=== PATIENT | male | born 1975 | race American Indian/Alaskan Native ===

== ENCOUNTER 2016-08-29 12:17 | Inpatient (IN) | payer OTHER ==
[2016-08-29 15:34] LABS: Bilirubin,Urine NEG (Negative); Blood,Urine NEG (Negative); Ketones,Urine 80 mg/dL (Negative); Leukocyte Esterase,Urine NEG (Negative); Mucus,Urine FEW /HPF; Nitrite,Urine NEG (Negative); Urobilinogen,Urine < 2.0 mg/dL (<2.0); WBC,Urine < 1.0 /HPF (0.0-6.0)
[2016-08-29] MEDS ORDERED: NACL 0.9% 1000 ML 2,000 ML ONE (15:38)
[2016-08-29 15:40] LABS: Mean Corpuscular HGB Conc 29 % (32-34); Mean Corpuscular Hemoglobin 29 pg (28-32); Mean Corpuscular Volume 101 fl (84-94); Platelet Count 282 K/mm3 (140-440); Red Blood Count 4.72 M/mm3 (3.65-5.03); Red Cell Distribution Width 19.8 % (13.2-15.2); White Blood Count 10.4 K/mm3 (4.5-11.0)
[2016-08-29 15:41] LABS: BUN/Creatinine Ratio 12.77; Calcium 9.4 mg/dL (8.4-10.2); Potassium 5.3 mmol/L (3.6-5.0)
[2016-08-29 15:41] LABS: Hematocrit 47.5 % (35.5-45.6); Hemoglobin 13.7 gm/dl (11.8-15.2)
[2016-08-29] MEDS ORDERED: D50W (25GM) IV PRN (15:50)
--- NOTE | 2016-08-29 15:52 | Emergency Department Report ---
ED General Adult HPI - General Chief complaint: Hyperglycemia Stated complaint: HYPERGLYCEMIA Time Seen by Provider: 08/29/16 15:37 Source: patient, EMS, RN notes reviewed Mode of arrival: Stretcher Limitations: Altered Mental Status, Physical Limitation - History of Present Illness Initial comments: This is a 41-year-old male. He is previously unknown to me. He is brought to the hospital by EMS. As per EMS documentation, patient was at an outpatient gymnasium, found conscious, but minimally responsive. EMS reports the patient is alert and oriented 4 on the scene. Patient informed EMS that he had a history of diabetes. Patient was found to be hypoglycemic in the field. Patient informed EMS that he did not take his insulin prior to having them called. Patient advised EMS that he vomited once prior to arrival. On my evaluation, the patient is somewhat delirious. He is alert to name, follows commands, but is not as oriented. Apparently, as per verbal report from the nurse, patient was found on the floor by EMS. Uncertain how long symptoms have been going on for. Patient cannot describe exacerbating or relieving factors. -: unknown Severity scale (0 -10): 0 Quality: constant Consistency: other (per hpi) Improves with: other (per hpi) Worsens with: other (per hpi) Associated Symptoms: confusion - Related Data Home Medications Medication Instructions Recorded Confirmed Last Taken No Known Home Medications [No 08/29/16 08/29/16 Unknown Reported Home Medications] Allergies Allergy/AdvReac Type Severity Reaction Status Date / Time aspirin Allergy Unknown Verified 05/29/16 22:00 ED Review of Systems ROS: Stated complaint: HYPERGLYCEMIA Other details as noted in HPI Comment: Unobtainable due to pts medical conditions Constitutional: see HPI Eyes: as per HPI Respiratory: see HPI Cardiovascular: as per HPI Endocrine: see HPI Gastrointestinal: as per HPI Genitourinary: as per HPI Musculoskeletal: as per HPI Skin: as per HPI Neurological: as per HPI Psychiatric: as per HPI Hematological/Lymphatic: as per HPI ED Past Medical Hx - Past Medical History Hx Diabetes: Yes Additional medical history: OBESITY - Surgical History Past Surgical History?: No - Social History Smoking Status: Never Smoker Substance Use Type: None - Medications Home Medications: Home Medications Medication Instructions Recorded Confirmed Last Taken Type No Known Home Medications [No 08/29/16 08/29/16 Unknown History Reported Home Medications] ED Physical Exam - General Limitations: Altered Mental Status General appearance: in no apparent distress, lethargic - Head Head exam: Present: atraumatic, normocephalic - Eye Eye exam: Present: normal appearance, PERRL, EOMI. Absent: nystagmus - ENT ENT exam: Present: normal exam, normal orophraynx, mucous membranes moist, normal external ear exam - Neck Neck exam: Present: normal inspection, full ROM. Absent: tenderness, meningismus - Respiratory Respiratory exam: Present: normal lung sounds bilaterally. Absent: respiratory distress, wheezes, rales, rhonchi, stridor, chest wall tenderness - Cardiovascular Cardiovascular Exam: Present: normal rhythm, tachycardia, normal heart sounds. Absent: systolic murmur, diastolic murmur, rubs, gallop - GI/Abdominal GI/Abdominal exam: Present: soft, normal bowel sounds. Absent: distended, tenderness, guarding, rebound, rigid, pulsatile mass - Rectal Rectal exam: Present: deferred - Extremities Exam Extremities exam: Present: normal inspection, full ROM, normal capillary refill. Absent: tenderness, pedal edema, joint swelling, calf tenderness - Back Exam Back exam: Present: normal inspection, full ROM. Absent: tenderness, CVA tenderness (R), CVA tenderness (L), muscle spasm, paraspinal tenderness, vertebral tenderness - Neurological Exam Neurological exam: Present: altered (patient sleepy but arousable. Somewhat delirious.), other (ears no facial droop. Extraocular movements are intact. Patient moves 4 extremities spontaneously and to command.) - Psychiatric Psychiatric exam: Present: flat affect - Skin Skin exam: Present: warm, dry, intact, normal color. Absent: rash ED Course Vital Signs 08/29/16 08/29/16 08/29/16 13:23 14:46 14:50 Temperature 98.2 F Pulse Rate 112 H 109 H 110 H Respiratory 14 9 L 12 Rate Blood Pressure 140/75 Blood Pressure [Left] O2 Sat by Pulse 98 98 99 Oximetry 08/29/16 08/29/16 08/29/16 15:00 15:10 15:19 Temperature 98.1 F Pulse Rate 121 H 118 H 113 H Respiratory 11 L 12 20 Rate Blood Pressure Blood Pressure 136/59 [Left] O2 Sat by Pulse 76 L 100 Oximetry 02/23/17 02/23/17 02/23/17 15:20 15:30 15:40 Temperature Pulse Rate 104 H 113 H 110 H Respiratory 16 17 11 L Rate Blood Pressure 131/87 Blood Pressure [Left] O2 Sat by Pulse 100 99 98 Oximetry 08/29/16 08/29/16 08/29/16 15:50 16:00 16:10 Temperature Pulse Rate 106 H 104 H 110 H Respiratory 17 11 L 12 Rate Blood Pressure 124/94 124/94 124/94 Blood Pressure [Left] O2 Sat by Pulse 99 98 99 Oximetry 08/29/16 08/29/16 08/29/16 16:20 16:30 16:40 Temperature Pulse Rate 108 H 103 H 113 H Respiratory 10 L 15 12 Rate Blood Pressure 129/87 123/87 123/87 Blood Pressure [Left] O2 Sat by Pulse 100 99 100 Oximetry 08/29/16 08/29/16 08/29/16 16:50 17:00 18:00 Temperature 98.2 F 98.5 F Pulse Rate 106 H 101 H 105 H Respiratory 11 L 13 14 Rate Blood Pressure 130/92 131/87 Blood Pressure 134/59 127/80 [Left] O2 Sat by Pulse 100 100 100 Oximetry 08/29/16 08/29/16 08/29/16 18:36 18:40 18:50 Temperature Pulse Rate 101 H 103 H 118 H Respiratory 13 13 Rate Blood Pressure 131/87 127/80 115/82 Blood Pressure [Left] O2 Sat by Pulse 100 100 Oximetry 08/29/16 08/29/16 08/29/16 19:00 19:10 19:20 Temperature Pulse Rate 101 H 100 H 100 H Respiratory 32 H 14 12 Rate Blood Pressure 96/56 96/56 98/60 Blood Pressure [Left] O2 Sat by Pulse 100 100 100 Oximetry 08/29/16 08/29/16 08/29/16 19:30 20:18 20:20 Temperature Pulse Rate 117 H 118 H Respiratory 16 Rate Blood Pressure 99/56 131/96 Blood Pressure [Left] O2 Sat by Pulse 99 99 Oximetry 08/29/16 20:25 Temperature 98.3 F Pulse Rate 98 H Respiratory 18 Rate Blood Pressure 99/56 Blood Pressure [Left] O2 Sat by Pulse 97 Oximetry - Reevaluation(s) Reevaluation #1: 08/29/16 16:38 Differential diagnosis: Intracranial injury, cervical spine injury, pneumonia, urinary tract infection, toxic encephalopathy, metabolic encephalopathy, diabetic ketoacidosis Assessment and plan: 41-year-old male with laboratory studies, delirium, presentation that suggest diabetic ketoacidosis. Awake, protecting airway, does not require intubation. There is a history of questionable trauma. CT scan of the head and cervical spine are ordered. X-ray of the chest is negative. Urinalysis is pending. IV fluids ordered. Insulin drip ordered. Insulin bolus ordered. Case is discussed with the credit collections specialist physician, Dr. Denis, who will see the patient in consultation for diabetic ketoacidosis. Plan to admit once CAT scan of the head and cervical spine have been returned. Serum toxicology studies ordered. Reevaluation #2: 08/29/16 17:20 Dr Bang accepts patient to his service Reevaluation #3: 08/29/16 19:20 CT scan of the brain negative for acute injury. CT scan of the cervical spine negative for fracture/dislocation. Patient is moving 4 extremities spontaneously. no indication of neck pain. Incidental findings are suggested on CT scan of the cervical spine. Clinically don't think the patient has cord compression at this time. Case is discussed with the hospital physician, Dr. bang, who accepts the patient to his service. ED Medical Decision Making - Lab Data Result diagrams: 08/29/16 15:01 08/30/16 12:44 Vital Signs 08/29/16 08/29/16 13:23 15:19 Temperature 98.2 F 98.1 F Pulse Rate 112 H 113 H Respiratory 14 20 Rate Blood Pressure 140/75 Blood Pressure 136/59 [Left] O2 Sat by Pulse 98 100 Oximetry Labs 08/29/16 08/29/16 08/29/16 13:18 13:26 15:01 WBC 10.4 RBC 4.72 Hgb 13.7 Hct 47.5 H MCV 101 H MCH 29 MCHC 29 L RDW 19.8 H Plt Count 282 Lymph % (Auto) Field Application Engineer [place] % (Auto) Field Application Engineer Eos % (Auto) Field Application Engineer Baso % (Auto) Field Application Engineer Lymph # Field Application Engineer [place] # Field Application Engineer Eos # Field Application Engineer Baso # Field Application Engineer Seg Neutrophils % Field Application Engineer Seg Neutrophils # Field Application Engineer Sodium Potassium Chloride Carbon Dioxide Anion Gap BUN Creatinine Estimated GFR BUN/Creatinine Ratio Glucose POC Glucose > 500 H Calcium Urine Color Straw Urine Turbidity Clear Urine pH 5.0 Ur Specific [place] 1.023 Urine Protein 30 mg/dl Urine Glucose (UA) >=500 Urine Ketones 80 Urine Blood Neg Urine Nitrite Neg Urine Bilirubin Neg Urine Urobilinogen < 2.0 Ur Leukocyte Esterase Neg Urine WBC (Auto) < 1.0 Urine RBC (Auto) 3.0 U Epithel Cells (Auto) < 1.0 Urine Mucus Few Ketones 08/29/16 15:10 WBC RBC Hgb Hct MCV MCH MCHC RDW Plt Count Lymph % (Auto) [place] % (Auto) Eos % (Auto) Baso % (Auto) Lymph # [place] # Eos # Baso # Seg Neutrophils % Seg Neutrophils # Sodium 136 L Potassium 5.3 H Chloride 90.0 L Carbon Dioxide 8 L* Anion Gap 44 BUN 23 H Creatinine 1.8 H Estimated GFR 51 BUN/Creatinine Ratio 12.77 Glucose 655 H* POC Glucose Calcium 9.4 Urine Color Urine Turbidity Urine pH Ur Specific [place] Urine Protein Urine Glucose (UA) Urine Ketones Urine Blood Urine Nitrite Urine Bilirubin Urine Urobilinogen Ur Leukocyte Esterase Urine WBC (Auto) Urine RBC (Auto) U Epithel Cells (Auto) Urine Mucus Ketones 125.0 H - EKG Data -: EKG Interpreted by Me EKG shows normal: axis, intervals, QRS complexes Rate: tachycardia - EKG Data When compared to previous EKG there are: previous EKG unavailable 08/29/16 19:22 sinus tachycardia, 104 bpm, motion artifact, not morphologically consistent with STEMI. - Radiology Data Radiology results: report reviewed, image reviewed interpreted by me: X-ray of the chest is negative for acute disease. CT scan of the brain and cervical spine negative for fracture/dislocation Critical Care Time: Yes Critical care time in (mins) excluding proc time.: 45 Critical care attestation.: If time is entered above; I have spent that time in minutes in the direct care of this critically ill patient, excluding procedure time. Critical Care Time: Critical care time includes multiple bedside evaluations, interpretation of laboratory studies, radiology studies, time spent managing critically ill patient with diabetic ketoacidosis, requiring insulin drip, insulin push, fluids, consultation with hospital medicine, critical care medicine. this excludes procedure time. ED Disposition Clinical Impression: DKA (diabetic ketoacidoses), Encephalopathy Disposition: OP ADMITTED IP TO THIS HOSP Is pt being admited?: Yes Does the pt Need Aspirin: No Condition: Critical
[2016-08-29] MEDS ORDERED: NACL 0.9% 500 ML IV SCH (16:00)
--- NOTE | 2016-08-29 16:02 | Admit Criteria Form ---
Admission Criteria Documentation: DIABETES Clinical Indications for Admission to Inpatient Care (Place 'X' for any and all applicable criteria): Admission is indicated by presence of ALL (if I & II) or ANY ONE (if III or IV) of the following (1)(2)(3)(4): [X]I. Diabetes is uncontrolled as indicated by ANY ONE of the following: [X]a) Diabetic ketoacidosis as indicated by ALL of the following (8): [X]i) Hyperglycemia (eg, plasma glucose greater than 200 mg/ dL (11.1 mmol/L)) [X]ii) Acidosis (eg, arterial pH less than 7.30, serum bicarbonate level less than 15 mEq/L (mmol/L)) [X]iii) Moderate ketonuria or ketonemia [ ]b) Hyperglycemic hyperosmolar state as indicated by ALL of the following(9)(10): [ ]i) Neurologic dysfunction (eg, stupor, coma, hemiparesis , seizure)(13) [ ]ii) Plasma glucose greater than 600 mg/dL (33.3 mmol/L) [ ]iii) Serum osmolality greater than 320 mOsm/kg (mmol/kg) [X]c) Severe signs or symptoms secondary to hyperglycemia indicated by ANY ONE of the following: [X]i) Altered mental status(10) [X]ii) Significant hypovolemia or dehydration [ ]iii) Intractable nausea or vomiting [ ]iv) Unexplained fever or severe infection [ ]v) Severe electrolyte abnormality (eg, hypokalemia, hyperkalemia, hypernatremia) [ ]II. Management at other levels of care (Also use Diabetes: Observation Care as appropriate) is not feasible because of ANY ONE of the following: [ ]a) Condition was not adequately corrected with treatment at other levels of care. [ ]b) Treatment at other levels of care is not appropriate because of condition severity (eg, hyperosmolar coma). [ ]III. Contraindications and/or Inappropriate clinical situations for Observational Care in patients with Diabetes, when ANY ONE of the following is required: [ ]a) Patient require specific diagnostic workup or therapeutic intervention 22 [ ]b) Patient with abnormal vital signs or altered mental status 23 [X]IV. General contraindications and/or Inappropriate clinical situations for Observational Care in patients with Diabetes, when ANY ONE of the following is required: [ ]a) Prediction of prolongation of LOS based on ANY ONE of the following may be considered as a contraindication for observational care 2, 3, 4, 5, 6, 7, 8, 9, 10, 11 [ ]i) Age > 65 yrs. [ ]ii) Patient arriving by ambulance [ ]iii) Patient with high acuity [ ]iv) Patient requiring vital sign monitoring [ ]v) Patient on IV medication [ ]b) Systolic blood pressures 180mmHg 3,12 [X]c) Patient with altered mental status including delirium and other alteration of consciousness, (3) [ ]d) Patient whose discharge disposition will be to a [facility] home or rehabilitation home should not be managed in Emergency Department Observation Unit. CMS rule requires 3 days hospital stay before such placement.3,13 [ ]e) Patient with failure to thrive due to broad array of etiologies 3,16,17 [ ]f) Inability to ambulate 3,14 Extended stay beyond goal length of stay may be needed for(3)(20): [ ]a) Treatment of precipitating causes [ ]b) Development of hypoglycemia [ ]c) Complications of treatment [ ]d) Complications of decompensated diabetes (eg, acute gastric dilatation, persistent metabolic or neurologic derangement) [ ]e) Active Comorbidities [ ]f) Older patients( 65 years or older) The original [email or web address] content created by [employer] has been revised. The portions of the content which have been revised are identified through the use of italic text or in bold,and [facility] has neither reviewed nor approved the modified material. All other unmodified content is copyright [facility]. Please see references footnoted in the original [email or web address] edition 2016 Admission Criteria Met: Yes
[2016-08-29 16:54] LABS: BUN/Creatinine Ratio 13.52; Calcium 9.4 mg/dL (8.4-10.2); Magnesium 2.2 mg/dL (1.7-2.3); Phosphorous 3.9 mg/dL (2.5-4.5)
--- NOTE | 2016-08-29 17:58 | Cat Scan Report ---
FINAL REPORT PROCEDURE: CT HEAD/BRAIN WO CON TECHNIQUE: Computerized tomography of the head was performed without contrast material. HISTORY: Altered mental status COMPARISON: No prior studies are available for comparison. FINDINGS: Brain: Brain density appears normal. No evidence of intracranial hemorrhage. No parenchymal hemorrhage, mass lesions or mass effect are seen. No abnormal extraxial fluid collects or masses are seen. Ventricles: Ventricles are normal size and are midline. Bone Windows: No evidence of skull fracture. Paranasal sinuses: Visualized portions of the paranasal sinuses appear clear. Mastoid air cells: Clear IMPRESSION: Negative exam.
--- NOTE | 2016-08-29 18:08 | Cat Scan Report ---
FINAL REPORT PROCEDURE: CT CERVICAL SPINE WO CON TECHNIQUE: Computerized tomography of the cervical spine was performed from the skull base to T1 without contrast material. HISTORY: ams COMPARISON: No prior studies are available for comparison. FINDINGS: No fracture or subluxation is seen. The prevertebral soft tissues appear normal. Posterior elements are intact. Mild facet arthritis is visualized C1-2: No significant abnormality. C2-3: No significant abnormality.. There is ossification of the posterior longitudinal ligament at the C3 level which obscures the anterior epidural space and may be mildly impressing the anterior surface of the cord. C3-4: Ossification of the posterior longitudinal ligament is present. This obscures the anterior epidural space and may be mildly compressing the anterior surface of the cord centrally and to the right of midline.. C4-5: Anterior osteophytic spurs are present. No evidence of focal disc herniation or spinal stenosis.. C5-6: Posterior osteophytic spurs are present overlying a mild disc bulge without focal disc herniation or spinal stenosis. Ossification of the posterior longitudinal ligament is also present.. This is larger to the right than the left. Neural foramina on the right is mildly narrowed although appears adequate. C6-7: No significant abnormality. C7-T1: No significant abnormality. Other: No additional findings. IMPRESSION: Calcifications of the posterior longitudinal ligament and posterior osteophytic spurring is present as described. At the C2-C3 level ossification of the posterior longitudinal ligament obscures the anterior epidural space and may be mildly compressing the anterior surface of the cord. This is also visualized at C3-C4.. Posterior osteophytic spurring and ossification of the posterior longitudinal ligament at C5-C6 obscures the anterior epidural space without definite cord compression. This is larger to the right than the left.
[2016-08-29] MEDS: NovoLIN R 100 UNITS in NACL 0.9% 99 ML IV SCH (19:40)
[2016-08-29] MEDS: D5W/0.45% NACL/KCL 20 MEQ 20 MEQ/1,000 ML BAG IV SCH (20:55)
--- NOTE | 2016-08-29 23:16 | Event Note ---
Date: 08/29/16 See H/p in reports DKA Encephalopathy-metabolic Hyperkalemia Acute renal failure
[2016-08-29 23:27] LABS: Urine Drugs of Abuse Note Disclamer
[2016-08-30 04:14] LABS: Blood Urea Nitrogen 18 mg/dL (9-20); Calcium 9.5 mg/dL (8.4-10.2); Carbon Dioxide 17 mmol/L (22-30); Chloride 110.1 mmol/L (98-107); Glucose 161 mg/dL (75-100); Sodium 149 mmol/L (137-145)
[2016-08-30 04:30] LABS: Anion Gap 26 mmol/L; Potassium 3.9 mmol/L (3.6-5.0)
--- NOTE | 2016-08-30 07:59 | XRay Report ---
CHEST ONE VIEW INDICATION: Altered mental status. Evaluate for pneumonia. COMPARISON: None similar. FINDINGS: Portable, single, frontal chest radiograph demonstrates normal cardiomediastinal silhouette. Clear lungs. Unremarkable bones. CONCLUSION: No acute disease in the chest. Thank you for the opportunity to participate in this patient's care.
[2016-08-30] MEDS: D5W/0.45% NACL/KCL 20 MEQ 20 MEQ/1,000 ML BAG IV SCH ×2 (08:19→17:09)
[2016-08-30 08:51] LABS: BUN/Creatinine Ratio 13.84; Blood Urea Nitrogen 18 mg/dL (9-20); Calcium 9.8 mg/dL (8.4-10.2); Carbon Dioxide 17 mmol/L (22-30); Chloride 113.7 mmol/L (98-107); Glucose 190 mg/dL (75-100); Sodium 150 mmol/L (137-145)
--- NOTE | 2016-08-30 08:51 | History and Physical Report ---
CHIEF COMPLAINT: Found unconscious at outside of gym. HISTORY OF PRESENT ILLNESS: A 41-year-old brought in by EMS. He was apparently initially unconscious at the scene, but was alert and oriented by the time the EMS was arrived. The patient had high sugar and apparently, the patient has not been taking his insulin. The patient vomited once while in the EMS van. At the time of admission to the ER, the patient was ___ alert to name and follows commands, but not oriented. Confused. Conflicting reports. The patient was initially unresponsive, but later alert and oriented. No fever. No chills as per the patient. PAST MEDICAL HISTORY: Asthma and insulin-dependent diabetes. SURGICAL HISTORY: None. SOCIAL HISTORY: Does not smoke. FAMILY HISTORY: Unavailable. CURRENT MEDICATIONS: Not taking his insulin. REVIEW OF SYSTEMS: GENERAL: No weight loss. No weight gain. No fever. No chills. HEENT: No sore throat. No postnasal drip. CVS AND RESPIRATORY SYSTEMS: No shortness of breath. No chest pain. No wheezing. GI: Nausea present. Vomited x1. No diarrhea. GENITOURINARY SYSTEM: No dysuria. No flank pain. MUSCULOSKELETAL SYSTEMS: No joint pains. CENTRAL NERVOUS SYSTEM: altered sensorium in the ER. Somewhat delirious. NEUROLOGIC: No focal deficits. PSYCHIATRIC: No homicidal or suicidal ideations. SKIN: No rashes. PHYSICAL EXAMINATION: GENERAL: On examination, middle-aged male altered sensorium. Occasionally, alert and oriented and talks well and occasionally intermittently confused and delirious VITAL SIGNS: Temperature 98.2, pulse is 112, respirations are 14, blood pressure 140/75, and O2 sats are 98%. HEENT: Dry mucous membranes. NECK: Supple. No lymphadenopathy. No thyromegaly. No neck stiffness. LUNGS: Clear to auscultation and percussion. Good air entry. CARDIOVASCULAR: S1 and S2 heard. No gallop. No murmur. No rub. Apical impulse in left fifth intercostal space and midclavicular line. ABDOMEN: Soft and benign. No hepatosplenomegaly. No guarding. No rigidity. Hernial orifices are normal. EXTREMITIES: Good pedal pulses. No pedal edema. BASE MANAGER: Ranging from alert and oriented to confusion and delirious. Able to move all four extremities. LABORATORY DATA AND IMAGING STUDIES: CT scan of the cervical spine negative for fracture or dislocation. The patient is moving four extremities spontaneously. Labs glucose is 605, bicarbonate 8, and potassium was 5.0. BUN and creatinine is 23 and 1.7. Urine shows more than 500 glucose. Also, ketones 125. BUN and creatinine 23 and 1.8. EKG shows sinus tachycardia 104 per minute. X-ray is negative for acute disease. ASSESSMENT AND PLAN: 1. Diabetic ketoacidosis. Diabetic ketoacidosis protocol initiated. The patient recounseled about taking regular insulin and insulin on a regular basis. 2. Encephalopathy and metabolic secondary to high blood glucose levels. 3. Hyperacute renal failure. IV fluids for the time being and monitor BUN and creatinine. 4. Deep venous thrombosis prophylaxis, Lovenox 40 mg subcutaneous daily. 5. Hyperkalemia, should be corrected with IV insulin. CRITICAL CARE STATEMENT: The high probability of a clinically significant sudden or life-threatening deterioration of the pulmonary system required my full and direct attention, intervention, and personal management. The aggregate critical care time was 35 minutes. The time is in addition to time spent performing reported procedures, but includes the following; 1. Data reviewing and interpretation. 2. The patient assessment and monitoring of vital signs. 3. Documentation. 4. Medication orders and management. JOB# [id number] FLOYD/NTS
[2016-08-30 09:26] LABS: Anion Gap 25 mmol/L; Potassium 5.8 mmol/L (3.6-5.0)
[2016-08-30 13:10] LABS: Anion Gap 23 mmol/L; Blood Urea Nitrogen 16 mg/dL (9-20); Calcium 9.4 mg/dL (8.4-10.2); Carbon Dioxide 19 mmol/L (22-30); Chloride 111.9 mmol/L (98-107); Glucose 234 mg/dL (75-100); Potassium 4.3 mmol/L (3.6-5.0); Sodium 150 mmol/L (137-145)
--- NOTE | 2016-08-30 13:14 | Consultation ---
History of Present Illness Consult date: 08/30/16 Requesting physician: EVER PALACIOS Reason for consult: other (DKA) History of present illness: PULMONARY/CCM CONSULT NOTE (Full dictation # [id number]) Please see dictated notes for full details Medications and Allergies Allergies Allergy/AdvReac Type Severity Reaction Status Date / Time aspirin Allergy Unknown Verified 05/29/16 22:00 Home Medications Medication Instructions Recorded Confirmed Last Taken Type No Known Home Medications [No 08/29/16 08/29/16 Unknown History Reported Home Medications] Active Meds: Active Medications Dextrose (D50w (25gm)) 0 ml IV PRN PRN PRN Reason: Hypoglycemia Potassium Chloride/Dextrose/Sod Cl (D5w/0.45% Nacl/Kcl 20 Meq) 20 meq in 1,000 mls @ 125 mls/hr IV DIRECT ROSSY Last Admin: 08/30/16 08:19 Dose: 125 mls/hr Insulin Human Regular 100 (units/ Sodium Chloride) 100 mls @ 1 mls/hr IV TITR ROSSY; 1 UNITS/HR PRN Reason: Protocol Last Titration: 08/30/16 12:13 Dose: 8 units/hr, 8 mls/hr Sodium Chloride (Nacl 0.9% 500 Ml) 2,000 ml IV NOW ROSSY Last Admin: 08/29/16 17:09 Dose: 2,000 ml Physical Examination Vital signs: Vital Signs Temp Pulse Resp BP Pulse Ox 98.2 F 112 H 14 140/75 98 08/29/16 13:23 08/29/16 13:23 08/29/16 13:23 08/29/16 13:23 08/29/16 13:23 Results - Laboratory Findings CBC and BMP: 08/29/16 15:01 08/30/16 12:44 Abnormal lab findings: Abnormal Labs 08/29/16 08/29/16 08/29/16 19:36 20:31 21:28 Sodium Potassium Chloride Carbon Dioxide Glucose POC Glucose 403 H 374 H 286 H 08/29/16 08/29/16 08/29/16 21:52 23:16 23:35 Sodium Potassium Chloride Carbon Dioxide Glucose POC Glucose 283 H 173 H 159 H 08/30/16 08/30/16 08/30/16 00:11 01:12 02:07 Sodium Potassium Chloride Carbon Dioxide Glucose POC Glucose 152 H 159 H 159 H 0208/30/16 08/30/16 03:16 03:32 04:18 Sodium 149 H D Potassium Chloride 110.1 H Carbon Dioxide 17 L D Glucose 161 H POC Glucose 173 H 181 H 08/30/16 08/30/16 08/30/16 05:04 05:57 07:13 Sodium Potassium Chloride Carbon Dioxide Glucose POC Glucose 183 H 177 H 167 H 08/30/16 08/30/16 07:54 12:44 Sodium 150 H 150 H Potassium 5.8 H D Chloride 113.7 H 111.9 H Carbon Dioxide 17 L 19 L Glucose 190 H 234 H POC Glucose
[2016-08-30] MEDS: NovoLIN R 100 UNITS in NACL 0.9% 99 ML IV SCH (14:25)
--- NOTE | 2016-08-30 15:00 | Progress Note ---
Assessment and Plan Assessment and plan: DKA - Patient is in the ICU managed according to DKA protocol - The gap is closing - Last bicarbonate was 19 - Patient is on D5 half-normal saline - Started on long-acting insulin Hypernatremia - Patient is on D5 half normal saline Prophylaxis - DVT on lovenox - GI on famotidine Disposition - Continue inpatient care History Interval history: Patient was sleepy, patient complains hungry, he went to sleep while i am talking to him. Hospitalist Physical - Physical exam Narrative exam: Not in cardiopulmonary distress. Patient mouth is dry. The patient appeared well nourished and normally developed. Vital signs as documented. Head exam is unremarkable. No scleral icterus . Neck is without jugular venous distension, thyromegaly, or carotid bruits. Lungs are clear to auscultation. Cardiac exam reveals regular rate and Rhythm. First and second heart sounds normal. No murmurs, rubs or gallops. Abdominal exam reveals normal bowel sounds, no masses, no organomegaly and no aortic enlargement. Extremities are nonedematous and both femoral and pedal pulses are normal. VINYL DIPPER: Patient is sleepy. - Constitutional Vitals: Temp Pulse Resp BP Pulse Ox 98.1 F 76 11 L 115/70 97 08/30/16 08:00 08/30/16 06:30 08/30/16 06:30 08/30/16 06:30 08/30/16 06:30 Results - Labs CBC & Chem 7: 08/29/16 15:01 08/30/16 12:44 Labs: Laboratory Last Values WBC 10.4 K/mm3 (4.5-11.0) 08/29/16 15:01 RBC 4.72 M/mm3 (3.65-5.03) 08/29/16 15:01 Hgb 13.7 gm/dl (11.8-15.2) 08/29/16 15:01 Hct 47.5 % (35.5-45.6) H 08/29/16 15:01 MCV 101 fl (84-94) H 08/29/16 15:01 MCH 29 pg (28-32) 08/29/16 15:01 MCHC 29 % (32-34) L 08/29/16 15:01 RDW 19.8 % (13.2-15.2) H 08/29/16 15:01 Plt Count 282 K/mm3 (140-440) 08/29/16 15:01 Lymph % (Auto) Chaperone 08/29/16 15:01 Craig % (Auto) Chaperone 08/29/16 15:01 Eos % (Auto) Chaperone 08/29/16 15:01 Baso % (Auto) Chaperone 08/29/16 15:01 Lymph # Chaperone 08/29/16 15:01 Craig # Chaperone 08/29/16 15:01 Eos # Chaperone 08/29/16 15:01 Baso # Chaperone 08/29/16 15:01 Seg Neutrophils % Chaperone 08/29/16 15:01 Seg Neutrophils # Chaperone 08/29/16 15:01 VBG pH 7.158 (7.320-7.420) L* 08/29/16 16:04 Sodium 150 mmol/L (137-145) H 08/30/16 12:44 Potassium 4.3 mmol/L (3.6-5.0) D 08/30/16 12:44 Chloride 111.9 mmol/L (98-107) H 08/30/16 12:44 Carbon Dioxide 19 mmol/L (22-30) L 08/30/16 12:44 Anion Gap 23 mmol/L 08/30/16 12:44 BUN 16 mg/dL (9-20) 08/30/16 12:44 Creatinine 1.3 mg/dL (0.8-1.5) 08/30/16 12:44 Estimated GFR > 60 ml/min 08/30/16 12:44 BUN/Creatinine Ratio 12.30 % 08/30/16 12:44 Glucose 234 mg/dL (75-100) H 08/30/16 12:44 POC Glucose 167 (70-105) H 08/30/16 07:13 Lactic Acid 2.2 mmol/L (0.7-2.0) H* 08/29/16 16:04 Calcium 9.4 mg/dL (8.4-10.2) 08/30/16 12:44 Phosphorus 3.9 mg/dL (2.5-4.5) 08/29/16 16:04 Magnesium 2.2 mg/dL (1.7-2.3) 08/29/16 16:04 Total Creatine Kinase 47 units/L (55-170) L 08/29/16 16:04 Urine Color Straw (Yellow) 08/29/16 13:26 Urine Turbidity Clear (Clear) 08/29/16 13:26 Urine pH 5.0 (5.0-7.0) 08/29/16 13:26 Ur Specific [place] 1.023 (1.003-1.030) 08/29/16 13:26 Urine Protein 30 mg/dl mg/dL (Negative) 08/29/16 13:26 Urine Glucose (UA) >=500 mg/dL (Negative) 08/29/16 13:26 Urine Ketones 80 mg/dL (Negative) 08/29/16 13:26 Urine Blood Neg (Negative) 08/29/16 13:26 Urine Nitrite Neg (Negative) 08/29/16 13:26 Urine Bilirubin Neg (Negative) 08/29/16 13:26 Urine Urobilinogen < 2.0 mg/dL (<2.0) 08/29/16 13:26 Ur Leukocyte Esterase Neg (Negative) 08/29/16 13:26 Urine WBC (Auto) < 1.0 /HPF (0.0-6.0) 08/29/16 13:26 Urine RBC (Auto) 3.0 /HPF (0.0-6.0) 08/29/16 13:26 U Epithel Cells (Auto) < 1.0 /HPF (0-13.0) 08/29/16 13:26 Urine Mucus Few /HPF 08/29/16 13:26 Salicylates 0.7 mg/dL (2.8-20.0) L 08/29/16 16:04 Urine Opiates Screen Presumptive negative 08/29/16 13:26 Urine Methadone Screen Presumptive negative 08/29/16 13:26 Acetaminophen < 15.0 ug/mL (10.0-30.0) 08/29/16 16:04 Ur Barbiturates Screen Presumptive negative 08/29/16 13:26 Ur Phencyclidine Scrn Presumptive negative 08/29/16 13:26 Ur Amphetamines Screen Presumptive negative 08/29/16 13:26 U Benzodiazepines Scrn Presumptive negative 08/29/16 13:26 Urine Cocaine Screen Presumptive negative 08/29/16 13:26 U Marijuana (THC) Screen Presumptive negative 08/29/16 13:26 Drugs of Abuse Note Disclamer 08/29/16 13:26 Ketones 125.0 mg/dL (0.2-2.8) H 08/29/16 15:10
[2016-08-30] MEDS: LOVENOX SUB-Q SCH (21:29)
--- NOTE | 2016-08-31 03:35 | Consultation ---
CONSULTING PHYSICIAN: . REASON FOR CONSULTATION: Need for ICU admission for IV insulin therapy. CHIEF COMPLAINT AND HISTORY OF PRESENT ILLNESS: The patient is a 41-year-old -[place] male unknown to me, past medical history significant for diagnosis of diabetes, he was found at an outpatient gym, he was conscious, but minimally responsive. EMS reported to the scene, he was alert and oriented. history of diabetes who was hypoglycemic. He was brought into the Emergency Room. In the Emergency Room, he was alert. He has never followed commands, he was not oriented. Evaluation was started. He was still found to be in diabetic ketoacidosis and ICU admission was requested for IV insulin therapy. When I stopped by to see him, he just had breakfast, but he was not responding to my questions. Appropriately, he was more lethargic, I would say. He did deny any acute chest pains. I do not have any history of nausea or overt aspiration. The above is as much of the history of presentation as I have. With regards to his tobacco use/abuse history, he denied any history of tobacco smoke at presentation. PAST MEDICAL HISTORY: Diabetes. PAST SURGICAL HISTORY: Denied. MEDICATIONS: He was on at the time I stopped by to see him, according to the medication administration record included the following: He was on IV insulin drip at 14 units per hour and dextrose half NS with KCl per protocol. ALLERGIES: TO ASPIRIN. Nature of this allergy is unknown. DIET: Well-built gentleman. Acute weight loss or gain history is unknown. FAMILY AND SOCIAL HISTORY: Apparently lived in the community. Denied alcohol, tobacco, or illicit drug use or abuse. REVIEW OF SYSTEMS: No overt loss of consciousness, although he had altered mental status. No new onset focal weakness. No gross hematochezia or melena. No gross hematuria. Since he has been here, no hematemesis, no hemoptysis, no witnessed seizures. Review of systems otherwise unobtainable secondary to the patient's medical and mental condition. PHYSICAL EXAMINATION: VITAL SIGNS: At presentation in the Emergency Room, review of the vital signs shows that he was afebrile, temperature 98.2, pulse was 112, respiratory rate was 14, blood pressure was 140/75, oxygen sats were 98%, inspired oxygen concentration was not recorded. HEENT, EYES, EARS, NOSE AND THROAT: Pupils are equal, round, about 3-4 mm, reactive to light. Extraocular muscle movements appeared intact. Grossly, there were no palpable lymph nodes in the supraclavicular or submandibular lymph node chains. LUNGS: Auscultation of both lung valencia was unremarkable. Lungs are clear bilaterally. HEART: Heart sounds 1 and 2 were heard. Regular rate and rhythm at time of my evaluation. ABDOMEN: Soft, full, bowel sounds are positive, nontender. EXTREMITIES: Without overt digital clubbing, cyanosis, or pedal edema. NEUROLOGIC: The exam was grossly nonfocal. LABORATORY DATA: From my review are as follows: White cell count 10,400 on admission, hemoglobin 13.7, hematocrit 47.5, platelets 282. Venous blood gas showed a pH of 7.16. Serum sodium was 136, potassium 5.3, chloride 90, bicarbonate 8, BUN 23, creatinine 1.8, glucose was 655. Urinalysis was negative for nitrites and leukocyte esterase. Aspirin and Tylenol levels were within normal limits. Urine drug screen was negative. Serum ketones are elevated at 125. Potassium did correct to 3.9. Most recent potassium is 4.3. No microbiology studies. Chest x-ray was done. A CT of the head was done, I am pulling up the films, I have reviewed the radiologist's interpretation. CT of the head was reported as negative exam, negative for any acute process. CT of the C-spine was also done, no acute fracture was reported and chest x-ray was also done and the radiologist's reports that as no acute disease in the chest. ASSESSMENT AND PLAN: We have a middle-aged gentleman in with diabetic ketoacidosis, probably needing IV insulin therapy and that we will continue in the Intensive Care Unit. In the meantime, I will put him on GI prophylaxis as well as DVT prophylaxis. Flu and pneumonia vaccination will be per protocol. He has been followed by the attending physician. Thank you very much for the consult. We will follow along and make further recommendations as the picture progresses/becomes clear. JOB# [id number] UMESH/STEFAN
[2016-08-31 08:36] LABS: Basophils % (Auto) 1.1 % (0.0-1.8); Eosinophils % (Auto) 1.4 % (0.0-4.3); Hemoglobin 11.9 gm/dl (11.8-15.2); Mean Corpuscular HGB Conc 32 % (32-34); Mean Corpuscular Hemoglobin 29 pg (28-32); Platelet Count 181 K/mm3 (140-440); Red Blood Count 4.09 M/mm3 (3.65-5.03); Red Cell Distribution Width 19.4 % (13.2-15.2); White Blood Count 5.8 K/mm3 (4.5-11.0)
[2016-08-31 08:52] LABS: Blood Urea Nitrogen 12 mg/dL (9-20); Calcium 9.2 mg/dL (8.4-10.2); Carbon Dioxide 21 mmol/L (22-30); Glucose 392 mg/dL (75-100)
[2016-08-31 08:53] LABS: Anion Gap 18 mmol/L; Chloride 104.3 mmol/L (98-107); Potassium 3.3 mmol/L (3.6-5.0); Sodium 140 mmol/L (137-145)
[2016-08-31 09:07] LABS: Hematocrit 37.1 % (35.5-45.6)
[2016-08-31 09:08] LABS: Mean Corpuscular Volume 91 fl (84-94)
[2016-08-31] MEDS ORDERED: PEPCID IV SCH (10:00)
[2016-08-31] MEDS: PEPCID PO SCH (11:52)
[2016-08-31] MEDS ORDERED: K-DUR PO ONE ×3 (14:35→18:00)
--- NOTE | 2016-08-31 14:37 | Progress Note ---
Assessment and Plan Assessment and plan: DKA - Patient managed according to DKA protocol - The gap is closed - Last bicarbonate was 19 - Patient is on D5 half-normal saline - Started on long-acting insulin Hypernatremia - Patient is on D5 half normal saline Prophylaxis - DVT on lovenox - GI on famotidine Disposition - Continue inpatient care Disposition Plan: patient can be discharged tomorrow History Interval history: Patient is feeling better, he is homeless and was not able to afford his medications. Hospitalist Physical - Physical exam Narrative exam: Not in cardiopulmonary distress. Patient mouth is dry. The patient appeared well nourished and normally developed. Vital signs as documented. Head exam is unremarkable. No scleral icterus . Neck is without jugular venous distension, thyromegaly, or carotid bruits. Lungs are clear to auscultation. Cardiac exam reveals regular rate and Rhythm. First and second heart sounds normal. No murmurs, rubs or gallops. Abdominal exam reveals normal bowel sounds, no masses, no organomegaly and no aortic enlargement. Extremities are nonedematous and both femoral and pedal pulses are normal. RAMP JOCKEY: Patient is sleepy. - Constitutional Vitals: Temp Pulse Resp BP Pulse Ox 98.1 F 73 18 125/79 98 08/31/16 08:15 08/31/16 08:15 08/31/16 08:15 08/31/16 08:15 08/31/16 08:15 Results - Labs CBC & Chem 7: 08/31/16 08:03 08/31/16 08:03 Labs: Laboratory Last Values WBC 5.8 K/mm3 (4.5-11.0) 08/31/16 08:03 RBC 4.09 M/mm3 (3.65-5.03) 08/31/16 08:03 Hgb 11.9 gm/dl (11.8-15.2) 08/31/16 08:03 Hct 37.1 % (35.5-45.6) D 08/31/16 08:03 MCV 91 fl (84-94) D 08/31/16 08:03 MCH 29 pg (28-32) 08/31/16 08:03 MCHC 32 % (32-34) 08/31/16 08:03 RDW 19.4 % (13.2-15.2) H 08/31/16 08:03 Plt Count 181 K/mm3 (140-440) 08/31/16 08:03 Lymph % (Auto) 22.5 % (13.4-35.0) 08/31/16 08:03 [place] % (Auto) 5.4 % (0.0-7.3) 08/31/16 08:03 Eos % (Auto) 1.4 % (0.0-4.3) 08/31/16 08:03 Baso % (Auto) 1.1 % (0.0-1.8) 08/31/16 08:03 Lymph # 1.3 K/mm3 (1.2-5.4) 08/31/16 08:03 [place] # 0.3 K/mm3 (0.0-0.8) 08/31/16 08:03 Eos # 0.1 K/mm3 (0.0-0.4) 08/31/16 08:03 Baso # 0.1 K/mm3 (0.0-0.1) 08/31/16 08:03 Seg Neutrophils % 69.6 % (40.0-70.0) 08/31/16 08:03 Seg Neutrophils # 4.0 K/mm3 (1.8-7.7) 08/31/16 08:03 VBG pH 7.158 (7.320-7.420) L* 08/29/16 16:04 Sodium 140 mmol/L (137-145) D 08/31/16 08:03 Potassium 3.3 mmol/L (3.6-5.0) L D 08/31/16 08:03 Chloride 104.3 mmol/L (98-107) 08/31/16 08:03 Carbon Dioxide 21 mmol/L (22-30) L 08/31/16 08:03 Anion Gap 18 mmol/L 08/31/16 08:03 BUN 12 mg/dL (9-20) 08/31/16 08:03 Creatinine 1.1 mg/dL (0.8-1.5) 08/31/16 08:03 Estimated GFR > 60 ml/min 08/31/16 08:03 BUN/Creatinine Ratio 10.90 % 08/31/16 08:03 Glucose 392 mg/dL (75-100) H 08/31/16 08:03 POC Glucose 374 (70-105) H 08/31/16 11:53 Lactic Acid 2.2 mmol/L (0.7-2.0) H* 08/29/16 16:04 Calcium 9.2 mg/dL (8.4-10.2) 08/31/16 08:03 Phosphorus 3.9 mg/dL (2.5-4.5) 08/29/16 16:04 Magnesium 2.2 mg/dL (1.7-2.3) 08/29/16 16:04 Total Creatine Kinase 47 units/L (55-170) L 08/29/16 16:04 Urine Color Straw (Yellow) 08/29/16 13:26 Urine Turbidity Clear (Clear) 08/29/16 13:26 Urine pH 5.0 (5.0-7.0) 08/29/16 13:26 Ur Specific [place] 1.023 (1.003-1.030) 08/29/16 13:26 Urine Protein 30 mg/dl mg/dL (Negative) 08/29/16 13:26 Urine Glucose (UA) >=500 mg/dL (Negative) 08/29/16 13:26 Urine Ketones 80 mg/dL (Negative) 08/29/16 13:26 Urine Blood Neg (Negative) 08/29/16 13:26 Urine Nitrite Neg (Negative) 08/29/16 13:26 Urine Bilirubin Neg (Negative) 08/29/16 13:26 Urine Urobilinogen < 2.0 mg/dL (<2.0) 08/29/16 13:26 Ur Leukocyte Esterase Neg (Negative) 08/29/16 13:26 Urine WBC (Auto) < 1.0 /HPF (0.0-6.0) 08/29/16 13:26 Urine RBC (Auto) 3.0 /HPF (0.0-6.0) 08/29/16 13:26 U Epithel Cells (Auto) < 1.0 /HPF (0-13.0) 08/29/16 13:26 Urine Mucus Few /HPF 08/29/16 13:26 Salicylates 0.7 mg/dL (2.8-20.0) L 08/29/16 16:04 Urine Opiates Screen Presumptive negative 08/29/16 13:26 Urine Methadone Screen Presumptive negative 08/29/16 13:26 Acetaminophen < 15.0 ug/mL (10.0-30.0) 08/29/16 16:04 Ur Barbiturates Screen Presumptive negative 08/29/16 13:26 Ur Phencyclidine Scrn Presumptive negative 08/29/16 13:26 Ur Amphetamines Screen Presumptive negative 08/29/16 13:26 U Benzodiazepines Scrn Presumptive negative 08/29/16 13:26 Urine Cocaine Screen Presumptive negative 08/29/16 13:26 U Marijuana (THC) Screen Presumptive negative 08/29/16 13:26 Drugs of Abuse Note Disclamer 08/29/16 13:26 Ketones 125.0 mg/dL (0.2-2.8) H 08/29/16 15:10
--- NOTE | 2016-08-31 18:09 | Progress Note ---
Assessment and Plan Patient alert,awake, resting on room air. No complaint of chest pain or shortness of breath.O2 satuaration 97% on room air. Since there is no pulmonary Issues at this time. Signing off the case. If you need any pulmonary help call us back. - Patient Problems (1) DKA (diabetic ketoacidoses) Current Visit: Yes Status: Acute Qualifiers: Diabetes mellitus type: D Diabetes mellitus complication detail: D Plan to address problem: DKA improved. Management as per primary care. (2) Encephalopathy Current Visit: Yes Status: Acute Plan to address problem: Patient alert, awake well oriented at this time. Subjective Date of service: 08/31/16 Interval history: Patient alert,awake, resting on room air. No complaint of chest pain or shortness of breath.O2 satuaration 97% on room air. Objective Vital Signs - 12hr 08/31/16 08/31/16 08/31/16 08:15 12:10 16:00 Temperature 98.1 F 98.0 F 98.1 F Pulse Rate [ 73 81 96 H Left Radial] Respiratory 18 18 16 Rate Blood Pressure 125/79 Blood Pressure 125/79 120/79 116/78 [Left Arm] O2 Sat by Pulse 98 98 97 Oximetry CBC and BMP: 08/31/16 08:03 08/31/16 08:03 Abnormal lab findings: Abnormal Labs 08/29/16 08/29/16 08/29/16 19:36 20:31 21:28 RDW Sodium Potassium Chloride Carbon Dioxide Glucose POC Glucose 403 H 374 H 286 H 08/29/16 08/29/16 08/29/16 21:52 23:16 23:35 RDW Sodium Potassium Chloride Carbon Dioxide Glucose POC Glucose 283 H 173 H 159 H 08/30/16 08/30/16 08/30/16 00:11 01:12 02:07 RDW Sodium Potassium Chloride Carbon Dioxide Glucose POC Glucose 152 H 159 H 159 H 08/30/16 08/30/16 08/30/16 03:16 03:32 04:18 RDW Sodium 149 H D Potassium Chloride 110.1 H Carbon Dioxide 17 L D Glucose 161 H POC Glucose 173 H 181 H 08/30/16 08/30/16 08/30/16 05:04 05:57 07:13 RDW Sodium Potassium Chloride Carbon Dioxide Glucose POC Glucose 183 H 177 H 167 H 08/30/16 08/30/16 08/30/16 07:46 07:54 09:30 RDW Sodium 150 H Potassium 5.8 H D Chloride 113.7 H Carbon Dioxide 17 L Glucose 190 H POC Glucose 183 H 231 H 08/30/16 08/30/16 08/30/16 10:20 11:12 12:03 RDW Sodium Potassium Chloride Carbon Dioxide Glucose POC Glucose 143 H 114 H 239 H 08/30/16 08/30/16 08/30/16 12:44 13:17 14:23 RDW Sodium 150 H Potassium Chloride 111.9 H Carbon Dioxide 19 L Glucose 234 H POC Glucose 285 H 273 H 08/30/16 08/30/16 08/30/16 15:10 16:21 17:02 RDW Sodium Potassium Chloride Carbon Dioxide Glucose POC Glucose 254 H 168 H 182 H 08/30/16 08/31/16 08/31/16 21:22 06:25 08:03 RDW 19.4 H Sodium Potassium Chloride Carbon Dioxide Glucose POC Glucose 350 H 339 H 08/31/16 08/31/16 08/31/16 08:03 11:53 16:51 RDW Sodium Potassium 3.3 L D Chloride Carbon Dioxide 21 L Glucose 392 H POC Glucose 374 H 385 H
[2016-08-31] MEDS: LOVENOX SUB-Q SCH (22:25)
[2016-09-01] MEDS: PEPCID PO SCH (09:46)
[2016-09-01 09:55] LABS: Anion Gap 16 mmol/L; Blood Urea Nitrogen 10 mg/dL (9-20); Calcium 8.8 mg/dL (8.4-10.2); Carbon Dioxide 25 mmol/L (22-30); Chloride 102.8 mmol/L (98-107); Glucose 329 mg/dL (75-100); Potassium 3.2 mmol/L (3.6-5.0); Sodium 141 mmol/L (137-145)
--- NOTE | 2016-09-01 11:51 | Progress Note ---
Assessment and Plan Assessment and plan: DKA - Patient managed according to DKA protocol - The gap is closed - nicarb is normal - Patient started on diabetic diet - Started on long-acting insulin and metformin - Blood sugar is uncontrolled Hypernatremia - Resolved Prophylaxis - DVT on lovenox - GI on famotidine Disposition - Patient is homeless and is not able to afford his medications and put consult for case management. History Interval history: Patient is feeling better, he is homeless and was not able to afford his medications. Hospitalist Physical - Physical exam Narrative exam: Not in cardiopulmonary distress. The patient appeared well nourished and normally developed. Vital signs as documented. Head exam is unremarkable. No scleral icterus . Neck is without jugular venous distension, thyromegaly, or carotid bruits. Lungs are clear to auscultation. Cardiac exam reveals regular rate and Rhythm. First and second heart sounds normal. No murmurs, rubs or gallops. Abdominal exam reveals normal bowel sounds, no masses, no organomegaly and no aortic enlargement. Extremities are nonedematous and both femoral and pedal pulses are normal. CONTRACT FORESTER: Patient is alert and oriented 3. No focal weakness. - Constitutional Vitals: Temp Pulse Resp BP Pulse Ox 98.0 F 97 H 20 118/81 98 09/01/16 08:10 09/01/16 08:10 09/01/16 08:10 09/01/16 08:10 09/01/16 08:10 Results - Labs CBC & Chem 7: 08/31/16 08:03 09/01/16 08:13 Labs: Laboratory Last Values WBC 5.8 K/mm3 (4.5-11.0) 08/31/16 08:03 RBC 4.09 M/mm3 (3.65-5.03) 08/31/16 08:03 Hgb 11.9 gm/dl (11.8-15.2) 08/31/16 08:03 Hct 37.1 % (35.5-45.6) D 08/31/16 08:03 MCV 91 fl (84-94) D 08/31/16 08:03 MCH 29 pg (28-32) 08/31/16 08:03 MCHC 32 % (32-34) 08/31/16 08:03 RDW 19.4 % (13.2-15.2) H 08/31/16 08:03 Plt Count 181 K/mm3 (140-440) 08/31/16 08:03 Lymph % (Auto) 22.5 % (13.4-35.0) 08/31/16 08:03 [place] % (Auto) 5.4 % (0.0-7.3) 08/31/16 08:03 Eos % (Auto) 1.4 % (0.0-4.3) 08/31/16 08:03 Baso % (Auto) 1.1 % (0.0-1.8) 08/31/16 08:03 Lymph # 1.3 K/mm3 (1.2-5.4) 08/31/16 08:03 [place] # 0.3 K/mm3 (0.0-0.8) 08/31/16 08:03 Eos # 0.1 K/mm3 (0.0-0.4) 08/31/16 08:03 Baso # 0.1 K/mm3 (0.0-0.1) 08/31/16 08:03 Seg Neutrophils % 69.6 % (40.0-70.0) 08/31/16 08:03 Seg Neutrophils # 4.0 K/mm3 (1.8-7.7) 08/31/16 08:03 VBG pH 7.158 (7.320-7.420) L* 08/29/16 16:04 Sodium 141 mmol/L (137-145) 09/01/16 08:13 Potassium 3.2 mmol/L (3.6-5.0) L 09/01/16 08:13 Chloride 102.8 mmol/L (98-107) 09/01/16 08:13 Carbon Dioxide 25 mmol/L (22-30) 09/01/16 08:13 Anion Gap 16 mmol/L 09/01/16 08:13 BUN 10 mg/dL (9-20) 09/01/16 08:13 Creatinine 0.8 mg/dL (0.8-1.5) 09/01/16 08:13 Estimated GFR > 60 ml/min 09/01/16 08:13 BUN/Creatinine Ratio 12.50 % 09/01/16 08:13 Glucose 329 mg/dL (75-100) H 09/01/16 08:13 POC Glucose 301 (70-105) H 09/01/16 06:18 Lactic Acid 2.2 mmol/L (0.7-2.0) H* 08/29/16 16:04 Calcium 8.8 mg/dL (8.4-10.2) 09/01/16 08:13 Phosphorus 3.9 mg/dL (2.5-4.5) 08/29/16 16:04 Magnesium 2.2 mg/dL (1.7-2.3) 08/29/16 16:04 Total Creatine Kinase 47 units/L (55-170) L 08/29/16 16:04 Urine Color Straw (Yellow) 08/29/16 13:26 Urine Turbidity Clear (Clear) 08/29/16 13:26 Urine pH 5.0 (5.0-7.0) 08/29/16 13:26 Ur Specific [place] 1.023 (1.003-1.030) 08/29/16 13:26 Urine Protein 30 mg/dl mg/dL (Negative) 08/29/16 13:26 Urine Glucose (UA) >=500 mg/dL (Negative) 08/29/16 13:26 Urine Ketones 80 mg/dL (Negative) 08/29/16 13:26 Urine Blood Neg (Negative) 08/29/16 13:26 Urine Nitrite Neg (Negative) 08/29/16 13:26 Urine Bilirubin Neg (Negative) 08/29/16 13:26 Urine Urobilinogen < 2.0 mg/dL (<2.0) 08/29/16 13:26 Ur Leukocyte Esterase Neg (Negative) 08/29/16 13:26 Urine WBC (Auto) < 1.0 /HPF (0.0-6.0) 08/29/16 13:26 Urine RBC (Auto) 3.0 /HPF (0.0-6.0) 08/29/16 13:26 U Epithel Cells (Auto) < 1.0 /HPF (0-13.0) 08/29/16 13:26 Urine Mucus Few /HPF 08/29/16 13:26 Salicylates 0.7 mg/dL (2.8-20.0) L 08/29/16 16:04 Urine Opiates Screen Presumptive negative 08/29/16 13:26 Urine Methadone Screen Presumptive negative 08/29/16 13:26 Acetaminophen < 15.0 ug/mL (10.0-30.0) 08/29/16 16:04 Ur Barbiturates Screen Presumptive negative 08/29/16 13:26 Ur Phencyclidine Scrn Presumptive negative 08/29/16 13:26 Ur Amphetamines Screen Presumptive negative 08/29/16 13:26 U Benzodiazepines Scrn Presumptive negative 08/29/16 13:26 Urine Cocaine Screen Presumptive negative 08/29/16 13:26 U Marijuana (THC) Screen Presumptive negative 08/29/16 13:26 Drugs of Abuse Note Disclamer 08/29/16 13:26 Ketones 125.0 mg/dL (0.2-2.8) H 08/29/16 15:10 Hypokalemia, Hypergycemia
[2016-09-01] MEDS: GLUCOPHAGE PO SCH (17:39)
[2016-09-01] MEDS: LOVENOX SUB-Q SCH (22:10)
[2016-09-02 08:00] LABS: Basophils % (Auto) 1.3 % (0.0-1.8); Hemoglobin 10.8 gm/dl (11.8-15.2); Mean Corpuscular HGB Conc 33 % (32-34); Mean Corpuscular Hemoglobin 29 pg (28-32); Mean Corpuscular Volume 89 fl (84-94); Platelet Count 140 K/mm3 (140-440); Red Blood Count 3.71 M/mm3 (3.65-5.03); Red Cell Distribution Width 18.3 % (13.2-15.2); White Blood Count 5.2 K/mm3 (4.5-11.0)
[2016-09-02 08:11] LABS: Anion Gap 14 mmol/L; BUN/Creatinine Ratio 13.75; Blood Urea Nitrogen 11 mg/dL (9-20); Calcium 8.6 mg/dL (8.4-10.2); Carbon Dioxide 26 mmol/L (22-30); Chloride 102.3 mmol/L (98-107); Glucose 259 mg/dL (75-100); Potassium 3.2 mmol/L (3.6-5.0); Sodium 139 mmol/L (137-145)
[2016-09-02 08:39] VITALS: BP 110/78
[2016-09-02] MEDS: GLUCOPHAGE PO SCH (09:03)
[2016-09-02] MEDS: PEPCID PO SCH (09:04)
--- NOTE | 2016-09-02 09:45 | Discharge Summary ---
Providers - Providers Date of Admission: 08/29/16 17:06 Date of discharge: 09/02/16 Attending physician: NATASHA HOFFMAN MD 09/01/16 08:10 Consult to Case Management [CONS] Routine Services Needed at Discharge: Annealing Torch Operator Notified:: gus Comment:: Patient is homeless and need some assistance at discharge regarding his med Primary care physician: DIRECTOR OF CUSTOMER SERVICE Hospitalization Reason for admission: DKA Condition: Stable Disposition: DISCHARGED TO HOME OR SELFCARE Time spent for discharge: 31 minutes - Discharge Diagnoses (1) DKA (diabetic ketoacidoses) Status: Acute Qualifiers: Diabetes mellitus type: D Diabetes mellitus complication detail: D (2) Encephalopathy Status: Acute Core Measure Documentation - Palliative Care Palliative Care/ Comfort Measures: Not Applicable - Core Measures Any of the following diagnoses?: none Exam - Physical Exam Narrative exam: Not in cardiopulmonary distress. The patient appeared well nourished and normally developed. Vital signs as documented. Head exam is unremarkable. No scleral icterus . Neck is without jugular venous distension, thyromegaly, or carotid bruits. Lungs are clear to auscultation. Cardiac exam reveals regular rate and Rhythm. First and second heart sounds normal. No murmurs, rubs or gallops. Abdominal exam reveals normal bowel sounds, no masses, no organomegaly and no aortic enlargement. Extremities are nonedematous and both femoral and pedal pulses are normal. AUTO BRAKE TECHNICIAN: Patient is alert and oriented 3. No focal weakness. - Constitutional Vitals: Temp Pulse Resp BP Pulse Ox 98.3 F 68 18 110/78 98 09/02/16 08:00 09/02/16 08:00 09/02/16 08:00 09/02/16 08:00 09/02/16 08:00 Plan Activity: no restrictions Weight Bearing Status: Full Weight Bearing Diet: diabetic Follow up with: PRIMARY CAREMD [Primary Care Provider] - 3-5 Days Prescriptions: Insulin NPH/Regular [NovoLIN 70/30] 20 unit SUB-Q QPMDIAB #1 bottle Insulin NPH/Regular [NovoLIN 70/30] 35 unit SUB-Q QAMDIAB #1 bottle metFORMIN [Glucophage] 1,000 mg PO BIDDIAB #60 tablet
== END 2016-09-02 15:10 | disposition home or self-care (01) | DRG 637 ==
LOC: ED 12:17 → CC1 17:06 → 3A 08-30 18:56
PROVIDERS: ADMIT Internal Medicine; ATTEND Internal Medicine
DX: E13.10 Other specified diabetes mellitus with ketoacidosis without coma (principal); G93.41 Metabolic encephalopathy; N17.9 Acute kidney failure, unspecified; E87.0 Hyperosmolality and hypernatremia; Z88.8 Allergy status to other drugs, medicaments and biological substances; E66.9 Obesity, unspecified; Z68.31 Body mass index [BMI] 31.0-31.9, adult; E87.5 Hyperkalemia; J45.909 Unspecified asthma, uncomplicated; Z59.0 Homelessness; Z79.4 Long term (current) use of insulin
CPT/HCPCS: 36415; 70450; 71010; 72125; 80048; 80307; 80320; 81001; 82010; 82140; 82550; 82805; 82962; 83036; 83735; 84100; 85025; 93005; 93010; 96361; 96374; G0480; J1650; J1815; J7030

== ENCOUNTER 2016-09-24 09:03 | Inpatient (IN) | payer OTHER ==
[2016-09-24] MEDS ORDERED: NACL 0.9% 1000 ML 2,000 ML ONE (09:50)
[2016-09-24 10:30] LABS: Hematocrit 40.9 % (35.5-45.6); Hemoglobin 12.7 gm/dl (11.8-15.2); Mean Corpuscular HGB Conc 31 % (32-34); Mean Corpuscular Hemoglobin 30 pg (28-32); Mean Corpuscular Volume 98 fl (84-94); Platelet Count 537 K/mm3 (140-440); Red Blood Count 4.19 M/mm3 (3.65-5.03); Red Cell Distribution Width 16.1 % (13.2-15.2); White Blood Count 10.8 K/mm3 (4.5-11.0)
[2016-09-24 10:33] LABS: Bilirubin,Urine NEG (Negative); Blood,Urine NEG (Negative); Ketones,Urine 80 mg/dL (Negative); Leukocyte Esterase,Urine NEG (Negative); Mucus,Urine FEW /HPF; Nitrite,Urine NEG (Negative); Protein,Urine <15 mg/dL mg/dL (Negative); Urobilinogen,Urine < 2.0 mg/dL (<2.0); WBC,Urine < 1.0 /HPF (0.0-6.0)
[2016-09-24 10:43] LABS: BUN/Creatinine Ratio 15.71; Calcium 10.2 mg/dL (8.4-10.2); Chloride 86.9 mmol/L (98-107); Potassium 5.8 mmol/L (3.6-5.0)
--- NOTE | 2016-09-24 10:44 | Emergency Department Report ---
HPI - General Chief Complaint: Hyperglycemia Time Seen by Provider: 09/24/16 10:25 - HPI HPI: This is a 41-year-old -[place] male who presents to the emergency department by EMS after he was found sleeping in a [employer] parking lot. Patient says that he does have a residence but is also unable to give a reason as to why he was sleeping in the parking lot. Patient was found to have elevated blood sugar greater than 500 by EMS. He did specify to the EMS earlier that he was homeless but denies this at this time. He has a history of diabetes on both insulin and pills and says he only did not take his dose this morning. He does not have a primary care doctor. He is unsure whether he has had any previous history of DKA. ED Past Medical Hx - Past Medical History Previous Medical History?: Yes Hx Diabetes: Yes Additional medical history: OBESITY - Surgical History Past Surgical History?: No - Social History Smoking Status: Never Smoker Substance Use Type: None - Medications Home Medications: Home Medications Medication Instructions Recorded Confirmed Last Taken Type Insulin NPH/Regular [NovoLIN 70/30] 20 unit SUB-Q QPMDIAB #1 bottle 09/02/16 Unknown Rx Insulin NPH/Regular [NovoLIN 70/30] 35 unit SUB-Q QAMDIAB #1 bottle 09/02/16 Unknown Rx metFORMIN [Glucophage] 1,000 mg PO BIDDIAB #60 tablet 09/02/16 Unknown Rx ED Review of Systems ROS: Stated complaint: HYPERGLYCEMIA Other details as noted in HPI Comment: All other systems reviewed and negative Constitutional: other (fatigue). denies: chills, fever Eyes: denies: eye pain, eye discharge, vision change ENT: denies: ear pain, throat pain Respiratory: denies: cough, shortness of breath, wheezing Cardiovascular: denies: chest pain, palpitations Gastrointestinal: denies: abdominal pain, nausea, diarrhea Genitourinary: denies: urgency, dysuria Musculoskeletal: denies: back pain, joint swelling, arthralgia Skin: denies: rash, lesions Neurological: denies: headache, weakness, paresthesias Physical Exam - Physical Exam Vital Signs: Vital Signs 09/24/16 09:28 Temperature 97.5 F L Pulse Rate 120 H Respiratory 12 Rate Blood Pressure 129/85 [Right] O2 Sat by Pulse 100 Oximetry Physical Exam: GENERAL: The patient is well-developed well-nourished. HEENT: Normocephalic. Atraumatic. Extraocular motions are intact. Patient has moist mucous membranes. Pupils equal reactive to light bilaterally. NECK: Supple. Trachea is midline. CHEST/LUNGS: Clear to auscultation. There is no respiratory distress noted. HEART/CARDIOVASCULAR: Regular. There is mild to moderate tachycardia. There is no gallop rub or murmur. ABDOMEN: Abdomen is soft, nontender. Patient has normal bowel sounds. There is no abdominal distention. SKIN: Skin is warm and dry. NEURO: Patient is slightly fatigued but is arousable and once awake he is alert and oriented. The patient follows most commands but is not completely cooperative. Unknown if the patient is unable to answer questions versus not being forthcoming. The patient has no focal neurologic deficits. The patient has normal speech. Cranial nerves II through XII grossly intact. MUSCULOSKELETAL: There is no tenderness or deformity. There is no limitation range of motion. There is no evidence of acute injury. Radial pulse +2 over 4 bilaterally. Cap refill less than 2 seconds. ED Course Vital Signs 09/24/16 09:28 Temperature 97.5 F L Pulse Rate 120 H Respiratory 12 Rate Blood Pressure 129/85 [Right] O2 Sat by Pulse 100 Oximetry - Consultations Consultation #1: 09/24/16 11:05 Patient admitted to the hospitalist, Dr Lopez. - EJ/Peripheral Line Neck L Time Out Performed: Yes Indications: nurses unable to establis Skin Cleansed in Sterile Fashion: Yes Size: 20 Dressing Placed: Tegaderm, tape Patient Tolerated Procedure: well ED Medical Decision Making - Lab Data Result diagrams: 09/24/16 10:10 09/24/16 10:10 - EKG Data -: EKG Interpreted by Me EKG shows normal: sinus rhythm, axis, intervals, QRS complexes, ST-T waves Rate: tachycardia (122 bpm) - EKG Data When compared to previous EKG there are: previous EKG unavailable Interpretation: other (Sinus Tach at 122 bpm) - Medical Decision Making 41-year-old male presents to the emergency department by EMS after he was found sleeping in a [employer] parking lot. Patient is in diabetic ketoacidosis with a venous pH of 7.1, a blood sugar greater than 700 and an elevated anion gap acidosis of 49. Patient placed on an insulin drip and given IV fluid resuscitation. He has hyperkalemia as well so he was given Kayexalate, calcium and albuterol, on top of the insulin. EKG does not show any signs of ST elevation ID, dysrhythmia or ischemia. Patient will be admitted to the ICU for further evaluation and treatment and has been accepted for admission by the hospitalist, Dr. Lopez. - Differential Diagnosis DKA, HHNK, TIA, substance abuse Critical Care Time: No Critical care attestation.: If time is entered above; I have spent that time in minutes in the direct care of this critically ill patient, excluding procedure time. ED Disposition Clinical Impression: High anion gap metabolic acidosis, Hyperkalemia DKA (diabetic ketoacidoses) Qualifiers: Diabetes mellitus type: type 1 Diabetes mellitus complication detail: without coma Qualified Code(s): E10.10 - Type 1 diabetes mellitus with ketoacidosis without coma Disposition: OP ADMITTED IP TO THIS HOSP Is pt being admited?: Yes Condition: Fair Instructions: Diabetic Ketoacidosis (ED) Time of Disposition: 11:50
[2016-09-24] MEDS ORDERED: KIONEX PO ONE (10:46)
[2016-09-24] MEDS ORDERED: PROVENTIL IH ONE (10:46)
[2016-09-24] MEDS ORDERED: CALCIUM CHLORIDE 1,000 MG in NACL 0.9% 100 ML IV ONE (10:46)
[2016-09-24] MEDS ORDERED: D50W (25GM) IV PRN ×4 (10:50→12:07)
--- NOTE | 2016-09-24 11:10 | Admit Criteria Form ---
Admission Criteria Documentation: DIABETES Clinical Indications for Admission to Inpatient Care (Place 'X' for any and all applicable criteria): Admission is indicated by presence of ALL (if I & II) or ANY ONE (if III or IV) of the following (1)(2)(3)(4): [X]I. Diabetes is uncontrolled as indicated by ANY ONE of the following: [X]a) Diabetic ketoacidosis as indicated by ALL of the following (8): [ X]i) Hyperglycemia (eg, plasma glucose greater than 200 mg /dL (11.1 mmol/L)) [X ]ii) Acidosis (eg, arterial pH less than 7.30, serum bicarbonate level less than 15 mEq/L (mmol/L)) [ ]iii) Moderate ketonuria or ketonemia [ ]b) Hyperglycemic hyperosmolar state as indicated by ALL of the following(9)(10): [ ]i) Neurologic dysfunction (eg, stupor, coma, hemiparesis , seizure)(13) [ ]ii) Plasma glucose greater than 600 mg/dL (33.3 mmol/L) [ ]iii) Serum osmolality greater than 320 mOsm/kg (mmol/kg) [X]c) Severe signs or symptoms secondary to hyperglycemia indicated by ANY ONE of the following: [ ]i) Altered mental status(10) [ ]ii) Significant hypovolemia or dehydration [ ]iii) Intractable nausea or vomiting [ ]iv) Unexplained fever or severe infection [X]v) Severe electrolyte abnormality (eg, hypokalemia, hyperkalemia, hypernatremia) [ ]II. Management at other levels of care (Also use Diabetes: Observation Care as appropriate) is not feasible because of ANY ONE of the following: [ ]a) Condition was not adequately corrected with treatment at other levels of care. [ ]b) Treatment at other levels of care is not appropriate because of condition severity (eg, hyperosmolar coma). [ ]III. Contraindications and/or Inappropriate clinical situations for Observational Care in patients with Diabetes, when ANY ONE of the following is required: [ ]a) Patient require specific diagnostic workup or therapeutic intervention 22 [ ]b) Patient with abnormal vital signs or altered mental status 23 [ ]IV. General contraindications and/or Inappropriate clinical situations for Observational Care in patients with Diabetes, when ANY ONE of the following is required: [ ]a) Prediction of prolongation of LOS based on ANY ONE of the following may be considered as a contraindication for observational care 2, 3, 4, 5, 6, 7, 8, 9, 10, 11 [ ]i) Age > 65 yrs. [ ]ii) Patient arriving by ambulance [ ]iii) Patient with high acuity [ ]iv) Patient requiring vital sign monitoring [ ]v) Patient on IV medication [ ]b) Systolic blood pressures 180mmHg 3,12 [ ]c) Patient with altered mental status including delirium and other alteration of consciousness, (3) [ ]d) Patient whose discharge disposition will be to a custodial home or rehabilitation home should not be managed in Emergency Department Observation Unit. CMS rule requires 3 days hospital stay before such placement.3,13 [ ]e) Patient with failure to thrive due to broad array of etiologies 3,16,17 [ ]f) Inability to ambulate 3,14 Extended stay beyond goal length of stay may be needed for(3)(20): [ ]a) Treatment of precipitating causes [ ]b) Development of hypoglycemia [ ]c) Complications of treatment [ ]d) Complications of decompensated diabetes (eg, acute gastric dilatation, persistent metabolic or neurologic derangement) [ ]e) Active Comorbidities [ ]f) Older patients( 65 years or older) The original [employer] content created by [employer] has been revised. The portions of the content which have been revised are identified through the use of italic text or in bold,and [facility] has neither reviewed nor approved the modified material. All other unmodified content is copyright [employer]. Please see references footnoted in the original [employer] [facility] edition 2016 Admission Criteria Met: Yes
[2016-09-24 11:37] LABS: Basophils % (Manual) 0 % (0.0-1.8); Blastocytes % (Manual) 0 %; Eosinophils % (Manual) 0 % (0.0-4.3)
[2016-09-24 11:38] LABS: Diff Status Complete; Platelet Estimate Appears Increased
[2016-09-24 11:46] LABS: Magnesium 2.6 mg/dL (1.7-2.3); Phosphorous 7.1 mg/dL (2.5-4.5)
[2016-09-24 11:59] LABS: BUN/Creatinine Ratio 16.5; Calcium 10.2 mg/dL (8.4-10.2); Chloride 86.2 mmol/L (98-107)
--- NOTE | 2016-09-24 12:06 | History and Physical Report ---
History of Present Illness Date of examination: 09/24/16 Date of admission: 09/24/16 Chief complaint: Feeling Weak Vomiting x 2 History of present illness: This is a 41-year-old -[place] male who presents to the emergency department by EMS after he was found sleeping in a [employer] parking lot. Patient says that he does have a residence but is also unable to give a reason as to why he was sleeping in the parking lot. Patient was found to have elevated blood sugar greater than 500 by EMS. He did specify to the EMS earlier that he was homeless but denies this at this time. He has a history of diabetes on both insulin and pills and says he only did not take his dose this morning. He does not have a primary care doctor. He is unsure whether he has had any previous history of DKA. Nausea+Vomiting x 2 . Past History Past Medical History: diabetes (non compliant) Medications and Allergies Allergies Allergy/AdvReac Type Severity Reaction Status Date / Time aspirin Allergy Unknown Verified 05/29/16 22:00 Home Medications Medication Instructions Recorded Confirmed Last Taken Type Insulin NPH/Regular [NovoLIN 70/30] 20 unit SUB-Q QPMDIAB #1 bottle 09/02/16 Unknown Rx Insulin NPH/Regular [NovoLIN 70/30] 35 unit SUB-Q QAMDIAB #1 bottle 09/02/16 Unknown Rx metFORMIN [Glucophage] 500 mg PO BIDDIAB 09/24/16 09/24/16 Unknown History Active Meds: Active Medications Dextrose (D50w (25gm)) 0 ml IV PRN PRN PRN Reason: Hypoglycemia Insulin Human Regular 100 (units/ Sodium Chloride) 100 mls @ 7 mls/hr IV TITR ROSSY; 7 UNITS/HR PRN Reason: Protocol Review of Systems Constitutional: no weight loss, no weight gain Ears, nose, mouth and throat: no dysphagia, no hoarseness, no sore throat Cardiovascular: no syncope, no shortness of breath, no dyspnea on exertion Respiratory: no cough with sputum, no congestion Gastrointestinal: nausea, vomiting, no diarrhea, no constipation Genitourinary Male: no dysuria, no hematuria, no flank pain, no discharge, no urinary frequency, no urinary hesitancy Musculoskeletal: no neck stiffness, no neck pain Integumentary: no rash, no pruritis, no redness, no sores, no wounds Neurological: no seizures, no syncope Psychiatric: anxiety, depression Endocrine: polyphagia, excessive thirst, polydipsia, polyuria Hematologic/Lymphatic: no easy bruising, no easy bleeding Allergic/Immunologic: no urticaria, no allergic rhinitis, no wheezing Exam - Constitutional Vitals: Temp Pulse Resp BP Pulse Ox 97.5 F L 117 H 18 132/79 16 L 09/24/16 09:28 09/24/16 11:15 09/24/16 11:15 09/24/16 11:15 09/24/16 11:15 General appearance: Present: no acute distress, well-nourished - EENT Eyes: Present: PERRL ENT: hearing intact, clear oral mucosa - Neck Neck: Present: supple, normal ROM - Respiratory Respiratory effort: normal Respiratory: bilateral: CTA - Cardiovascular Heart Sounds: Present: S1 & S2. Absent: rub, click - Extremities Extremities: pulses symmetrical, No edema Peripheral Pulses: within normal limits - Abdominal General gastrointestinal: Present: soft, non-tender, non-distended, normal bowel sounds Male genitourinary: Present: normal - Integumentary Integumentary: Present: clear, warm, dry - Musculoskeletal Musculoskeletal: gait normal, strength equal bilaterally - Psychiatric Psychiatric: appropriate mood/affect, intact judgment & insight - Neurologic Neurologic: CNII-XII intact, moves all extremities Results - Labs CBC & Chem 7: 09/24/16 10:10 09/25/16 04:40 Labs: Laboratory Last Values WBC 10.8 K/mm3 (4.5-11.0) 09/24/16 10:10 RBC 4.19 M/mm3 (3.65-5.03) 09/24/16 10:10 Hgb 12.7 gm/dl (11.8-15.2) 09/24/16 10:10 Hct 40.9 % (35.5-45.6) 09/24/16 10:10 MCV 98 fl (84-94) H 09/24/16 10:10 MCH 30 pg (28-32) 09/24/16 10:10 MCHC 31 % (32-34) L 09/24/16 10:10 RDW 16.1 % (13.2-15.2) H 09/24/16 10:10 Plt Count 537 K/mm3 (140-440) H 09/24/16 10:10 Add Manual Diff Complete 09/24/16 10:10 Total Counted 100 09/24/16 10:10 Seg Neuts % (Manual) 80.0 % (40.0-70.0) H 09/24/16 10:10 Band Neutrophils % 0 % 09/24/16 10:10 Lymphocytes % (Manual) 12.0 % (13.4-35.0) L 09/24/16 10:10 Reactive Lymphs % (Man) 0 % 09/24/16 10:10 Monocytes % (Manual) 7.0 % (0.0-7.3) 09/24/16 10:10 Eosinophils % (Manual) 0 % (0.0-4.3) 09/24/16 10:10 Basophils % (Manual) 0 % (0.0-1.8) 09/24/16 10:10 Metamyelocytes % 0 % 09/24/16 10:10 Myelocytes % 1.0 % 09/24/16 10:10 Promyelocytes % 0 % 09/24/16 10:10 Blast Cells % 0 % 09/24/16 10:10 Nucleated RBC % Not Reportable 09/24/16 10:10 Seg Neutrophils # Man 8.6 K/mm3 (1.8-7.7) H 09/24/16 10:10 Band Neutrophils # 0.0 K/mm3 09/24/16 10:10 Lymphocytes # (Manual) 1.3 K/mm3 (1.2-5.4) 09/24/16 10:10 Abs React Lymphs (Man) 0.0 K/mm3 09/24/16 10:10 Monocytes # (Manual) 0.8 K/mm3 (0.0-0.8) 09/24/16 10:10 Eosinophils # (Manual) 0.0 K/mm3 (0.0-0.4) 09/24/16 10:10 Basophils # (Manual) 0.0 K/mm3 (0.0-0.1) 09/24/16 10:10 Metamyelocytes # 0.0 K/mm3 09/24/16 10:10 Myelocytes # 0.1 K/mm3 09/24/16 10:10 Promyelocytes # 0.0 K/mm3 09/24/16 10:10 Blast Cells # 0.0 K/mm3 09/24/16 10:10 WBC Morphology Not Reportable 09/24/16 10:10 Hypersegmented Neuts Not Reportable 09/24/16 10:10 Hyposegmented Neuts Not Reportable 09/24/16 10:10 Hypogranular Neuts Not Reportable 09/24/16 10:10 Smudge Cells Not Reportable 09/24/16 10:10 Toxic Granulation Not Reportable 09/24/16 10:10 Toxic Vacuolation Not Reportable 09/24/16 10:10 Dohle Bodies Not Reportable 09/24/16 10:10 Pelger-Huet Anomaly Not Reportable 09/24/16 10:10 Nanette Rods Not Reportable 09/24/16 10:10 Platelet Estimate Appears increased 09/24/16 10:10 Clumped Platelets Not Reportable 09/24/16 10:10 Plt Clumps, EDTA Not Reportable 09/24/16 10:10 Large Platelets Not Reportable 09/24/16 10:10 Giant Platelets Not Reportable 09/24/16 10:10 Platelet Satelliting Not Reportable 09/24/16 10:10 Plt Morphology Comment Not Reportable 09/24/16 10:10 RBC Morphology Not Reportable 09/24/16 10:10 Dimorphic RBCs Not Reportable 09/24/16 10:10 Polychromasia Not Reportable 09/24/16 10:10 Hypochromasia Not Reportable 09/24/16 10:10 Poikilocytosis Not Reportable 09/24/16 10:10 Anisocytosis Not Reportable 09/24/16 10:10 Microcytosis Not Reportable 09/24/16 10:10 Macrocytosis Not Reportable 09/24/16 10:10 Spherocytes Not Reportable 09/24/16 10:10 Pappenheimer Bodies Not Reportable 09/24/16 10:10 Sickle Cells Not Reportable 09/24/16 10:10 Target Cells Not Reportable 09/24/16 10:10 Tear Drop Cells Not Reportable 09/24/16 10:10 Ovalocytes Not Reportable 09/24/16 10:10 Helmet Cells Not Reportable 09/24/16 10:10 Mead-Sinclair Bodies Not Reportable 09/24/16 10:10 [place] Rings Not Reportable 09/24/16 10:10 Eugene Cells Not Reportable 09/24/16 10:10 Bite Cells Not Reportable 09/24/16 10:10 Crenated Cell Not Reportable 09/24/16 10:10 Elliptocytes Not Reportable 09/24/16 10:10 Acanthocytes (Spur) Not Reportable 09/24/16 10:10 Rouleaux Not Reportable 09/24/16 10:10 Hemoglobin C Crystals Not Reportable 09/24/16 10:10 Schistocytes Not Reportable 09/24/16 10:10 Malaria parasites Not Reportable 09/24/16 10:10 Gabriel Bodies Not Reportable 09/24/16 10:10 Hem Pathologist Commnt No 09/24/16 10:10 VBG pH 7.180 (7.320-7.420) L* 09/24/16 09:34 Sodium 141 mmol/L (137-145) 09/24/16 11:03 Potassium 6.0 mmol/L (3.6-5.0) H 09/24/16 11:03 Chloride 86.2 mmol/L (98-107) L 09/24/16 11:03 Carbon Dioxide 9 mmol/L (22-30) L* 09/24/16 11:03 Anion Gap 52 mmol/L 09/24/16 11:03 BUN 33 mg/dL (9-20) H 09/24/16 11:03 Creatinine 2.0 mg/dL (0.8-1.5) H 09/24/16 11:03 Estimated GFR 45 ml/min 09/24/16 11:03 BUN/Creatinine Ratio 16.50 % 09/24/16 11:03 Glucose 709 mg/dL (75-100) H* 09/24/16 11:03 POC Glucose > 500 (70-105) H 09/24/16 09:36 Calcium 10.2 mg/dL (8.4-10.2) 09/24/16 11:03 Phosphorus 7.1 mg/dL (2.5-4.5) H 09/24/16 11:03 Magnesium 2.6 mg/dL (1.7-2.3) H 09/24/16 11:03 Urine Color Straw (Yellow) 09/24/16 10:08 Urine Turbidity Clear (Clear) 09/24/16 10:08 Urine pH 5.0 (5.0-7.0) 09/24/16 10:08 Ur Specific Bennett 1.024 (1.003-1.030) 09/24/16 10:08 Urine Protein <15 mg/dl mg/dL (Negative) 09/24/16 10:08 Urine Glucose (UA) >=500 mg/dL (Negative) 09/24/16 10:08 Urine Ketones 80 mg/dL (Negative) 09/24/16 10:08 Urine Blood Neg (Negative) 09/24/16 10:08 Urine Nitrite Neg (Negative) 09/24/16 10:08 Urine Bilirubin Neg (Negative) 09/24/16 10:08 Urine Urobilinogen < 2.0 mg/dL (<2.0) 09/24/16 10:08 Ur Leukocyte Esterase Neg (Negative) 09/24/16 10:08 Urine WBC (Auto) < 1.0 /HPF (0.0-6.0) 09/24/16 10:08 Urine RBC (Auto) 1.0 /HPF (0.0-6.0) 09/24/16 10:08 Urine Mucus Few /HPF 09/24/16 10:08 Ketones mmol/L (-0.28) 09/24/16 10:10 Short CBC 09/24/16 Range/Units 10:10 WBC 10.8 (4.5-11.0) K/mm3 Hgb 12.7 (11.8-15.2) gm/dl Hct 40.9 (35.5-45.6) % Plt Count 537 H (140-440) K/mm3 BMP 09/24/16 09/24/16 10:10 11:03 Sodium 140 141 Potassium 5.8 H 6.0 H Chloride 86.9 L 86.2 L Carbon Dioxide 10 L 9 L* BUN 33 H 33 H Creatinine 2.1 H 2.0 H Glucose 718 H* 709 H* Calcium 10.2 10.2 Urine 09/24/16 Range/Units 10:08 Urine Color Straw (Yellow) Urine pH 5.0 (5.0-7.0) Ur Specific Bennett 1.024 (1.003-1.030) Urine Protein <15 mg/dl (Negative) mg/dL Urine Glucose (UA) >=500 (Negative) mg/dL Short CBC 09/24/16 Range/Units 10:10 WBC 10.8 (4.5-11.0) K/mm3 Hgb 12.7 (11.8-15.2) gm/dl Hct 40.9 (35.5-45.6) % Plt Count 537 H (140-440) K/mm3 BMP 09/24/16 09/24/16 09/24/16 10:10 11:03 14:57 Sodium 140 141 149 H D Potassium 5.8 H 6.0 H 3.8 D Chloride 86.9 L 86.2 L 104.1 Carbon Dioxide 10 L 9 L* 14 L BUN 33 H 33 H 26 H Creatinine 2.1 H 2.0 H 1.7 H Glucose 718 H* 709 H* 388 H Calcium 10.2 10.2 9.8 09/24/16 09/25/16 20:06 04:40 Sodium 157 H D 156 H Potassium 3.6 3.9 Chloride 110.2 H 115.1 H Carbon Dioxide 25 D 26 BUN 21 H 20 Creatinine 1.5 1.2 Glucose 172 H 145 H Calcium 9.9 9.4 Urine 09/24/16 Range/Units 10:08 Urine Color Straw (Yellow) Urine pH 5.0 (5.0-7.0) Ur Specific Bennett 1.024 (1.003-1.030) Urine Protein <15 mg/dl (Negative) mg/dL Urine Glucose (UA) >=500 (Negative) mg/dL Assessment and Plan Advance Directives: Yes (Full code) VTE prophylaxis?: Chemical Plan of care discussed with patient/family: Yes - Patient Problems (1) DKA (diabetic ketoacidoses) Current Visit: Yes Status: Acute Qualifiers: Diabetes mellitus type: type 1 Diabetes mellitus complication detail: without coma Qualified Code(s): E10.10 - Type 1 diabetes mellitus with ketoacidosis without coma Plan to address problem: DKA protocol (2) Hyperkalemia Current Visit: Yes Status: Acute Plan to address problem: Kayexalate and calcium chloride given in ER (3) High anion gap metabolic acidosis Current Visit: Yes Status: Acute Plan to address problem: Same as DKA protocol (4) DVT prophylaxis Current Visit: Yes Status: Acute Plan to address problem: on lovenox Critical care statement:
[2016-09-24] MEDS ORDERED: ALUM-MAG HYDROX-SIMETH 200-200-20MG/5ML PO PRN (12:07)
[2016-09-24] MEDS ORDERED: DULCOLAX PR PRN (12:07)
[2016-09-24] MEDS ORDERED: MILK OF MAGNESIA PO PRN (12:07)
[2016-09-24] MEDS: NovoLIN R 100 UNITS in NACL 0.9% 99 ML IV SCH (12:38)
[2016-09-24] MEDS ORDERED: NACL 0.9% 1000 ML 1,000 ML IV ONE ×2 (12:59)
[2016-09-24] MEDS ORDERED: NovoLIN R 100 UNITS in NACL 0.9% 99 ML IV SCH (13:00)
[2016-09-24] MEDS ORDERED: NACL 0.9% 1000 ML 1,000 ML IV SCH (15:00)
[2016-09-24 15:42] LABS: BUN/Creatinine Ratio 15.29; Calcium 9.8 mg/dL (8.4-10.2); Chloride 104.1 mmol/L (98-107); Potassium 3.8 mmol/L (3.6-5.0)
[2016-09-24 16:47] LABS: Magnesium 2.3 mg/dL (1.7-2.3); Phosphorous 2.3 mg/dL (2.5-4.5)
[2016-09-24] MEDS: D5W/0.45% NACL/KCL 20 MEQ 20 MEQ/1,000 ML BAG IV SCH (18:30)
[2016-09-24 20:57] LABS: Blood Urea Nitrogen 21 mg/dL (9-20); Calcium 9.9 mg/dL (8.4-10.2); Carbon Dioxide 25 mmol/L (22-30); Chloride 110.2 mmol/L (98-107); Glucose 172 mg/dL (75-100); Potassium 3.6 mmol/L (3.6-5.0); Sodium 157 mmol/L (137-145)
[2016-09-24 21:16] LABS: Anion Gap 25 mmol/L
[2016-09-25] MEDS: D5W/0.45% NACL/KCL 20 MEQ 20 MEQ/1,000 ML BAG IV SCH (03:13)
[2016-09-25] MEDS: NovoLIN R 100 UNITS in NACL 0.9% 99 ML IV SCH (05:34)
[2016-09-25 05:40] LABS: Anion Gap 19 mmol/L; BUN/Creatinine Ratio 16.66; Blood Urea Nitrogen 20 mg/dL (9-20); Calcium 9.4 mg/dL (8.4-10.2); Carbon Dioxide 26 mmol/L (22-30); Chloride 115.1 mmol/L (98-107); Glucose 145 mg/dL (75-100); Potassium 3.9 mmol/L (3.6-5.0); Sodium 156 mmol/L (137-145)
--- NOTE | 2016-09-25 09:07 | Event Note ---
Date: 09/25/16 Na went up from 141 to 157 sec to correction of High glucose levels severe Hypernatremia-will defer to Team 4.
--- NOTE | 2016-09-25 09:16 | Progress Note ---
Assessment and Plan Assessment and plan: 41-year-old -[place] male with history of diabetes mellitus type 2 on insulin who presents to the emergency department by EMS after he was found sleeping in a [employer] parking lot. Patient was found to have elevated blood sugar greater than 500 by EMS. DKA (diabetic ketoacidoses) * resolved, stop insulin drip * Change IV fluid to 1/2 NS for hypernatremia * Monitor blood glucose qACHS * Monitor BMP every 8 hours * Also will get magnesium level * start on ADa diet and scheduled and sliding scale insulin coverage Hyperkalemia * Status post Kayexalate and calcium chloride given in ER * Continue to monitor Hypernatremia * Change IV fluid to 1/2 NS * Monitor BMP DVT prophylaxis, on lovenox The high probability of a clinically significant, sudden or life threatening deterioration of the system(s) required my full and direct attention, intervention and personal management. The aggregate critical care time was [31] minutes. This time is in addition to time spent performing reported procedures but includes the following: [x] Data Review and interpretation [x] Patient assessment and monitoring of vital signs [x] Documentation [x] Medication orders and management History Interval history: Patient seen and examined. Medical records and medication list reviewed. No acute event overnight noted by the RN. Patient denies any chest pain or difficulty breathing. Sodium level 156 this morning Discussed plan of care at bedside with patient. Hospitalist Physical - Physical exam Narrative exam: GENERAL: well-developed and well-nourished male lying on bed appeared to be in no discomfort. HEENT: Normocephalic. Atraumatic. No conjunctival congestion or icterus. Patient has moist mucous membranes. NECK: Supple. Trachea midline. CHEST/LUNGS: Clear to auscultated bilaterally, breathing nonlabored. No wheezes crackles or rhonchi. HEART/CARDIOVASCULAR: Regular in rate and rhythm. S1 and S2 positive. ABDOMEN: Abdomen is soft, nontender. Patient has normal bowel sounds. SKIN: There is no rash. Warm and dry. NEURO: No focal motor deficit. Follows command. MUSCULOSKELETAL: No joint effusion or tenderness. EXTRIMITY: No edema, no cyanosis or clubbing. PSYCH: Cooperative. - Constitutional Vitals: Temp Pulse Resp BP Pulse Ox 98.2 F 79 11 L 116/74 100 09/25/16 08:00 09/25/16 08:15 09/25/16 08:15 09/25/16 08:15 09/25/16 08:15 General appearance: Present: no acute distress, well-nourished Results - Labs CBC & Chem 7: 09/24/16 10:10 09/25/16 04:40 Labs: Laboratory Last Values WBC 10.8 K/mm3 (4.5-11.0) 09/24/16 10:10 RBC 4.19 M/mm3 (3.65-5.03) 09/24/16 10:10 Hgb 12.7 gm/dl (11.8-15.2) 09/24/16 10:10 Hct 40.9 % (35.5-45.6) 09/24/16 10:10 MCV 98 fl (84-94) H 09/24/16 10:10 MCH 30 pg (28-32) 09/24/16 10:10 MCHC 31 % (32-34) L 09/24/16 10:10 RDW 16.1 % (13.2-15.2) H 09/24/16 10:10 Plt Count 537 K/mm3 (140-440) H 09/24/16 10:10 Add Manual Diff Complete 09/24/16 10:10 Total Counted 100 09/24/16 10:10 Seg Neuts % (Manual) 80.0 % (40.0-70.0) H 09/24/16 10:10 Band Neutrophils % 0 % 09/24/16 10:10 Lymphocytes % (Manual) 12.0 % (13.4-35.0) L 09/24/16 10:10 Reactive Lymphs % (Man) 0 % 09/24/16 10:10 Monocytes % (Manual) 7.0 % (0.0-7.3) 09/24/16 10:10 Eosinophils % (Manual) 0 % (0.0-4.3) 09/24/16 10:10 Basophils % (Manual) 0 % (0.0-1.8) 09/24/16 10:10 Metamyelocytes % 0 % 09/24/16 10:10 Myelocytes % 1.0 % 09/24/16 10:10 Promyelocytes % 0 % 09/24/16 10:10 Blast Cells % 0 % 09/24/16 10:10 Nucleated RBC % Not Reportable 09/24/16 10:10 Seg Neutrophils # Man 8.6 K/mm3 (1.8-7.7) H 09/24/16 10:10 Band Neutrophils # 0.0 K/mm3 09/24/16 10:10 Lymphocytes # (Manual) 1.3 K/mm3 (1.2-5.4) 09/24/16 10:10 Abs React Lymphs (Man) 0.0 K/mm3 09/24/16 10:10 Monocytes # (Manual) 0.8 K/mm3 (0.0-0.8) 09/24/16 10:10 Eosinophils # (Manual) 0.0 K/mm3 (0.0-0.4) 09/24/16 10:10 Basophils # (Manual) 0.0 K/mm3 (0.0-0.1) 09/24/16 10:10 Metamyelocytes # 0.0 K/mm3 09/24/16 10:10 Myelocytes # 0.1 K/mm3 09/24/16 10:10 Promyelocytes # 0.0 K/mm3 09/24/16 10:10 Blast Cells # 0.0 K/mm3 09/24/16 10:10 WBC Morphology Not Reportable 09/24/16 10:10 Hypersegmented Neuts Not Reportable 09/24/16 10:10 Hyposegmented Neuts Not Reportable 09/24/16 10:10 Hypogranular Neuts Not Reportable 09/24/16 10:10 Smudge Cells Not Reportable 09/24/16 10:10 Toxic Granulation Not Reportable 09/24/16 10:10 Toxic Vacuolation Not Reportable 09/24/16 10:10 Dohle Bodies Not Reportable 09/24/16 10:10 Pelger-Huet Anomaly Not Reportable 09/24/16 10:10 Nanette Rods Not Reportable 09/24/16 10:10 Platelet Estimate Appears increased 09/24/16 10:10 Clumped Platelets Not Reportable 09/24/16 10:10 Plt Clumps, EDTA Not Reportable 09/24/16 10:10 Large Platelets Not Reportable 09/24/16 10:10 Giant Platelets Not Reportable 09/24/16 10:10 Platelet Satelliting Not Reportable 09/24/16 10:10 Plt Morphology Comment Not Reportable 09/24/16 10:10 RBC Morphology Not Reportable 09/24/16 10:10 Dimorphic RBCs Not Reportable 09/24/16 10:10 Polychromasia Not Reportable 09/24/16 10:10 Hypochromasia Not Reportable 09/24/16 10:10 Poikilocytosis Not Reportable 09/24/16 10:10 Anisocytosis Not Reportable 09/24/16 10:10 Microcytosis Not Reportable 09/24/16 10:10 Macrocytosis Not Reportable 09/24/16 10:10 Spherocytes Not Reportable 09/24/16 10:10 Pappenheimer Bodies Not Reportable 09/24/16 10:10 Sickle Cells Not Reportable 09/24/16 10:10 Target Cells Not Reportable 09/24/16 10:10 Tear Drop Cells Not Reportable 09/24/16 10:10 Ovalocytes Not Reportable 09/24/16 10:10 Helmet Cells Not Reportable 09/24/16 10:10 [place] Bodies Not Reportable 09/24/16 10:10 [place] Rings Not Reportable 09/24/16 10:10 [place] Cells Not Reportable 09/24/16 10:10 Bite Cells Not Reportable 09/24/16 10:10 Crenated Cell Not Reportable 09/24/16 10:10 Elliptocytes Not Reportable 09/24/16 10:10 Acanthocytes (Spur) Not Reportable 09/24/16 10:10 Rouleaux Not Reportable 09/24/16 10:10 Hemoglobin C Crystals Not Reportable 09/24/16 10:10 Schistocytes Not Reportable 09/24/16 10:10 Malaria parasites Not Reportable 09/24/16 10:10 Gabriel Bodies Not Reportable 09/24/16 10:10 Hem Pathologist Commnt No 09/24/16 10:10 VBG pH 7.180 (7.320-7.420) L* 09/24/16 09:34 Sodium 156 mmol/L (137-145) H 09/25/16 04:40 Potassium 3.9 mmol/L (3.6-5.0) 09/25/16 04:40 Chloride 115.1 mmol/L (98-107) H 09/25/16 04:40 Carbon Dioxide 26 mmol/L (22-30) 09/25/16 04:40 Anion Gap 19 mmol/L 09/25/16 04:40 BUN 20 mg/dL (9-20) 09/25/16 04:40 Creatinine 1.2 mg/dL (0.8-1.5) 09/25/16 04:40 Estimated GFR > 60 ml/min 09/25/16 04:40 BUN/Creatinine Ratio 16.66 % 09/25/16 04:40 Glucose 145 mg/dL (75-100) H 09/25/16 04:40 POC Glucose 209 (70-105) H 09/25/16 07:46 Calcium 9.4 mg/dL (8.4-10.2) 09/25/16 04:40 Phosphorus 2.3 mg/dL (2.5-4.5) L D 09/24/16 16:23 Magnesium 2.3 mg/dL (1.7-2.3) 09/24/16 16:23 Urine Color Straw (Yellow) 09/24/16 10:08 Urine Turbidity Clear (Clear) 09/24/16 10:08 Urine pH 5.0 (5.0-7.0) 09/24/16 10:08 Ur Specific [place] 1.024 (1.003-1.030) 09/24/16 10:08 Urine Protein <15 mg/dl mg/dL (Negative) 09/24/16 10:08 Urine Glucose (UA) >=500 mg/dL (Negative) 09/24/16 10:08 Urine Ketones 80 mg/dL (Negative) 09/24/16 10:08 Urine Blood Neg (Negative) 09/24/16 10:08 Urine Nitrite Neg (Negative) 09/24/16 10:08 Urine Bilirubin Neg (Negative) 09/24/16 10:08 Urine Urobilinogen < 2.0 mg/dL (<2.0) 09/24/16 10:08 Ur Leukocyte Esterase Neg (Negative) 09/24/16 10:08 Urine WBC (Auto) < 1.0 /HPF (0.0-6.0) 09/24/16 10:08 Urine RBC (Auto) 1.0 /HPF (0.0-6.0) 09/24/16 10:08 Urine Mucus Few /HPF 09/24/16 10:08 Ketones mmol/L (-0.28) 09/24/16 10:10
[2016-09-25] MEDS ORDERED: NACL 0.45% 1000 ML 1,000 ML IV SCH (10:00)
[2016-09-25] MEDS ORDERED: D5W 1,000 ML IV SCH (10:00)
--- NOTE | 2016-09-25 10:24 | Consultation ---
History of Present Illness Consult date: 09/25/16 Requesting physician: EVER PALACIOS Reason for consult: other (DKA) History of present illness: PULMONARY/CCM CONSULT NOTE (Full dictation # [id number]) Please see dictated notes for full details Past History Past Medical History: diabetes (non compliant) Medications and Allergies Allergies Allergy/AdvReac Type Severity Reaction Status Date / Time aspirin Allergy Unknown Verified 05/29/16 22:00 Home Medications Medication Instructions Recorded Confirmed Last Taken Type Insulin NPH/Regular [NovoLIN 70/30] 20 unit SUB-Q QPMDIAB #1 bottle 09/02/16 Unknown Rx Insulin NPH/Regular [NovoLIN 70/30] 35 unit SUB-Q QAMDIAB #1 bottle 09/02/16 Unknown Rx metFORMIN [Glucophage] 500 mg PO BIDDIAB 09/24/16 09/24/16 Unknown History Active Meds: Active Medications Al Hydrox/Mg Hydrox/Simethicone (Alum-Mag Hydrox-Simeth 324-814-32rm/5ml) 30 ml PO Q4H PRN PRN Reason: Indigestion Bisacodyl (Dulcolax) 10 mg OH QDAY PRN PRN Reason: constipation unrelieved by MOM Dextrose (D50w (25gm)) 0 ml IV PRN PRN PRN Reason: Hypoglycemia Sodium Chloride (Nacl 0.45% 1000 Ml) 1,000 mls @ 125 mls/hr IV DIRECT ROSSY Insulin Human Isoph/Insulin Regular (Novolin 70/30) 20 unit SUB-Q QPMDIAB ROSSY Insulin Human Regular (Novolin R) 0 units SUB-Q ACHS ROSSY PRN Reason: Protocol Magnesium Hydroxide (Milk Of Magnesia) 30 ml PO Q4H PRN PRN Reason: Constipation Physical Examination Vital signs: Vital Signs Temp Pulse Resp BP Pulse Ox 97.5 F L 120 H 12 129/85 100 09/24/16 09:28 09/24/16 09:28 09/24/16 09:28 09/24/16 09:28 09/24/16 09:28 Results - Laboratory Findings CBC and BMP: 09/24/16 10:10 09/25/16 04:40 Abnormal lab findings: Abnormal Labs 09/24/16 09/24/16 09/24/16 12:32 13:55 14:57 Sodium 149 H D Chloride Carbon Dioxide 14 L BUN 26 H Creatinine 1.7 H Glucose 388 H POC Glucose > 500 H 447 H Phosphorus 09/24/16 09/24/16 09/24/16 15:12 16:23 16:23 Sodium Chloride Carbon Dioxide BUN Creatinine Glucose POC Glucose 374 H 306 H Phosphorus 2.3 L D 09/24/16 09/24/16 09/24/16 17:19 18:16 19:43 Sodium Chloride Carbon Dioxide BUN Creatinine Glucose POC Glucose 280 H 205 H 194 H Phosphorus 09/24/16 09/24/16 09/24/16 20:06 21:00 21:56 Sodium 157 H D Chloride 110.2 H Carbon Dioxide BUN 21 H Creatinine Glucose 172 H POC Glucose 201 H 235 H Phosphorus 09/24/16 09/25/16 09/25/16 22:59 00:04 01:30 Sodium Chloride Carbon Dioxide BUN Creatinine Glucose POC Glucose 193 H 159 H 143 H Phosphorus 09/25/16 09/25/16 09/25/16 02:19 03:00 04:02 Sodium Chloride Carbon Dioxide BUN Creatinine Glucose POC Glucose 218 H 122 H 131 H Phosphorus 09/25/16 09/25/16 09/25/16 04:40 05:07 06:09 Sodium 156 H Chloride 115.1 H Carbon Dioxide BUN Creatinine Glucose 145 H POC Glucose 148 H 222 H Phosphorus 09/25/16 07:46 Sodium Chloride Carbon Dioxide BUN Creatinine Glucose POC Glucose 209 H Phosphorus
[2016-09-25 14:40] LABS: Blood Urea Nitrogen 18 mg/dL (9-20); Calcium 9.1 mg/dL (8.4-10.2); Chloride 103.9 mmol/L (98-107); Glucose 440 mg/dL (75-100); Sodium 147 mmol/L (137-145)
[2016-09-25 14:44] LABS: Anion Gap 28 mmol/L; Carbon Dioxide 19 mmol/L (22-30)
[2016-09-25] MEDS ORDERED: LEVEMIR SUB-Q SCH (22:00)
--- NOTE | 2016-09-26 01:28 | Consultation ---
CONSULTING PHYSICIAN: Mikhail Lopez MD REASON FOR CONSULTATION: DKA, need for IV insulin administration. CHIEF COMPLAINT AND HISTORY OF PRESENT ILLNESS: The patient is a 41-year-old -[place] Citizen male with past medical history significant for diabetes, reportedly was found by EMS sleeping in a [employer] parking lot. He was found to have elevated blood sugars greater than 500, was brought into the Emergency Room. He tells me that he was diagnosed with diabetes last May. He was evaluated, found to be in DKA, needed IV insulin, and was admitted to the Intensive Care Unit for IV insulin therapy. When I stopped to see him, he was doing better. The IV insulin drip, I believe had been turned off. Denied any nausea or vomiting, Denied headaches. Denied fevers or chills. Denied any dysuria. Denied any cough or expectoration or any suggestion of any illness or other constitutional symptoms. The patient denies any history of tobacco use. That really is as much of the history of presentation. PAST MEDICAL HISTORY: Diabetes. PAST SURGICAL HISTORY: Denies. MEDICATIONS: He was on at the time I stopped by to see him, according to the medication administration record included the following: He was on p.r.n. Dulcolax, insulin 70/30 20 units subcutaneous b.i.d., I believe its b.i.d. and insulin via sliding scale, and p.r.n. milk of magnesia. ALLERGIES: Aspirin, nature of this allergy is unknown. DIET: Obese gentleman, but denies significant weight loss or gain in the preceding few weeks to months. FAMILY AND SOCIAL HISTORY: Apparently, he is homeless. Denies alcohol, tobacco, or illicit drug use or abuse. REVIEW OF SYSTEMS: No new onset focal weakness, no loss of consciousness, no gross hematochezia or melena. No gross hematuria or dysuria. No hematemesis, no hemoptysis, no palpitations, no chest pains. Complete review of systems obtained. Pertinent positives and/or negatives as in body of history above, otherwise they are noncontributory. PHYSICAL EXAMINATION: VITAL SIGNS: At presentation, he was afebrile, temperature 97.5, pulse 120, respiratory rate 12, blood pressure 129/85, oxygen sats are 100%, inspired oxygen concentration was not recorded. HEAD, EYES, EARS, NOSE, AND THROAT: Pupils are equal, round 3-4 mm, reactive to light. Extraocular muscle movements are intact. Grossly, no palpable lymph nodes in the supraclavicular or submandibular lymph node chains. LUNGS: Auscultation of both lung valencia unremarkable. Lungs are clear bilaterally. HEART: Heart sounds 1 and 2 are heard, regular rate and rhythm at the time of my evaluation. ABDOMEN: Soft, full, bowel sounds are positive, nontender. EXTREMITIES: Without overt digital clubbing, cyanosis, or pedal edema. NEUROLOGIC: The exam was grossly nonfocal. LABORATORY DATA: From my review are as follows: Admission white cell count 10,800, hemoglobin 12.7, hematocrit 40.9, platelets 537. Venous blood gas showed a pH of 7.18. Serum sodium was 141, potassium 6.0, chloride 86, bicarbonate 9, BUN , creatinine 2.0, glucose of 709. Urinalysis negative for nitrites and leukocyte esterase. Urine ketones are pending. Today, most recent chemistries, the anion gap is down to 19, BUN and creatinine within normal limits. No radiographic studies for my review. ASSESSMENT AND PLAN: We have a middle-aged gentleman in with DKA, status post IV insulin therapy, status post IV rehydration therapy, doing better, transitioned to long acting insulin, and can now be discharged or transferred from the Intensive Care Unit. He will be started on GI and DVT prophylaxis. Flu and pneumonia vaccination will be per protocol. Thank you very much for the consult, Dr. Lopez. We will follow along and make further recommendations as picture progresses/becomes clearer. JOB# [id number] UMESH/STEFAN
--- NOTE | 2016-09-26 11:19 | Event Note ---
Date: 09/26/16 DKA resolved transfered from ICU will see prn
[2016-09-26 12:28] LABS: Blood Urea Nitrogen 12 mg/dL (9-20); Calcium 8.6 mg/dL (8.4-10.2); Carbon Dioxide 26 mmol/L (22-30); Chloride 101.5 mmol/L (98-107); Glucose 360 mg/dL (75-100); Sodium 139 mmol/L (137-145)
[2016-09-26 12:34] LABS: Anion Gap 15 mmol/L
[2016-09-26] MEDS: K-DUR PO SCH (15:33)
--- NOTE | 2016-09-26 19:06 | Progress Note ---
Assessment and Plan Assessment and plan: 41-year-old -[place] male with history of diabetes mellitus type 2 on insulin who presents to the emergency department by EMS after he was found sleeping in a [employer] parking lot. Patient was found to have elevated blood sugar greater than 500 by EMS. DKA (diabetic ketoacidoses) * resolved, off insulin drip * Monitor blood glucose qACHS * cont on ADa diet * adjust dose of novolin 70/30 Hyperkalemia * Status post Kayexalate and calcium chloride given in ER * Continue to monitor Hypernatremia * resolved with iv fluid * Monitor BMP DVT prophylaxis, on lovenox History Interval history: Patient seen and examined. Medical records and medication list reviewed. No acute event overnight noted by the RN. Patient denies any chest pain or difficulty breathing. BG level still above 300 Discussed plan of care at bedside with patient. Hospitalist Physical - Physical exam Narrative exam: GENERAL: well-developed and well-nourished male lying on bed appeared to be in no discomfort. HEENT: Normocephalic. Atraumatic. No conjunctival congestion or icterus. Patient has moist mucous membranes. NECK: Supple. Trachea midline. CHEST/LUNGS: Clear to auscultated bilaterally, breathing nonlabored. No wheezes crackles or rhonchi. HEART/CARDIOVASCULAR: Regular in rate and rhythm. S1 and S2 positive. ABDOMEN: Abdomen is soft, nontender. Patient has normal bowel sounds. SKIN: There is no rash. Warm and dry. NEURO: No focal motor deficit. Follows command. MUSCULOSKELETAL: No joint effusion or tenderness. EXTRIMITY: No edema, no cyanosis or clubbing. PSYCH: Cooperative. - Constitutional Vitals: Temp Pulse Resp BP Pulse Ox 97 F L 91 H 18 112/65 97 09/26/16 15:58 09/26/16 15:58 09/26/16 15:58 09/26/16 15:58 09/26/16 08:00 General appearance: Present: no acute distress, well-nourished Results - Labs CBC & Chem 7: 09/24/16 10:10 09/26/16 11:55 Labs: Laboratory Last Values WBC 10.8 K/mm3 (4.5-11.0) 09/24/16 10:10 RBC 4.19 M/mm3 (3.65-5.03) 09/24/16 10:10 Hgb 12.7 gm/dl (11.8-15.2) 09/24/16 10:10 Hct 40.9 % (35.5-45.6) 09/24/16 10:10 MCV 98 fl (84-94) H 09/24/16 10:10 MCH 30 pg (28-32) 09/24/16 10:10 MCHC 31 % (32-34) L 09/24/16 10:10 RDW 16.1 % (13.2-15.2) H 09/24/16 10:10 Plt Count 537 K/mm3 (140-440) H 09/24/16 10:10 Add Manual Diff Complete 09/24/16 10:10 Total Counted 100 09/24/16 10:10 Seg Neuts % (Manual) 80.0 % (40.0-70.0) H 09/24/16 10:10 Band Neutrophils % 0 % 09/24/16 10:10 Lymphocytes % (Manual) 12.0 % (13.4-35.0) L 09/24/16 10:10 Reactive Lymphs % (Man) 0 % 09/24/16 10:10 Monocytes % (Manual) 7.0 % (0.0-7.3) 09/24/16 10:10 Eosinophils % (Manual) 0 % (0.0-4.3) 09/24/16 10:10 Basophils % (Manual) 0 % (0.0-1.8) 09/24/16 10:10 Metamyelocytes % 0 % 09/24/16 10:10 Myelocytes % 1.0 % 09/24/16 10:10 Promyelocytes % 0 % 09/24/16 10:10 Blast Cells % 0 % 09/24/16 10:10 Nucleated RBC % Not Reportable 09/24/16 10:10 Seg Neutrophils # Man 8.6 K/mm3 (1.8-7.7) H 09/24/16 10:10 Band Neutrophils # 0.0 K/mm3 09/24/16 10:10 Lymphocytes # (Manual) 1.3 K/mm3 (1.2-5.4) 09/24/16 10:10 Abs React Lymphs (Man) 0.0 K/mm3 09/24/16 10:10 Monocytes # (Manual) 0.8 K/mm3 (0.0-0.8) 09/24/16 10:10 Eosinophils # (Manual) 0.0 K/mm3 (0.0-0.4) 09/24/16 10:10 Basophils # (Manual) 0.0 K/mm3 (0.0-0.1) 09/24/16 10:10 Metamyelocytes # 0.0 K/mm3 09/24/16 10:10 Myelocytes # 0.1 K/mm3 09/24/16 10:10 Promyelocytes # 0.0 K/mm3 09/24/16 10:10 Blast Cells # 0.0 K/mm3 09/24/16 10:10 WBC Morphology Not Reportable 09/24/16 10:10 Hypersegmented Neuts Not Reportable 09/24/16 10:10 Hyposegmented Neuts Not Reportable 09/24/16 10:10 Hypogranular Neuts Not Reportable 09/24/16 10:10 Smudge Cells Not Reportable 09/24/16 10:10 Toxic Granulation Not Reportable 09/24/16 10:10 Toxic Vacuolation Not Reportable 09/24/16 10:10 Dohle Bodies Not Reportable 09/24/16 10:10 Pelger-Huet Anomaly Not Reportable 09/24/16 10:10 Annette Rods Not Reportable 09/24/16 10:10 Platelet Estimate Appears increased 09/24/16 10:10 Clumped Platelets Not Reportable 09/24/16 10:10 Plt Clumps, EDTA Not Reportable 09/24/16 10:10 Large Platelets Not Reportable 09/24/16 10:10 Giant Platelets Not Reportable 09/24/16 10:10 Platelet Satelliting Not Reportable 09/24/16 10:10 Plt Morphology Comment Not Reportable 09/24/16 10:10 RBC Morphology Not Reportable 09/24/16 10:10 Dimorphic RBCs Not Reportable 09/24/16 10:10 Polychromasia Not Reportable 09/24/16 10:10 Hypochromasia Not Reportable 09/24/16 10:10 Poikilocytosis Not Reportable 09/24/16 10:10 Anisocytosis Not Reportable 09/24/16 10:10 Microcytosis Not Reportable 09/24/16 10:10 Macrocytosis Not Reportable 09/24/16 10:10 Spherocytes Not Reportable 09/24/16 10:10 Pappenheimer Bodies Not Reportable 09/24/16 10:10 Sickle Cells Not Reportable 09/24/16 10:10 Target Cells Not Reportable 09/24/16 10:10 Tear Drop Cells Not Reportable 09/24/16 10:10 Ovalocytes Not Reportable 09/24/16 10:10 Helmet Cells Not Reportable 09/24/16 10:10 [place] Bodies Not Reportable 09/24/16 10:10 [place] Rings Not Reportable 09/24/16 10:10 [place] Cells Not Reportable 09/24/16 10:10 Bite Cells Not Reportable 09/24/16 10:10 Crenated Cell Not Reportable 09/24/16 10:10 Elliptocytes Not Reportable 09/24/16 10:10 Acanthocytes (Spur) Not Reportable 09/24/16 10:10 Rouleaux Not Reportable 09/24/16 10:10 Hemoglobin C Crystals Not Reportable 09/24/16 10:10 Schistocytes Not Reportable 09/24/16 10:10 Malaria parasites Not Reportable 09/24/16 10:10 Gabriel Bodies Not Reportable 09/24/16 10:10 Hem Pathologist Commnt No 09/24/16 10:10 VBG pH 7.180 (7.320-7.420) L* 09/24/16 09:34 Sodium 139 mmol/L (137-145) D 09/26/16 11:55 Potassium 3.0 mmol/L (3.6-5.0) L D 09/26/16 11:55 Chloride 103.9 mmol/L (98-107) 09/25/16 13:55 Carbon Dioxide 26 mmol/L (22-30) D 09/26/16 11:55 Anion Gap 15 mmol/L 09/26/16 11:55 BUN 12 mg/dL (9-20) 09/26/16 11:55 Creatinine 1.0 mg/dL (0.8-1.5) 09/26/16 11:55 Estimated GFR > 60 ml/min 09/26/16 11:55 BUN/Creatinine Ratio 12.00 % 09/26/16 11:55 Glucose 360 mg/dL (75-100) H 09/26/16 11:55 POC Glucose 346 (70-105) H 09/26/16 11:10 Calcium 8.6 mg/dL (8.4-10.2) 09/26/16 11:55 Phosphorus 2.3 mg/dL (2.5-4.5) L D 09/24/16 16:23 Magnesium 1.8 mg/dL (1.7-2.3) 09/25/16 13:55 Urine Color Straw (Yellow) 09/24/16 10:08 Urine Turbidity Clear (Clear) 09/24/16 10:08 Urine pH 5.0 (5.0-7.0) 09/24/16 10:08 Ur Specific [place] 1.024 (1.003-1.030) 09/24/16 10:08 Urine Protein <15 mg/dl mg/dL (Negative) 09/24/16 10:08 Urine Glucose (UA) >=500 mg/dL (Negative) 09/24/16 10:08 Urine Ketones 80 mg/dL (Negative) 09/24/16 10:08 Urine Blood Neg (Negative) 09/24/16 10:08 Urine Nitrite Neg (Negative) 09/24/16 10:08 Urine Bilirubin Neg (Negative) 09/24/16 10:08 Urine Urobilinogen < 2.0 mg/dL (<2.0) 09/24/16 10:08 Ur Leukocyte Esterase Neg (Negative) 09/24/16 10:08 Urine WBC (Auto) < 1.0 /HPF (0.0-6.0) 09/24/16 10:08 Urine RBC (Auto) 1.0 /HPF (0.0-6.0) 09/24/16 10:08 Urine Mucus Few /HPF 09/24/16 10:08 Ketones mmol/L (-0.28) 09/24/16 10:10
[2016-09-26] MEDS ORDERED: LOVENOX SUB-Q SCH (22:00)
[2016-09-27 07:03] LABS: Anion Gap 13 mmol/L; BUN/Creatinine Ratio 11.11; Blood Urea Nitrogen 10 mg/dL (9-20); Calcium 8.6 mg/dL (8.4-10.2); Carbon Dioxide 26 mmol/L (22-30); Chloride 104.7 mmol/L (98-107); Glucose 334 mg/dL (75-100); Potassium 3.4 mmol/L (3.6-5.0); Sodium 140 mmol/L (137-145)
--- NOTE | 2016-09-27 10:26 | Discharge Summary ---
Providers - Providers Date of Admission: 09/24/16 12:07 Date of discharge: 09/27/16 Attending physician: UVALDO TOBIN Primary care physician: STRING STUDIES DIRECTOR Hospitalization Condition: Fair Hospital course: 41-year-old -[place] male with history of diabetes mellitus type 2 on insulin who presents to the emergency department by EMS after he was found sleeping in a [employer] parking lot. Patient was found to have elevated blood sugar greater than 500 by EMS. He was admitted to the intensive care unit with the DKA protocol. His anion gap resolved very quickly and an insulin drip was discontinued. He was placed on sliding scale of insulin along with long-acting insulin, ADA diet and blood glucose was followed. His insulin dose was adjusted according to blood glucose level. He was tolerating diet, was discharged home in stable condition. His electrolytes were monitored and potassium was replaced accordingly. Discharge diagnoses DKA (diabetic ketoacidoses) * resolved, off insulin drip * Monitor blood glucose qACHS * cont on ADa diet * Continue novolin 70/30 35 units in the morning and 30 units at bedtime Hyperkalemia * Status post Kayexalate and calcium chloride given in ER * resolved, then he was hypokalemic and was repleted. Hypernatremia * resolved with iv fluid Nausea vomiting, due to DKA, resolved Disposition: DISCHARGED TO HOME OR SELFCARE Time spent for discharge: 32 minures Core Measure Documentation - Palliative Care Palliative Care/ Comfort Measures: Not Applicable - Core Measures Any of the following diagnoses?: none Exam - Physical Exam Narrative exam: GENERAL: well-developed and well-nourished male lying on bed appeared to be in no discomfort. HEENT: Normocephalic. Atraumatic. No conjunctival congestion or icterus. Patient has moist mucous membranes. NECK: Supple. Trachea midline. CHEST/LUNGS: Clear to auscultated bilaterally, breathing nonlabored. No wheezes crackles or rhonchi. HEART/CARDIOVASCULAR: Regular in rate and rhythm. S1 and S2 positive. ABDOMEN: Abdomen is soft, nontender. Patient has normal bowel sounds. SKIN: There is no rash. Warm and dry. NEURO: No focal motor deficit. Follows command. MUSCULOSKELETAL: No joint effusion or tenderness. EXTRIMITY: No edema, no cyanosis or clubbing. PSYCH: Cooperative. - Constitutional Vitals: Temp Pulse Resp BP Pulse Ox 98.2 F 80 16 106/64 97 09/27/16 08:00 09/27/16 08:00 09/27/16 08:00 09/27/16 08:00 09/27/16 08:00 Plan Activity: advance as tolerated Weight Bearing Status: Weight Bear as Tolerated Diet: diabetic Follow up with: PRIMARY CARE, [Primary Care Provider] - 3-5 Days Prescriptions: Insulin NPH/Regular [NovoLIN 70/30] 35 unit SUB-Q QAMDIAB #1 bottle metFORMIN [Glucophage] 500 mg PO BIDDIAB #60 tablet
[2016-09-27] MEDS: K-DUR PO SCH (11:02)
[2016-09-27 18:01] VITALS: BP 98/60
== END 2016-09-27 18:15 | disposition home or self-care (01) | DRG 638 ==
LOC: ED 09:03 → CC1 12:07 → 3A 09-25 16:14
PROVIDERS: ADMIT Internal Medicine; ATTEND Internal Medicine
DX: E13.10 Other specified diabetes mellitus with ketoacidosis without coma (principal); E87.0 Hyperosmolality and hypernatremia; Z59.0 Homelessness; E66.9 Obesity, unspecified; Z68.27 Body mass index [BMI] 27.0-27.9, adult; E87.5 Hyperkalemia; Z88.6 Allergy status to analgesic agent
CPT/HCPCS: 36415; 80048; 81001; 82010; 82805; 82962; 83036; 83735; 84100; 85007; 85025; 93005; 93010; 96374; J1650; J1815; J7030

== ENCOUNTER 2016-10-18 22:07 | Inpatient (IN) | payer OTHER ==
[2016-10-18] MEDS ORDERED: ZOFRAN IV ONE (22:43)
[2016-10-18] MEDS ORDERED: NACL 0.9% 1000 ML 1,000 ML IV ONE (22:43)
--- NOTE | 2016-10-18 22:52 | Emergency Department Report ---
- General Chief complaint: Hyperglycemia Stated complaint: HIGH BLOOD SUGAR Time Seen by Provider: 10/18/16 22:34 Source: patient, EMS Mode of arrival: Stretcher Limitations: Physical Limitation - History of Present Illness MD Complaint: generalized weakness, lack of energy, difficulty walking Onset/Timin -: Gradual, days(s) Location: generalized Severity: moderate Severity scale (0 -10): 0 Consistency: constant Improves with: none Worsens with: none Context: other (out of insulin) Associated Symptoms: denies: chest pain, confusion, dark stools, diaphoresis, dysuria, easy bruising, fever/chills, headaches, loss of appetite, nausea/ vomiting, myalgias, rash, shortness of breath, syncope - Related Data Home Medications Medication Instructions Recorded Confirmed Last Taken No Known Home Medications [No 10/18/16 10/18/16 Unknown Reported Home Medications] Allergies Allergy/AdvReac Type Severity Reaction Status Date / Time aspirin Allergy Unknown Verified 05/29/16 22:00 ED Review of Systems ROS: Stated complaint: HIGH BLOOD SUGAR Other details as noted in HPI Comment: All other systems reviewed and negative ED Past Medical Hx - Past Medical History Previous Medical History?: Yes Hx Congestive Heart Failure: No Hx Diabetes: Yes Hx Asthma: No Hx COPD: No Additional medical history: OBESITY - Surgical History Past Surgical History?: No - Social History Smoking Status: Never Smoker Substance Use Type: None - Medications Home Medications: Home Medications Medication Instructions Recorded Confirmed Last Taken Type No Known Home Medications [No 10/18/16 10/18/16 Unknown History Reported Home Medications] ED Physical Exam - General Limitations: Physical Limitation General appearance: lethargic - Head Head exam: Present: atraumatic, normocephalic - Eye Eye exam: Present: normal appearance, PERRL - ENT ENT exam: Present: normal exam, normal orophraynx - Neck Neck exam: Present: normal inspection - Respiratory Respiratory exam: Present: normal lung sounds bilaterally, respiratory distress - Cardiovascular Cardiovascular Exam: Present: tachycardia - GI/Abdominal GI/Abdominal exam: Present: soft, normal bowel sounds. Absent: distended, tenderness, guarding, rebound, rigid - Extremities Exam Extremities exam: Present: normal inspection, full ROM - Back Exam Back exam: Present: normal inspection, full ROM - Neurological Exam Neurological exam: Present: altered, CN II-XII intact - Skin Skin exam: Present: warm, dry ED Course Vital Signs 10/18/16 10/18/16 10/18/16 22:17 22:21 22:25 Temperature 98 F Pulse Rate 138 H 140 H 133 H Respiratory 16 13 22 Rate Blood Pressure 118/76 Blood Pressure 123/78 [Left] O2 Sat by Pulse 100 Oximetry 10/18/16 23:23 Temperature Pulse Rate 132 H Respiratory 15 Rate Blood Pressure Blood Pressure 112/72 [Left] O2 Sat by Pulse 100 Oximetry ED Medical Decision Making - Lab Data Result diagrams: 10/18/16 23:38 - EKG Data -: EKG Interpreted by Me Rate: tachycardia - Radiology Data Radiology results: image reviewed - Medical Decision Making Patient severely acidotic , non compliant with insulin , bicarb of 7 and anion gap of 54 , placed patient on dka protocol, getting fluids and insulin , waiting on K level to further determine the need or not to replace. Spoke to hospitalist and agree with plan for admission Critical care time in (mins) excluding proc time.: 45 Critical care attestation.: If time is entered above; I have spent that time in minutes in the direct care of this critically ill patient, excluding procedure time. ED Disposition Clinical Impression: DKA (diabetic ketoacidoses), High anion gap metabolic acidosis Disposition: OP ADMITTED IP TO THIS HOSP Is pt being admited?: Yes Does the pt Need Aspirin: No Condition: Critical Instructions: Diabetic Ketoacidosis (ED) Time of Disposition: 00:46
[2016-10-19 00:11] LABS: INR 1.17 (0.87-1.13)
[2016-10-19 00:15] LABS: BUN/Creatinine Ratio 16.81; Calcium 9.7 mg/dL (8.4-10.2); Chloride 95.8 mmol/L (98-107); Potassium 4.5 mmol/L (3.6-5.0)
[2016-10-19 00:17] LABS: Mean Corpuscular HGB Conc 30 % (32-34); Mean Corpuscular Hemoglobin 31 pg (28-32); Mean Corpuscular Volume 103 fl (84-94); Platelet Count 538 K/mm3 (140-440); Red Blood Count 4.27 M/mm3 (3.65-5.03); Red Cell Distribution Width 15.3 % (13.2-15.2); White Blood Count 15.3 K/mm3 (4.5-11.0)
[2016-10-19 00:23] LABS: Creatine Kinase MB < 1.0 ng/mL (0.0-4.0)
[2016-10-19 00:24] LABS: Creatine Kinase 21 units/L (55-170)
[2016-10-19] MEDS ORDERED: D50W (25GM) IV PRN ×2 (00:26→01:03)
[2016-10-19] MEDS ORDERED: NACL 0.9% 1000 ML 1,000 ML IV ONE (00:26)
[2016-10-19 00:44] LABS: Hemoglobin 13.2 gm/dl (11.8-15.2)
[2016-10-19 00:45] LABS: Hematocrit 42.9 % (35.5-45.6)
[2016-10-19] MEDS ORDERED: NovoLIN R 100 UNITS in NACL 0.9% 99 ML IV SCH (01:00)
[2016-10-19] MEDS ORDERED: ZOFRAN IV PRN (01:07)
[2016-10-19] MEDS ORDERED: TYLENOL PR PRN (01:10)
[2016-10-19 01:25] LABS: Magnesium 2.9 mg/dL (1.7-2.3); Phosphorous 7.1 mg/dL (2.5-4.5)
[2016-10-19] MEDS ORDERED: NACL 0.9% 1000 ML 1,000 ML ONE (01:33)
[2016-10-19] MEDS ORDERED: NACL 0.9% 1000 ML 1,000 ML IV SCH (02:00)
[2016-10-19 02:34] LABS: Magnesium 2.7 mg/dL (1.7-2.3); Phosphorous 3.8 mg/dL (2.5-4.5)
[2016-10-19 02:53] LABS: Basophils % (Manual) 0 % (0.0-1.8); Blastocytes % (Manual) 0 %; Eosinophils % (Manual) 0 % (0.0-4.3)
[2016-10-19 02:55] LABS: Anisocytosis Few; Diff Status Complete; Hypochromasia Few; Polychromasia Few
[2016-10-19 02:56] LABS: Platelet Estimate Appears Increased
[2016-10-19 03:03] LABS: BUN/Creatinine Ratio 16.66; Potassium 4.9 mmol/L (3.6-5.0)
[2016-10-19 06:30] LABS: BUN/Creatinine Ratio 17.77; Calcium 9.8 mg/dL (8.4-10.2); Chloride 113.3 mmol/L (98-107); Potassium 5.6 mmol/L (3.6-5.0)
[2016-10-19] MEDS ORDERED: D5/0.45NS 1,000 ML IV SCH ×2 (07:00→21:40)
--- NOTE | 2016-10-19 08:39 | Progress Note ---
Assessment and Plan Assessment and plan: Patient is a 41 y/o male who is non compliant with insulin presented with generalized weakness, in the ER noted to have BG 716, Na 153, bicarb of 7, hypernatremia and anion gap of 54, placed patient on dka protocol, admitted to ICU DKA -cont insulin drip till anion gap closed - monitor BG q1h Hypernatremia - cont hypotonic solution - monitor BMP UTI - place on levaquin - will get urine cx, leukocytosis - likely due to DKA and UTI - cont to monitor h/o schizophrenia - cont home neds DVT Px, on heparin The high probability of a clinically significant, sudden or life threatening deterioration of the system(s) required my full and direct attention, intervention and personal management. The aggregate critical care time was [35] minutes. This time is in addition to time spent performing reported procedures but includes the following: [x] Data Review and interpretation [x] Patient assessment and monitoring of vital signs [x] Documentation [x] Medication orders and management History Interval history: Pt seen and examined denies any chest pain or SOB Hospitalist Physical - Constitutional Vitals: Temp Pulse Resp BP Pulse Ox 98 F 102 H 13 118/77 99 10/18/16 22:25 10/19/16 06:00 10/19/16 06:00 10/19/16 06:00 10/19/16 06:00 General appearance: Present: no acute distress, other (lathergic) - EENT Eyes: Present: PERRL, EOM intact ENT: hearing intact, clear oral mucosa - Neck Neck: Present: supple, normal ROM - Respiratory Respiratory effort: normal Respiratory: bilateral: CTA - Cardiovascular Rhythm: regular Heart Sounds: Present: S1 & S2 - Extremities Extremities: no ischemia, No edema Peripheral Pulses: within normal limits - Abdominal General gastrointestinal: soft, non-tender, non-distended, normal bowel sounds - Integumentary Integumentary: Present: warm, dry - Psychiatric Psychiatric: cooperative - Neurologic Neurologic: CNII-XII intact, moves all extremities Results - Labs CBC & Chem 7: 10/19/16 09:33 10/20/16 06:42 Labs: Laboratory Last Values WBC 15.3 K/mm3 (4.5-11.0) H 10/18/16 23:38 RBC 4.27 M/mm3 (3.65-5.03) 10/18/16 23:38 Hgb 13.2 gm/dl (11.8-15.2) 10/18/16 23:38 Hct 42.9 % (35.5-45.6) 10/18/16 23:38 MCV 103 fl (84-94) H 10/18/16 23:38 MCH 31 pg (28-32) 10/18/16 23:38 MCHC 30 % (32-34) L 10/18/16 23:38 RDW 15.3 % (13.2-15.2) H 10/18/16 23:38 Plt Count 538 K/mm3 (140-440) H 10/18/16 23:38 Add Manual Diff Complete 10/18/16 23:38 Total Counted 100 10/18/16 23:38 Seg Neuts % (Manual) 67.0 % (40.0-70.0) 10/18/16 23:38 Band Neutrophils % 13.0 % 10/18/16 23:38 Lymphocytes % (Manual) 16.0 % (13.4-35.0) 10/18/16 23:38 Reactive Lymphs % (Man) 0 % 10/18/16 23:38 Monocytes % (Manual) 4.0 % (0.0-7.3) 10/18/16 23:38 Eosinophils % (Manual) 0 % (0.0-4.3) 10/18/16 23:38 Basophils % (Manual) 0 % (0.0-1.8) 10/18/16 23:38 Metamyelocytes % 0 % 10/18/16 23:38 Myelocytes % 0 % 10/18/16 23:38 Promyelocytes % 0 % 10/18/16 23:38 Blast Cells % 0 % 10/18/16 23:38 Nucleated RBC % Not Reportable 10/18/16 23:38 Seg Neutrophils # Man 10.3 K/mm3 (1.8-7.7) H 10/18/16 23:38 Band Neutrophils # 2.0 K/mm3 10/18/16 23:38 Lymphocytes # (Manual) 2.4 K/mm3 (1.2-5.4) 10/18/16 23:38 Abs React Lymphs (Man) 0.0 K/mm3 10/18/16 23:38 Monocytes # (Manual) 0.6 K/mm3 (0.0-0.8) 10/18/16 23:38 Eosinophils # (Manual) 0.0 K/mm3 (0.0-0.4) 10/18/16 23:38 Basophils # (Manual) 0.0 K/mm3 (0.0-0.1) 10/18/16 23:38 Metamyelocytes # 0.0 K/mm3 10/18/16 23:38 Myelocytes # 0.0 K/mm3 10/18/16 23:38 Promyelocytes # 0.0 K/mm3 10/18/16 23:38 Blast Cells # 0.0 K/mm3 10/18/16 23:38 WBC Morphology Not Reportable 10/18/16 23:38 Hypersegmented Neuts Not Reportable 10/18/16 23:38 Hyposegmented Neuts Not Reportable 10/18/16 23:38 Hypogranular Neuts Not Reportable 10/18/16 23:38 Smudge Cells Not Reportable 10/18/16 23:38 Toxic Granulation Not Reportable 10/18/16 23:38 Toxic Vacuolation Not Reportable 10/18/16 23:38 Dohle Bodies Not Reportable 10/18/16 23:38 Pelger-Huet Anomaly Not Reportable 10/18/16 23:38 Nanette Rods Not Reportable 10/18/16 23:38 Platelet Estimate Appears increased 10/18/16 23:38 Clumped Platelets Not Reportable 10/18/16 23:38 Plt Clumps, EDTA Not Reportable 10/18/16 23:38 Large Platelets Not Reportable 10/18/16 23:38 Giant Platelets Not Reportable 10/18/16 23:38 Platelet Satelliting Not Reportable 10/18/16 23:38 Plt Morphology Comment Not Reportable 10/18/16 23:38 RBC Morphology Not Reportable 10/18/16 23:38 Dimorphic RBCs Not Reportable 10/18/16 23:38 Polychromasia Few 10/18/16 23:38 Hypochromasia Few 10/18/16 23:38 Poikilocytosis Not Reportable 10/18/16 23:38 Anisocytosis Few 10/18/16 23:38 Microcytosis Not Reportable 10/18/16 23:38 Macrocytosis Not Reportable 10/18/16 23:38 Spherocytes Not Reportable 10/18/16 23:38 Pappenheimer Bodies Not Reportable 10/18/16 23:38 Sickle Cells Not Reportable 10/18/16 23:38 Target Cells Not Reportable 10/18/16 23:38 Tear Drop Cells Not Reportable 10/18/16 23:38 Ovalocytes Not Reportable 10/18/16 23:38 Helmet Cells Not Reportable 10/18/16 23:38 [place] Bodies Not Reportable 10/18/16 23:38 [place] Rings Not Reportable 10/18/16 23:38 Gina Cells Not Reportable 10/18/16 23:38 Bite Cells Not Reportable 10/18/16 23:38 Crenated Cell Not Reportable 10/18/16 23:38 Elliptocytes Not Reportable 10/18/16 23:38 Acanthocytes (Spur) Not Reportable 10/18/16 23:38 Rouleaux Not Reportable 10/18/16 23:38 Hemoglobin C Crystals Not Reportable 10/18/16 23:38 Schistocytes Not Reportable 10/18/16 23:38 Malaria parasites Not Reportable 10/18/16 23:38 Gabriel Bodies Not Reportable 10/18/16 23:38 Hem Pathologist Commnt No 10/18/16 23:38 PT 14.8 Sec. (12.2-14.9) 10/18/16 23:38 INR 1.17 (0.87-1.13) H 10/18/16 23:38 VBG pH 7.177 (7.320-7.420) L* 10/18/16 23:38 Sodium 156 mmol/L (137-145) H 10/19/16 06:00 Potassium 5.6 mmol/L (3.6-5.0) H 10/19/16 06:00 Chloride 113.3 mmol/L (98-107) H 10/19/16 06:00 Carbon Dioxide 16 mmol/L (22-30) L 10/19/16 06:00 Anion Gap 32 mmol/L 10/19/16 06:00 BUN 32 mg/dL (9-20) H 10/19/16 06:00 Creatinine 1.8 mg/dL (0.8-1.5) H 10/19/16 06:00 Estimated GFR 51 ml/min 10/19/16 06:00 BUN/Creatinine Ratio 17.77 % 10/19/16 06:00 Glucose 277 mg/dL (75-100) H 10/19/16 06:00 POC Glucose 217 (70-105) H 10/19/16 08:05 Hemoglobin A1c 13.4 % (4-6) H 10/18/16 23:38 Lactic Acid 2.0 mmol/L (0.7-2.0) 10/18/16 23:38 Calcium 9.8 mg/dL (8.4-10.2) 10/19/16 06:00 Phosphorus 7.1 mg/dL (2.5-4.5) H 10/19/16 Unknown Magnesium 2.9 mg/dL (1.7-2.3) H 10/19/16 Unknown Total Creatine Kinase 21 units/L (55-170) L 10/18/16 23:38 CK-MB (CK-2) < 1.0 ng/mL (0.0-4.0) 10/18/16 23:38 CK-MB (CK-2) Rel Index 4.7 (0-4) H 10/18/16 23:38 Troponin T < 0.010 ng/mL (0.00-0.029) 10/18/16 23:38 - Imaging and Cardiology Chest x-ray: report reviewed
[2016-10-19] MEDS ORDERED: NACL 0.45% 500 ML IV SCH (09:00)
--- NOTE | 2016-10-19 09:45 | XRay Report ---
AP CHEST :10/18/16 22:07:00 CLINICAL: Lightheadedness and dizziness. COMPARISON:08/29/16 FINDINGS: The heart is normal size.The pulmonary vessels are indistinct. Mild bilateral perihilar lung opacities. No pulmonary consolidation. No pleural effusion. The bones and soft tissues are normal. IMPRESSION: Indistinct pulmonary vessels and bilateral perihilar haziness suggesting possible early pneumonia.
[2016-10-19] MEDS: LEVAQUIN 750MG/150ML 750 MG/150 ML BAG IV SCH (10:00)
[2016-10-19 10:27] LABS: Hematocrit 39.8 % (35.5-45.6); Hemoglobin 12.6 gm/dl (11.8-15.2); Mean Corpuscular HGB Conc 32 % (32-34); Mean Corpuscular Hemoglobin 31 pg (28-32); Mean Corpuscular Volume 96 fl (84-94); Platelet Count 371 K/mm3 (140-440); Red Blood Count 4.15 M/mm3 (3.65-5.03); White Blood Count 12.4 K/mm3 (4.5-11.0)
[2016-10-19 10:37] LABS: BUN/Creatinine Ratio 16.31; Calcium 9.4 mg/dL (8.4-10.2); Chloride 115.6 mmol/L (98-107); Potassium 4.8 mmol/L (3.6-5.0)
[2016-10-19] MEDS: HEPARIN SUB-Q SCH ×2 (10:48→23:05)
[2016-10-19] MEDS ORDERED: NACL 0.45% IV SCH (11:54)
[2016-10-19 12:37] LABS: Anisocytosis 1+; Basophils % (Manual) 0 % (0.0-1.8); Blastocytes % (Manual) 0 %; Diff Status Complete; Eosinophils % (Manual) 0 % (0.0-4.3)
[2016-10-19 12:38] LABS: Platelet Estimate Consistent w Auto
[2016-10-19] MEDS ORDERED: NACL 0.45% 1000 ML 1,000 ML IV ONE (12:41)
[2016-10-19 17:46] LABS: Potassium TNR mmol/L (3.6-5.0); Sodium TNR mmol/L (137-145)
[2016-10-19 17:47] LABS: Chloride TNR mmol/L (98-107)
[2016-10-19 17:49] LABS: Anion Gap TNR mmol/L; BUN/Creatinine Ratio TNR; Blood Urea Nitrogen TNR mg/dL (9-20); Carbon Dioxide TNR mmol/L (22-30); Glucose TNR mg/dL (75-100)
[2016-10-19 17:50] LABS: Calcium TNR mg/dL (8.4-10.2)
[2016-10-19 20:26] LABS: Anion Gap 21 mmol/L; BUN/Creatinine Ratio 18.57; Blood Urea Nitrogen 26 mg/dL (9-20); Calcium 9.4 mg/dL (8.4-10.2); Carbon Dioxide 23 mmol/L (22-30); Chloride 117.5 mmol/L (98-107); Glucose 115 mg/dL (75-100); Potassium 3.8 mmol/L (3.6-5.0); Sodium 158 mmol/L (137-145)
[2016-10-20 07:20] LABS: Anion Gap 15 mmol/L; BUN/Creatinine Ratio 16.92; Blood Urea Nitrogen 22 mg/dL (9-20); Calcium 9.5 mg/dL (8.4-10.2); Carbon Dioxide 26 mmol/L (22-30); Chloride 120.1 mmol/L (98-107); Glucose 110 mg/dL (75-100); Potassium 3.2 mmol/L (3.6-5.0); Sodium 158 mmol/L (137-145)
--- NOTE | 2016-10-20 07:30 | Admit Criteria Form ---
Admission Criteria Documentation: GENERAL ADMISSION CRITERIA (Place 'X' for any and all applicable criteria): Admission is indicated for ANY ONE of the following: [ ]I. Hemodynamic instability as indicated by ANY ONE of the following(1)(2) (3)(4)(5): [ ]a) Vital sign abnormality not readily corrected by appropriate treatment within 12 to 24 hours indicated by ANY ONE of the following: [ ]i) Hypotension [ ]ii) Symptomatic Tachycardia unresponsive to treatment (eg , analgesia, fluids, sedation as indicated) [ ]iii) Orthostatic vital sign changes unresponsive to treatment (eg, fluids) [ ]b) Vital sign abnormality that is severe indicated by ANY ONE of the following: [ ]i) Inadequate perfusion indicated by ANY ONE of the following: [ ]1) Lactic acidosis (greater than 2 mmol/L) [ ]2) New abnormal capillary refill (greater than 3 seconds) [ ]3) Other metabolic acidosis (arterial pH less than 7.35) not otherwise explained [ ]4) Reduced urine output [ ]5) Altered mental status [ ]6) Myocardial Ischemia [ ]v) Mean arterial pressure[A] less than 60 mm Hg [ ]vi) Mean arterial pressure[A] less than 70 mm Hg after 30 minutes of appropriate treatment (eg, fluid resuscitation) [ ]vii) IV inotropic or vasopressor medication required to maintain adequate blood pressure or perfusion [ ]viii) Sustained heart rate greater than 120 beats per minute in adult or child 6 years or older[B]] [ ]II. Hypertension requiring inpatient treatment as indicated by ANY ONE of the following(6)(7)(8): [ ]a) SBP greater than 220 mm Hg or DBP greater than 120 mm Hg despite treatment [ ]b) SBP greater than 140 mm Hg or DBP greater than 100 mm Hg with evidence of acute end organ damage as indicated by ANY ONE of the following: [ ]i) Encephalopathy [ ]ii) Acute renal failure as indicated by new onset of ANY ONE of the following(9)(10)(11)(12)(13): [ ]1) A 3-fold rise in serum creatinine from baseline [ ]2) Serum creatinine greater than 4 mg/dL ( 354 micromoles/L) with acute rise greater than 0.5 mg/dL (44.2 micromoles/L) [ ]3) Reduction of more than 75% in estimated glomerular filtration rate from baseline [ ]4) Estimated glomerular filtration rate less than 35 mL/min/1.73m2 (0.59 mL/sec/1.73m2) in child up to 18 years of age [ ]5) Cessation of urine output indicated by ALL of the following: [ ]A. Adequate volume status [ ]B. Inadequate urine output as indicated by ANY ONE of the following: [ ]a. Urine output less than 0.3 mL/kg/hr for 24 hours [ ]b. Anuria (urine output less than 0.1 mL/kg/hr) for 12 hours [ ]iii) Aortic dissection [ ]iv) Myocardial ischemia [ ]v) Left ventricular heart failure [ ]vi) Retinal hemorrhage [ ]vii) Other significant finding [ ]c) Hypertension in child requiring inpatient treatment as indicated by ALL of the following(14)(15)(16): [ ]i) Outpatient treatment not effective, not available, or not appropriate [ ]ii) SBP or DBP greater than 95th percentile for age [ ]iii) Evidence of acute end organ damage as indicated by ANY ONE of the following: [ ]1) Altered mental status [ ]2) Acute renal failure as indicated by new onset of ANY ONE of the following(9)(10)(11)(12)(13): [ ]A. A 3-fold rise in serum creatinine from baseline [ ]B. Serum creatinine greater than 4 mg/dL (354 micromoles/L) with acute rise greater than 0.5 mg/dL (44.2 micromoles/L) [ ]C. Reduction of more than 75% in estimated glomerular filtration rate from baseline [ ]D. Estimated glomerular filtration rate less than 35 mL/min/1.73m2 (0.59 mL/sec/1.73m2)in child up to 18 years of age [ ]E. Cessation of urine output indicated by ALL of the following: [ ]a. Adequate volume status [ ]b. Inadequate urine output as indicated by ANY ONE of the following: [ ]1) Urine output less than 0.3 mL/kg/hr for 24 hours [ ]2) Anuria (urine output less than 0.1 mL/kg/hr) for 12 hours [ ]3) Severe headache [ ]4) Visual disturbance [ ]5) Retinal hemorrhage [ ]6) Other significant finding [ ]III. Acute cardiac or peripheral ischemia as indicated by ANY ONE of the following: [ ]a) Acute coronary syndrome(17)(18) [ ]b) Acute peripheral ischemia (eg, pulseless, cool, mottled, or cyanotic extremity)(19) [ ]IV. Cardiac arrhythmias or findings of immediate concern indicated by ANY ONE of the following(20)(21): [ ]a) Heart rhythms that are inherently dangerous or unstable indicated by ANY ONE of the following(22)(23)(24): [ ]i) Resuscitated ventricular fibrillation or cardiac arrest [ ]ii) Ventricular escape rhythm [ ]iii) Sustained ventricular tachycardia (30 seconds or more of ventricular rhythm at greater than 100 beats per minute) [ ]iv) Nonsustained ventricular tachycardia and ANY ONE of the following: [ ]1) Suspected cardiac ischemia as cause or consequence of ventricular tachycardia [ ]2) In setting of acute myocarditis [ ]b) Unstable cardiac conduction defects indicated by ANY ONE of the following(24)(25)(26): [ ]i) Type II second-degree atrioventricular block [ ]ii) Third-degree atrioventricular block [ ]iii) New-onset left bundle branch block with suspected myocardial ischemia [ ]c) Any heart rhythm and ANY ONE of the following(22)(23)(27)(28)( 29): [ ] i) Continuous long-term ECG monitoring needed (eg, initiation of drug requiring monitoring for more than 24 hours) [ ] ii) Patient has automatic implanted cardioverter defibrillator that is repeatedly firing, malfunctioning, or in need of immediate adjustment of settings beyond the scope of ambulatory or observation care. [ ]d) Heart rhythms of concern due to ANY ONE of the following: [ ]i) Hypotension [ ]ii) Respiratory distress [ ]iii) Association with other significant symptoms (eg, bradycardia with syncope or ongoing dizziness, supraventricular tachycardia with chest pain) (27)(28) (30) [ ] V. Severe heart failure as indicated by ANY ONE of the following ( 31)(32): [ ]a) Respiratory distress [ ]b) Hypotension [ ]c) Anasarca (refractory to outpatient therapy) [ ]d) Cardiac arrhythmias of immediate concern [ ]e) Myocardial ischemia [ ]. Respiratory abnormalities, including ANY ONE of the following(33)(34) (35)(36): [ ]a) Respiratory rate greater than 30 breaths per minute unresponsive to treatment [A] [ ]b) New saturation of arterial oxygen less than 90% [ ]c) New partial pressure of carbon dioxide greater than 44 mm Hg ( 5.9 kPa) [ ]d) Supplemental oxygen or respiratory treatments needed that are new or not performable at other levels of care [ ]e) New-onset cyanosis [ ]f) Inability to protect airway [ ]g) Chronic lung disease with severe deterioration (not responsive to emergency and observation care treatment as appropriate) as indicated by ANY ONE of the following(34)(36 ): [ ]i) SaO2 5% below baseline in patient with chronic hypoxemia [ ]ii) New requirement for supplemental oxygen to keep SaO2 at baseline or acceptable level [ ]iii) Required supplemental oxygen performable only in acute inpatient setting [ ]iv) Severe airflow or ventilation abnormalities [ ]v) Previously mobile patient unable to walk between rooms [ ]vi Inability to eat or sleep due to dyspnea [ ]vii) Rapid rate of exacerbation onset [ ]viii) Altered mental status ]VII. Severe airflow or ventilation abnormalities (not responsive to emergency and observation care treatment as appropriate) as indicated by ANY ONE of the following(33)(34)(35)(37): [ ]a) PCO2 greater than 42 mm Hg (5.6 kPa) and pH less than 7.35 (new ) [ ]b) Documented PCO2 increased more than 5 mm Hg (0.7 kPa) from disease baseline [ ]c) Airflow measurements [B] less than 60% of previous best or predicted (eg, peak expiratory flow rate less than 300 L/minute) despite intensive emergent treatment [C] [ ]d) Required respiratory treatments that are performable only in acute inpatient setting [ ]VIII. Impending or actual respiratory arrest ( Also use Respiratory Failure GRG for severe respiratory disease and long-term mechanical ventilation patients) [ ]IX. Neurologic abnormalities, including ANY ONE of the following: [ ]a) New findings that suggest ANY ONE of the following: [ ]i) [place] [employer] infection(38) [ ]ii) Cerebral bleeding, ischemia, or vasospasm(39)(40) [ ]iii) Increased intracranial pressure, hydrocephalus, or cerebral edema(41)(42)(43) [ ]iv) Spinal cord injury(44) [ ]b) Uncontrolled seizures(45) [ ]c) New-onset coma (eg, Milfay coma scale score less than 9) or unexplained abnormal mental status (eg, Milfay coma scale score less than 14) [D](41)(46)(47) [ ]X. New-onset severe neurologic findings requiring inpatient care; examples include(42)(48)(49): [ ]a) Papilledema [ ]b) Cerebral edema [ ]c) Mass effect on CT scan [ ]XI. Suspected acute intra-abdominal process with peritoneal signs, abdominal mass, or similar findings (50)(51)(52) [X ]XII. Severe physiologic disorder remaining after emergency or observation level care (as appropriate) as indicated by ANY ONE of the following (53): [ ]a) Significant dehydration [ X]b) Diabetic ketoacidosis [ ]c) Hyperglycemic hyperosmolar state (eg, osmolality greater than 320 mOsm/kg (mmol/kg) [ ]d) Hypoglycemia [ ]e) Other (new) acid-base disorder with pH less than 7.35 or greater than 7.5(54) [ ]f) Thyroid storm (55) [ ]g) Myxedema coma (55) [ ]XIII. Abdominal abnormalities with ANY ONE of the following(56)(57): [ ]a) Absent bowel sounds with complete ileus [ ]b) Signs of intestinal obstruction or peritonitis [E] [ ]c) Nausea and vomiting that cannot be controlled with outpatient or observation care [ ]XIV. Acute renal failure as indicated by new onset of ANY ONE of the following(9)(10)(11)(12)(13): [ ]a) A 3-fold rise in serum creatinine from baseline [ ]b) Serum creatinine greater than 4 mg/dL (354 micromoles/L) with acute rise greater than 0.5 mg/dL (44.2 micromoles/L) [ ]c) Reduction of more than 75% in estimated glomerular filtration rate from baseline [ ]d) Estimated glomerular filtration rate less than 35 mL/min/ 1.73m2 (0.59 mL/sec/1.73m2) in child up to 18 years of age [ ]e) Cessation of urine output indicated by ALL of the following: [ ]i) Adequate volume status [ ]ii) Inadequate urine output as indicated by ANY ONE of the following: [ ]1) Urine output less than 0.3 mL/kg/hr for 24 hours [ ]2) Anuria (urine output less than 0.1 mL/kg/hr) for 12 hours [ ]XV. Significant uremic complications as indicated by ANY ONE of the following(58)(59)(60): [ ]a) Outpatient therapy is ineffective or not feasible for ANY ONE of the following: [ ]i) Severe heart failure [ ]ii) Severehypertension [ ]iii) Pleural effusion [ ]iv) Pericarditis or pericardial effusion [ ]b) Cardiac arrhythmias of immediate concern [ ]c) Intractable nausea or vomiting [ ]d) Recurrent seizures [ ]e) Encephalopathy [ ]f) Bleeding abnormalities (eg, platelet dysfunction) with active (eg, gastrointestinal) bleeding [ ]g) Dialysis indicated before long-term access or ambulatory arrangements can be made [ ]h) Significant metabolic or electrolyte abnormalities (eg, severe acidosis or hyperkalemia) [ ]XVI. High fever or other high-risk infection situation as indicated by ANY ONE of the following(61)(62)(63)(64): [ ]a) Outpatient and observation care antimicrobial treatment unavailable, not effective, or not appropriate [ ]b) Documented bacteremia [ ]c) Temperature greater than 40.5 degrees C (104.9 degrees F) ( oral) [ ]d) Temperature greater than 39.5 degrees C (103.1 degrees F) ( oral) or less than 36 degrees C (96.8 degrees F) (rectal) that does not respond to e treatment and observation care [ ] XVII. Temperature less than 95 degrees F (35 degrees C)(rectal)(65) [ ] XVIII. Severe nutritional abnormalities as indicated by ALL of the following (66)(67): [ ]a) Inability to tolerate or establish sufficient oral or other enteral nutrition in outpatient setting [ ]b) Parenteral nutrition regimen need that must be implemented on inpatient basis [ ] XIX. Severe electrolyte abnormalities indicated by ALL of the following(68) (69)(70): [ ]a) Electrolytes and associated findings are not as expected for patient baseline or acceptable treatment effects. [ ]b) Severe abnormalities indicated by ANY ONE of the following: [ ]i) Sodium less than 130 mEq/L (mmol/L) (new) [ ]ii)Sodium less than 135 mEq/L (mmol/L) with ANY ONE of the following: [ ]1) Uncorrectable (to near normal or chronic baseline) after trial of outpatient and emergency treatment [ ]2) Altered mental status [ ]3) Seizures [ ]4) Severe medical etiology requiring inpatient management (eg, heart failure, hypovolemia) [ ]iii) Sodium greater than 155 mEq/L (mmol/L) [ ]iv) Sodium greater than 150 mEq/L (mmol/L) with ANY ONE of the following: [ ]1) Uncorrectable (to near normal or chronic baseline) with outpatient and emergency treatment [ ]2) Altered mental status [ ]3) Seizures [ ]4) Severe medical etiology (eg, hypovolemia, diabetes insipidus) [ ]v) Potassium less than 2.5 mEq/L (mmol/L) despite outpatient and emergency treatment [ ]vi) Potassium less than 3 mEq/L (mmol/L) with ANY ONE of the following: [ ]1) Weakness [ ]2) Cardiac abnormality (eg, arrhythmia, conduction disturbance) [ ]3) Cardiac ischemia [ ]4) Ileus [ ]5) Ongoing medical cause requiring inpatient management (eg, acute renal wasting or SIADH) [ ]6) Other severe symptoms [ ]vii) Potassium greater than 6.5 mEq/L (mmol/L) [ ]viii) Potassium greater than 5 mEq/L (mmol/L) with ANY ONE of the following: [ ]1) Uncorrectable (to near normal or chronic baseline) with outpatient and emergency treatment [ ]2) Severe ECG findings [F] [ ]3) Acute worsening of renal failure (creatinine greater than 2.5 mg/dL (221 micromoles/L) or significant elevation for age and size) [ ]4) Severe weakness [ ]5) Severe medical etiology (eg, hemolysis, infection, drug overdose) [ ]ix) Calcium less than 7 mg/dL (1.75 mmol/L) despite outpatient and emergency treatment (72) [ ]x) Calcium less than 8 mg/dL (2 mmol/L) with significant symptoms or findings; examples include(72): [ ]1) Altered mental status [ ]2) Muscle spasms [ ]3) Seizures [ ]4) Breathing difficulty [ ]5) Cardiac abnormality (eg, arrhythmia or conduction disturbance) [ ]xi) Calcium greater than 14 mg/dL (3.5 mmol/L)(72) [ ]xii) Calcium greater than 12 mg/dL (3 mmol/L) with ANY ONE of the following(72): [ ]1) Uncorrectable (to near normal or chronic baseline) with outpatient and emergency treatment [ ]2) Significant dehydration or hypovolemia as indicated by ALL of the following(70)(73)(74): [ ]A. Not resolved with initial treatments [ ]B. Clinically significant dehydration as indicated by ANY ONE of the following: [ ]a. Vomiting refractory to outpatient treatment (ie, precluding oral rehydration) [ ]b. Inability to drink [ ]c. Hypernatremia or other electrolyte abnormality unable to be corrected with outpatient and emergency treatment [ ]d. Failure to remain hydrated with outpatient therapy [ ]e. Reduced urine output [ ]f. Hypotension [ ]g. Serious cause for dehydration requiring acute hospitalization (eg, bowel obstruction, increased intracranial pressure, infectious cause) [ ]h. Child with ANY ONE of the following(75): [ ]1) Severe abdominal tenderness [ ]2) Adequate care not available at home [ ]3) Severe dehydration ( greater than 9% loss of body weight) [ ]4) Significant symptoms or findings; examples include: [ ]A. Altered mental status [ ]B. Cardiac abnormality (eg, arrhythmia, conduction disturbance) [ ]C. Malignant etiology requiring inpatient treatment [ ]xiii) Phosphorus less than 1 mg/dL (0.32 mmol/L) [ ]xiv) Phosphorus less than 1.5 mg/dL (0.48 mmol/L) with ANY ONE of the following: [ ]1) Patient unresponsive to outpatient and emergency treatment [ ]2) Significant symptoms or findings; examples include: [ ]A. Weakness [ ]B. Altered mental status [ ]C. Breathing difficulty [ ]D. Seizures [ ]E. Rhabdomyolysis [ ]xv) Phosphorus greater than 10 mg/dL (3.2 mmol/L) [ ]xvi) Phosphorus greater than 4.5 mg/dL (1.45 mmol/L) (new) with ANY ONE of the following: [ ]1) Severe medical etiology (eg, crush injury, acute renal failure) [ ]2) Associated hypocalcemia with significant findings; examples include: [ ]A. Neurologic symptoms [ ]B. Altered mental status [ ]C. Muscle spasms [ ]D. Seizures [ ]E. Breathing difficulty [ ]F. Cardiac abnormality (eg, arrhythmia, conduction disturbance) [ ]xvii) Magnesium less than 1 mg/dL (0.41 mmol/L) [ ]xviii) Magnesium less than 1.5 mg/dL (0.62 mmol/L) with ANY ONE of the following: [ ]1) Patient unresponsive to outpatient and emergency treatment [ ]2) Associated hypocalcemia with significant findings; examples include: [ ]A. Altered mental status [ ]B. Muscle spasms [ ]C. Seizures [ ]D. Breathing difficulty [ ]E. Cardiac abnormality (eg, arrhythmia , conduction disturbance) [ ]3) Associated hypokalemia (potassium less than 3 mEq/L (mmol/L)) with risk of arrhythmia [ ]xix) Magnesium greater than 4 mEq/L (2 mmol/L) [ ]xx) Magnesium greater than 2.5 mEq/L (1.25 mmol/L) with significant symptoms or findings; examples include: [ ]1) Weakness [ ]2) Altered mental status [ ]3) Cardiac abnormality (eg, arrhythmia, conduction disturbance) [ ]4) Breathing difficulty [ ]5) Severe medical etiology (eg, renal failure, hypovolemia) [ ]xxi) Uric acid greater than 20 mg/dL (1190 micromoles/L)(76) [ ]xxii) Uric acid greater than 8 mg/dL (476 micromoles/L) with significant symptoms or findings of tumor lysis syndrome; examples include(76): [ ]1) Creatinine greater than 1.5 times upper limit of normal [ ]2) Cardiac abnormality (eg, arrhythmia, conduction disturbance) [ ]3) Seizure [ ]XX. Acute blood loss causing significant abnormality as indicated by ANY ONE of the following(77)(78): [ ]a) Hemoglobin less than 10 g/dL (100 g/L) (not baseline) [ ]b) Hematocrit less than 30% (0.30) (not baseline) [ ]c) Repeat hematocrit decreased more than 2% (0.02) [ ]d) Uncontrolled bleeding [ ]XXI. Severe anemia indicated by ANY ONE of the following(78)(79): [ ]a) Altered mental status [ ]b) Chest pain [ ]c) Exertional dyspnea [ ]d) Syncope [ ]e) Other findings suggesting inadequate perfusion [ ]f) Treatment with transfusion or volume replacement is ineffective at resolving ANY ONE of the following [G]: [ ]i) Tachycardia for age [ ]ii) Orthostatic vital sign changes as indicated by ANY ONE of the following(80): [ ]1) Fall in SBP of 20 mm Hg or more 1 to 3 minutes after patient sits or stands from recumbent position [ ]2) Fall in DBP of 10 mm Hg or more 1 to 3 minutes after patient sits or stands from recumbent position [ ]XXII. High-risk low platelet count as indicated by ANY ONE of the following( 81)(82): [ ]a) Severe or life-threatening bleeding (eg, intracranial, major gastrointestinal, or extensive mucosal bleeding), with any reduced platelet count [ ]b) Platelet count less than 20,000/mm3 (20 x109/L) with any active bleeding [ ]c) Platelet count less than 10,000/mm3 (10 x109/L) with minor purpura or petechiae [ ]d) Platelet count less than 5000/mm3 (5 x109/L) [ ]e) Low platelet count with hemolytic anemia [ ]XXIII. Disseminated intravascular coagulation(77)(83) [ ]XXIV. Severe adverse drug or systemic toxin reaction requiring inpatient treatment; examples include(84)(85): [ ]a) Serotonin syndrome(86) [ ]b) Neuroleptic malignant syndrome(86) [ ]c) Cholinergic syndrome with severe symptoms (eg, bronchorrhea, weakness, mental status changes, seizures) [ ]d) Sympathetic syndrome with severe symptoms (eg, seizures, mental status changes, cardiac dysrhythmias) [ ]e) Anticholinergic syndrome [ ]XXV. Severe pain requiring acute inpatient management as indicated by ALL of the following (87)(88)(89): [ ]a) Continuous or frequent (eg, every 2 to 4 hours) parenteral analgesics required [H] [ ]b) Rapid improvement expected from treatment or acute intervention (eg, surgery, anesthesia procedure) [ ]XXVI.Severe behavioral health issues judged unmanageable at a lower level of care (eg, residential) in a patient who is ANY ONE of the following(91) [ ]a) Acutely suicidal [ ]b) A danger to self (eg, self-mutilating or suicidal behavior) [ ]c) A danger to others (eg, assaultive or homicidal behavior) [ ]d) Incapacitated because of grave disability (eg, inability to provide for self at lower level of care) (92) [ ]XXVII. Inpatient monitoring needed; examples include(1)(3)(87)(93)(94)(95)(96 ): [ ]a) Vital signs, neurologic signs, or vascular checks more frequently than every 4 hours [ ]b) Cardiac or respiratory monitoring beyond the scope (eg, over 24 hours) of observation care [ ]c) Pulmonary artery catheter monitoring [ ]d) Suspected compartment syndrome(97) (98) [ ]e) Cerebral bleeding, hydrocephalus, or vasospasm monitoring [ ]f) Increased intracranial pressure or cerebral edema monitoring [ ]g) monitoring [ ]XXVIII. Treatment requiring inpatient care; examples include: [ ]a) IV fluid to replace significant ongoing losses (greater than 3 L/m2 per day)(53) [ ]b) High concentration oxygen (greater than 40%)(33)(99)(100) [ ]c) Frequent respiratory therapy (more frequently than every 4 hours) to maintain airflow rates greater than 60% of baseline(33)(99)(100) [ ]d) Epidural analgesia(87) [ ]e) IV anticoagulation, vasoactive, or antiarrhythmic medication(19 )(23) [ ]f) Acute thrombolytics (generally require 24 hours of observation )(101)(102) [ ]XXIX. Emergency procedures needed; examples include: [ ]a) Emergency inpatient surgery [ ]b) Temporary pacemaker placement(103) [ ]c) Chest tube placement with active evacuation (eg, suction, drainage)(104) [ ]d) Emergent cardioversion(105) [ ]e) Emergent cardiac or vascular procedures (eg, cardiac catheterization, angioplasty) (17)(18) [ ]f) Emergent dialysis access placement and institution(10)(106) [ ]g) Emergent pericardiocentesis(107) [ ]h) Emergent plasmapheresis or leukapheresis(83) [ ]i) Emergent tracheostomy The original [employer] content created by [employer] has been revised. The portions of the content which have been revised are identified through the use of italic text or in bold, and [employer] has neither reviewed nor approved the modified material. All other unmodified content is copyright [employer]. Please see references footnoted in the original [employer] edition 2016 Admission Criteria Met: Yes
[2016-10-20] MEDS ORDERED: KCL 20 MEQ in D5NS 0.2% 1,000 ML IV SCH (09:15)
[2016-10-20 09:20] LABS: Bacteria,Urine 1+ /HPF (Negative); Bilirubin,Urine NEG (Negative); Blood,Urine NEG (Negative); Ketones,Urine 80 mg/dL (Negative); Leukocyte Esterase,Urine MOD (Negative); Mucus,Urine 3+ /HPF; Nitrite,Urine NEG (Negative); Urobilinogen,Urine < 2.0 mg/dL (<2.0)
[2016-10-20] MEDS: HEPARIN SUB-Q SCH ×2 (10:23→22:02)
[2016-10-20] MEDS ORDERED: LEVEMIR SUB-Q SCH ×2 (12:16→22:00)
[2016-10-20] MEDS ORDERED: LEVEMIR SUB-Q ONE (13:30)
--- NOTE | 2016-10-20 16:12 | Progress Note ---
Assessment and Plan Patient is a 41 y/o male who is non compliant with insulin presented with generalized weakness, in the ER noted to have BG 716, Na 153, bicarb of 7, hypernatremia and anion gap of 54, placed patient on dka protocol, admitted to ICU DKA -anion gap closed - monitor BG qachs - placed on long acting and regular insulin Hypernatremia - cont hypotonic solution - monitor BMP hypokalemia - rplace with po KCL UTI - place on levaquin - will get urine cx, leukocytosis - likely due to DKA and UTI - cont to monitor h/o schizophrenia - cont home neds DVT Px, on heparin Subjective Date of service: 10/20/16 Principal diagnosis: DKA Interval history: Pt seen and examined denies any chest pain or SOB BG was better this am, Anion gap closed, downgraded to medsurge tolerated ADA diet Objective - Constitutional Vitals: Vital Signs - 12hr 10/20/16 10/20/16 10/20/16 05:01 06:01 06:31 Temperature Pulse Rate 88 81 83 Respiratory 13 15 15 Rate Blood Pressure 106/66 106/66 106/66 O2 Sat by Pulse 99 98 98 Oximetry 10/20/16 10/20/16 10/20/16 07:01 07:31 07:42 Temperature 97.7 F Pulse Rate 70 Respiratory 9 L Rate Blood Pressure 106/66 106/66 O2 Sat by Pulse 100 100 Oximetry 10/20/16 10/20/16 10/20/16 08:00 08:30 09:00 Temperature Pulse Rate Respiratory Rate Blood Pressure 125/75 125/80 120/77 O2 Sat by Pulse Oximetry 10/20/16 10/20/16 10/20/16 09:30 10:00 10:30 Temperature Pulse Rate 88 84 109 H Respiratory 11 L 13 14 Rate Blood Pressure 119/82 116/65 120/86 O2 Sat by Pulse Oximetry General appearance: Present: no acute distress, well-nourished - EENT Eyes: PERRL, EOM intact ENT: hearing intact, clear oral mucosa Ears: bilateral: normal - Neck Neck: supple, normal ROM - Respiratory Respiratory effort: normal Respiratory: bilateral: CTA - Cardiovascular Rhythm: regular Heart Sounds: Present: S1 & S2. Absent: gallop, rub Extremities: pulses intact, No edema, normal color, Full ROM - Gastrointestinal General gastrointestinal: Present: soft, non-tender, non-distended, normal bowel sounds - Integumentary Integumentary: clear, warm, dry - Musculoskeletal Musculoskeletal: 1, strength equal bilaterally - Neurologic Neurologic: moves all extremities - Psychiatric Psychiatric: memory intact, appropriate mood/affect, intact judgment & insight - Labs CBC & Chem 7: 10/19/16 09:33 10/20/16 06:42 Labs: Abnormal lab results 10/19/16 10/19/16 10/19/16 Range/Units 16:17 17:15 17:55 Sodium 158 H (137-145) mmol/L Potassium (3.6-5.0) mmol/L Chloride 117.5 H (98-107) mmol/L BUN 26 H (9-20) mg/dL Glucose 115 H (75-100) mg/dL POC Glucose 193 H 212 H (70-105) Urine WBC (Auto) (0.0-6.0) /HPF 10/19/16 10/19/16 10/19/16 Range/Units 18:16 20:18 21:45 Sodium (137-145) mmol/L Potassium (3.6-5.0) mmol/L Chloride (98-107) mmol/L BUN (9-20) mg/dL Glucose (75-100) mg/dL POC Glucose 148 H 177 H 240 H (70-105) Urine WBC (Auto) (0.0-6.0) /HPF 10/19/16 10/20/16 10/20/16 Range/Units 22:50 00:00 01:01 Sodium (137-145) mmol/L Potassium (3.6-5.0) mmol/L Chloride (98-107) mmol/L BUN (9-20) mg/dL Glucose (75-100) mg/dL POC Glucose 314 H 226 H 124 H (70-105) Urine WBC (Auto) (0.0-6.0) /HPF 10/20/16 10/20/16 10/20/16 Range/Units 03:03 04:15 05:30 Sodium (137-145) mmol/L Potassium (3.6-5.0) mmol/L Chloride (98-107) mmol/L BUN (9-20) mg/dL Glucose (75-100) mg/dL POC Glucose 133 H 177 H 151 H (70-105) Urine WBC (Auto) (0.0-6.0) /HPF 10/20/16 10/20/16 10/20/16 Range/Units 06:42 08:29 08:30 Sodium 158 H (137-145) mmol/L Potassium 3.2 L (3.6-5.0) mmol/L Chloride 120.1 H (98-107) mmol/L BUN 22 H (9-20) mg/dL Glucose 110 H (75-100) mg/dL POC Glucose 124 H (70-105) Urine WBC (Auto) 34.0 H (0.0-6.0) /HPF 10/20/16 Range/Units 11:13 Sodium (137-145) mmol/L Potassium (3.6-5.0) mmol/L Chloride (98-107) mmol/L BUN (9-20) mg/dL Glucose (75-100) mg/dL POC Glucose 407 H (70-105) Urine WBC (Auto) (0.0-6.0) /HPF
[2016-10-20] MEDS ORDERED: NACL 0.45% 1000 ML 1,000 ML IV SCH (17:00)
[2016-10-20] MEDS: K-DUR PO SCH (17:00)
[2016-10-20] MEDS: KCL 10MEQ/100ML 10 MEQ/100 ML BAG IV SCH ×2 (18:00→19:55)
[2016-10-20] MEDS: LEVEMIR SUB-Q SCH (22:05)
[2016-10-20] MEDS ORDERED: HALDOL PO PRN (22:10)
--- NOTE | 2016-10-21 03:21 | History and Physical Report ---
CHIEF COMPLAINT: 1. Weakness. 2. Other complaint includes difficulty walking. HISTORY OF PRESENT ILLNESS: The patient is a 41-year-old male with history of diabetes mellitus and noncompliance with medications, who said he has been having generalized weakness with lack of energy and difficulty walking going on for some days. There is no history of fever or chills. No history of chest pain, shortness of breath. The patient denies history of nausea or vomiting, and presented to the Emergency Room where he was evaluated and found to be in diabetic ketoacidosis and presented for admission. PAST MEDICAL HISTORY: Pertinent for diabetes mellitus with noncompliance. PAST SURGICAL HISTORY: Unremarkable. FAMILY HISTORY: Not contributory. SOCIAL HISTORY: The patient does not smoke, does not drink alcohol, and does not use illicit drugs. MEDICATIONS: The patient's home medications are not known. ALLERGIES: The patient is allergic to ASPIRIN. REVIEW OF SYSTEMS: CONSTITUTIONAL: There is no fever, no chills, no diaphoresis. HEENT: There is no headache or sore throat. CARDIOVASCULAR SYSTEM: There is no chest pain, orthopnea. RESPIRATORY SYSTEM: There is no shortness of breath or cough. GASTROINTESTINAL SYSTEM: There is no nausea, no vomiting, no abdominal pain, diarrhea or constipation. NEUROLOGICAL SYSTEM: Generalized weakness noted. Difficult to walking noted. There is no change in mental status or dizziness. MUSCULOSKELETAL SYSTEM: There is no joint pain or swelling. DERMATOLOGICAL SYSTEM: There is no skin rash or itching. GENITOURINARY SYSTEM: There is no dysuria, hematuria or flank pain. Rest of system review is normal. PHYSICAL EXAMINATION: GENERAL: At the time of exam, the patient was found to be alert, oriented x3, not in acute distress. VITAL SIGNS: Shows temperature of 98 degrees Fahrenheit, pulse of 132, respirations 15, blood pressure 112/72, O2 sat of 100% on room air. HEENT: Eyes showed pupils to be equal, round, reactive to light and accommodating. Extraocular muscles are intact. NECK: Supple with no JVD or carotid bruit. CARDIOVASCULAR: Showed normal first and second heart sounds with no gallops or murmur. RESPIRATORY SYSTEM: Showed good air entry on both sides of the lung with no abnormal breath sounds. GASTROINTESTINAL SYSTEM: Showed abdomen to be full, soft, and nontender with no organomegaly or rigidity. NEUROLOGICAL: Showed no focal deficits. MUSCULOSKELETAL SYSTEM: Showed no joint swelling or tenderness. DERMATOLOGICAL SYSTEM: Showed no skin rash. GENITOURINARY: Showed no costovertebral angle tenderness. PERTINENT LABORATORY AND IMAGING STUDIES: The patient had a chest x-ray done that shows left hilar opacity. Patient's labs showed WBC with a high white count of 15,300, normal hemoglobin and normal hematocrit and high platelet count of 538,000. CBC differential is still pending. Coagulation studies were unremarkable. ABG showed pH of 7.177, ____ blood gas showed a pH of 7.1. Chemistry shows low CO2 of 7, high BUN of 37, and a high creatinine of 2.2 with high blood glucose level of 714, and high anion gap with cardiac enzymes showing slightly elevated CK-MB, but normal troponin level. DIAGNOSIS: Diabetic ketoacidosis. PLAN: The patient will be admitted to ICU. Using DKA pathway, will be on IV regular insulin drip per protocol. The patient will also be on IV normal saline at 250 mL an hour, having received 2 L of normal saline. We will have Accu-Chek every hour, basic metabolic panel every 2 hours x4 levels, every 8 hours x3 levels. The patient will continue IV normal saline; if blood glucose is less than 250 mg/dL, the IV fluids will be changed to D5 half-normal with 20 mEq of potassium chloride in 1 L of D5 half normal running at 125 mL an hour. The patient will have magnesium level checked and phosphorus level checked, and will be on IV Zofran 4 mg every 6 hours as needed for nausea and vomiting as well as Tylenol 650 mg rectally as needed for fever and headache. Results of urinalysis will be analyzed when complete. The patient will be on subcutaneous heparin 5000 units q.12 hours for deep venous thrombosis prophylaxis. The patient will be on oxygen at 2 L per minute by nasal cannula. Further management of patient's diabetic ketoacidosis will be put into treatment when blood glucose is normalized, less than 150 mg/dL, the patient will then be given subcutaneous regular insulin and insulin drip titrated off and Accu-Chek changed to before meals and at bedtime with the patient fed with consistent carbohydrate diet when he is out of diabetic ketoacidosis. JOB# [id number] OCN/NTS
[2016-10-21 06:31] LABS: Basophils % (Auto) 0.6 % (0.0-1.8); Eosinophils % (Auto) 1.8 % (0.0-4.3); Hematocrit 33.3 % (35.5-45.6); Hemoglobin 10.7 gm/dl (11.8-15.2); Mean Corpuscular HGB Conc 32 % (32-34); Mean Corpuscular Hemoglobin 30 pg (28-32); Mean Corpuscular Volume 94 fl (84-94); Platelet Count 211 K/mm3 (140-440); Red Blood Count 3.53 M/mm3 (3.65-5.03); Red Cell Distribution Width 14.8 % (13.2-15.2); White Blood Count 7.5 K/mm3 (4.5-11.0)
[2016-10-21 06:56] LABS: Anion Gap 8 mmol/L; BUN/Creatinine Ratio 17.77; Blood Urea Nitrogen 16 mg/dL (9-20); Carbon Dioxide 27 mmol/L (22-30); Chloride 112.7 mmol/L (98-107); Glucose 186 mg/dL (75-100); Sodium 145 mmol/L (137-145)
[2016-10-21] MEDS: LEVAQUIN 750MG/150ML 750 MG/150 ML BAG IV SCH (09:33)
[2016-10-21] MEDS: LEVEMIR SUB-Q SCH ×2 (09:33→23:11)
[2016-10-21] MEDS: K-DUR PO SCH (09:34)
[2016-10-21] MEDS: HEPARIN SUB-Q SCH ×2 (09:45→23:11)
[2016-10-21] MEDS ORDERED: K-DUR PO ONE (11:00)
--- NOTE | 2016-10-21 13:24 | Discharge Summary ---
Providers - Providers Date of Admission: 10/19/16 01:01 Date of discharge: 10/22/16 Attending physician: UVALDO TOBIN Primary care physician: PIPER INSTALLER Hospitalization Condition: Critical Hospital course: Patient is a 41 y/o male who is non compliant with insulin presented with generalized weakness, in the ER noted to have BG 716, Na 153, bicarb of 7, and anion gap of 54. He was placed on dka protocol, admitted to ICU. He was monitored with serial bloog glucose check. His BG improved, anion gap closed and he was downgraded to medsurge unit. His Na level was improved with hypotonic intravenous fluid. His insulin drip was switched to subcutaneously and dose was adjusted. His potassium was replaced with by mouth KCl and given Levaquin for urinary tract infection. He was discharged home in stable condition. Discharge Diagnosis and management: DKA - Initially placed on intensive care unit with insulin drip until anion gap closed - monitor BG qachs - placed on long acting and regular insulin - BG significantly improved Hypernatremia - improved with hypotonic solution hypokalemia - replaced with po KCL UTI - placed on levaquin leukocytosis - likely due to DKA and UTI Disposition: DISCHARGED TO HOME OR SELFCARE Time spent for discharge: 32 minutes Core Measure Documentation - Palliative Care Palliative Care/ Comfort Measures: Not Applicable - Core Measures Any of the following diagnoses?: none Exam - Constitutional Vitals: Temp Pulse Resp BP Pulse Ox 98.1 F 77 18 119/81 100 10/21/16 08:25 10/21/16 08:25 10/21/16 08:25 10/21/16 08:25 10/21/16 08:25 General appearance: Present: no acute distress, well-nourished - EENT Eyes: Present: PERRL ENT: hearing intact, clear oral mucosa - Neck Neck: Present: supple, normal ROM - Respiratory Respiratory effort: normal Respiratory: bilateral: CTA - Cardiovascular Heart Sounds: Present: S1 & S2. Absent: rub, click - Extremities Extremities: pulses symmetrical, No edema Peripheral Pulses: within normal limits - Abdominal General gastrointestinal: Present: soft, non-tender, non-distended, normal bowel sounds Male genitourinary: Present: normal - Integumentary Integumentary: Present: clear, warm, dry - Musculoskeletal Musculoskeletal: gait normal, strength equal bilaterally - Psychiatric Psychiatric: appropriate mood/affect, intact judgment & insight - Neurologic Neurologic: CNII-XII intact, moves all extremities Plan Activity: advance as tolerated Weight Bearing Status: Weight Bear as Tolerated Diet: diabetic Follow up with: PRIMARY CARE, [Primary Care Provider] - 3-5 Days Prescriptions: Insulin Detemir [Levemir] 20 units SUB-Q BID 30 Days Insulin Regular, Human [HumuLIN R] 5 units SUB-Q AC 30 Days Levofloxacin [Levaquin TAB] 250 mg PO DAILY #3 tablet Potassium Chloride [K-Dur] 20 meq PO QDAY #3 tablet
--- NOTE | 2016-10-21 22:18 | Progress Note ---
Assessment and Plan Patient is a 41 y/o male who is non compliant with insulin presented with generalized weakness, in the ER noted to have BG 716, Na 153, bicarb of 7, hypernatremia and anion gap of 54, placed patient on dka protocol, admitted to ICU DKA -anion gap closed - monitor BG qachs - placed on long acting and regular insulin - BG improved Hypernatremia - improved with hypotonic solution - monitor BMP, stop iv fluid hypokalemia - replace with po KCL UTI - placed on levaquin - will follow urine cx, leukocytosis - likely due to DKA and UTI - cont to monitor DVT Px, on heparin Subjective Date of service: 10/21/16 Principal diagnosis: DKA Interval history: Pt seen and examined denies any chest pain or SOB BG was better this am, K level low, refuse to take IV KCL tolerating ADA diet. he states that he does not have any h/o schizophrenia and never was on any psych medication denies any suicidal or homicidal ideation, no hallucination, no sign of psychosis Objective - Exam Narrative Exam: General appearance: Present: no acute distress, well-nourished - EENT Eyes: PERRL, EOM intact ENT: hearing intact, clear oral mucosa Ears: bilateral: normal - Neck Neck: supple, normal ROM - Respiratory Respiratory effort: normal Respiratory: bilateral: CTA - Cardiovascular Rhythm: regular Heart Sounds: Present: S1 & S2. Absent: gallop, rub Extremities: pulses intact, No edema, normal color, Full ROM - Gastrointestinal General gastrointestinal: Present: soft, non-tender, non-distended, normal bowel sounds - Integumentary Integumentary: clear, warm, dry - Musculoskeletal Musculoskeletal: 1, strength equal bilaterally - Neurologic Neurologic: moves all extremities - Psychiatric Psychiatric: memory intact, appropriate mood/affect, intact judgment & insight - Constitutional Vitals: Vital Signs - 12hr 10/21/16 16:59 Temperature 98.4 F Pulse Rate [ 72 From Monitor] Respiratory 20 Rate Blood Pressure 92/52 [Left Arm] O2 Sat by Pulse 97 Oximetry - Labs CBC & Chem 7: 10/21/16 05:34 10/21/16 19:58 Labs: Abnormal lab results 10/21/16 10/21/16 10/21/16 Range/Units 05:34 05:34 05:42 RBC 3.53 L (3.65-5.03) M/mm3 Hgb 10.7 L (11.8-15.2) gm/dl Hct 33.3 L D (35.5-45.6) % Lymph % (Auto) 42.2 H (13.4-35.0) % Potassium 3.0 L (3.6-5.0) mmol/L Chloride 112.7 H (98-107) mmol/L Glucose 186 H (75-100) mg/dL POC Glucose 191 H (70-105) 10/21/16 10/21/16 10/21/16 Range/Units 11:13 16:26 21:25 RBC (3.65-5.03) M/mm3 Hgb (11.8-15.2) gm/dl Hct (35.5-45.6) % Lymph % (Auto) (13.4-35.0) % Potassium (3.6-5.0) mmol/L Chloride (98-107) mmol/L Glucose (75-100) mg/dL POC Glucose 284 H 285 H 237 H (70-105)
[2016-10-22 08:26] LABS: BUN/Creatinine Ratio 15.55; Blood Urea Nitrogen 14 mg/dL (9-20); Carbon Dioxide 27 mmol/L (22-30); Chloride 108.4 mmol/L (98-107); Glucose 161 mg/dL (75-100); Sodium 145 mmol/L (137-145)
[2016-10-22 08:32] VITALS: BP 107/70
[2016-10-22] MEDS: LEVEMIR SUB-Q SCH (08:45)
[2016-10-22 09:01] LABS: Anion Gap 14 mmol/L; Potassium 4.1 mmol/L (3.6-5.0)
[2016-10-22] MEDS ORDERED: LEVAQUIN PO SCH (10:00)
[2016-10-23 05:31] LABS: B-Hydroxybutyrate 18.7 mmol/L (0.2 - 0.28)
== END 2016-10-22 09:00 | disposition home or self-care (01) | DRG 638 ==
LOC: ED 22:07 → CC1 10-19 01:01 → 3A 10-20 09:55
PROVIDERS: ADMIT Internal Medicine; ATTEND Internal Medicine
DX: E10.10 Type 1 diabetes mellitus with ketoacidosis without coma (principal); N39.0 Urinary tract infection, site not specified; E87.0 Hyperosmolality and hypernatremia; Z88.4 Allergy status to anesthetic agent; D72.829 Elevated white blood cell count, unspecified; F20.9 Schizophrenia, unspecified; Z91.19 Patient's noncompliance with other medical treatment and regimen; E87.6 Hypokalemia; E66.9 Obesity, unspecified; Z68.29 Body mass index [BMI] 29.0-29.9, adult
CPT/HCPCS: 36415; 71010; 80048; 81001; 82010; 82140; 82550; 82553; 82805; 82947; 82962; 83036; 83735; 84100; 84132; 84484; 85007; 85025; 85610; 87040; 87086; 93005; 93010; 96361; 96365; 96366; 96375; 99291; J1644; J1815; J1818; J1956; J2405; J3480; J7030

== ENCOUNTER 2016-11-22 21:00 | Emergency (ER) | payer SELFPAY ==
[2016-11-22 21:51] LABS: Basophils % (Auto) 2.9 % (0.0-1.8); Eosinophils % (Auto) 8.1 % (0.0-4.3); Hematocrit 25.3 % (35.5-45.6); Hemoglobin 8.4 gm/dl (11.8-15.2); Mean Corpuscular HGB Conc 33 % (32-34); Mean Corpuscular Hemoglobin 30 pg (28-32); Mean Corpuscular Volume 91 fl (84-94); Platelet Count 372 K/mm3 (140-440); Red Blood Count 2.77 M/mm3 (3.65-5.03); Red Cell Distribution Width 16.2 % (13.2-15.2); White Blood Count 6.7 K/mm3 (4.5-11.0)
[2016-11-22] MEDS ORDERED: NACL 0.9% 1000 ML 1,000 ML IV ONE ×2 (21:54→21:57)
[2016-11-22] MEDS ORDERED: D50W (25GM) IV PRN (21:55)
[2016-11-22] MEDS ORDERED: NovoLIN R 100 UNITS in NACL 0.9% 99 ML IV SCH (22:00)
[2016-11-22 22:12] LABS: Anion Gap 18 mmol/L; Blood Urea Nitrogen 14 mg/dL (9-20); Calcium 8.8 mg/dL (8.4-10.2); Carbon Dioxide 26 mmol/L (22-30); Chloride 92.4 mmol/L (98-107); Potassium 4.6 mmol/L (3.6-5.0); Sodium 132 mmol/L (137-145)
[2016-11-22 22:14] LABS: Glucose 584 mg/dL (75-100)
--- NOTE | 2016-11-22 22:50 | Emergency Department Report ---
ED General Adult HPI - General Chief complaint: Hyperglycemia Stated complaint: GLUCOSE LEVEL CHECK Time Seen by Provider: 11/22/16 21:54 Source: patient Mode of arrival: Ambulatory Limitations: No Limitations - History of Present Illness Initial comments: 41-year-old female with a past medical history diabetes presents to the hospital for complaining of elevated blood glucose. Patient's history is unclear despite repeated direct questioning. Despite asking the same question over and over again I received different answers. From what I can gather patient is noncompliant with any outpatient diabetes medication treatment at least since July. At that time he was provided insulin, needle, and syringes by [facility]. Patient has had repeated hospitalizations for hyperglycemia and DKA with last admission 3 days ago. While in the hospital patient receives insulin but he cannot afford he medications after discharge. Last admission here was in October for DKA. Patient was discharged on Levemir, Humulin, and Levaquin. Patient still has the prescriptions with him and states he was told it will cost him $400 to fill. Patient was discharged from [facility] 3 days ago after treatment for dka and that is the last time he received any treatment for his diabetes. In the past patient has been on metformin and Januvia sometime last year. Pt is asking increasing give him medications to take at home since he cannot afford to fill the prescription. Patient does not have any physical complaints other than bilateral pedal edema - Related Data Previous Rx's Medication Instructions Recorded Last Taken Type Levofloxacin [Levaquin TAB] 250 mg PO DAILY #3 tablet 10/21/16 Unknown Rx Potassium Chloride [K-Dur] 20 meq PO QDAY #3 tablet 10/21/16 Unknown Rx Blood-Glucose Meter [Relion 1 each PRN #1 kit 11/23/16 Unknown Rx All-in-One] Insulin NPH, Human [NovoLIN N] 10 unit SUB-Q QHS #300 units 11/23/16 Unknown Rx Insulin Regular, Human [HumuLIN R] See Protocol [place] AC #1000 units 11/23/16 Unknown Rx Allergies Allergy/AdvReac Type Severity Reaction Status Date / Time aspirin Allergy Unknown Verified 05/29/16 22:00 ED Review of Systems ROS: Stated complaint: GLUCOSE LEVEL CHECK Other details as noted in HPI Comment: All other systems reviewed and negative Other: Constitutional: No fevers chills Eyes: No eye pain visual changes ENT: No ear pain or throat pain Neck: Denies pain Respiratory: Denies cough wheezing shortness of breath Cardiovascular: Denies chest pain, palpitations, syncope GI: Denies abdominal pain, nausea, vomiting, diarrhea, : Denies dysuria Musculoskeletal: Denies back pain Skin: Denies rash, lesions, erythema Neurologic: Denies headache, numbness, weakness Psychiatric: Denies suicidal ideation, hallucinations ED Past Medical Hx - Past Medical History Previous Medical History?: Yes Hx Congestive Heart Failure: No Hx Diabetes: Yes Hx Asthma: No Hx COPD: No Additional medical history: OBESITY - Surgical History Past Surgical History?: No - Social History Smoking Status: Never Smoker Substance Use Type: None - Medications Home Medications: Home Medications Medication Instructions Recorded Confirmed Last Taken Type Levofloxacin [Levaquin TAB] 250 mg PO DAILY #3 tablet 10/21/16 Unknown Rx Potassium Chloride [K-Dur] 20 meq PO QDAY #3 tablet 10/21/16 Unknown Rx Blood-Glucose Meter [Relion 1 each MC PRN #1 kit 11/23/16 Unknown Rx All-in-One] Insulin NPH, Human [NovoLIN N] 10 unit SUB-Q QHS #300 units 11/23/16 Unknown Rx Insulin Regular, Human [HumuLIN R] See Protocol SC AC #1000 units 11/23/16 Unknown Rx ED Physical Exam - General Limitations: No Limitations - Other Other exam information: General: No limitations, patient is alert in no acute distress Head exam: Atraumatic, normocephalic Eyes exam: Normal appearance, pupils equal reactive to light, extraocular movements intact ENT: Moist mucous membrane, normal oropharynx Neck exam: Normal inspection, full range of motion, no meningismus nontender Respiratory exam: Clear to auscultation bilateral, no wheezes, rales, crackles Cardiovascular: Normal rate and rhythm, normal heart sounds Abdomen: Soft, nondistended, and nontender, with normal bowel sounds, no rebound, or guarding Rectal: Guaiac-negative brown stool Extremity: Full range of motion, no edema at this time Back: Normal Inspection, full range of motion, no tenderness Neurologic: Alert, oriented x3, cranial nerves intact, no motor or sensory deficit Psychiatric: normal affect, normal mood Skin: Warm, dry, intact ED Course Vital Signs 11/22/16 11/22/16 11/22/16 21:16 23:45 23:52 Temperature 98.7 F Pulse Rate 80 79 88 Respiratory 20 16 17 Rate Blood Pressure 110/72 Blood Pressure 114/67 114/67 [Right] O2 Sat by Pulse 96 100 100 Oximetry 11/23/16 11/23/16 01:30 02:31 Temperature Pulse Rate 76 80 Respiratory 17 15 Rate Blood Pressure Blood Pressure 107/68 101/54 [Right] O2 Sat by Pulse 100 99 Oximetry - Reevaluation(s) Reevaluation #1: 11/23/16 02:17 She received 2 rounds of insulin first 10 units followed by 8 units and 2 L of normal saline with positive reduction and glucose. ED Medical Decision Making - Lab Data Result diagrams: 11/22/16 21:29 11/22/16 21:29 Lab Results 11/22/16 11/22/16 11/22/16 Range/Units 21:11 21:29 21:29 WBC 6.7 (4.5-11.0) K/mm3 RBC 2.77 L (3.65-5.03) M/mm3 Hgb 8.4 L (11.8-15.2) gm/dl Hct 25.3 L (35.5-45.6) % MCV 91 (84-94) fl MCH 30 (28-32) pg MCHC 33 (32-34) % RDW 16.2 H (13.2-15.2) % Plt Count 372 (140-440) K/mm3 Lymph % (Auto) 25.0 (13.4-35.0) % [place] % (Auto) 6.8 (0.0-7.3) % Eos % (Auto) 8.1 H (0.0-4.3) % Baso % (Auto) 2.9 H (0.0-1.8) % Lymph # 1.7 (1.2-5.4) K/mm3 [place] # 0.5 (0.0-0.8) K/mm3 Eos # 0.5 H (0.0-0.4) K/mm3 Baso # 0.2 H (0.0-0.1) K/mm3 Seg Neutrophils % 57.2 (40.0-70.0) % Seg Neutrophils # 3.8 (1.8-7.7) K/mm3 VBG pH (7.320-7.420) Sodium 132 L (137-145) mmol/L Potassium 4.6 (3.6-5.0) mmol/L Chloride 92.4 L (98-107) mmol/L Carbon Dioxide 26 (22-30) mmol/L Anion Gap 18 mmol/L BUN 14 (9-20) mg/dL Creatinine 1.0 (0.8-1.5) mg/dL Estimated GFR > 60 ml/min BUN/Creatinine Ratio 14.00 % Glucose 584 H* (75-100) mg/dL POC Glucose > 500 H (70-105) Calcium 8.8 (8.4-10.2) mg/dL Urine Color (Yellow) Urine Turbidity (Clear) Urine pH (5.0-7.0) Ur Specific [place] (1.003-1.030) Urine Protein (Negative) mg/dL Urine Glucose (UA) (Negative) mg/dL Urine Ketones (Negative) mg/dL Urine Blood (Negative) Urine Nitrite (Negative) Urine Bilirubin (Negative) Urine Urobilinogen (<2.0) mg/dL Ur Leukocyte Esterase (Negative) Urine WBC (Auto) (0.0-6.0) /HPF Urine RBC (Auto) (0.0-6.0) /HPF U Epithel Cells (Auto) (0-13.0) /HPF 11/22/16 11/22/16 11/23/16 Range/Units 21:29 22:40 00:11 WBC (4.5-11.0) K/mm3 RBC (3.65-5.03) M/mm3 Hgb (11.8-15.2) gm/dl Hct (35.5-45.6) % MCV (84-94) fl MCH (28-32) pg MCHC (32-34) % RDW (13.2-15.2) % Plt Count (140-440) K/mm3 Lymph % (Auto) (13.4-35.0) % [place] % (Auto) (0.0-7.3) % Eos % (Auto) (0.0-4.3) % Baso % (Auto) (0.0-1.8) % Lymph # (1.2-5.4) K/mm3 [place] # (0.0-0.8) K/mm3 Eos # (0.0-0.4) K/mm3 Baso # (0.0-0.1) K/mm3 Seg Neutrophils % (40.0-70.0) % Seg Neutrophils # (1.8-7.7) K/mm3 VBG pH 7.455 H (7.320-7.420) Sodium (137-145) mmol/L Potassium (3.6-5.0) mmol/L Chloride (98-107) mmol/L Carbon Dioxide (22-30) mmol/L Anion Gap mmol/L BUN (9-20) mg/dL Creatinine (0.8-1.5) mg/dL Estimated GFR ml/min BUN/Creatinine Ratio % Glucose (75-100) mg/dL POC Glucose 336 H (70-105) Calcium (8.4-10.2) mg/dL Urine Color Straw (Yellow) Urine Turbidity Clear (Clear) Urine pH 7.0 (5.0-7.0) Ur Specific [place] 1.021 (1.003-1.030) Urine Protein <15 mg/dl (Negative) mg/dL Urine Glucose (UA) >=500 (Negative) mg/dL Urine Ketones Neg (Negative) mg/dL Urine Blood Neg (Negative) Urine Nitrite Neg (Negative) Urine Bilirubin Neg (Negative) Urine Urobilinogen < 2.0 (<2.0) mg/dL Ur Leukocyte Esterase Neg (Negative) Urine WBC (Auto) < 1.0 (0.0-6.0) /HPF Urine RBC (Auto) 1.0 (0.0-6.0) /HPF U Epithel Cells (Auto) < 1.0 (0-13.0) /HPF 11/23/16 Range/Units 02:12 WBC (4.5-11.0) K/mm3 RBC (3.65-5.03) M/mm3 Hgb (11.8-15.2) gm/dl Hct (35.5-45.6) % MCV (84-94) fl MCH (28-32) pg MCHC (32-34) % RDW (13.2-15.2) % Plt Count (140-440) K/mm3 Lymph % (Auto) (13.4-35.0) % [place] % (Auto) (0.0-7.3) % Eos % (Auto) (0.0-4.3) % Baso % (Auto) (0.0-1.8) % Lymph # (1.2-5.4) K/mm3 [place] # (0.0-0.8) K/mm3 Eos # (0.0-0.4) K/mm3 Baso # (0.0-0.1) K/mm3 Seg Neutrophils % (40.0-70.0) % Seg Neutrophils # (1.8-7.7) K/mm3 VBG pH (7.320-7.420) Sodium (137-145) mmol/L Potassium (3.6-5.0) mmol/L Chloride (98-107) mmol/L Carbon Dioxide (22-30) mmol/L Anion Gap mmol/L BUN (9-20) mg/dL Creatinine (0.8-1.5) mg/dL Estimated GFR ml/min BUN/Creatinine Ratio % Glucose (75-100) mg/dL POC Glucose 196 H (70-105) Calcium (8.4-10.2) mg/dL Urine Color (Yellow) Urine Turbidity (Clear) Urine pH (5.0-7.0) Ur Specific [place] (1.003-1.030) Urine Protein (Negative) mg/dL Urine Glucose (UA) (Negative) mg/dL Urine Ketones (Negative) mg/dL Urine Blood (Negative) Urine Nitrite (Negative) Urine Bilirubin (Negative) Urine Urobilinogen (<2.0) mg/dL Ur Leukocyte Esterase (Negative) Urine WBC (Auto) (0.0-6.0) /HPF Urine RBC (Auto) (0.0-6.0) /HPF U Epithel Cells (Auto) (0-13.0) /HPF - Medical Decision Making Plan to discharge patient home. Patient has chronic noncompliance. No signs of DKA today. I stained the patient we cannot just give him medication to take at home. He will be provided a good Rx card and encouraged to fill his regular insulin at [facility] where it is cheaper and NPH at bedtime (starting dose). Patient be placed on regular insulin sliding scale and will need need to follow- up for further diabetes management Patient be given Levimir 6 units prior to discharge (he plans to eat at home) - Differential Diagnosis DKA, hyperglycemia, medication noncompliance Critical Care Time: No Critical care attestation.: If time is entered above; I have spent that time in minutes in the direct care of this critically ill patient, excluding procedure time. ED Disposition Clinical Impression: Hyperglycemia, Noncompliance with medication regimen Disposition: DISCHARGED TO HOME OR SELFCARE Is pt being admited?: No Does the pt Need Aspirin: No Condition: Stable Instructions: Diabetes Mellitus Type 2 in Adults (ED) Additional Instructions: Take the medication as prescribed. Use the good Rx's card provided to make it medication more affordable. I recommend going to [facility] and getting their Relion or generic brand of the medication. Prescriptions: Blood-Glucose Meter [Relion All-in-One] 1 each PRN #1 kit Insulin NPH, Human [NovoLIN N] 10 unit SUB-Q QHS #300 units Insulin Regular, Human [HumuLIN R] See Protocol SC AC #1000 units Referrals: [facility] [Provider Group] - 3-5 Days Time of Disposition: 02:42
[2016-11-22 23:32] LABS: Bilirubin,Urine NEG (Negative); Blood,Urine NEG (Negative); Ketones,Urine NEG (Negative); Leukocyte Esterase,Urine NEG (Negative); Nitrite,Urine NEG (Negative); Protein,Urine <15 mg/dL mg/dL (Negative); Urobilinogen,Urine < 2.0 mg/dL (<2.0); WBC,Urine < 1.0 /HPF (0.0-6.0)
[2016-11-23] MEDS ORDERED: LEVEMIR SUB-Q ONE (02:38)
[2016-11-23 04:32] VITALS: BP 127/77
== END 2016-11-23 04:30 | disposition home or self-care (01) ==
LOC: ED 21:00
DX: E11.65 Type 2 diabetes mellitus with hyperglycemia (principal); E66.9 Obesity, unspecified; Z79.4 Long term (current) use of insulin; Z88.6 Allergy status to analgesic agent
CPT/HCPCS: 36415; 80048; 81001; 82271; 82805; 82962; 85025; 96361; 96372; 96374; 96376; 99284; J7030; J1815; J1818

== ENCOUNTER 2017-05-14 20:49 | Inpatient (IN) | payer OTHER ==
[2017-05-14] MEDS ORDERED: NACL 0.9% 1000 ML 1,000 ML ONE (21:01)
[2017-05-14] MEDS ORDERED: NACL 0.9% 1000 ML 1,000 ML IV ONE ×3 (21:02→22:28)
[2017-05-14] MEDS ORDERED: ZOFRAN IV ONE (21:05)
[2017-05-14] MEDS ORDERED: D50W (25GM) Syringe IV PRN (21:09)
--- NOTE | 2017-05-14 21:16 | Emergency Department Report ---
ED Altered Mental Status HPI - General Stated Complaint: UNRESPONSIVE Time Seen by Provider: 05/14/17 21:01 Source: EMS Mode of arrival: Stretcher Limitations: Altered Mental Status - History of Present Illness Initial Comments: 41 years old male history of type 1 diabetes with multiple admission due to DKA. Patient was found unresponsive by bystander EMS report. Unable to obtain more history because of patient altered mental status. Reviewing the patient's previous records and his hospital, he usually present with his symptoms. MD Complaint: altered mental status -: unknown Severity: severe - Related Data Previous Rx's Medication Instructions Recorded Last Taken Type Insulin Regular, Human [HumuLIN R] See Protocol [place] AC #1000 units 11/23/1605/07 Rx Blood-Glucose Meter [Relion 1 each PRN #1 kit 05/08/17 Unknown Rx All-in-One] Insulin NPH/Regular [NovoLIN 70/30] 15 unit SUB-Q BIDDIAB 30 Days 05/08/17 Unknown Rx Allergies Allergy/AdvReac Type Severity Reaction Status Date / Time aspirin Allergy Unknown Verified 05/29/16 22:00 ED Review of Systems ROS: Stated complaint: UNRESPONSIVE Other details as noted in HPI Comment: Unobtainable due to pts medical conditions ED Past Medical Hx - Past Medical History Hx Congestive Heart Failure: No Hx Diabetes: Yes Hx Asthma: No Hx COPD: No Additional medical history: OBESITY - Social History Smoking Status: Never Smoker - Medications Home Medications: Home Medications Medication Instructions Recorded Confirmed Last Taken Type Insulin Regular, Human [HumuLIN R] See Protocol IA AC #1000 units 11/23/1607/23 Rx Blood-Glucose Meter [Relion 1 each PRN #1 kit 05/08/17 Unknown Rx All-in-One] Insulin NPH/Regular [NovoLIN 70/30] 15 unit SUB-Q BIDDIAB 30 Days 05/08/17 Unknown Rx ED Physical Exam - General Limitations: Altered Mental Status General appearance: lethargic, obtunded, other (smell acetone) - Head Head exam: Present: atraumatic, normocephalic, normal inspection - Eye Eye exam: Present: normal appearance, PERRL Pupils: Present: normal accommodation - ENT ENT exam: Present: normal exam, normal orophraynx, mucous membranes dry - Neck Neck exam: Present: normal inspection. Absent: meningismus - Respiratory Respiratory exam: Present: normal lung sounds bilaterally. Absent: respiratory distress, wheezes, rales, rhonchi, stridor, decreased breath sounds, prolonged expiratory - Cardiovascular Cardiovascular Exam: Present: tachycardia - GI/Abdominal GI/Abdominal exam: Present: soft, normal bowel sounds. Absent: distended, tenderness, guarding, rebound, rigid, mass, bruit, pulsatile mass, hernia - Extremities Exam Extremities exam: Present: normal inspection, normal capillary refill, pedal edema. Absent: tenderness, joint swelling - Back Exam Back exam: Present: normal inspection. Absent: CVA tenderness (R), CVA tenderness (L) - Skin Skin exam: Present: warm, intact, normal color ED Course Vital Signs 05/14/17 05/14/17 05/14/17 21:07 21:12 21:15 Temperature 94.7 F L Pulse Rate 118 H 116 H 116 H Respiratory 20 19 20 Rate Blood Pressure 94/46 O2 Sat by Pulse 98 100 100 Oximetry 05/14/17 05/14/17 05/14/17 21:30 21:31 21:45 Temperature Pulse Rate 114 H 111 H Respiratory 21 20 17 Rate Blood Pressure 95/47 99/50 O2 Sat by Pulse 100 100 Oximetry 05/14/17 05/14/17 05/14/17 22:00 22:15 22:30 Temperature Pulse Rate 112 H 113 H 117 H Respiratory 20 19 20 Rate Blood Pressure 101/58 110/62 116/59 O2 Sat by Pulse 100 100 Oximetry 05/14/17 05/14/17 22:45 22:52 Temperature 94.8 F L Pulse Rate 130 H Respiratory 23 Rate Blood Pressure 116/59 O2 Sat by Pulse 82 L Oximetry - Reevaluation(s) Reevaluation #1: 05/14/17 22:34 Patient started responding to painful stimuli*moving all his extremities. - Lab Data Result diagrams: 05/14/17 21:18 05/14/17 21:18 Lab Results 05/14/17 05/14/17 05/14/17 Range/Units 20:57 21:13 21:18 WBC 35.8 H (4.5-11.0) K/mm3 RBC 3.63 L (3.65-5.03) M/mm3 Hgb 11.1 L (11.8-15.2) gm/dl Hct 41.7 (35.5-45.6) % MCV 115 H (84-94) fl MCH 31 (28-32) pg MCHC 27 L (32-34) % RDW 16.5 H (13.2-15.2) % Plt Count 746 H (140-440) K/mm3 Add Manual Diff Complete Total Counted 200 Seg Neuts % (Manual) 65.5 (40.0-70.0) % Band Neutrophils % 20.5 % Lymphocytes % (Manual) 5.5 L (13.4-35.0) % Reactive Lymphs % (Man) 0 % Monocytes % (Manual) 2.5 (0.0-7.3) % Eosinophils % (Manual) 0 (0.0-4.3) % Basophils % (Manual) 0 (0.0-1.8) % Metamyelocytes % 2.0 % Myelocytes % 4.0 % Promyelocytes % 0 % Blast Cells % 0 % Nucleated RBC % 3.0 H (0.0-0.9) % Seg Neutrophils # Man 23.4 H (1.8-7.7) K/mm3 Band Neutrophils # 7.3 K/mm3 Lymphocytes # (Manual) 2.0 (1.2-5.4) K/mm3 Abs React Lymphs (Man) 0.0 K/mm3 Monocytes # (Manual) 0.9 H (0.0-0.8) K/mm3 Eosinophils # (Manual) 0.0 (0.0-0.4) K/mm3 Basophils # (Manual) 0.0 (0.0-0.1) K/mm3 Metamyelocytes # 0.7 K/mm3 Myelocytes # 1.4 K/mm3 Promyelocytes # 0.0 K/mm3 Blast Cells # 0.0 K/mm3 WBC Morphology Not Reportable Hypersegmented Neuts Not Reportable Hyposegmented Neuts Not Reportable Hypogranular Neuts Not Reportable Smudge Cells Not Reportable Toxic Granulation Not Reportable Toxic Vacuolation Not Reportable Dohle Bodies Not Reportable Pelger-Huet Anomaly Not Reportable Nanette Rods Not Reportable Platelet Estimate Consistent w auto Clumped Platelets Not Reportable Plt Clumps, EDTA Not Reportable Large Platelets Not Reportable Giant Platelets Not Reportable Platelet Satelliting Not Reportable Plt Morphology Comment Not Reportable RBC Morphology Not Reportable Dimorphic RBCs Not Reportable Polychromasia 1+ Hypochromasia Not Reportable Poikilocytosis Not Reportable Anisocytosis Not Reportable Microcytosis Hide Splitter Macrocytosis 2+ Spherocytes Not Reportable Pappenheimer Bodies Not Reportable Sickle Cells Not Reportable Target Cells Not Reportable Tear Drop Cells Not Reportable Ovalocytes Not Reportable Helmet Cells Not Reportable [place] Bodies Not Reportable [place] Rings Not Reportable [place] Cells Not Reportable Bite Cells Not Reportable Crenated Cell Not Reportable Elliptocytes Not Reportable Acanthocytes (Spur) Not Reportable Rouleaux Not Reportable Hemoglobin C Crystals Not Reportable Schistocytes Not Reportable Malaria parasites Not Reportable Gabriel Bodies Not Reportable Hem Pathologist Commnt Sent to pathology POC ABG pH 6.973 L (7.35-7.45) POC ABG pCO2 13.5 L (35-45) POC ABG pO2 279 H (80-105) POC ABG HCO3 3.1 POC ABG Total CO2 < 5 POC ABG O2 Sat 100 POC ABG Base Excess -29 FiO2 100 % Sodium (137-145) mmol/L Potassium (3.6-5.0) mmol/L Chloride (98-107) mmol/L Carbon Dioxide (22-30) mmol/L Anion Gap mmol/L BUN (9-20) mg/dL Creatinine (0.8-1.5) mg/dL Estimated GFR ml/min BUN/Creatinine Ratio % Glucose (75-100) mg/dL POC Glucose > 500 H (70-105) Calcium (8.4-10.2) mg/dL Phosphorus (2.5-4.5) mg/dL Magnesium (1.7-2.3) mg/dL Total Bilirubin (0.1-1.2) mg/dL AST (5-40) units/L ALT (7-56) units/L Alkaline Phosphatase (35-129) units/L Troponin T (0.00-0.029) ng/mL Total Protein (6.3-8.2) g/dL Albumin (3.9-5) g/dL Albumin/Globulin Ratio % Lipase (13-60) units/L 05/14/17 05/14/17 05/14/17 Range/Units 21:18 21:18 21:18 WBC (4.5-11.0) K/mm3 RBC (3.65-5.03) M/mm3 Hgb (11.8-15.2) gm/dl Hct (35.5-45.6) % MCV (84-94) fl MCH (28-32) pg MCHC (32-34) % RDW (13.2-15.2) % Plt Count (140-440) K/mm3 Add Manual Diff Total Counted Seg Neuts % (Manual) (40.0-70.0) % Band Neutrophils % % Lymphocytes % (Manual) (13.4-35.0) % Reactive Lymphs % (Man) % Monocytes % (Manual) (0.0-7.3) % Eosinophils % (Manual) (0.0-4.3) % Basophils % (Manual) (0.0-1.8) % Metamyelocytes % % Myelocytes % % Promyelocytes % % Blast Cells % % Nucleated RBC % (0.0-0.9) % Seg Neutrophils # Man (1.8-7.7) K/mm3 Band Neutrophils # K/mm3 Lymphocytes # (Manual) (1.2-5.4) K/mm3 Abs React Lymphs (Man) K/mm3 Monocytes # (Manual) (0.0-0.8) K/mm3 Eosinophils # (Manual) (0.0-0.4) K/mm3 Basophils # (Manual) (0.0-0.1) K/mm3 Metamyelocytes # K/mm3 Myelocytes # K/mm3 Promyelocytes # K/mm3 Blast Cells # K/mm3 WBC Morphology Hypersegmented Neuts Hyposegmented Neuts Hypogranular Neuts Smudge Cells Toxic Granulation Toxic Vacuolation Dohle Bodies Pelger-Huet Anomaly Nanette Rods Platelet Estimate Clumped Platelets Plt Clumps, EDTA Large Platelets Giant Platelets Platelet Satelliting Plt Morphology Comment RBC Morphology Dimorphic RBCs Polychromasia Hypochromasia Poikilocytosis Anisocytosis Microcytosis Macrocytosis Spherocytes Pappenheimer Bodies Sickle Cells Target Cells Tear Drop Cells Ovalocytes Helmet Cells [place] Bodies [place] Rings Gina Cells Bite Cells Crenated Cell Elliptocytes Acanthocytes (Spur) Rouleaux Hemoglobin C Crystals Schistocytes Malaria parasites Gabriel Bodies Hem Pathologist Commnt POC ABG pH (7.35-7.45) POC ABG pCO2 (35-45) POC ABG pO2 (80-105) POC ABG HCO3 POC ABG Total CO2 POC ABG O2 Sat POC ABG Base Excess FiO2 % Sodium 148 H TNR (137-145) mmol/L Potassium 7.4 H* TNR (3.6-5.0) mmol/L Chloride 89.8 L TNR (98-107) mmol/L Carbon Dioxide 2 L* TNR (22-30) mmol/L Anion Gap 64 TNR mmol/L BUN 44 H TNR (9-20) mg/dL Creatinine 3.3 H TNR (0.8-1.5) mg/dL Estimated GFR 25 TNR ml/min BUN/Creatinine Ratio 13 TNR % Glucose 1022 H* TNR (75-100) mg/dL POC Glucose (70-105) Calcium 9.2 TNR (8.4-10.2) mg/dL Phosphorus 12.80 H (2.5-4.5) mg/dL Magnesium 3.30 H (1.7-2.3) mg/dL Total Bilirubin 0.30 (0.1-1.2) mg/dL AST 17 (5-40) units/L ALT 15 (7-56) units/L Alkaline Phosphatase 125 (35-129) units/L Troponin T 0.017 (0.00-0.029) ng/mL Total Protein 7.6 (6.3-8.2) g/dL Albumin 4.1 (3.9-5) g/dL Albumin/Globulin Ratio 1.2 % Lipase 34 (13-60) units/L - EKG Data -: EKG Interpreted by Nm EKG shows normal: sinus rhythm Rate: tachycardia Interpretation: no acute changes - Radiology Data Radiology results: image reviewed Chest X-ray unremarkable - Medical Decision Making Discussed with doctor Arvind for admission for critical care service. Critical Care Time: Yes Critical care time in (mins) excluding proc time.: 65 Critical care attestation.: If time is entered above; I have spent that time in minutes in the direct care of this critically ill patient, excluding procedure time. ED Disposition Clinical Impression: DKA, type 1, Acute hyperkalemia, Acute renal failure, Sepsis Disposition: OP ADMIT IP TO THIS HOSP Is pt being admited?: Yes Condition: Stable
[2017-05-14 21:17] LABS: ISTAT Base Excess -29; ISTAT HCO3 3.1; ISTAT PCO2 13.5 (35-45); ISTAT PH 6.973 (7.35-7.45); ISTAT PO2 279 (80-105); ISTAT SO2 100; ISTAT TCO2 < 5
[2017-05-14 21:41] LABS: Mean Corpuscular HGB Conc 27 % (32-34); Mean Corpuscular Hemoglobin 31 pg (28-32); Platelet Count 746 K/mm3 (140-440); Red Blood Count 3.63 M/mm3 (3.65-5.03); Red Cell Distribution Width 16.5 % (13.2-15.2)
[2017-05-14 21:52] LABS: Hematocrit 41.7 % (35.5-45.6); Hemoglobin 11.1 gm/dl (11.8-15.2); Mean Corpuscular Volume 115 fl (84-94); White Blood Count 35.8 K/mm3 (4.5-11.0)
[2017-05-14] MEDS ORDERED: NovoLIN R 100 UNITS in NACL 0.9% 99 ML IV SCH ×2 (22:00→23:00)
[2017-05-14 22:07] LABS: Magnesium 3.3 mg/dL (1.7-2.3); Phosphorous 12.8 mg/dL (2.5-4.5)
[2017-05-14 22:09] LABS: Albumin 4.1 g/dL (3.9-5); Albumin/Globulin Ratio 1.2 %; Bilirubin,Total 0.3 mg/dL (0.1-1.2); Calcium 9.2 mg/dL (8.4-10.2); Chloride 89.8 mmol/L (98-107); Total Protein 7.6 g/dL (6.3-8.2)
[2017-05-14 22:21] LABS: Potassium 7.4 mmol/L (3.6-5.0)
[2017-05-14 22:25] LABS: Anion Gap TNR mmol/L; BUN/Creatinine Ratio TNR; Blood Urea Nitrogen TNR mg/dL (9-20); Calcium TNR mg/dL (8.4-10.2); Carbon Dioxide TNR mmol/L (22-30); Chloride TNR mmol/L (98-107); Glucose TNR mg/dL (75-100); Potassium TNR mmol/L (3.6-5.0); Sodium TNR mmol/L (137-145)
[2017-05-14] MEDS ORDERED: SODIUM BICARBONATE IV ONE ×3 (22:28→23:00)
[2017-05-14] MEDS ORDERED: ZOSYN/NS 4.5GM/100ML 4.5 GM/100 ML VIAL IV ONE (22:28)
[2017-05-14 22:35] LABS: Basophils % (Manual) 0 % (0.0-1.8); Blastocytes % (Manual) 0 %; Eosinophils % (Manual) 0 % (0.0-4.3); Total Cells Counted Percent 4.5
[2017-05-14 22:37] LABS: Diff Status Complete; Platelet Estimate Consistent w Auto; Polychromasia 1+
[2017-05-14 22:40] LABS: Macrocytosis 2+
[2017-05-14 22:43] LABS: Urine Drugs of Abuse Note Disclamer
[2017-05-14] MEDS ORDERED: D50W (25GM) Vial IV PRN (22:52)
[2017-05-14 22:53] LABS: Bilirubin,Urine NEG (Negative); Blood,Urine SM (Negative); Ketones,Urine 80 mg/dL (Negative); Leukocyte Esterase,Urine NEG (Negative); Mucus,Urine FEW /HPF; Nitrite,Urine NEG (Negative); Urobilinogen,Urine < 2.0 mg/dL (<2.0)
[2017-05-14] MEDS ORDERED: D5/0.45NS 1,000 ML IV SCH (23:00)
[2017-05-14] MEDS ORDERED: NACL 0.9% 1000 ML 1,000 ML IV SCH (23:00)
[2017-05-15] MEDS ORDERED: NACL 0.9% 1000 ML 1,000 ML IV ONE (00:36)
[2017-05-15 01:24] LABS: Calcium 8.1 mg/dL (8.4-10.2); Chloride 109.2 mmol/L (98-107); Potassium 4.4 mmol/L (3.6-5.0)
[2017-05-15 01:25] LABS: Calcium 8.1 mg/dL (8.4-10.2); Chloride 110.1 mmol/L (98-107); Potassium 4.4 mmol/L (3.6-5.0)
[2017-05-15 01:28] LABS: Magnesium 2.5 mg/dL (1.7-2.3); Phosphorous 2.6 mg/dL (2.5-4.5)
[2017-05-15 04:24] LABS: Calcium 8.5 mg/dL (8.4-10.2); Chloride 120.4 mmol/L (98-107); Potassium 3.8 mmol/L (3.6-5.0)
[2017-05-15] MEDS ORDERED: D5W/0.45% NACL/KCL 20 MEQ 20 MEQ/1,000 ML BAG IV ONE (05:22)
[2017-05-15] MEDS ORDERED: D5W/0.45% NACL/KCL 20 MEQ 20 MEQ/1,000 ML BAG IV SCH (06:00)
[2017-05-15 06:34] LABS: Calcium 8.9 mg/dL (8.4-10.2)
[2017-05-15 06:35] LABS: Chloride 125.9 mmol/L (98-107)
[2017-05-15 06:45] LABS: Potassium 6.6 mmol/L (3.6-5.0)
[2017-05-15] MEDS ORDERED: D5/0.45NS 1,000 ML IV ONE (06:58)
--- NOTE | 2017-05-15 06:59 | History and Physical Report ---
CHIEF COMPLAINT: Change in mental status. HISTORY OF PRESENT ILLNESS: The patient is a 41-year-old male with a history of type 1 diabetes mellitus, who has been admitted many times for DKA and brought in unresponsive. It was difficult to obtain history from the patient because of change in mental status. There was no history of fever or chills. No history of chest pain, nausea or vomiting or shortness of breath. PAST MEDICAL HISTORY: Pertinent for diabetes mellitus with noncompliance. Also the patient has a past history of obesity. FAMILY HISTORY: Noncontributory. SOCIAL HISTORY: The patient does not smoke, does not drink alcohol and does not use illicit drugs. PAST SURGICAL HISTORY: Unremarkable. MEDICATIONS: The patient is on regular insulin and also on Novolin 70/30 subcutaneous twice daily. ALLERGIES: THE PATIENT IS ALLERGIC TO ASPIRIN. REVIEW OF SYSTEMS: CONSTITUTIONAL: There is no fever, no chills, no diaphoresis. HEENT: There is no headache or sore throat. CARDIOVASCULAR SYSTEM: There is no chest pain or orthopnea. RESPIRATORY SYSTEM: There is no shortness of breath or cough. GASTROINTESTINAL SYSTEM: There is no nausea, no vomiting, no abdominal pain, diarrhea or constipation. NEUROLOGICAL SYSTEM: Altered mental status noted. MUSCULOSKELETAL SYSTEM: There is no joint pain or swelling. DERMATOLOGICAL SYSTEM: There is no skin rash or itching. GENITOURINARY SYSTEM: There is no dysuria, hematuria, or flank pain. Rest of system review is normal. PHYSICAL EXAMINATION: GENERAL: At the time of exam, the patient was found to be lethargic, arousable, confused and not in acute distress. VITAL SIGNS: At the time of presentation show temperature of 94.7 degrees Fahrenheit, pulse of 118, respirations 20, blood pressure of 94/46, and O2 sat of 98% on oxygen. HEENT: Showed pupils to be equal, round, reactive to light and accommodation. NECK: Supple with no JVD or carotid bruit. CARDIOVASCULAR SYSTEM: Shows first and second heart sounds with no gallops or murmur. RESPIRATORY SYSTEM: Shows good air entry on both sides of the lung with no abnormal breath sounds. GASTROINTESTINAL SYSTEM: Shows abdomen to be full, soft, nontender with no organomegaly or rigidity. NEUROLOGIC: Shows the patient to be lethargic, but easily arousable. MUSCULOSKELETAL SYSTEM: Shows no joint swelling or tenderness. DERMATOLOGICAL SYSTEM: Shows no skin rash. GENITOURINARY SYSTEM: Shows no costovertebral angle tenderness. PERTINENT LABORATORY DATA AND IMAGING STUDIES: The patient's CBC showed elevated white count of 35,800 with low hemoglobin of 11.1 and normal hematocrit and slightly high MCV of 115. CBC differential showed elevated segmented neutrophils as well as elevated monocyte count. The patient's chemistry showed ABG with pH of 6.97 and low pCO2 of 13.5, high PO2 of 279 and this was done on FiO2 of 100%. The patient's chemistry initially showed a high sodium level of 148, high potassium level of 7.4, low CO2 of 2, high BUN of 44 with elevated creatinine of 3.3 and high glucose level of 1022 and high lactic acid of 3.30. Magnesium level was also high with a value of 3.3 and phosphorus level was high with a value of 12.8. Urinalysis came back unremarkable. Urine drug screen was unremarkable. IMAGING STUDIES: The patient had chest x-ray done that came back with no acute cardiopulmonary lesions. DIAGNOSES: 1. Diabetic ketoacidosis. 2. Altered mental status. 3. Acute kidney injury. 4. Sepsis. PLAN: The patient will be admitted to ICU and with glucose stabilizing protocol for DKA or DKA protocol. We will continue IV normal saline until the blood glucose is below 250, when IV fluids will be changed to D5 half normal with a potassium supplement and run at 125 mL an hour. The patient will continue on IV insulin drip per protocol and would also be on IV Zosyn 3.375 grams q.8 hours. The patient will have CBC checked this morning and will be on IV Zofran 4 mg every 6 hours as needed for nausea and vomiting. The patient will be on oxygen by nasal cannula 2 liters per minute and will be on heparin 5000 units subcutaneously q.12 for DVT prophylaxis. The patient will have Nephrology consult with Dr. Vasquez for acute kidney injury. JOB# [id number] OCN/NTS LAYLA
[2017-05-15 07:05] LABS: Mean Corpuscular HGB Conc 32 % (32-34); Mean Corpuscular Hemoglobin 30 pg (28-32); Mean Corpuscular Volume 91 fl (84-94); Platelet Count 357 K/mm3 (140-440); Red Blood Count 3.72 M/mm3 (3.65-5.03); Red Cell Distribution Width 13.4 % (13.2-15.2); White Blood Count 19.9 K/mm3 (4.5-11.0)
--- NOTE | 2017-05-15 07:34 | XRay Report ---
AP CHEST: HISTORY: chest pain Compared to 05/03/17. AP view of the chest demonstrates a normal mediastinal and cardiac contour with clear lungs and normal bony and soft tissue structures. IMPRESSION: Unremarkable AP chest.
--- NOTE | 2017-05-15 08:49 | Consultation ---
History of Present Illness - Reason for Consult Consult date: 05/15/17 (consult dictated) Medications and Allergies Allergies Allergy/AdvReac Type Severity Reaction Status Date / Time aspirin Allergy Unknown Verified 05/29/16 22:00 Home Medications Medication Instructions Recorded Confirmed Last Taken Type Unobtainable 05/15/17 05/15/17 Unknown History Active Meds: Active Medications Dextrose (D50w (25gm) Vial) 0 gm IV PRN PRN PRN Reason: Hypoglycemia Heparin Sodium (Porcine) (Heparin) 5,000 unit SUB-Q Q12HR ROSSY Sodium Chloride (Nacl 0.9% 1000 Ml) 1,000 mls @ 250 mls/hr IV DIRECT ROSSY Insulin Human Regular 100 (units/ Sodium Chloride) 100 mls @ 1 mls/hr IV TITR ROSSY; 1 UNITS/HR PRN Reason: Protocol Potassium Chloride/Dextrose/Sod Cl (D5w/0.45% Nacl/Kcl 20 Meq) 20 meq in 1,000 mls @ 125 mls/hr IV DIRECT ROSSY Piperacillin Sod/Tazobactam Sod (Zosyn/Ns 3.375gm/50ml) 3.375 gm in 50 mls @ 100 mls/hr IV Q8HR ROSSY PRN Reason: Protocol Influenza Virus Vaccine Quadrival (Fluarix Quad [id number](36 Mos+) 0.5 ml IM .ONCE ONE Stop: 05/16/17 12:01 Pneumococcal Polyvalent Vaccine (Pneumovax 23) 0.5 ml IM .ONCE ONE Stop: 05/16/17 12:01 Exam - Constitutional Vitals: Temp Pulse Resp BP Pulse Ox 98.0 F 89 10 L 117/75 100 05/15/17 08:00 05/15/17 08:00 05/15/17 08:00 05/15/17 08:00 05/15/17 08:00 Results - Labs CBC & Chem 7: 05/15/17 06:01 05/15/17 21:54 Labs: Abnormal lab results 05/14/17 05/15/17 05/15/17 Range/Units 23:01 00:21 00:31 WBC (4.5-11.0) K/mm3 Hgb (11.8-15.2) gm/dl Hct (35.5-45.6) % Sodium 157 H D (137-145) mmol/L Potassium (3.6-5.0) mmol/L Chloride 110.1 H (98-107) mmol/L Carbon Dioxide 8 L* (22-30) mmol/L BUN 39 H (9-20) mg/dL Creatinine 2.6 H (0.8-1.5) mg/dL Glucose 607 H* (75-100) mg/dL POC Glucose > 500 H (70-105) Lactic Acid 3.30 H* (0.7-2.0) mmol/L Calcium 8.1 L (8.4-10.2) mg/dL Magnesium (1.7-2.3) mg/dL 05/15/17 05/15/17 05/15/17 Range/Units 00:31 00:51 03:48 WBC (4.5-11.0) K/mm3 Hgb (11.8-15.2) gm/dl Hct (35.5-45.6) % Sodium 156 H 163 H* (137-145) mmol/L Potassium (3.6-5.0) mmol/L Chloride 109.2 H 120.4 H (98-107) mmol/L Carbon Dioxide 7 L* 17 L D (22-30) mmol/L BUN 40 H 36 H (9-20) mg/dL Creatinine 2.5 H 2.4 H (0.8-1.5) mg/dL Glucose 602 H* 345 H (75-100) mg/dL POC Glucose (70-105) Lactic Acid (0.7-2.0) mmol/L Calcium 8.1 L (8.4-10.2) mg/dL Magnesium 2.50 H (1.7-2.3) mg/dL 05/15/17 05/15/17 05/15/17 Range/Units 05:12 06:01 06:01 WBC 19.9 H (4.5-11.0) K/mm3 Hgb 11.0 L (11.8-15.2) gm/dl Hct 34.0 L D (35.5-45.6) % Sodium 167 H* (137-145) mmol/L Potassium 6.6 H* D (3.6-5.0) mmol/L Chloride 125.9 H (98-107) mmol/L Carbon Dioxide 21 L (22-30) mmol/L BUN 36 H (9-20) mg/dL Creatinine 2.3 H (0.8-1.5) mg/dL Glucose 244 H (75-100) mg/dL POC Glucose 292 H (70-105) Lactic Acid (0.7-2.0) mmol/L Calcium (8.4-10.2) mg/dL Magnesium (1.7-2.3) mg/dL 05/15/17 05/15/17 05/15/17 Range/Units 06:07 06:58 08:01 WBC (4.5-11.0) K/mm3 Hgb (11.8-15.2) gm/dl Hct (35.5-45.6) % Sodium (137-145) mmol/L Potassium (3.6-5.0) mmol/L Chloride (98-107) mmol/L Carbon Dioxide (22-30) mmol/L BUN (9-20) mg/dL Creatinine (0.8-1.5) mg/dL Glucose (75-100) mg/dL POC Glucose 228 H 252 H 207 H (70-105) Lactic Acid (0.7-2.0) mmol/L Calcium (8.4-10.2) mg/dL Magnesium (1.7-2.3) mg/dL
[2017-05-15] MEDS: HEPARIN SUB-Q SCH ×2 (10:06→22:12)
[2017-05-15 11:04] LABS: Potassium, Urine 69.39 mmol/L
--- NOTE | 2017-05-15 12:25 | XRay Report ---
SUPINE KUB: History: Dobbhoff tube placement. The distal tip of the feeding tube terminates in the fundus of the stomach. The abdominal gas pattern is unremarkable. No masses or organomegaly is identified and there is no gross evidence of free air or fluid. No significant soft tissue calcifications are noted. IMPRESSION: Normal study.
[2017-05-15] MEDS: ZOSYN/NS 3.375GM/50ML 3.375 GM/50 ML BAG IV SCH (14:30)
[2017-05-15 15:38] LABS: Calcium 8.8 mg/dL (8.4-10.2); Potassium 3.9 mmol/L (3.6-5.0)
[2017-05-15] MEDS: D5W 1,000 ML IV SCH (15:59)
[2017-05-15] MEDS ORDERED: D5/0.45NS 1,000 ML IV SCH (16:00)
--- NOTE | 2017-05-15 16:08 | Progress Note ---
Assessment and Plan Assessment and plan: 41 yo male with DM type I and psychiatric disorder, with multiple, frequent admissions lately for DKA due to noncompliance (concern of being homeless) brought again to ER unresponsive and found to be in DKA, severely volume depleted 1. DKA Type I DM with recent A1c 15; noncompliant possible due to social issues versus psychiatric disorder On admission BS>1000, bicarbonate 2, venous ph 6.9 Started on insulin drip and aggressive IV hydration, electrolytes replacement per protocol Monitor closely, frequent BMP 2. Severe volume depletion With subsequent hypernatremia and acute renal failure Aggressive IV hydration 3. Hypernatremia Severe, Na+ up to 168 today Switch fluids to D5W; NGT placed and increased free water flushes to 250 mL Q3H Monitor closely 4. Acute renal failure Secondary to vasomotor nephropathy due to dehydration Continue IV fluids Cr 2.3 on admission, now 1.6 Monitor BUN/creatinine and also electrolytes 5. Metabolic acidosis Severe, bicarbonate 2 on admission and pH 6.9 Due to DKA and acute renal failure Treat underlying conditions 6. Leukocytosis/SIRS No infectious source identified Likely leukemoid reaction 7. Thrombocytosis Likely reactive Trending down 8. Acute metabolic encephalopathy Due to DKA with acute renal failure, uremia and electrolyte abnormalities UDS negative 9. Psychiatric disorder Declined treatment in the past Evaluated by psychiatry during previous admission 2 weeks ago and declined again treatment or follow-up 10. DVT prophylaxis 11. Social issues Estrange relation with his father which is his next of kin; concern of being homeless; will involve CM CC45 min History Interval history: somnolent, arousable to voice and pain stimuli; protecting his airway Hospitalist Physical - Constitutional Vitals: Temp Pulse Resp BP Pulse Ox 98.2 F 80 14 102/63 99 05/15/17 12:01 05/15/17 15:00 05/15/17 15:00 05/15/17 15:00 05/15/17 15:00 General appearance: Present: mild distress, well-nourished - EENT Eyes: Present: PERRL, EOM intact. Absent: scleral icterus, conjunctival injection - Neck Neck: Present: supple. Absent: enlarged thyroid, masses or JVD - Respiratory Respiratory effort: labored Respiratory: bilateral: CTA, negative: rhonchi, wheezing - Cardiovascular Rhythm: other (tachycardic) Heart Sounds: Present: S1 & S2. Absent: systolic murmur - Extremities Extremities: no ischemia - Abdominal General gastrointestinal: soft, non-tender, non-distended, normal bowel sounds - Integumentary Integumentary: Present: warm, decreased turgor. Absent: jaundice, rash - Psychiatric Psychiatric: no intact judgment & insight, other (somnolent) - Neurologic Neurologic: moves all extremities Results - Labs CBC & Chem 7: 05/15/17 06:01 05/15/17 13:15 Labs: Laboratory Last Values WBC 19.9 K/mm3 (4.5-11.0) H 05/15/17 06:01 RBC 3.72 M/mm3 (3.65-5.03) 05/15/17 06:01 Hgb 11.0 gm/dl (11.8-15.2) L 05/15/17 06:01 Hct 34.0 % (35.5-45.6) L D 05/15/17 06:01 MCV 91 fl (84-94) 05/15/17 06:01 MCH 30 pg (28-32) 05/15/17 06:01 MCHC 32 % (32-34) 05/15/17 06:01 RDW 13.4 % (13.2-15.2) 05/15/17 06:01 Plt Count 357 K/mm3 (140-440) 05/15/17 06:01 Add Manual Diff Complete 05/14/17 21:18 Total Counted 200 05/14/17 21:18 Seg Neuts % (Manual) 65.5 % (40.0-70.0) 05/14/17 21:18 Band Neutrophils % 20.5 % 05/14/17 21:18 Lymphocytes % (Manual) 5.5 % (13.4-35.0) L 05/14/17 21:18 Reactive Lymphs % (Man) 0 % 05/14/17 21:18 Monocytes % (Manual) 2.5 % (0.0-7.3) 05/14/17 21:18 Eosinophils % (Manual) 0 % (0.0-4.3) 05/14/17 21:18 Basophils % (Manual) 0 % (0.0-1.8) 05/14/17 21:18 Metamyelocytes % 2.0 % 05/14/17 21:18 Myelocytes % 4.0 % 05/14/17 21:18 Promyelocytes % 0 % 05/14/17 21:18 Blast Cells % 0 % 05/14/17 21:18 Nucleated RBC % 3.0 % (0.0-0.9) H 05/14/17 21:18 Seg Neutrophils # Man 23.4 K/mm3 (1.8-7.7) H 05/14/17 21:18 Band Neutrophils # 7.3 K/mm3 05/14/17 21:18 Lymphocytes # (Manual) 2.0 K/mm3 (1.2-5.4) 05/14/17 21:18 Abs React Lymphs (Man) 0.0 K/mm3 05/14/17 21:18 Monocytes # (Manual) 0.9 K/mm3 (0.0-0.8) H 05/14/17 21:18 Eosinophils # (Manual) 0.0 K/mm3 (0.0-0.4) 05/14/17 21:18 Basophils # (Manual) 0.0 K/mm3 (0.0-0.1) 05/14/17 21:18 Metamyelocytes # 0.7 K/mm3 05/14/17 21:18 Myelocytes # 1.4 K/mm3 05/14/17 21:18 Promyelocytes # 0.0 K/mm3 05/14/17 21:18 Blast Cells # 0.0 K/mm3 05/14/17 21:18 Pathologist Review 05/14/17 21:18 WBC Morphology Not Reportable 05/14/17 21:18 Hypersegmented Neuts Not Reportable 05/14/17 21:18 Hyposegmented Neuts Not Reportable 05/14/17 21:18 Hypogranular Neuts Not Reportable 05/14/17 21:18 Smudge Cells Not Reportable 05/14/17 21:18 Toxic Granulation Not Reportable 05/14/17 21:18 Toxic Vacuolation Not Reportable 05/14/17 21:18 Dohle Bodies Not Reportable 05/14/17 21:18 Pelger-Huet Anomaly Not Reportable 05/14/17 21:18 Nanette Rods Not Reportable 05/14/17 21:18 Platelet Estimate Consistent w auto 05/14/17 21:18 Clumped Platelets Not Reportable 05/14/17 21:18 Plt Clumps, EDTA Not Reportable 05/14/17 21:18 Large Platelets Not Reportable 05/14/17 21:18 Giant Platelets Not Reportable 05/14/17 21:18 Platelet Satelliting Not Reportable 05/14/17 21:18 Plt Morphology Comment Not Reportable 05/14/17 21:18 RBC Morphology Not Reportable 05/14/17 21:18 Dimorphic RBCs Not Reportable 05/14/17 21:18 Polychromasia 1+ 05/14/17 21:18 Hypochromasia Not Reportable 05/14/17 21:18 Poikilocytosis Not Reportable 05/14/17 21:18 Anisocytosis Not Reportable 05/14/17 21:18 Microcytosis Merchandise Associate 05/14/17 21:18 Macrocytosis 2+ 05/14/17 21:18 Spherocytes Not Reportable 05/14/17 21:18 Pappenheimer Bodies Not Reportable 05/14/17 21:18 Sickle Cells Not Reportable 05/14/17 21:18 Target Cells Not Reportable 05/14/17 21:18 Tear Drop Cells Not Reportable 05/14/17 21:18 Ovalocytes Not Reportable 05/14/17 21:18 Helmet Cells Not Reportable 05/14/17 21:18 [place] Bodies Not Reportable 05/14/17 21:18 [place] Rings Not Reportable 05/14/17 21:18 Gina Cells Not Reportable 05/14/17 21:18 Bite Cells Not Reportable 05/14/17 21:18 Crenated Cell Not Reportable 05/14/17 21:18 Elliptocytes Not Reportable 05/14/17 21:18 Acanthocytes (Spur) Not Reportable 05/14/17 21:18 Rouleaux Not Reportable 05/14/17 21:18 Hemoglobin C Crystals Not Reportable 05/14/17 21:18 Schistocytes Not Reportable 05/14/17 21:18 Malaria parasites Not Reportable 05/14/17 21:18 Gabriel Bodies Not Reportable 05/14/17 21:18 Hem Pathologist Commnt Sent to pathology 05/14/17 21:18 POC ABG pH 6.973 (7.35-7.45) L 05/14/17 21:13 POC ABG pCO2 13.5 (35-45) L 05/14/17 21:13 POC ABG pO2 279 (80-105) H 05/14/17 21:13 POC ABG HCO3 3.1 05/14/17 21:13 POC ABG Total CO2 < 5 05/14/17 21:13 POC ABG O2 Sat 100 05/14/17 21:13 POC ABG Base Excess -29 05/14/17 21:13 FiO2 100 % 05/14/17 21:13 Sodium 168 mmol/L (137-145) H* 05/15/17 13:15 Potassium 3.9 mmol/L (3.6-5.0) D 05/15/17 13:15 Chloride 126.0 mmol/L (98-107) H 05/15/17 13:15 Carbon Dioxide 28 mmol/L (22-30) D 05/15/17 13:15 Anion Gap 18 mmol/L 05/15/17 13:15 BUN 31 mg/dL (9-20) H 05/15/17 13:15 Creatinine 1.6 mg/dL (0.8-1.5) H 05/15/17 13:15 Estimated GFR 58 ml/min 05/15/17 13:15 BUN/Creatinine Ratio 19 % 05/15/17 13:15 Glucose 115 mg/dL (75-100) H 05/15/17 13:15 POC Glucose 140 (70-105) H 05/15/17 15:15 Lactic Acid 3.30 mmol/L (0.7-2.0) H* 05/14/17 23:01 Calcium 8.8 mg/dL (8.4-10.2) 05/15/17 13:15 Phosphorus 2.60 mg/dL (2.5-4.5) D 05/15/17 00:51 Magnesium 2.50 mg/dL (1.7-2.3) H 05/15/17 00:51 Total Bilirubin 0.30 mg/dL (0.1-1.2) 05/14/17 21:18 AST 17 units/L (5-40) 05/14/17 21:18 ALT 15 units/L (7-56) 05/14/17 21:18 Alkaline Phosphatase 125 units/L (35-129) 05/14/17 21:18 Troponin T 0.017 ng/mL (0.00-0.029) 05/14/17 21:18 Total Protein 7.6 g/dL (6.3-8.2) 05/14/17 21:18 Albumin 4.1 g/dL (3.9-5) 05/14/17 21:18 Albumin/Globulin Ratio 1.2 % 05/14/17 21:18 Lipase 34 units/L (13-60) 05/14/17 21:18 Urine Color Yellow (Yellow) 05/14/17 Unknown Urine Turbidity Clear (Clear) 05/14/17 Unknown Urine pH 5.0 (5.0-7.0) 05/14/17 Unknown Ur Specific [place] 1.022 (1.003-1.030) 05/14/17 Unknown Urine Protein 30 mg/dl mg/dL (Negative) 05/14/17 Unknown Urine Glucose (UA) >=500 mg/dL (Negative) 05/14/17 Unknown Urine Ketones 80 mg/dL (Negative) 05/14/17 Unknown Urine Blood Sm (Negative) 05/14/17 Unknown Urine Nitrite Neg (Negative) 05/14/17 Unknown Urine Bilirubin Neg (Negative) 05/14/17 Unknown Urine Urobilinogen < 2.0 mg/dL (<2.0) 05/14/17 Unknown Ur Leukocyte Esterase Neg (Negative) 05/14/17 Unknown Urine WBC (Auto) 1.0 /HPF (0.0-6.0) 05/14/17 Unknown Urine RBC (Auto) 1.0 /HPF (0.0-6.0) 05/14/17 Unknown Urine Mucus Few /HPF 05/14/17 Unknown Urine Osmolality 634 Mosm/kg 05/15/17 10:23 Urine Creatinine 153.0 mg/dL (0.1-20.0) H 05/15/17 10:23 Urine Sodium 26 mmol/L 05/15/17 10:23 Urine Potassium 69.39 mmol/L 05/15/17 10:23 Urine Chloride 100.7 mmolL (110-250) L 05/15/17 10:23 Urine Opiates Screen Presumptive negative 05/14/17 Unknown Urine Methadone Screen Presumptive negative 05/14/17 Unknown Ur Barbiturates Screen Presumptive negative 05/14/17 Unknown Ur Phencyclidine Scrn Presumptive negative 05/14/17 Unknown Ur Amphetamines Screen Presumptive negative 05/14/17 Unknown U Benzodiazepines Scrn Presumptive negative 05/14/17 Unknown Urine Cocaine Screen Presumptive negative 05/14/17 Unknown U Marijuana (THC) Screen Presumptive negative 05/14/17 Unknown Drugs of Abuse Note Disclamer 05/14/17 Unknown - Imaging and Cardiology Chest x-ray: image reviewed Abdominal x-ray: image reviewed
[2017-05-15 17:45] LABS: Calcium 8.7 mg/dL (8.4-10.2); Chloride 125.4 mmol/L (98-107); Potassium 4.1 mmol/L (3.6-5.0)
[2017-05-15 22:37] LABS: Calcium 8.8 mg/dL (8.4-10.2); Chloride 120.2 mmol/L (98-107); Potassium 3.5 mmol/L (3.6-5.0)
[2017-05-16] MEDS: D5W 1,000 ML IV SCH ×3 (00:07→18:24)
[2017-05-16] MEDS: ZOSYN/NS 3.375GM/50ML 3.375 GM/50 ML BAG IV SCH ×3 (00:08→13:05)
--- NOTE | 2017-05-16 09:52 | Consultation ---
History of Present Illness - Reason for Consult Consult date: 05/16/17 DKA Requesting physician: RICARDO MARTINEZ - History of Present Illness 41 y/o male admitted with DKA. Started on Insulin drip. Last night around 20: 00, Gap was normal. No labs drawn this am. Awake and wanting food. Past History Past Medical History: diabetes Medications and Allergies Allergies Allergy/AdvReac Type Severity Reaction Status Date / Time aspirin Allergy Unknown Verified 05/29/16 22:00 Home Medications Medication Instructions Recorded Confirmed Last Taken Type Unobtainable 05/15/17 05/15/17 Unknown History Active Meds: Active Medications Dextrose (D50w (25gm) Vial) 0 gm IV PRN PRN PRN Reason: Hypoglycemia Heparin Sodium (Porcine) (Heparin) 5,000 unit SUB-Q Q12HR ROSSY Last Admin: 05/15/17 22:12 Dose: 5,000 unit Insulin Human Regular 100 (units/ Sodium Chloride) 100 mls @ 1 mls/hr IV TITR ROSSY; 1 UNITS/HR PRN Reason: Protocol Last Titration: 05/16/17 07:17 Dose: 4 units/hr, 4 mls/hr Piperacillin Sod/Tazobactam Sod (Zosyn/Ns 3.375gm/50ml) 3.375 gm in 50 mls @ 100 mls/hr IV Q8HR ROSSY PRN Reason: Protocol Last Admin: 05/16/17 06:02 Dose: 100 mls/hr Dextrose (D5w) 1,000 mls @ 125 mls/hr IV DIRECT ROSSY Last Admin: 05/16/17 00:07 Dose: 125 mls/hr Influenza Virus Vaccine Quadrival (Fluarix Quad [id number](36 Mos+) 0.5 ml IM .ONCE ONE Stop: 05/16/17 12:01 Pneumococcal Polyvalent Vaccine (Pneumovax 23) 0.5 ml IM .ONCE ONE Stop: 05/16/17 12:01 Review of Systems All systems: negative Exam - Constitutional Vitals: Temp Pulse Resp BP Pulse Ox 98.7 F 67 10 L 121/71 99 05/16/17 04:32 05/16/17 07:47 05/16/17 07:20 05/16/17 07:20 05/16/17 07:52 General appearance: Present: no acute distress - EENT Eyes: Present: PERRL, EOM intact ENT: hearing intact, poor dentition - Neck Neck: Present: supple, normal ROM - Respiratory Respiratory effort: normal Respiratory: bilateral: CTA - Cardiovascular Rhythm: regular Heart Sounds: Present: S1 & S2 - Extremities Extremities: no ischemia, No edema - Abdominal General gastrointestinal: Present: soft, non-tender Male genitourinary: Present: deferred - Rectal Rectal Exam: deferred - Integumentary Integumentary: Present: clear, warm, dry - Musculoskeletal Musculoskeletal: strength equal bilaterally - Psychiatric Psychiatric: appropriate mood/affect Results - Labs CBC & Chem 7: 05/15/17 06:01 05/15/17 21:54 Labs: Abnormal lab results 05/15/17 05/15/17 05/15/17 Range/Units 10:07 10:23 11:11 Sodium (137-145) mmol/L Potassium (3.6-5.0) mmol/L Chloride (98-107) mmol/L BUN (9-20) mg/dL Creatinine (0.8-1.5) mg/dL Glucose (75-100) mg/dL POC Glucose 202 H 172 H (70-105) Urine Creatinine 153.0 H (0.1-20.0) mg/dL Urine Chloride 100.7 L (110-250) mmolL 05/15/17 05/15/17 05/15/17 Range/Units 12:03 13:10 13:15 Sodium 168 H* (137-145) mmol/L Potassium (3.6-5.0) mmol/L Chloride 126.0 H (98-107) mmol/L BUN 31 H (9-20) mg/dL Creatinine 1.6 H (0.8-1.5) mg/dL Glucose 115 H (75-100) mg/dL POC Glucose 168 H 153 H (70-105) Urine Creatinine (0.1-20.0) mg/dL Urine Chloride (110-250) mmolL 05/15/17 05/15/17 05/15/17 Range/Units 14:07 15:15 16:23 Sodium (137-145) mmol/L Potassium (3.6-5.0) mmol/L Chloride (98-107) mmol/L BUN (9-20) mg/dL Creatinine (0.8-1.5) mg/dL Glucose (75-100) mg/dL POC Glucose 150 H 140 H 159 H (70-105) Urine Creatinine (0.1-20.0) mg/dL Urine Chloride (110-250) mmolL 05/15/17 05/15/17 05/15/17 Range/Units 17:18 17:34 18:45 Sodium 165 H* (137-145) mmol/L Potassium (3.6-5.0) mmol/L Chloride 125.4 H (98-107) mmol/L BUN 31 H (9-20) mg/dL Creatinine 1.7 H (0.8-1.5) mg/dL Glucose 143 H (75-100) mg/dL POC Glucose 175 H 138 H (70-105) Urine Creatinine (0.1-20.0) mg/dL Urine Chloride (110-250) mmolL 05/15/17 05/15/17 05/15/17 Range/Units 20:09 21:04 21:54 Sodium 157 H (137-145) mmol/L Potassium 3.5 L (3.6-5.0) mmol/L Chloride 120.2 H (98-107) mmol/L BUN 30 H (9-20) mg/dL Creatinine 1.8 H (0.8-1.5) mg/dL Glucose 135 H (75-100) mg/dL POC Glucose 139 H 134 H (70-105) Urine Creatinine (0.1-20.0) mg/dL Urine Chloride (110-250) mmolL 05/15/17 05/15/17 05/16/17 Range/Units 22:02 23:07 00:03 Sodium (137-145) mmol/L Potassium (3.6-5.0) mmol/L Chloride (98-107) mmol/L BUN (9-20) mg/dL Creatinine (0.8-1.5) mg/dL Glucose (75-100) mg/dL POC Glucose 146 H 170 H 181 H (70-105) Urine Creatinine (0.1-20.0) mg/dL Urine Chloride (110-250) mmolL 05/16/17 05/16/17 05/16/17 Range/Units 01:09 02:08 03:03 Sodium (137-145) mmol/L Potassium (3.6-5.0) mmol/L Chloride (98-107) mmol/L BUN (9-20) mg/dL Creatinine (0.8-1.5) mg/dL Glucose (75-100) mg/dL POC Glucose 162 H 160 H 151 H (70-105) Urine Creatinine (0.1-20.0) mg/dL Urine Chloride (110-250) mmolL 05/16/17 05/16/17 05/16/17 Range/Units 03:58 04:57 06:01 Sodium (137-145) mmol/L Potassium (3.6-5.0) mmol/L Chloride (98-107) mmol/L BUN (9-20) mg/dL Creatinine (0.8-1.5) mg/dL Glucose (75-100) mg/dL POC Glucose 144 H 125 H 140 H (70-105) Urine Creatinine (0.1-20.0) mg/dL Urine Chloride (110-250) mmolL 05/16/17 Range/Units 06:59 Sodium (137-145) mmol/L Potassium (3.6-5.0) mmol/L Chloride (98-107) mmol/L BUN (9-20) mg/dL Creatinine (0.8-1.5) mg/dL Glucose (75-100) mg/dL POC Glucose 160 H (70-105) Urine Creatinine (0.1-20.0) mg/dL Urine Chloride (110-250) mmolL - Imaging and Cardiology Chest x-ray: image reviewed (clear no evidence of acute disease) Assessment and Plan 41 y/o male with DKA, most likely secondary to noncompliance. 1. Will calculate how much insulin is needed for long acting coverage. 2. Patient is refusing lab draw this am to evaluate DKA and anion GAP 3. Order CC diet 4. Transfer out of the unit or home, will discuss with IMS. CCT 31 minutes.
[2017-05-16] MEDS: HEPARIN SUB-Q SCH ×2 (09:58→21:31)
--- NOTE | 2017-05-16 10:39 | Progress Note ---
Assessment and Plan Impression * Nonoliguric PRATIMA seocndary to volume depletion * DKA * Hypernatremia - Na 150 this morning per lab * Severe metabolic acidosis secondary to DKA * Leukocytosis * Hypokalemia Plan: * Renal function improved compared with admission; stable * Continue hydration * Glycemic control per primary team * Replete lytes prn * Avoid nephrotoxins * Adjust medications for renal function Subjective Date of service: 05/16/17 Interval history: Patient has no complaints. Objective - Vital Signs Vital signs: Vital Signs - 12hr 05/15/17 05/15/17 05/15/17 22:40 22:50 23:00 Temperature Pulse Rate 67 69 68 Pulse Rate [ Dorsalis Pedis] Pulse Rate [ From Monitor] Pulse Rate [ Radial] Respiratory 14 13 10 L Rate Blood Pressure 125/74 125/74 128/77 O2 Sat by Pulse 98 99 100 Oximetry 05/15/17 05/15/17 05/15/17 23:10 23:20 23:30 Temperature Pulse Rate 65 64 64 Pulse Rate [ Dorsalis Pedis] Pulse Rate [ From Monitor] Pulse Rate [ Radial] Respiratory 11 L 11 L 10 L Rate Blood Pressure 128/77 128/77 128/77 O2 Sat by Pulse 99 99 99 Oximetry 05/15/17 05/15/17 05/15/17 23:40 23:42 23:50 Temperature Pulse Rate 63 66 72 Pulse Rate [ 66 Dorsalis Pedis] Pulse Rate [ 66 From Monitor] Pulse Rate [ 66 Radial] Respiratory 12 13 16 Rate Blood Pressure 128/77 128/77 128/77 O2 Sat by Pulse 99 99 98 Oximetry 05/15/17 05/16/17 05/16/17 23:54 00:00 00:10 Temperature 98.4 F Pulse Rate 73 64 80 Pulse Rate [ Dorsalis Pedis] Pulse Rate [ From Monitor] Pulse Rate [ Radial] Respiratory 17 13 15 Rate Blood Pressure 128/77 134/73 128/77 O2 Sat by Pulse 98 98 98 Oximetry 05/16/17 05/16/17 05/16/17 00:20 00:28 00:30 Temperature Pulse Rate 79 79 70 Pulse Rate [ Dorsalis Pedis] Pulse Rate [ From Monitor] Pulse Rate [ Radial] Respiratory 13 11 L Rate Blood Pressure 128/77 128/77 O2 Sat by Pulse 98 97 Oximetry 05/16/17 05/16/17 05/16/17 00:40 00:50 01:00 Temperature Pulse Rate 76 74 81 Pulse Rate [ Dorsalis Pedis] Pulse Rate [ From Monitor] Pulse Rate [ Radial] Respiratory 16 15 11 L Rate Blood Pressure 128/77 128/77 124/43 O2 Sat by Pulse 97 98 98 Oximetry 05/16/17 05/16/17 05/16/17 01:10 01:20 01:30 Temperature Pulse Rate 58 L 65 68 Pulse Rate [ Dorsalis Pedis] Pulse Rate [ From Monitor] Pulse Rate [ Radial] Respiratory 13 16 17 Rate Blood Pressure 124/43 124/43 124/43 O2 Sat by Pulse 98 99 98 Oximetry 05/16/17 05/16/17 05/16/17 01:40 01:50 02:00 Temperature Pulse Rate 68 70 57 L Pulse Rate [ Dorsalis Pedis] Pulse Rate [ From Monitor] Pulse Rate [ Radial] Respiratory 17 16 11 L Rate Blood Pressure 124/43 124/43 116/69 O2 Sat by Pulse 98 98 100 Oximetry 05/16/17 05/16/17 05/16/17 02:10 02:20 02:30 Temperature Pulse Rate 55 L 74 55 L Pulse Rate [ Dorsalis Pedis] Pulse Rate [ From Monitor] Pulse Rate [ Radial] Respiratory 10 L 12 11 L Rate Blood Pressure 116/69 116/69 116/69 O2 Sat by Pulse 100 100 100 Oximetry 05/16/17 05/16/17 05/16/17 02:40 02:50 03:00 Temperature Pulse Rate 64 65 58 L Pulse Rate [ Dorsalis Pedis] Pulse Rate [ From Monitor] Pulse Rate [ Radial] Respiratory 14 14 10 L Rate Blood Pressure 116/69 116/69 114/71 O2 Sat by Pulse 99 99 100 Oximetry 05/16/17 05/16/17 05/16/17 03:10 03:20 03:30 Temperature Pulse Rate 64 65 67 Pulse Rate [ Dorsalis Pedis] Pulse Rate [ From Monitor] Pulse Rate [ Radial] Respiratory 15 16 16 Rate Blood Pressure 116/69 116/69 116/69 O2 Sat by Pulse 99 98 98 Oximetry 05/16/17 05/16/17 05/16/17 03:40 03:41 03:50 Temperature Pulse Rate 67 67 Pulse Rate [ 67 Dorsalis Pedis] Pulse Rate [ 67 From Monitor] Pulse Rate [ 67 Radial] Respiratory 15 21 14 Rate Blood Pressure 116/69 116/69 O2 Sat by Pulse 98 99 98 Oximetry 05/16/17 05/16/17 05/16/17 04:00 04:10 04:20 Temperature Pulse Rate 60 52 L 60 Pulse Rate [ Dorsalis Pedis] Pulse Rate [ From Monitor] Pulse Rate [ Radial] Respiratory 10 L 11 L 11 L Rate Blood Pressure 124/78 124/78 124/78 O2 Sat by Pulse 100 99 100 Oximetry 05/16/17 05/16/17 05/16/17 04:30 04:32 04:40 Temperature 98.7 F Pulse Rate 58 L 60 Pulse Rate [ Dorsalis Pedis] Pulse Rate [ From Monitor] Pulse Rate [ Radial] Respiratory 12 11 L Rate Blood Pressure 124/78 124/78 O2 Sat by Pulse 100 99 Oximetry 05/16/17 05/16/17 05/16/17 04:50 05:00 05:10 Temperature Pulse Rate 56 L 57 L 60 Pulse Rate [ Dorsalis Pedis] Pulse Rate [ From Monitor] Pulse Rate [ Radial] Respiratory 13 11 L 11 L Rate Blood Pressure 124/78 121/73 121/73 O2 Sat by Pulse 98 99 99 Oximetry 05/16/17 05/16/17 05/16/17 05:20 05:30 05:40 Temperature Pulse Rate 62 59 L 61 Pulse Rate [ Dorsalis Pedis] Pulse Rate [ From Monitor] Pulse Rate [ Radial] Respiratory 14 13 14 Rate Blood Pressure 121/73 121/73 121/73 O2 Sat by Pulse 99 99 98 Oximetry 05/16/17 05/16/17 05/16/17 05:50 06:00 06:10 Temperature Pulse Rate 63 59 L 61 Pulse Rate [ Dorsalis Pedis] Pulse Rate [ From Monitor] Pulse Rate [ Radial] Respiratory 14 14 15 Rate Blood Pressure 121/73 115/71 115/71 O2 Sat by Pulse 98 99 98 Oximetry 05/16/17 05/16/17 05/16/17 06:20 06:30 06:40 Temperature Pulse Rate 66 69 68 Pulse Rate [ Dorsalis Pedis] Pulse Rate [ From Monitor] Pulse Rate [ Radial] Respiratory 18 19 17 Rate Blood Pressure 115/71 115/71 115/71 O2 Sat by Pulse 98 97 98 Oximetry 05/16/17 05/16/17 05/16/17 06:50 07:00 07:10 Temperature Pulse Rate 61 57 L 69 Pulse Rate [ Dorsalis Pedis] Pulse Rate [ From Monitor] Pulse Rate [ Radial] Respiratory 10 L 12 15 Rate Blood Pressure 115/71 121/71 121/71 O2 Sat by Pulse 98 98 99 Oximetry 05/16/17 05/16/17 05/16/17 07:20 07:30 07:40 Temperature Pulse Rate 61 59 L 61 Pulse Rate [ Dorsalis Pedis] Pulse Rate [ From Monitor] Pulse Rate [ Radial] Respiratory 10 L 11 L 9 L Rate Blood Pressure 121/71 121/71 121/71 O2 Sat by Pulse 99 99 97 Oximetry 05/16/17 05/16/17 05/16/17 07:47 07:50 07:52 Temperature Pulse Rate 56 L Pulse Rate [ Dorsalis Pedis] Pulse Rate [ 67 From Monitor] Pulse Rate [ Radial] Respiratory 11 L Rate Blood Pressure 121/71 O2 Sat by Pulse 99 99 Oximetry 05/16/17 05/16/17 05/16/17 08:00 08:10 08:20 Temperature Pulse Rate 62 64 70 Pulse Rate [ Dorsalis Pedis] Pulse Rate [ From Monitor] Pulse Rate [ Radial] Respiratory 10 L 11 L 10 L Rate Blood Pressure 120/80 120/80 120/80 O2 Sat by Pulse 100 99 99 Oximetry 05/16/17 05/16/17 05/16/17 08:30 08:40 08:50 Temperature Pulse Rate 65 63 62 Pulse Rate [ Dorsalis Pedis] Pulse Rate [ From Monitor] Pulse Rate [ Radial] Respiratory 11 L 11 L 12 Rate Blood Pressure 120/80 120/80 120/80 O2 Sat by Pulse 100 100 100 Oximetry 05/16/17 05/16/17 05/16/17 09:00 09:10 09:20 Temperature Pulse Rate 62 62 65 Pulse Rate [ Dorsalis Pedis] Pulse Rate [ From Monitor] Pulse Rate [ Radial] Respiratory 13 13 13 Rate Blood Pressure 124/72 124/72 124/72 O2 Sat by Pulse 100 100 99 Oximetry 05/16/17 05/16/17 05/16/17 09:30 09:40 09:50 Temperature Pulse Rate 64 71 71 Pulse Rate [ Dorsalis Pedis] Pulse Rate [ From Monitor] Pulse Rate [ Radial] Respiratory 12 10 L 7 L Rate Blood Pressure 124/72 124/72 124/72 O2 Sat by Pulse 99 100 100 Oximetry 05/16/17 10:00 Temperature Pulse Rate 67 Pulse Rate [ Dorsalis Pedis] Pulse Rate [ From Monitor] Pulse Rate [ Radial] Respiratory 12 Rate Blood Pressure 124/72 O2 Sat by Pulse 99 Oximetry - General Appearance General appearance: well-developed, well-nourished EENT: ATNC Respiratory: Present: Clear to Ascultation Cardiology: regular, S1S2 Gastrointestinal: normal, no tenderness, no distended Integumentary: no rash Musculoskeletal: other (no edema) Psychiatric: cooperative - Lab 05/15/17 06:01 05/16/17 11:45 Most recent lab results Calcium 8.8 mg/dL (8.4-10.2) 05/15/17 21:54 Phosphorus 2.60 mg/dL (2.5-4.5) D 05/15/17 00:51 Magnesium 2.50 mg/dL (1.7-2.3) H 05/15/17 00:51 Urine Creatinine 153.0 mg/dL (0.1-20.0) H 05/15/17 10:23 Urine Sodium 26 mmol/L 05/15/17 10:23
[2017-05-16] MEDS ORDERED: D50W (25GM) Syringe IV PRN (10:49)
[2017-05-16] MEDS ORDERED: PNEUMOVAX 23 IM ONE (12:00)
[2017-05-16] MEDS ORDERED: Fluarix Quad 2017-2018(36 MOS+ IM ONE (12:00)
[2017-05-16 12:17] LABS: Calcium 8.5 mg/dL (8.4-10.2); Chloride 112.4 mmol/L (98-107)
[2017-05-16] MEDS: NOVOLOG SUB-Q SCH ×3 (12:20→21:54)
--- NOTE | 2017-05-16 18:12 | Progress Note ---
Assessment and Plan Assessment and plan: 41 yo male with DM type I and psychiatric disorder, with multiple, frequent admissions lately for DKA due to noncompliance (concern of being homeless) brought again to ER unresponsive and found to be in DKA, severely volume depleted 1. DKA Type I DM with recent A1c 15; noncompliant possible due to social issues versus psychiatric disorder On admission BS>1000, bicarbonate 2, venous ph 6.9 Started on insulin drip and aggressive IV hydration, electrolytes replacement per protocol AG closed morning, transitioned to subcutaneous insulin Counseled and assistance offered, but he denied 2. Severe volume depletion With subsequent hypernatremia and acute renal failure s/p aggressive IV hydration Improved 3. Hypernatremia Severe, Na+ 168 on admission Status post aggressive IV hydration, hypotonic IV fluids and free water flushes through NG tube Improved, last Na+ in 150s Refusing further labs 4. Acute renal failure Secondary to vasomotor nephropathy due to dehydration Received IV fluids Improving Now unable to monitor BUN/creatinine/electrolytes S patient is refusing labs 5. Metabolic acidosis Severe, bicarbonate 2 on admission and pH 6.9 Due to DKA and acute renal failure Treating underlying conditions 6. Leukocytosis/SIRS No infectious source identified Likely leukemoid reaction Trending down 7. Thrombocytosis Likely reactive Trending down 8. Acute metabolic encephalopathy Due to DKA with acute renal failure, uremia and electrolyte abnormalities UDS negative 9. Psychiatric disorder Declined treatment in the past Evaluated by psychiatry during previous admission 2 weeks ago and declined again treatment or follow-up 10. DVT prophylaxis 11. Social issues Estrange relation with his father which is his next of kin; concern of being homeless; CM consulted History Interval history: feeling better, no specific complaints Hospitalist Physical - Constitutional Vitals: Temp Pulse Resp BP Pulse Ox 98.8 F 81 15 105/63 98 05/16/17 12:00 05/16/17 15:10 05/16/17 15:10 05/16/17 15:10 05/16/17 15:10 General appearance: Present: no acute distress, well-nourished - EENT Eyes: Present: PERRL, EOM intact. Absent: scleral icterus, conjunctival injection - Neck Neck: Present: supple, normal ROM. Absent: masses or JVD - Respiratory Respiratory effort: normal Respiratory: bilateral: CTA, negative: rhonchi, wheezing - Cardiovascular Rhythm: regular Heart Sounds: Present: S1 & S2. Absent: systolic murmur - Extremities Extremities: no ischemia - Abdominal General gastrointestinal: soft, non-tender, non-distended, normal bowel sounds - Psychiatric Psychiatric: no intact judgment & insight, cooperative - Neurologic Neurologic: CNII-XII intact, no focal deficits Results - Labs CBC & Chem 7: 05/15/17 06:01 05/16/17 11:45 Labs: Laboratory Last Values WBC 19.9 K/mm3 (4.5-11.0) H 05/15/17 06:01 RBC 3.72 M/mm3 (3.65-5.03) 05/15/17 06:01 Hgb 11.0 gm/dl (11.8-15.2) L 05/15/17 06:01 Hct 34.0 % (35.5-45.6) L D 05/15/17 06:01 MCV 91 fl (84-94) 05/15/17 06:01 MCH 30 pg (28-32) 05/15/17 06:01 MCHC 32 % (32-34) 05/15/17 06:01 RDW 13.4 % (13.2-15.2) 05/15/17 06:01 Plt Count 357 K/mm3 (140-440) 05/15/17 06:01 Add Manual Diff Complete 05/14/17 21:18 Total Counted 200 05/14/17 21:18 Seg Neuts % (Manual) 65.5 % (40.0-70.0) 05/14/17 21:18 Band Neutrophils % 20.5 % 05/14/17 21:18 Lymphocytes % (Manual) 5.5 % (13.4-35.0) L 05/14/17 21:18 Reactive Lymphs % (Man) 0 % 05/14/17 21:18 Monocytes % (Manual) 2.5 % (0.0-7.3) 05/14/17 21:18 Eosinophils % (Manual) 0 % (0.0-4.3) 05/14/17 21:18 Basophils % (Manual) 0 % (0.0-1.8) 05/14/17 21:18 Metamyelocytes % 2.0 % 05/14/17 21:18 Myelocytes % 4.0 % 05/14/17 21:18 Promyelocytes % 0 % 05/14/17 21:18 Blast Cells % 0 % 05/14/17 21:18 Nucleated RBC % 3.0 % (0.0-0.9) H 05/14/17 21:18 Seg Neutrophils # Man 23.4 K/mm3 (1.8-7.7) H 05/14/17 21:18 Band Neutrophils # 7.3 K/mm3 05/14/17 21:18 Lymphocytes # (Manual) 2.0 K/mm3 (1.2-5.4) 05/14/17 21:18 Abs React Lymphs (Man) 0.0 K/mm3 05/14/17 21:18 Monocytes # (Manual) 0.9 K/mm3 (0.0-0.8) H 05/14/17 21:18 Eosinophils # (Manual) 0.0 K/mm3 (0.0-0.4) 05/14/17 21:18 Basophils # (Manual) 0.0 K/mm3 (0.0-0.1) 05/14/17 21:18 Metamyelocytes # 0.7 K/mm3 05/14/17 21:18 Myelocytes # 1.4 K/mm3 05/14/17 21:18 Promyelocytes # 0.0 K/mm3 05/14/17 21:18 Blast Cells # 0.0 K/mm3 05/14/17 21:18 Pathologist Review 05/14/17 21:18 WBC Morphology Not Reportable 05/14/17 21:18 Hypersegmented Neuts Not Reportable 05/14/17 21:18 Hyposegmented Neuts Not Reportable 05/14/17 21:18 Hypogranular Neuts Not Reportable 05/14/17 21:18 Smudge Cells Not Reportable 05/14/17 21:18 Toxic Granulation Not Reportable 05/14/17 21:18 Toxic Vacuolation Not Reportable 05/14/17 21:18 Dohle Bodies Not Reportable 05/14/17 21:18 Pelger-Huet Anomaly Not Reportable 05/14/17 21:18 Nanette Rods Not Reportable 05/14/17 21:18 Platelet Estimate Consistent w auto 05/14/17 21:18 Clumped Platelets Not Reportable 05/14/17 21:18 Plt Clumps, EDTA Not Reportable 05/14/17 21:18 Large Platelets Not Reportable 05/14/17 21:18 Giant Platelets Not Reportable 05/14/17 21:18 Platelet Satelliting Not Reportable 05/14/17 21:18 Plt Morphology Comment Not Reportable 05/14/17 21:18 RBC Morphology Not Reportable 05/14/17 21:18 Dimorphic RBCs Not Reportable 05/14/17 21:18 Polychromasia 1+ 05/14/17 21:18 Hypochromasia Not Reportable 05/14/17 21:18 Poikilocytosis Not Reportable 05/14/17 21:18 Anisocytosis Not Reportable 05/14/17 21:18 Microcytosis Doctor Of Naturopathic Medicine 05/14/17 21:18 Macrocytosis 2+ 05/14/17 21:18 Spherocytes Not Reportable 05/14/17 21:18 Pappenheimer Bodies Not Reportable 05/14/17 21:18 Sickle Cells Not Reportable 05/14/17 21:18 Target Cells Not Reportable 05/14/17 21:18 Tear Drop Cells Not Reportable 05/14/17 21:18 Ovalocytes Not Reportable 05/14/17 21:18 Helmet Cells Not Reportable 05/14/17 21:18 [place] Bodies Not Reportable 05/14/17 21:18 [place] Rings Not Reportable 05/14/17 21:18 [place] Cells Not Reportable 05/14/17 21:18 Bite Cells Not Reportable 05/14/17 21:18 Crenated Cell Not Reportable 05/14/17 21:18 Elliptocytes Not Reportable 05/14/17 21:18 Acanthocytes (Spur) Not Reportable 05/14/17 21:18 Rouleaux Not Reportable 05/14/17 21:18 Hemoglobin C Crystals Not Reportable 05/14/17 21:18 Schistocytes Not Reportable 05/14/17 21:18 Malaria parasites Not Reportable 05/14/17 21:18 [place] Bodies Not Reportable 05/14/17 21:18 Hem Pathologist Commnt Sent to pathology 05/14/17 21:18 POC ABG pH 6.973 (7.35-7.45) L 05/14/17 21:13 POC ABG pCO2 13.5 (35-45) L 05/14/17 21:13 POC ABG pO2 279 (80-105) H 05/14/17 21:13 POC ABG HCO3 3.1 05/14/17 21:13 POC ABG Total CO2 < 5 05/14/17 21:13 POC ABG O2 Sat 100 05/14/17 21:13 POC ABG Base Excess -29 05/14/17 21:13 FiO2 100 % 05/14/17 21:13 Sodium 157 mmol/L (137-145) H 05/15/17 21:54 Potassium 3.0 mmol/L (3.6-5.0) L 05/16/17 11:45 Chloride 120.2 mmol/L (98-107) H 05/15/17 21:54 Carbon Dioxide 24 mmol/L (22-30) 05/16/17 11:45 Anion Gap 17 mmol/L 05/15/17 21:54 BUN 27 mg/dL (9-20) H 05/16/17 11:45 Creatinine 1.8 mg/dL (0.8-1.5) H 05/16/17 11:45 Estimated GFR 51 ml/min 05/16/17 11:45 BUN/Creatinine Ratio 15 % 05/16/17 11:45 Glucose 229 mg/dL (75-100) H 05/16/17 11:45 POC Glucose 160 (70-105) H 05/16/17 06:59 Lactic Acid 3.30 mmol/L (0.7-2.0) H* 05/14/17 23:01 Calcium 8.5 mg/dL (8.4-10.2) 05/16/17 11:45 Phosphorus 2.60 mg/dL (2.5-4.5) D 05/15/17 00:51 Magnesium 2.50 mg/dL (1.7-2.3) H 05/15/17 00:51 Total Bilirubin 0.30 mg/dL (0.1-1.2) 05/14/17 21:18 AST 17 units/L (5-40) 05/14/17 21:18 ALT 15 units/L (7-56) 05/14/17 21:18 Alkaline Phosphatase 125 units/L (35-129) 05/14/17 21:18 Troponin T 0.017 ng/mL (0.00-0.029) 05/14/17 21:18 Total Protein 7.6 g/dL (6.3-8.2) 05/14/17 21:18 Albumin 4.1 g/dL (3.9-5) 05/14/17 21:18 Albumin/Globulin Ratio 1.2 % 05/14/17 21:18 Lipase 34 units/L (13-60) 05/14/17 21:18 Urine Color Yellow (Yellow) 05/14/17 Unknown Urine Turbidity Clear (Clear) 05/14/17 Unknown Urine pH 5.0 (5.0-7.0) 05/14/17 Unknown Ur Specific [place] 1.022 (1.003-1.030) 05/14/17 Unknown Urine Protein 30 mg/dl mg/dL (Negative) 05/14/17 Unknown Urine Glucose (UA) >=500 mg/dL (Negative) 05/14/17 Unknown Urine Ketones 80 mg/dL (Negative) 05/14/17 Unknown Urine Blood Sm (Negative) 05/14/17 Unknown Urine Nitrite Neg (Negative) 05/14/17 Unknown Urine Bilirubin Neg (Negative) 05/14/17 Unknown Urine Urobilinogen < 2.0 mg/dL (<2.0) 05/14/17 Unknown Ur Leukocyte Esterase Neg (Negative) 05/14/17 Unknown Urine WBC (Auto) 1.0 /HPF (0.0-6.0) 05/14/17 Unknown Urine RBC (Auto) 1.0 /HPF (0.0-6.0) 05/14/17 Unknown Urine Mucus Few /HPF 05/14/17 Unknown Urine Osmolality 634 Mosm/kg 05/15/17 10:23 Urine Creatinine 153.0 mg/dL (0.1-20.0) H 05/15/17 10:23 Urine Sodium 26 mmol/L 05/15/17 10:23 Urine Potassium 69.39 mmol/L 05/15/17 10:23 Urine Chloride 100.7 mmolL (110-250) L 05/15/17 10:23 Urine Opiates Screen Presumptive negative 05/14/17 Unknown Urine Methadone Screen Presumptive negative 05/14/17 Unknown Ur Barbiturates Screen Presumptive negative 05/14/17 Unknown Ur Phencyclidine Scrn Presumptive negative 05/14/17 Unknown Ur Amphetamines Screen Presumptive negative 05/14/17 Unknown U Benzodiazepines Scrn Presumptive negative 05/14/17 Unknown Urine Cocaine Screen Presumptive negative 05/14/17 Unknown U Marijuana (THC) Screen Presumptive negative 05/14/17 Unknown Drugs of Abuse Note Disclamer 05/14/17 Unknown
--- NOTE | 2017-05-16 22:02 | Consultation ---
RENAL CONSULTATION REASON FOR CONSULTATION: Acute renal failure and hypernatremia. HISTORY OF PRESENT ILLNESS: This 41-year-old male was brought to the Emergency Room by EMS with altered mental status. The patient has a history of several admissions for diabetic ketoacidosis. Unable to obtain any information from the patient at present time. His data on admission to the ER showed sodium of 148, potassium of 7.4, CO2 of 2, glucose 1022, phosphorus 12.8, calcium 9.2. Repeat labs showed sodium of 167, potassium of 6.6. The patient's medical record was reviewed. ALLERGIES: ASPIRIN. PAST MEDICAL HISTORY: As above. PERSONAL HISTORY: No history of smoking. CURRENT MEDICATIONS: The patient is on insulin drip. REVIEW OF SYSTEMS: Unable to obtain. PHYSICAL EXAMINATION: GENERAL: The patient is obtunded, but response to painful stimuli. VITAL SIGNS: Blood pressure 125/70, pulse 65, afebrile. HEENT: Conjunctivae pink. Oral mucosa, tongue and lips are dry. NECK: No JVD. No thyroid enlargement. LUNGS: Clear. HEART: S1, S2 regular. ABDOMEN: Soft, bowel sounds present. EXTREMITIES: 1+ edema. LABORATORY DATA: Sodium 167, potassium 6.6, chloride 125, CO2 21, BUN 36, creatinine 2.3. ASSESSMENT AND PLAN: 1. Diabetes ketoacidosis in patient with type 1 diabetes. 2. Hypernatremia. 3. Acute renal failure, most likely prerenal azotemia. 4. Metabolic encephalopathy. 5. Leukocytosis. Check urine studies and urine osmolality. Suggest to increase free water intake. Avoid rapid correction of hypernatremia. Discussed with Dr. Gaona. Adjust medications per renal function. Thank you for the consultation. JOB# [id number] K/NTS
[2017-05-16 22:04] LABS: Bacteria,Urine 1+ /HPF (Negative); Bilirubin,Urine NEG (Negative); Blood,Urine MOD (Negative); Ketones,Urine NEG (Negative); Leukocyte Esterase,Urine TR (Negative); Nitrite,Urine NEG (Negative); Urobilinogen,Urine < 2.0 mg/dL (<2.0)
[2017-05-17] MEDS ORDERED: NACL 0.9% 1000 ML 1,000 ML with KCL 40 MEQ IV SCH (02:00)
[2017-05-17] MEDS: NOVOLOG SUB-Q SCH ×4 (08:43→21:41)
[2017-05-17 09:21] LABS: Chloride 108.6 mmol/L (98-107); Potassium 3.7 mmol/L (3.6-5.0)
[2017-05-17 09:27] LABS: Basophils % (Auto) 1.4 % (0.0-1.8); Eosinophils % (Auto) 1.1 % (0.0-4.3); Hematocrit 28.3 % (35.5-45.6); Hemoglobin 9.3 gm/dl (11.8-15.2); Mean Corpuscular HGB Conc 33 % (32-34); Mean Corpuscular Hemoglobin 31 pg (28-32); Mean Corpuscular Volume 93 fl (84-94); Red Blood Count 3.04 M/mm3 (3.65-5.03); Red Cell Distribution Width 14.7 % (13.2-15.2); White Blood Count 6.7 K/mm3 (4.5-11.0)
[2017-05-17 09:29] LABS: Platelet Count 82 K/mm3 (140-440)
[2017-05-17] MEDS: HEPARIN SUB-Q SCH ×2 (10:53→21:38)
--- NOTE | 2017-05-17 10:53 | Progress Note ---
Assessment and Plan - Patient Problems (1) Hypernatremia Current Visit: Yes Status: Acute Plan to address problem: improving-encourage to drink free water. May stop IV 0.9% saline. Spoke with . (2) Acute renal failure Current Visit: Yes Status: Acute Qualifiers: Acute renal failure type: A Plan to address problem: prerenal- improving with hydration. Scr down to 1.6. S/P DKA (3) DKA (diabetic ketoacidoses) Current Visit: No Status: Resolved Qualifiers: Diabetes mellitus type: type 1 Diabetes mellitus complication detail: with coma Qualified Code(s): E10.11 - Type 1 diabetes mellitus with ketoacidosis with coma (4) Encephalopathy Current Visit: No Status: Acute Subjective Date of service: 05/17/17 Interval history: pt is more alert, oriented, denies CP or SOB. C/O right hand swelling Objective - Vital Signs Vital signs: Vital Signs - 12hr 05/16/17 05/16/17 05/17/17 23:13 23:15 00:00 Temperature 98.7 F 98.7 F Pulse Rate 94 H Pulse Rate [ 96 H Left] Pulse Rate [ 76 Radial] Respiratory 18 18 18 Rate Blood Pressure 89/44 89/44 O2 Sat by Pulse 98 98 Oximetry 05/17/17 05/17/17 01:32 08:06 Temperature 98.4 F Pulse Rate 66 Pulse Rate [ Left] Pulse Rate [ Radial] Respiratory 18 Rate Blood Pressure 92/49 O2 Sat by Pulse 98 99 Oximetry - General Appearance General appearance: well-developed EENT: mucous membranes moist Neck: no JVD Respiratory: Present: Clear to Ascultation Cardiology: regular Gastrointestinal: normoactive bowel sounds Neurologic: alert and oriented x3 Musculoskeletal: other (no edema) Psychiatric: mood/affect appropriate, cooperative - Lab 05/17/17 08:32 05/17/17 08:32 Most recent lab results Calcium 8.0 mg/dL (8.4-10.2) L 05/17/17 08:32 Phosphorus 2.60 mg/dL (2.5-4.5) D 05/15/17 00:51 Magnesium 2.50 mg/dL (1.7-2.3) H 05/15/17 00:51 Urine Creatinine 153.0 mg/dL (0.1-20.0) H 05/15/17 10:23 Urine Sodium 26 mmol/L 05/15/17 10:23
--- NOTE | 2017-05-17 11:17 | Progress Note ---
Assessment and Plan Assessment and plan: 41 yo male with DM type I and psychiatric disorder, with multiple, frequent admissions lately for DKA due to noncompliance (concern of being homeless) brought again to ER unresponsive and found to be in DKA, severely volume depleted --Type 1 diabetes mellitus; uncontrolled secondary to noncompliance Increase dose of insulin, Accu-Chek sliding scale coverage and ADA diet, diabetic education Possible home health nurse upon discharge --DKA : Resolved, managed per protocol Hb A1c 15; noncompliant with medications, continue Accu-Chek sliding scale, ADA diet and insulin -- Severe volume depletion; continue IV hydration -- Hypernatremia; resolved, monitor -- Acute renal failure Secondary to vasomotor nephropathy due to dehydration, IV hydration, monitor kidney function --Severe Metabolic acidosis: at admission, significantly improved --Leukocytosis/SIRS; improved, and antibiotics Levaquin --Thrombocytosis; Likely reactive -- Acute metabolic encephalopathy Due to DKA with acute renal failure, uremia and electrolyte abnormalities, improved -- Psychiatric disorder Declined treatment in the past Evaluated by psychiatry during previous admission 2 weeks ago and declined again treatment or follow-up --DVT prophylaxis -- Social issues/discharge planning. Case management Estrange relation with his father which is his next of kin; concern of being homeless; History Interval history: Patient Seen and evaluated, medical records reviewed Blood sugars are still high, then increase insulin dose Patient has no new complaints Vital signs stable Hospitalist Physical - Constitutional Vitals: Temp Pulse Resp BP Pulse Ox 98.4 F 66 18 92/49 99 05/17/17 08:06 05/17/17 08:06 05/17/17 08:06 05/17/17 08:06 05/17/17 08:06 General appearance: Present: no acute distress, well-nourished - EENT Eyes: Present: PERRL, EOM intact - Neck Neck: Present: supple, normal ROM - Respiratory Respiratory effort: normal Respiratory: negative: rales, rhonchi, wheezing - Cardiovascular Rhythm: regular Heart Sounds: Present: S1 & S2 - Extremities Extremities: no ischemia, No edema - Abdominal General gastrointestinal: soft, non-tender, non-distended, normal bowel sounds - Integumentary Integumentary: Present: clear, warm - Psychiatric Psychiatric: appropriate mood/affect, cooperative - Neurologic Neurologic: CNII-XII intact, moves all extremities Results - Labs CBC & Chem 7: 05/17/17 08:32 05/18/17 10:49 Labs: Laboratory Last Values WBC 6.7 K/mm3 (4.5-11.0) 05/17/17 08:32 RBC 3.04 M/mm3 (3.65-5.03) L 05/17/17 08:32 Hgb 9.3 gm/dl (11.8-15.2) L 05/17/17 08:32 Hct 28.3 % (35.5-45.6) L 05/17/17 08:32 MCV 93 fl (84-94) 05/17/17 08:32 MCH 31 pg (28-32) 05/17/17 08:32 MCHC 33 % (32-34) 05/17/17 08:32 RDW 14.7 % (13.2-15.2) 05/17/17 08:32 Plt Count 82 K/mm3 (140-440) L 05/17/17 08:32 Lymph % (Auto) 22.7 % (13.4-35.0) 05/17/17 08:32 [place] % (Auto) 3.9 % (0.0-7.3) 05/17/17 08:32 Eos % (Auto) 1.1 % (0.0-4.3) 05/17/17 08:32 Baso % (Auto) 1.4 % (0.0-1.8) 05/17/17 08:32 Lymph # 1.5 K/mm3 (1.2-5.4) 05/17/17 08:32 [place] # 0.3 K/mm3 (0.0-0.8) 05/17/17 08:32 Eos # 0.1 K/mm3 (0.0-0.4) 05/17/17 08:32 Baso # 0.1 K/mm3 (0.0-0.1) 05/17/17 08:32 Add Manual Diff Complete 05/14/17 21:18 Total Counted 200 05/14/17 21:18 Seg Neutrophils % 70.9 % (40.0-70.0) H 05/17/17 08:32 Seg Neuts % (Manual) 65.5 % (40.0-70.0) 05/14/17 21:18 Band Neutrophils % 20.5 % 05/14/17 21:18 Lymphocytes % (Manual) 5.5 % (13.4-35.0) L 05/14/17 21:18 Reactive Lymphs % (Man) 0 % 05/14/17 21:18 Monocytes % (Manual) 2.5 % (0.0-7.3) 05/14/17 21:18 Eosinophils % (Manual) 0 % (0.0-4.3) 05/14/17 21:18 Basophils % (Manual) 0 % (0.0-1.8) 05/14/17 21:18 Metamyelocytes % 2.0 % 05/14/17 21:18 Myelocytes % 4.0 % 05/14/17 21:18 Promyelocytes % 0 % 05/14/17 21:18 Blast Cells % 0 % 05/14/17 21:18 Nucleated RBC % 3.0 % (0.0-0.9) H 05/14/17 21:18 Seg Neutrophils # 4.7 K/mm3 (1.8-7.7) 05/17/17 08:32 Seg Neutrophils # Man 23.4 K/mm3 (1.8-7.7) H 05/14/17 21:18 Band Neutrophils # 7.3 K/mm3 05/14/17 21:18 Lymphocytes # (Manual) 2.0 K/mm3 (1.2-5.4) 05/14/17 21:18 Abs React Lymphs (Man) 0.0 K/mm3 05/14/17 21:18 Monocytes # (Manual) 0.9 K/mm3 (0.0-0.8) H 05/14/17 21:18 Eosinophils # (Manual) 0.0 K/mm3 (0.0-0.4) 05/14/17 21:18 Basophils # (Manual) 0.0 K/mm3 (0.0-0.1) 05/14/17 21:18 Metamyelocytes # 0.7 K/mm3 05/14/17 21:18 Myelocytes # 1.4 K/mm3 05/14/17 21:18 Promyelocytes # 0.0 K/mm3 05/14/17 21:18 Blast Cells # 0.0 K/mm3 05/14/17 21:18 Pathologist Review 05/14/17 21:18 WBC Morphology Not Reportable 05/14/17 21:18 Hypersegmented Neuts Not Reportable 05/14/17 21:18 Hyposegmented Neuts Not Reportable 05/14/17 21:18 Hypogranular Neuts Not Reportable 05/14/17 21:18 Smudge Cells Not Reportable 05/14/17 21:18 Toxic Granulation Not Reportable 05/14/17 21:18 Toxic Vacuolation Not Reportable 05/14/17 21:18 Dohle Bodies Not Reportable 05/14/17 21:18 Pelger-Huet Anomaly Not Reportable 05/14/17 21:18 Nanette Rods Not Reportable 05/14/17 21:18 Platelet Estimate Consistent w auto 05/14/17 21:18 Clumped Platelets Not Reportable 05/14/17 21:18 Plt Clumps, EDTA Not Reportable 05/14/17 21:18 Large Platelets Not Reportable 05/14/17 21:18 Giant Platelets Not Reportable 05/14/17 21:18 Platelet Satelliting Not Reportable 05/14/17 21:18 Plt Morphology Comment Not Reportable 05/14/17 21:18 RBC Morphology Not Reportable 05/14/17 21:18 Dimorphic RBCs Not Reportable 05/14/17 21:18 Polychromasia 1+ 05/14/17 21:18 Hypochromasia Not Reportable 05/14/17 21:18 Poikilocytosis Not Reportable 05/14/17 21:18 Anisocytosis Not Reportable 05/14/17 21:18 Microcytosis [place] Operator 05/14/17 21:18 Macrocytosis 2+ 05/14/17 21:18 Spherocytes Not Reportable 05/14/17 21:18 Pappenheimer Bodies Not Reportable 05/14/17 21:18 Sickle Cells Not Reportable 05/14/17 21:18 Target Cells Not Reportable 05/14/17 21:18 Tear Drop Cells Not Reportable 05/14/17 21:18 Ovalocytes Not Reportable 05/14/17 21:18 Helmet Cells Not Reportable 05/14/17 21:18 Mead-Neshanic Bodies Not Reportable 05/14/17 21:18 [place] Rings Not Reportable 05/14/17 21:18 Gina Cells Not Reportable 05/14/17 21:18 Bite Cells Not Reportable 05/14/17 21:18 Crenated Cell Not Reportable 05/14/17 21:18 Elliptocytes Not Reportable 05/14/17 21:18 Acanthocytes (Spur) Not Reportable 05/14/17 21:18 Rouleaux Not Reportable 05/14/17 21:18 Hemoglobin C Crystals Not Reportable 05/14/17 21:18 Schistocytes Not Reportable 05/14/17 21:18 Malaria parasites Not Reportable 05/14/17 21:18 Gabriel Bodies Not Reportable 05/14/17 21:18 Hem Pathologist Commnt Sent to pathology 05/14/17 21:18 POC ABG pH 6.973 (7.35-7.45) L 05/14/17 21:13 POC ABG pCO2 13.5 (35-45) L 05/14/17 21:13 POC ABG pO2 279 (80-105) H 05/14/17 21:13 POC ABG HCO3 3.1 05/14/17 21:13 POC ABG Total CO2 < 5 05/14/17 21:13 POC ABG O2 Sat 100 05/14/17 21:13 POC ABG Base Excess -29 05/14/17 21:13 FiO2 100 % 05/14/17 21:13 Sodium 143 mmol/L (137-145) 05/17/17 08:32 Potassium 3.7 mmol/L (3.6-5.0) D 05/17/17 08:32 Chloride 108.6 mmol/L (98-107) H 05/17/17 08:32 Carbon Dioxide 22 mmol/L (22-30) 05/17/17 08:32 Anion Gap 16 mmol/L 05/17/17 08:32 BUN 25 mg/dL (9-20) H 05/17/17 08:32 Creatinine 1.6 mg/dL (0.8-1.5) H 05/17/17 08:32 Estimated GFR 58 ml/min 05/17/17 08:32 BUN/Creatinine Ratio 16 % 05/17/17 08:32 Glucose 300 mg/dL (75-100) H 05/17/17 08:32 POC Glucose 268 (70-105) H 05/17/17 05:53 Lactic Acid 3.30 mmol/L (0.7-2.0) H* 05/14/17 23:01 Calcium 8.0 mg/dL (8.4-10.2) L 05/17/17 08:32 Phosphorus 2.60 mg/dL (2.5-4.5) D 05/15/17 00:51 Magnesium 2.50 mg/dL (1.7-2.3) H 05/15/17 00:51 Total Bilirubin 0.30 mg/dL (0.1-1.2) 05/14/17 21:18 AST 17 units/L (5-40) 05/14/17 21:18 ALT 15 units/L (7-56) 05/14/17 21:18 Alkaline Phosphatase 125 units/L (35-129) 05/14/17 21:18 Troponin T 0.017 ng/mL (0.00-0.029) 05/14/17 21:18 Total Protein 7.6 g/dL (6.3-8.2) 05/14/17 21:18 Albumin 4.1 g/dL (3.9-5) 05/14/17 21:18 Albumin/Globulin Ratio 1.2 % 05/14/17 21:18 Lipase 34 units/L (13-60) 05/14/17 21:18 Urine Color Yellow (Yellow) 05/16/17 21:45 Urine Turbidity Clear (Clear) 05/16/17 21:45 Urine pH 6.0 (5.0-7.0) 05/16/17 21:45 Ur Specific [place] 1.006 (1.003-1.030) 05/16/17 21:45 Urine Protein 30 mg/dl mg/dL (Negative) 05/16/17 21:45 Urine Glucose (UA) >=500 mg/dL (Negative) 05/16/17 21:45 Urine Ketones Neg mg/dL (Negative) 05/16/17 21:45 Urine Blood Mod (Negative) 05/16/17 21:45 Urine Nitrite Neg (Negative) 05/16/17 21:45 Urine Bilirubin Neg (Negative) 05/16/17 21:45 Urine Urobilinogen < 2.0 mg/dL (<2.0) 05/16/17 21:45 Ur Leukocyte Esterase Tr (Negative) 05/16/17 21:45 Urine WBC (Auto) 11.0 /HPF (0.0-6.0) H 05/16/17 21:45 Urine RBC (Auto) 8.0 /HPF (0.0-6.0) 05/16/17 21:45 U Epithel Cells (Auto) < 1.0 /HPF (0-13.0) 05/16/17 21:45 Urine Bacteria (Auto) 1+ /HPF (Negative) 05/16/17 21:45 Urine Mucus Few /HPF 05/14/17 Unknown Urine Osmolality 634 Mosm/kg 05/15/17 10:23 Urine Creatinine 153.0 mg/dL (0.1-20.0) H 05/15/17 10:23 Urine Sodium 26 mmol/L 05/15/17 10:23 Urine Potassium 69.39 mmol/L 05/15/17 10:23 Urine Chloride 100.7 mmolL (110-250) L 05/15/17 10:23 Urine Opiates Screen Presumptive negative 05/14/17 Unknown Urine Methadone Screen Presumptive negative 05/14/17 Unknown Ur Barbiturates Screen Presumptive negative 05/14/17 Unknown Ur Phencyclidine Scrn Presumptive negative 05/14/17 Unknown Ur Amphetamines Screen Presumptive negative 05/14/17 Unknown U Benzodiazepines Scrn Presumptive negative 05/14/17 Unknown Urine Cocaine Screen Presumptive negative 05/14/17 Unknown U Marijuana (THC) Screen Presumptive negative 05/14/17 Unknown Drugs of Abuse Note Disclamer 05/14/17 Unknown
[2017-05-18] MEDS: NOVOLOG SUB-Q SCH ×4 (08:25→22:58)
[2017-05-18 11:28] LABS: Anion Gap 17 mmol/L; BUN/Creatinine Ratio 19; Blood Urea Nitrogen 23 mg/dL (9-20); Calcium 8.4 mg/dL (8.4-10.2); Carbon Dioxide 25 mmol/L (22-30); Chloride 108.3 mmol/L (98-107); Glucose 347 mg/dL (75-100); Potassium 3.4 mmol/L (3.6-5.0); Sodium 147 mmol/L (137-145)
[2017-05-18] MEDS ORDERED: MILK OF MAGNESIA PO ONE (12:18)
[2017-05-18] MEDS ORDERED: MILK OF MAGNESIA PO PRN (12:18)
--- NOTE | 2017-05-18 12:22 | Progress Note ---
Assessment and Plan Assessment and plan: --Type 1 diabetes mellitus; uncontrolled secondary to medical noncompliance Increase dose of insulin, Accu-Chek sliding scale coverage and ADA diet, diabetic education Possible home health nurse upon discharge --DKA : Resolved, Hb A1c 15; noncompliant with medications, continue Accu-Chek sliding scale, ADA diet and insulin -- Severe volume depletion; continue IV hydration -- Hypernatremia; resolved, change IV fluids to half-normal saline --Hypokalemia; replace per protocol and monitor levels -- Acute renal failure Secondary to vasomotor nephropathy due to dehydration, pain or function to return to normal range --Severe Metabolic acidosis: at admission, significantly improved --Lactic acidosis; secondary to uncontrolled blood sugars, rule out sepsis, empiric antibiotics --Leukocytosis/SIRS; improved, and antibiotics Levaquin --Thrombocytosis; Likely reactive -- Acute metabolic encephalopathy; improved -- Psychiatric disorder Patient refused psych evaluation and treatment --DVT prophylaxis; Lovenox -- Social issues/discharge planning per Case management Consults and recommendations noted Plan of care discussed with the patient and his nurse History Interval history: Patient seen and examined Medical records reviewed Patient feels slightly better, blood sugars are uncontrolled No new complaints Hospitalist Physical - Constitutional Vitals: Temp Pulse Resp BP Pulse Ox 97.7 F 71 18 101/74 99 05/18/17 08:05 05/18/17 08:05 05/18/17 08:05 05/18/17 08:05 05/18/17 08:05 General appearance: Present: no acute distress, well-nourished - EENT Eyes: Present: PERRL, EOM intact - Neck Neck: Present: supple, normal ROM - Respiratory Respiratory effort: normal Respiratory: negative: rales, rhonchi, wheezing - Cardiovascular Rhythm: regular Heart Sounds: Present: S1 & S2 - Extremities Extremities: no ischemia, No edema - Abdominal General gastrointestinal: soft, non-tender, non-distended, normal bowel sounds - Integumentary Integumentary: Present: clear, warm - Psychiatric Psychiatric: appropriate mood/affect, cooperative - Neurologic Neurologic: CNII-XII intact, moves all extremities Results - Labs CBC & Chem 7: 05/17/17 08:32 05/18/17 10:49 Labs: Laboratory Last Values WBC 6.7 K/mm3 (4.5-11.0) 05/17/17 08:32 RBC 3.04 M/mm3 (3.65-5.03) L 05/17/17 08:32 Hgb 9.3 gm/dl (11.8-15.2) L 05/17/17 08:32 Hct 28.3 % (35.5-45.6) L 05/17/17 08:32 MCV 93 fl (84-94) 05/17/17 08:32 MCH 31 pg (28-32) 05/17/17 08:32 MCHC 33 % (32-34) 05/17/17 08:32 RDW 14.7 % (13.2-15.2) 05/17/17 08:32 Plt Count 82 K/mm3 (140-440) L 05/17/17 08:32 Lymph % (Auto) 22.7 % (13.4-35.0) 05/17/17 08:32 [place] % (Auto) 3.9 % (0.0-7.3) 05/17/17 08:32 Eos % (Auto) 1.1 % (0.0-4.3) 05/17/17 08:32 Baso % (Auto) 1.4 % (0.0-1.8) 05/17/17 08:32 Lymph # 1.5 K/mm3 (1.2-5.4) 05/17/17 08:32 [place] # 0.3 K/mm3 (0.0-0.8) 05/17/17 08:32 Eos # 0.1 K/mm3 (0.0-0.4) 05/17/17 08:32 Baso # 0.1 K/mm3 (0.0-0.1) 05/17/17 08:32 Add Manual Diff Complete 05/14/17 21:18 Total Counted 200 05/14/17 21:18 Seg Neutrophils % 70.9 % (40.0-70.0) H 05/17/17 08:32 Seg Neuts % (Manual) 65.5 % (40.0-70.0) 05/14/17 21:18 Band Neutrophils % 20.5 % 05/14/17 21:18 Lymphocytes % (Manual) 5.5 % (13.4-35.0) L 05/14/17 21:18 Reactive Lymphs % (Man) 0 % 05/14/17 21:18 Monocytes % (Manual) 2.5 % (0.0-7.3) 05/14/17 21:18 Eosinophils % (Manual) 0 % (0.0-4.3) 05/14/17 21:18 Basophils % (Manual) 0 % (0.0-1.8) 05/14/17 21:18 Metamyelocytes % 2.0 % 05/14/17 21:18 Myelocytes % 4.0 % 05/14/17 21:18 Promyelocytes % 0 % 05/14/17 21:18 Blast Cells % 0 % 05/14/17 21:18 Nucleated RBC % 3.0 % (0.0-0.9) H 05/14/17 21:18 Seg Neutrophils # 4.7 K/mm3 (1.8-7.7) 05/17/17 08:32 Seg Neutrophils # Man 23.4 K/mm3 (1.8-7.7) H 05/14/17 21:18 Band Neutrophils # 7.3 K/mm3 05/14/17 21:18 Lymphocytes # (Manual) 2.0 K/mm3 (1.2-5.4) 05/14/17 21:18 Abs React Lymphs (Man) 0.0 K/mm3 05/14/17 21:18 Monocytes # (Manual) 0.9 K/mm3 (0.0-0.8) H 05/14/17 21:18 Eosinophils # (Manual) 0.0 K/mm3 (0.0-0.4) 05/14/17 21:18 Basophils # (Manual) 0.0 K/mm3 (0.0-0.1) 05/14/17 21:18 Metamyelocytes # 0.7 K/mm3 05/14/17 21:18 Myelocytes # 1.4 K/mm3 05/14/17 21:18 Promyelocytes # 0.0 K/mm3 05/14/17 21:18 Blast Cells # 0.0 K/mm3 05/14/17 21:18 Pathologist Review 05/14/17 21:18 WBC Morphology Not Reportable 05/14/17 21:18 Hypersegmented Neuts Not Reportable 05/14/17 21:18 Hyposegmented Neuts Not Reportable 05/14/17 21:18 Hypogranular Neuts Not Reportable 05/14/17 21:18 Smudge Cells Not Reportable 05/14/17 21:18 Toxic Granulation Not Reportable 05/14/17 21:18 Toxic Vacuolation Not Reportable 05/14/17 21:18 Dohle Bodies Not Reportable 05/14/17 21:18 Pelger-Huet Anomaly Not Reportable 05/14/17 21:18 Nanette Rods Not Reportable 05/14/17 21:18 Platelet Estimate Consistent w auto 05/14/17 21:18 Clumped Platelets Not Reportable 05/14/17 21:18 Plt Clumps, EDTA Not Reportable 05/14/17 21:18 Large Platelets Not Reportable 05/14/17 21:18 Giant Platelets Not Reportable 05/14/17 21:18 Platelet Satelliting Not Reportable 05/14/17 21:18 Plt Morphology Comment Not Reportable 05/14/17 21:18 RBC Morphology Not Reportable 05/14/17 21:18 Dimorphic RBCs Not Reportable 05/14/17 21:18 Polychromasia 1+ 05/14/17 21:18 Hypochromasia Not Reportable 05/14/17 21:18 Poikilocytosis Not Reportable 05/14/17 21:18 Anisocytosis Not Reportable 05/14/17 21:18 Microcytosis Property Utilization Manager 05/14/17 21:18 Macrocytosis 2+ 05/14/17 21:18 Spherocytes Not Reportable 05/14/17 21:18 Pappenheimer Bodies Not Reportable 05/14/17 21:18 Sickle Cells Not Reportable 05/14/17 21:18 Target Cells Not Reportable 05/14/17 21:18 Tear Drop Cells Not Reportable 05/14/17 21:18 Ovalocytes Not Reportable 05/14/17 21:18 Helmet Cells Not Reportable 05/14/17 21:18 Mead-Brady Bodies Not Reportable 05/14/17 21:18 [place] Rings Not Reportable 05/14/17 21:18 Gina Cells Not Reportable 05/14/17 21:18 Bite Cells Not Reportable 05/14/17 21:18 Crenated Cell Not Reportable 05/14/17 21:18 Elliptocytes Not Reportable 05/14/17 21:18 Acanthocytes (Spur) Not Reportable 05/14/17 21:18 Rouleaux Not Reportable 05/14/17 21:18 Hemoglobin C Crystals Not Reportable 05/14/17 21:18 Schistocytes Not Reportable 05/14/17 21:18 Malaria parasites Not Reportable 05/14/17 21:18 Gabriel Bodies Not Reportable 05/14/17 21:18 Hem Pathologist Commnt Sent to pathology 05/14/17 21:18 POC ABG pH 6.973 (7.35-7.45) L 05/14/17 21:13 POC ABG pCO2 13.5 (35-45) L 05/14/17 21:13 POC ABG pO2 279 (80-105) H 05/14/17 21:13 POC ABG HCO3 3.1 05/14/17 21:13 POC ABG Total CO2 < 5 05/14/17 21:13 POC ABG O2 Sat 100 05/14/17 21:13 POC ABG Base Excess -29 05/14/17 21:13 FiO2 100 % 05/14/17 21:13 Sodium 147 mmol/L (137-145) H 05/18/17 10:49 Potassium 3.4 mmol/L (3.6-5.0) L 05/18/17 10:49 Chloride 108.3 mmol/L (98-107) H 05/18/17 10:49 Carbon Dioxide 25 mmol/L (22-30) 05/18/17 10:49 Anion Gap 17 mmol/L 05/18/17 10:49 BUN 23 mg/dL (9-20) H 05/18/17 10:49 Creatinine 1.2 mg/dL (0.8-1.5) 05/18/17 10:49 Estimated GFR > 60 ml/min 05/18/17 10:49 BUN/Creatinine Ratio 19 % 05/18/17 10:49 Glucose 347 mg/dL (75-100) H 05/18/17 10:49 POC Glucose 304 (70-105) H 05/18/17 11:47 Lactic Acid 3.30 mmol/L (0.7-2.0) H* 05/18/17 10:49 Calcium 8.4 mg/dL (8.4-10.2) 05/18/17 10:49 Phosphorus 2.60 mg/dL (2.5-4.5) D 05/15/17 00:51 Magnesium 2.50 mg/dL (1.7-2.3) H 05/15/17 00:51 Total Bilirubin 0.30 mg/dL (0.1-1.2) 05/14/17 21:18 AST 17 units/L (5-40) 05/14/17 21:18 ALT 15 units/L (7-56) 05/14/17 21:18 Alkaline Phosphatase 125 units/L (35-129) 05/14/17 21:18 Troponin T 0.017 ng/mL (0.00-0.029) 05/14/17 21:18 Total Protein 7.6 g/dL (6.3-8.2) 05/14/17 21:18 Albumin 4.1 g/dL (3.9-5) 05/14/17 21:18 Albumin/Globulin Ratio 1.2 % 05/14/17 21:18 Lipase 34 units/L (13-60) 05/14/17 21:18 Urine Color Yellow (Yellow) 05/16/17 21:45 Urine Turbidity Clear (Clear) 05/16/17 21:45 Urine pH 6.0 (5.0-7.0) 05/16/17 21:45 Ur Specific [place] 1.006 (1.003-1.030) 05/16/17 21:45 Urine Protein 30 mg/dl mg/dL (Negative) 05/16/17 21:45 Urine Glucose (UA) >=500 mg/dL (Negative) 05/16/17 21:45 Urine Ketones Neg mg/dL (Negative) 05/16/17 21:45 Urine Blood Mod (Negative) 05/16/17 21:45 Urine Nitrite Neg (Negative) 05/16/17 21:45 Urine Bilirubin Neg (Negative) 05/16/17 21:45 Urine Urobilinogen < 2.0 mg/dL (<2.0) 05/16/17 21:45 Ur Leukocyte Esterase Tr (Negative) 05/16/17 21:45 Urine WBC (Auto) 11.0 /HPF (0.0-6.0) H 05/16/17 21:45 Urine RBC (Auto) 8.0 /HPF (0.0-6.0) 05/16/17 21:45 U Epithel Cells (Auto) < 1.0 /HPF (0-13.0) 05/16/17 21:45 Urine Bacteria (Auto) 1+ /HPF (Negative) 05/16/17 21:45 Urine Mucus Few /HPF 05/14/17 Unknown Urine Osmolality 634 Mosm/kg 05/15/17 10:23 Urine Creatinine 153.0 mg/dL (0.1-20.0) H 05/15/17 10:23 Urine Sodium 26 mmol/L 05/15/17 10:23 Urine Potassium 69.39 mmol/L 05/15/17 10:23 Urine Chloride 100.7 mmolL (110-250) L 05/15/17 10:23 Urine Opiates Screen Presumptive negative 05/14/17 Unknown Urine Methadone Screen Presumptive negative 05/14/17 Unknown Ur Barbiturates Screen Presumptive negative 05/14/17 Unknown Ur Phencyclidine Scrn Presumptive negative 05/14/17 Unknown Ur Amphetamines Screen Presumptive negative 05/14/17 Unknown U Benzodiazepines Scrn Presumptive negative 05/14/17 Unknown Urine Cocaine Screen Presumptive negative 05/14/17 Unknown U Marijuana (THC) Screen Presumptive negative 05/14/17 Unknown Drugs of Abuse Note Disclamer 05/14/17 Unknown
[2017-05-18] MEDS: HEPARIN SUB-Q SCH ×2 (12:53→23:03)
--- NOTE | 2017-05-18 15:49 | Progress Note ---
Assessment and Plan Impression * Nonoliguric PRATIMA seocndary to volume depletion * DKA * Hypernatremia - Na 150 this morning per lab * Severe metabolic acidosis secondary to DKA * Leukocytosis * Hypokalemia Plan: * Renal function improved compared with admission; stable * Continue hydration - encouraged po intake * Glycemic control per primary team * Replete lytes prn * Avoid nephrotoxins * Adjust medications for renal function Subjective Date of service: 05/18/17 Interval history: Patient has no complaints. Denies n/v. Appetite is good. Objective - Vital Signs Vital signs: Vital Signs - 12hr 05/18/17 08:05 Temperature 97.7 F Pulse Rate 71 Respiratory 18 Rate Blood Pressure 101/74 O2 Sat by Pulse 99 Oximetry - General Appearance General appearance: well-developed, well-nourished EENT: ATNC Respiratory: Present: Clear to Ascultation Cardiology: regular, S1S2 Gastrointestinal: normal, no tenderness, no distended Integumentary: no rash Neurologic: alert and oriented x3 Musculoskeletal: other (no edema) Psychiatric: cooperative - Lab 05/17/17 08:32 05/18/17 10:49 Most recent lab results Calcium 8.4 mg/dL (8.4-10.2) 05/18/17 10:49 Phosphorus 2.60 mg/dL (2.5-4.5) D 05/15/17 00:51 Magnesium 2.50 mg/dL (1.7-2.3) H 05/15/17 00:51 Urine Creatinine 153.0 mg/dL (0.1-20.0) H 05/15/17 10:23 Urine Sodium 26 mmol/L 05/15/17 10:23
[2017-05-18] MEDS ORDERED: NACL 0.45% 1000 ML 1,000 ML IV SCH (17:00)
--- NOTE | 2017-05-19 07:56 | Progress Note ---
Assessment and Plan Assessment and plan: --Type 1 diabetes mellitus; blood sugars are reasonable level Accu-Chek sliding scale coverage and ADA diet, diabetic education, home health nurse upon discharge --DKA : Resolved, Hb A1c 15; --Medical noncompliance with medications, follow-up visits , counseling done advised to comply with treatment -- Hypernatremia; resolved, --Hypokalemia; corrected -- Acute renal failure; resolved ,Secondary to vasomotor nephropathy due to dehydration, --Severe Metabolic acidosis: at admission, significantly improved --Lactic acidosis; trending down, patient has UTI on antibiotics . --Leukocytosis/SIRS; improved, and antibiotics Levaquin --Thrombocytosis; Likely reactive -- Acute metabolic encephalopathy; improved -- Psychiatric disorder Patient refused psych evaluation and treatment --DVT prophylaxis; Lovenox -- Social issues/discharge planning per Case management Plan of care discussed with the patient and his nurse History Interval history: Patient seen and examined medical records reviewed Patient feels slightly better blood sugars 137-104-159, on insulin Patient is quiet and somewhat depressed Denies depressive thoughts, suicidal thoughts or ideation Alert awake oriented 3 not in acute distress Vital signs reviewed Hospitalist Physical - Constitutional Vitals: Temp Pulse Resp BP Pulse Ox 98.7 F 88 18 95/60 96 05/19/17 00:29 05/19/17 00:29 05/19/17 00:29 05/19/17 00:29 05/19/17 00:29 General appearance: Present: no acute distress, well-nourished - EENT Eyes: Present: PERRL, EOM intact - Neck Neck: Present: supple, normal ROM - Respiratory Respiratory effort: normal Respiratory: bilateral: diminished, negative: rales, rhonchi, wheezing - Cardiovascular Rhythm: regular Heart Sounds: Present: S1 & S2 - Extremities Extremities: no ischemia, No edema - Abdominal General gastrointestinal: soft, non-tender, non-distended, normal bowel sounds - Integumentary Integumentary: Present: clear, warm - Psychiatric Psychiatric: appropriate mood/affect, cooperative - Neurologic Neurologic: CNII-XII intact, moves all extremities Results - Labs CBC & Chem 7: 05/17/17 08:32 05/18/17 10:49 Labs: Laboratory Last Values WBC 6.7 K/mm3 (4.5-11.0) 05/17/17 08:32 RBC 3.04 M/mm3 (3.65-5.03) L 05/17/17 08:32 Hgb 9.3 gm/dl (11.8-15.2) L 05/17/17 08:32 Hct 28.3 % (35.5-45.6) L 05/17/17 08:32 MCV 93 fl (84-94) 05/17/17 08:32 MCH 31 pg (28-32) 05/17/17 08:32 MCHC 33 % (32-34) 05/17/17 08:32 RDW 14.7 % (13.2-15.2) 05/17/17 08:32 Plt Count 82 K/mm3 (140-440) L 05/17/17 08:32 Lymph % (Auto) 22.7 % (13.4-35.0) 05/17/17 08:32 [place] % (Auto) 3.9 % (0.0-7.3) 05/17/17 08:32 Eos % (Auto) 1.1 % (0.0-4.3) 05/17/17 08:32 Baso % (Auto) 1.4 % (0.0-1.8) 05/17/17 08:32 Lymph # 1.5 K/mm3 (1.2-5.4) 05/17/17 08:32 [place] # 0.3 K/mm3 (0.0-0.8) 05/17/17 08:32 Eos # 0.1 K/mm3 (0.0-0.4) 05/17/17 08:32 Baso # 0.1 K/mm3 (0.0-0.1) 05/17/17 08:32 Add Manual Diff Complete 05/14/17 21:18 Total Counted 200 05/14/17 21:18 Seg Neutrophils % 70.9 % (40.0-70.0) H 05/17/17 08:32 Seg Neuts % (Manual) 65.5 % (40.0-70.0) 05/14/17 21:18 Band Neutrophils % 20.5 % 05/14/17 21:18 Lymphocytes % (Manual) 5.5 % (13.4-35.0) L 05/14/17 21:18 Reactive Lymphs % (Man) 0 % 05/14/17 21:18 Monocytes % (Manual) 2.5 % (0.0-7.3) 05/14/17 21:18 Eosinophils % (Manual) 0 % (0.0-4.3) 05/14/17 21:18 Basophils % (Manual) 0 % (0.0-1.8) 05/14/17 21:18 Metamyelocytes % 2.0 % 05/14/17 21:18 Myelocytes % 4.0 % 05/14/17 21:18 Promyelocytes % 0 % 05/14/17 21:18 Blast Cells % 0 % 05/14/17 21:18 Nucleated RBC % 3.0 % (0.0-0.9) H 05/14/17 21:18 Seg Neutrophils # 4.7 K/mm3 (1.8-7.7) 05/17/17 08:32 Seg Neutrophils # Man 23.4 K/mm3 (1.8-7.7) H 05/14/17 21:18 Band Neutrophils # 7.3 K/mm3 05/14/17 21:18 Lymphocytes # (Manual) 2.0 K/mm3 (1.2-5.4) 05/14/17 21:18 Abs React Lymphs (Man) 0.0 K/mm3 05/14/17 21:18 Monocytes # (Manual) 0.9 K/mm3 (0.0-0.8) H 05/14/17 21:18 Eosinophils # (Manual) 0.0 K/mm3 (0.0-0.4) 05/14/17 21:18 Basophils # (Manual) 0.0 K/mm3 (0.0-0.1) 05/14/17 21:18 Metamyelocytes # 0.7 K/mm3 05/14/17 21:18 Myelocytes # 1.4 K/mm3 05/14/17 21:18 Promyelocytes # 0.0 K/mm3 05/14/17 21:18 Blast Cells # 0.0 K/mm3 05/14/17 21:18 Pathologist Review 05/14/17 21:18 WBC Morphology Not Reportable 05/14/17 21:18 Hypersegmented Neuts Not Reportable 05/14/17 21:18 Hyposegmented Neuts Not Reportable 05/14/17 21:18 Hypogranular Neuts Not Reportable 05/14/17 21:18 Smudge Cells Not Reportable 05/14/17 21:18 Toxic Granulation Not Reportable 05/14/17 21:18 Toxic Vacuolation Not Reportable 05/14/17 21:18 Dohle Bodies Not Reportable 05/14/17 21:18 Pelger-Huet Anomaly Not Reportable 05/14/17 21:18 Nanette Rods Not Reportable 05/14/17 21:18 Platelet Estimate Consistent w auto 05/14/17 21:18 Clumped Platelets Not Reportable 05/14/17 21:18 Plt Clumps, EDTA Not Reportable 05/14/17 21:18 Large Platelets Not Reportable 05/14/17 21:18 Giant Platelets Not Reportable 05/14/17 21:18 Platelet Satelliting Not Reportable 05/14/17 21:18 Plt Morphology Comment Not Reportable 05/14/17 21:18 RBC Morphology Not Reportable 05/14/17 21:18 Dimorphic RBCs Not Reportable 05/14/17 21:18 Polychromasia 1+ 05/14/17 21:18 Hypochromasia Not Reportable 05/14/17 21:18 Poikilocytosis Not Reportable 05/14/17 21:18 Anisocytosis Not Reportable 05/14/17 21:18 Microcytosis [place] Pipe Layer 05/14/17 21:18 Macrocytosis 2+ 05/14/17 21:18 Spherocytes Not Reportable 05/14/17 21:18 Pappenheimer Bodies Not Reportable 05/14/17 21:18 Sickle Cells Not Reportable 05/14/17 21:18 Target Cells Not Reportable 05/14/17 21:18 Tear Drop Cells Not Reportable 05/14/17 21:18 Ovalocytes Not Reportable 05/14/17 21:18 Helmet Cells Not Reportable 05/14/17 21:18 [place] Bodies Not Reportable 05/14/17 21:18 [place] Rings Not Reportable 05/14/17 21:18 [place] Cells Not Reportable 05/14/17 21:18 Bite Cells Not Reportable 05/14/17 21:18 Crenated Cell Not Reportable 05/14/17 21:18 Elliptocytes Not Reportable 05/14/17 21:18 Acanthocytes (Spur) Not Reportable 05/14/17 21:18 Rouleaux Not Reportable 05/14/17 21:18 Hemoglobin C Crystals Not Reportable 05/14/17 21:18 Schistocytes Not Reportable 05/14/17 21:18 Malaria parasites Not Reportable 05/14/17 21:18 [place] Bodies Not Reportable 05/14/17 21:18 Hem Pathologist Commnt Sent to pathology 05/14/17 21:18 POC ABG pH 6.973 (7.35-7.45) L 05/14/17 21:13 POC ABG pCO2 13.5 (35-45) L 05/14/17 21:13 POC ABG pO2 279 (80-105) H 05/14/17 21:13 POC ABG HCO3 3.1 05/14/17 21:13 POC ABG Total CO2 < 5 05/14/17 21:13 POC ABG O2 Sat 100 05/14/17 21:13 POC ABG Base Excess -29 05/14/17 21:13 FiO2 100 % 05/14/17 21:13 Sodium 147 mmol/L (137-145) H 05/18/17 10:49 Potassium 3.4 mmol/L (3.6-5.0) L 05/18/17 10:49 Chloride 108.3 mmol/L (98-107) H 05/18/17 10:49 Carbon Dioxide 25 mmol/L (22-30) 05/18/17 10:49 Anion Gap 17 mmol/L 05/18/17 10:49 BUN 23 mg/dL (9-20) H 05/18/17 10:49 Creatinine 1.2 mg/dL (0.8-1.5) 05/18/17 10:49 Estimated GFR > 60 ml/min 05/18/17 10:49 BUN/Creatinine Ratio 19 % 05/18/17 10:49 Glucose 347 mg/dL (75-100) H 05/18/17 10:49 POC Glucose 159 (70-105) H 05/19/17 05:16 Lactic Acid 3.30 mmol/L (0.7-2.0) H* 05/18/17 10:49 Calcium 8.4 mg/dL (8.4-10.2) 05/18/17 10:49 Phosphorus 2.60 mg/dL (2.5-4.5) D 05/15/17 00:51 Magnesium 2.50 mg/dL (1.7-2.3) H 05/15/17 00:51 Total Bilirubin 0.30 mg/dL (0.1-1.2) 05/14/17 21:18 AST 17 units/L (5-40) 05/14/17 21:18 ALT 15 units/L (7-56) 05/14/17 21:18 Alkaline Phosphatase 125 units/L (35-129) 05/14/17 21:18 Troponin T 0.017 ng/mL (0.00-0.029) 05/14/17 21:18 Total Protein 7.6 g/dL (6.3-8.2) 05/14/17 21:18 Albumin 4.1 g/dL (3.9-5) 05/14/17 21:18 Albumin/Globulin Ratio 1.2 % 05/14/17 21:18 Lipase 34 units/L (13-60) 05/14/17 21:18 Urine Color Yellow (Yellow) 05/16/17 21:45 Urine Turbidity Clear (Clear) 05/16/17 21:45 Urine pH 6.0 (5.0-7.0) 05/16/17 21:45 Ur Specific [place] 1.006 (1.003-1.030) 05/16/17 21:45 Urine Protein 30 mg/dl mg/dL (Negative) 05/16/17 21:45 Urine Glucose (UA) >=500 mg/dL (Negative) 05/16/17 21:45 Urine Ketones Neg mg/dL (Negative) 05/16/17 21:45 Urine Blood Mod (Negative) 05/16/17 21:45 Urine Nitrite Neg (Negative) 05/16/17 21:45 Urine Bilirubin Neg (Negative) 05/16/17 21:45 Urine Urobilinogen < 2.0 mg/dL (<2.0) 05/16/17 21:45 Ur Leukocyte Esterase Tr (Negative) 05/16/17 21:45 Urine WBC (Auto) 11.0 /HPF (0.0-6.0) H 05/16/17 21:45 Urine RBC (Auto) 8.0 /HPF (0.0-6.0) 05/16/17 21:45 U Epithel Cells (Auto) < 1.0 /HPF (0-13.0) 05/16/17 21:45 Urine Bacteria (Auto) 1+ /HPF (Negative) 05/16/17 21:45 Urine Mucus Few /HPF 05/14/17 Unknown Urine Osmolality 634 Mosm/kg 05/15/17 10:23 Urine Creatinine 153.0 mg/dL (0.1-20.0) H 05/15/17 10:23 Urine Sodium 26 mmol/L 05/15/17 10:23 Urine Potassium 69.39 mmol/L 05/15/17 10:23 Urine Chloride 100.7 mmolL (110-250) L 05/15/17 10:23 Urine Opiates Screen Presumptive negative 05/14/17 Unknown Urine Methadone Screen Presumptive negative 05/14/17 Unknown Ur Barbiturates Screen Presumptive negative 05/14/17 Unknown Ur Phencyclidine Scrn Presumptive negative 05/14/17 Unknown Ur Amphetamines Screen Presumptive negative 05/14/17 Unknown U Benzodiazepines Scrn Presumptive negative 05/14/17 Unknown Urine Cocaine Screen Presumptive negative 05/14/17 Unknown U Marijuana (THC) Screen Presumptive negative 05/14/17 Unknown Drugs of Abuse Note Disclamer 05/14/17 Unknown
[2017-05-19] MEDS: NOVOLOG SUB-Q SCH ×4 (09:17→23:12)
[2017-05-19] MEDS: HEPARIN SUB-Q SCH ×2 (09:20→22:15)
[2017-05-19] MEDS: LEVAQUIN PO SCH (09:20)
--- NOTE | 2017-05-19 13:10 | Progress Note ---
Assessment and Plan - Patient Problems (1) Hypernatremia Current Visit: Yes Status: Acute Plan to address problem: improving-encourage to drink free water. Na-147 from yesterday. Lactic acid level-slightly high ? significance. Spoke with . S/P DKA (2) Acute renal failure Current Visit: Yes Status: Acute Qualifiers: Acute renal failure type: A Plan to address problem: prerenal- improving with hydration. Scr down to 1.2. S/P DKA (3) Encephalopathy Current Visit: No Status: Resolved (4) Diabetes Current Visit: Yes Status: Chronic Qualifiers: Diabetes mellitus type: D Diabetes mellitus complication status: D Diabetes mellitus complication detail: D Diabetic retinopathy severity: D Proliferative retinopathy type: P Diabetes mellitus macular edema: D Diabetes mellitus long term care administrator insulin use: D Laterality: L Chronic kidney disease stage: C Subjective Date of service: 05/19/17 Interval history: pt is more alert, oriented, denies CP or SOB. C/O ingrown toe nails Objective - Vital Signs Vital signs: Vital Signs - 12hr 05/19/17 08:22 Temperature 98.4 F Pulse Rate 67 Respiratory 18 Rate Blood Pressure 109/71 O2 Sat by Pulse 98 Oximetry - General Appearance General appearance: well-developed EENT: mucous membranes moist Neck: no JVD Respiratory: Present: Clear to Ascultation Cardiology: regular Gastrointestinal: normoactive bowel sounds Neurologic: alert and oriented x3 Psychiatric: cooperative - Lab 05/17/17 08:32 05/18/17 10:49 Most recent lab results Calcium 8.4 mg/dL (8.4-10.2) 05/18/17 10:49 Phosphorus 2.60 mg/dL (2.5-4.5) D 05/15/17 00:51 Magnesium 2.50 mg/dL (1.7-2.3) H 05/15/17 00:51 Urine Creatinine 153.0 mg/dL (0.1-20.0) H 05/15/17 10:23 Urine Sodium 26 mmol/L 05/15/17 10:23
[2017-05-20 06:05] LABS: Hematocrit 25.5 % (35.5-45.6); Hemoglobin 8.3 gm/dl (11.8-15.2); Mean Corpuscular HGB Conc 32 % (32-34); Mean Corpuscular Hemoglobin 30 pg (28-32); Mean Corpuscular Volume 92 fl (84-94); Platelet Count 162 K/mm3 (140-440); Red Blood Count 2.77 M/mm3 (3.65-5.03); Red Cell Distribution Width 15.2 % (13.2-15.2); White Blood Count 6.3 K/mm3 (4.5-11.0)
[2017-05-20 06:23] LABS: Anion Gap 15 mmol/L; BUN/Creatinine Ratio 16; Blood Urea Nitrogen 14 mg/dL (9-20); Carbon Dioxide 29 mmol/L (22-30); Chloride 105.7 mmol/L (98-107); Glucose 80 mg/dL (75-100); Potassium 3.2 mmol/L (3.6-5.0); Sodium 146 mmol/L (137-145)
[2017-05-20] MEDS: NOVOLOG SUB-Q SCH ×2 (07:59→12:06)
[2017-05-20 08:17] LABS: Anisocytosis 2+; Basophils % (Manual) 0 % (0.0-1.8); Blastocytes % (Manual) 0 %
[2017-05-20 08:18] LABS: Diff Status Complete; Macrocytosis 1+; Ovalocytes Few; Platelet Estimate Consistent w Auto; Polychromasia Few; Tear Drop Cells Few
[2017-05-20] MEDS ORDERED: K-DUR PO ONE (09:00)
[2017-05-20] MEDS: LEVAQUIN PO SCH (10:56)
[2017-05-20] MEDS: HEPARIN SUB-Q SCH (10:57)
--- NOTE | 2017-05-20 12:24 | Discharge Summary ---
Providers - Providers Date of Admission: 05/14/17 22:51 Date of discharge: 05/20/17 Attending physician: MILTON HOUGH 05/15/17 06:03 Consult to Physician [CONS] Routine Consulting Provider: ABISAI WATKINS Reason For Exam: PRATIMA Place consult to:: ABISAI WATKINS Notified:: y Was contact made?: Yes If yes, spoke with:: a/s Time called:: 08:20 05/15/17 06:52 Consult to Dietitian/Nutrition [CONS] Routine Physician Instructions: Reason For Exam: DKA Reason for Consult: Nutrition Recommendations Reason for Consult: Diet education 05/15/17 13:32 Speech Therapy Evaluation and Treat [CONS] Routine Reason For Exam: failed swallow screen 05/16/17 03:49 Consult to Wound/ET Nurse [CONS] Urgent Reason For Exam: wound eval Primary care physician: FRUIT RECEIVER Hospitalization Reason for admission: altered level of consciousness/diabetic ketoacidosis Condition: Stable Pertinent studies: X-ray chest; normal study KUB; normal study, Dobb[place] in place Hospital course: 41-year-old male patient with significant history of type 1 diabetes mellitus and psych disorder multiple frequent admissions for noncompliance was admitted through emergency room with unresponsiveness and diabetic ketoacidosis. Patient was initially evaluated and admitted to ICU, DKA protocol was initiated Managed with insulin drip, vigorous IV hydration, close monitoring of electrolytes and management Patient's hemoglobin A1c was 15, after stabilizing transferred to medical floor Patient was counseled importance of adhering to the treatment plan, patient has some social issues and case management has evaluated the patient Patient looks depressed and encephalopathy Times, with history of psych disorder , however patient refused psych evaluation Patient also had acute renal failure with creatinine of 3.3, probably due to vasomotor nephropathy prerenal azotemia, diabetic nephropathy responded well with IV hydration back to normal levels of creatinine 1.2, ordered by nephrology Patient was in lactic acidosis, probably secondary to mild urinary tract infection and chronic acidosis Patient had a small sacral wound, received wound care treatment Today's comfortable in bed no new complaints vital signs are stable [id number] evaluation physical examination is unremarkable Patient is hemodynamically and clinically stable for discharge Discharge diagnosis; --Type 1 diabetes mellitus; --DKA : Resolved, Hb A1c 15; --Medical noncompliance; multiple admissions -- Hypernatremia; resolved, --Hypokalemia; corrected -- Acute renal failure; resolved ,Secondary to vasomotor nephropathy --Severe Metabolic acidosis: DKA --Lactic acidosis; uncontrolled sugars, UTI on antibiotics . --Leukocytosis/SIRS/UTI improved,on Levaquin --Thrombocytosis; Likely reactive --Acute metabolic encephalopathy; improved -- Psychiatric disorder, refused evaluation Disposition: DC-01 TO HOME OR SELFCARE Time spent for discharge: 33 min Core Measure Documentation - Palliative Care Palliative Care/ Comfort Measures: Not Applicable - Core Measures Any of the following diagnoses?: none Exam - Constitutional Vitals: Temp Pulse Resp BP Pulse Ox 98.6 F 79 15 107/75 96 05/20/17 07:39 05/20/17 07:39 05/20/17 07:39 05/20/17 07:39 05/20/17 07:39 General appearance: Present: no acute distress, well-nourished - EENT Eyes: Present: PERRL, EOM intact - Neck Neck: Present: supple, normal ROM - Respiratory Respiratory effort: normal Respiratory: negative: rales, rhonchi, wheezing - Cardiovascular Rhythm: regular Heart Sounds: Present: S1 & S2 - Extremities Extremities: no ischemia, No edema - Abdominal General gastrointestinal: Present: soft, non-tender, non-distended, normal bowel sounds - Integumentary Integumentary: Present: clear, warm - Musculoskeletal Musculoskeletal: strength equal bilaterally - Psychiatric Psychiatric: appropriate mood/affect, cooperative - Neurologic Neurologic: CNII-XII intact, moves all extremities Plan Activity: no restrictions Diet: diabetic Additional Instructions: advised to see [place] So[employer] Machine Operator for evaluation of anemia. Advised to comply with medications,Diet and f/u visits Follow up with: PRIMARY CAREMD [Primary Care Provider] - 3-5 Days CITLALI MARINO MD [Staff Physician] - 7 Days Prescriptions: Ciprofloxacin HCl [Ciprofloxacin TAB] 500 mg PO Q12H #10 tab Insulin NPH/Regular [NovoLIN 70/30] 36 unit SUB-Q BIDDIAB 30 Days units Insulin Regular, Human [Novolin R] 3 units SC ACHS 30 Days vial
[2017-05-20 14:54] VITALS: BP 105/64
== END 2017-05-20 17:35 | disposition home or self-care (01) | DRG 871 ==
LOC: ED 20:49 → CC1 22:51 → 3A 05-16 16:45
PROVIDERS: ADMIT Internal Medicine; ATTEND Internal Medicine
PROC: 3E0234Z Introduction of Serum, Toxoid and Vaccine into Muscle, Percutaneous Approach (ICD-10-PCS; principal; 2017-05-16)
DX: A41.9 Sepsis, unspecified organism (principal); E10.10 Type 1 diabetes mellitus with ketoacidosis without coma; G93.41 Metabolic encephalopathy; N17.9 Acute kidney failure, unspecified; E87.0 Hyperosmolality and hypernatremia; E66.9 Obesity, unspecified; D47.3 Essential (hemorrhagic) thrombocythemia; E87.6 Hypokalemia; E87.5 Hyperkalemia; Z23 Encounter for immunization; Z79.4 Long term (current) use of insulin; Z91.14 Patient's other noncompliance with medication regimen; Z88.6 Allergy status to analgesic agent; Z68.23 Body mass index [BMI] 23.0-23.9, adult
CPT/HCPCS: 36415; 71010; 74000; 80048; 80053; 80307; 81001; 82140; 82436; 82570; 82803; 82962; 83690; 83735; 83935; 84100; 84133; 84300; 84484; 85007; 85025; 85027; 87040; 87086; 90686; 90732; 93005; 93010; 96361; 96365; 96375; 99291; J1644; J1815; J2405; J2543; J3480; J7030; J7070

== ENCOUNTER 2017-07-18 08:26 | Inpatient (IN) | payer SELFPAY ==
[2017-07-18] MEDS ORDERED: NACL 0.9% 1000 ML 1,000 ML IV ONE ×2 (09:20→09:42)
[2017-07-18] MEDS ORDERED: PROTONIX IV NR (09:20)
[2017-07-18] MEDS ORDERED: D50W (25GM) Syringe IV PRN ×2 (09:42→16:52)
[2017-07-18] MEDS ORDERED: ATIVAN IV ONE (10:00)
[2017-07-18 10:06] LABS: Basophils # (Auto) 0.2 K/mm3 (0.0-0.1); Eosinophils % (Auto) 0.1 % (0.0-4.3); Monocytes # (Auto) 1.2 K/mm3 (0.0-0.8); Monocytes % (Auto) 6.7 % (0.0-7.3)
[2017-07-18] MEDS ORDERED: HALDOL ONE (10:09)
[2017-07-18] MEDS ORDERED: ATIVAN ONE (10:09)
[2017-07-18 10:14] LABS: INR 1.13 (0.87-1.13); Partial Thromboplastin Time 26.5 Sec. (24.2-36.6)
[2017-07-18 10:16] LABS: Albumin 4.7 g/dL (3.9-5); Calcium 9.7 mg/dL (8.4-10.2)
[2017-07-18 10:21] LABS: Hematocrit TNR % (35.5-45.6); Hemoglobin TNR gm/dl (11.8-15.2); Mean Corpuscular HGB Conc TNR % (32-34); Mean Corpuscular Hemoglobin TNR pg (28-32); Mean Corpuscular Volume TNR fl (84-94); Platelet Count TNR K/mm3 (140-440); Red Blood Count TNR M/mm3 (3.65-5.03); Red Cell Distribution Width TNR % (13.2-15.2)
[2017-07-18 10:22] LABS: Basophils % (Auto) TNR % (0.0-1.8); Lymphocytes # (Auto) TNR K/mm3 (1.2-5.4); Lymphocytes % (Auto) TNR % (13.4-35.0)
[2017-07-18 10:25] LABS: Creatine Kinase MB 1.4 ng/mL (0.0-4.0)
[2017-07-18 10:27] LABS: Magnesium 3.2 mg/dL (1.7-2.3)
[2017-07-18 10:28] LABS: Albumin 4.5 g/dL (3.9-5); Bilirubin,Direct 0.2 mg/dL (0-0.2); Calcium 9.5 mg/dL (8.4-10.2)
--- NOTE | 2017-07-18 10:36 | XRay Report ---
AP CHEST: HISTORY: Hypertension AP view of the chest demonstrates a normal mediastinal and cardiac contour with clear lungs and normal bony and soft tissue structures. IMPRESSION: Unremarkable AP chest.
[2017-07-18 10:47] LABS: Magnesium 3.2 mg/dL (1.7-2.3)
[2017-07-18 10:54] LABS: Calcium 9.6 mg/dL (8.4-10.2)
[2017-07-18] MEDS: NovoLIN R 100 UNITS in NACL 0.9% 99 ML IV SCH (11:14)
[2017-07-18] MEDS ORDERED: NORMODYNE IV ONE (11:18)
[2017-07-18] MEDS ORDERED: ROCEPHIN/NS 1 GM/50 ML 1 GM/50 ML BAG IV ONE (11:31)
[2017-07-18 11:33] LABS: Bilirubin,Urine NEG (Negative); Blood,Urine NEG (Negative); Color,Urine Yellow (Yellow); Nitrite,Urine NEG (Negative); Urobilinogen,Urine < 2.0 mg/dL (<2.0); WBC,Urine < 1.0 /HPF (0.0-6.0)
[2017-07-18] MEDS ORDERED: cefTRIAXone 1 GM in NACL 0.9% 20 ML IV ONE (11:45)
[2017-07-18 12:07] LABS: Basophils # (Auto) 0.1 K/mm3 (0.0-0.1); Basophils % (Auto) 0.7 % (0.0-1.8); Eosinophils % (Auto) 0.1 % (0.0-4.3); Lymphocytes # (Auto) 1.8 K/mm3 (1.2-5.4); Lymphocytes % (Auto) 9.4 % (13.4-35.0); Mean Corpuscular HGB Conc 29 % (32-34); Mean Corpuscular Hemoglobin 29 pg (28-32); Mean Corpuscular Volume 99 fl (84-94); Monocytes # (Auto) 1.2 K/mm3 (0.0-0.8); Monocytes % (Auto) 6.3 % (0.0-7.3); Platelet Count 411 K/mm3 (140-440); Red Blood Count 5.57 M/mm3 (3.65-5.03); Red Cell Distribution Width 15.2 % (13.2-15.2)
[2017-07-18 12:08] LABS: Hemoglobin 15.9 gm/dl (11.8-15.2)
[2017-07-18 13:10] LABS: Amphetamine Screen,Urine PRESUMPTIVE NEGATIVE; Benzodiazepines Screen,Urine PRESUMPTIVE NEGATIVE; Cannabinoid Screen,Urine PRESUMPTIVE NEGATIVE; Cocaine Screen,Urine PRESUMPTIVE NEGATIVE; Methadone Screen,Urine PRESUMPTIVE NEGATIVE; Opiate Screen,Urine PRESUMPTIVE NEGATIVE
[2017-07-18 13:26] LABS: Calcium 8.4 mg/dL (8.4-10.2)
--- NOTE | 2017-07-18 15:22 | Emergency Department Report ---
ED General Adult HPI - General Chief complaint: Altered Mental Status Stated complaint: AMS Time Seen by Provider: 07/18/17 09:18 Source: EMS Mode of arrival: Stretcher Limitations: Altered Mental Status - History of Present Illness Initial comments: The patient presents to the emergency department largely unable to provide any historical information and accompanied by his father. Apparently his father has been through this process with him more than once prior. He states that the patient has been homeless in the past but the father denies any history of substance abuse of the patient. He states that his son is "just stubborn". He does admit that he thinks his son needs some sort of counseling for his noncompliance with his insulin. Apparently he has again been noncompliant. He began to be unable to care for himself yesterday so the father called EMS. However when EMS arrived the father states the patient refused transport. He explains the patient was oriented and that's why the medics did not transport him. Today he is essentially altered and disoriented. In addition he has been having some coffee ground emesis. -: unknown Severity scale (0 -10): 0 - Related Data Previous Rx's Medication Instructions Recorded Last Taken Type Insulin NPH/Regular [NovoLIN 70/30] 36 unit SUB-Q BIDDIAB 30 Days 05/20/17 Unknown Rx units Insulin Regular, Human [Novolin R] 3 units SC ACHS 30 Days vial 05/20/17 Unknown Rx Allergies Allergy/AdvReac Type Severity Reaction Status Date / Time aspirin Allergy Unknown Verified 05/29/16 22:00 ED Review of Systems ROS: Stated complaint: AMS Other details as noted in HPI Comment: Unobtainable due to pts medical conditions ED Past Medical Hx - Past Medical History Hx Congestive Heart Failure: No Hx Diabetes: Yes Hx Asthma: No Hx COPD: No Additional medical history: OBESITY - Social History Smoking Status: Never Smoker - Medications Home Medications: Home Medications Medication Instructions Recorded Confirmed Last Taken Type Insulin NPH/Regular [NovoLIN 70/30] 36 unit SUB-Q BIDDIAB 30 Days 05/20/17 Unknown Rx units Insulin Regular, Human [Novolin R] 3 units SC ACHS 30 Days vial 05/20/17 Unknown Rx ED Physical Exam - General Limitations: Altered Mental Status General appearance: lethargic - Head Head exam: Present: atraumatic, normocephalic - Eye Eye exam: Present: normal appearance. Absent: scleral icterus - ENT ENT exam: Present: mucous membranes dry - Neck Neck exam: Present: normal inspection. Absent: tenderness, meningismus - Respiratory Respiratory exam: Present: normal lung sounds bilaterally. Absent: respiratory distress - Cardiovascular Cardiovascular Exam: Present: regular rate, tachycardia. Absent: systolic murmur, diastolic murmur, rubs, gallop - GI/Abdominal GI/Abdominal exam: Present: soft, normal bowel sounds. Absent: distended, tenderness, guarding, rebound, rigid - Rectal Rectal exam: Present: deferred - Extremities Exam Extremities exam: Present: normal inspection - Back Exam Back exam: Present: normal inspection - Neurological Exam Neurological exam: Present: alert, oriented X3, CN II-XII intact. Absent: motor sensory deficit - Psychiatric Psychiatric exam: Present: flat affect - Skin Skin exam: Present: warm, dry, intact, normal color. Absent: rash ED Course Vital Signs 07/18/17 07/18/17 08:47 08:52 Temperature 98.4 F Pulse Rate 138 H 137 H Respiratory 16 15 Rate Blood Pressure 118/81 Blood Pressure 118/81 [Left] O2 Sat by Pulse 99 100 Oximetry - Reevaluation(s) Reevaluation #1: Patient did vomit and have apparent coffee ground emesis. He was given 2 L of saline upfront and an insulin drip was started essentially at the door as his EKG wasn't suggestive of hyperkalemia. He was in obvious DKA. He really did look quite ill so he was cultured and given IV ceftriaxone. He was referred to Dr. Lopez of the hospitalist service for ICU admission. Dr. Lopez has already seen the patient and long assume care. 07/18/17 15:30 Reevaluation #2: I noted that the patient is now becoming hyper and atraumatic and still has an extremely low CO2 and renal failure. Discussed nephrology consultation with Dr. Lopez. He stated he will get them involved. 07/18/17 15:38 ED Medical Decision Making - Lab Data Result diagrams: 07/18/17 12:04 07/18/17 12:48 Laboratory Results - last 24 hr 07/18/17 07/18/17 07/18/17 09:03 09:30 09:45 WBC RBC Hgb Hct MCV MCH MCHC RDW Plt Count Lymph % (Auto) [place] % (Auto) Eos % (Auto) Baso % (Auto) Lymph # [place] # Eos # Baso # Seg Neutrophils % Seg Neutrophils # PT INR APTT Sodium 147 H Potassium 6.0 H Chloride 87.0 L Carbon Dioxide 5 L* Anion Gap 61 BUN 69 H Creatinine 3.4 H Estimated GFR 24 BUN/Creatinine Ratio 20 Glucose 1009 H* POC Glucose > 500 H Ketones Quantitative Lactic Acid 5.10 H* Calcium 9.6 Phosphorus Magnesium Total Bilirubin Direct Bilirubin Indirect Bilirubin AST ALT Alkaline Phosphatase Total Creatine Kinase CK-MB (CK-2) CK-MB (CK-2) Rel Index NT-Pro-B Natriuret Pep Total Protein Albumin Albumin/Globulin Ratio TSH Urine Color Urine Turbidity Urine pH Ur Specific [place] Urine Protein Urine Glucose (UA) Urine Ketones Urine Blood Urine Nitrite Urine Bilirubin Urine Urobilinogen Ur Leukocyte Esterase Urine WBC (Auto) Urine RBC (Auto) Urine Opiates Screen Urine Methadone Screen Ur Barbiturates Screen Ur Phencyclidine Scrn Ur Amphetamines Screen U Benzodiazepines Scrn Urine Cocaine Screen U Marijuana (THC) Screen Drugs of Abuse Note Plasma/Serum Alcohol 07/18/17 07/18/17 07/18/17 09:55 09:55 09:55 WBC TNR RBC TNR Hgb TNR Hct TNR MCV TNR MCH TNR MCHC TNR RDW TNR Plt Count TNR Lymph % (Auto) TNR [place] % (Auto) 6.7 Eos % (Auto) 0.1 Baso % (Auto) TNR Lymph # TNR [place] # 1.2 H Eos # 0.0 Baso # 0.2 H Seg Neutrophils % 83.3 H Seg Neutrophils # 14.6 H PT INR APTT Sodium 147 H Potassium 5.8 H Chloride 86.9 L Carbon Dioxide 7 L* Anion Gap 60 BUN 66 H Creatinine 3.2 H Estimated GFR 26 BUN/Creatinine Ratio 21 Glucose 937 H* POC Glucose Ketones Quantitative Lactic Acid Calcium 9.7 Phosphorus Magnesium Total Bilirubin 0.40 Direct Bilirubin Indirect Bilirubin AST 9 ALT 10 Alkaline Phosphatase 137 H Total Creatine Kinase CK-MB (CK-2) CK-MB (CK-2) Rel Index NT-Pro-B Natriuret Pep Total Protein 9.2 H Albumin 4.7 Albumin/Globulin Ratio 1.0 TSH 0.899 Urine Color Urine Turbidity Urine pH Ur Specific [place] Urine Protein Urine Glucose (UA) Urine Ketones Urine Blood Urine Nitrite Urine Bilirubin Urine Urobilinogen Ur Leukocyte Esterase Urine WBC (Auto) Urine RBC (Auto) Urine Opiates Screen Urine Methadone Screen Ur Barbiturates Screen Ur Phencyclidine Scrn Ur Amphetamines Screen U Benzodiazepines Scrn Urine Cocaine Screen U Marijuana (THC) Screen Drugs of Abuse Note Plasma/Serum Alcohol 07/18/17 07/18/17 07/18/17 09:55 09:55 09:55 WBC RBC Hgb Hct MCV MCH MCHC RDW Plt Count Lymph % (Auto) [place] % (Auto) Eos % (Auto) Baso % (Auto) Lymph # [place] # Eos # Baso # Seg Neutrophils % Seg Neutrophils # PT INR APTT Sodium 146 H Potassium 5.8 H Chloride 86.0 L Carbon Dioxide 5 L* Anion Gap 61 BUN 65 H Creatinine 3.1 H Estimated GFR 27 BUN/Creatinine Ratio 21 Glucose 963 H* POC Glucose Ketones Quantitative Lactic Acid Calcium 9.5 Phosphorus 7.90 H Magnesium 3.20 H Total Bilirubin 0.40 Direct Bilirubin 0.2 Indirect Bilirubin 0.2 AST 8 ALT 11 Alkaline Phosphatase 137 H Total Creatine Kinase 28 L CK-MB (CK-2) 1.4 CK-MB (CK-2) Rel Index 5.0 H NT-Pro-B Natriuret Pep Total Protein 9.1 H Albumin 4.5 Albumin/Globulin Ratio 1.0 TSH Urine Color Urine Turbidity Urine pH Ur Specific [place] Urine Protein Urine Glucose (UA) Urine Ketones Urine Blood Urine Nitrite Urine Bilirubin Urine Urobilinogen Ur Leukocyte Esterase Urine WBC (Auto) Urine RBC (Auto) Urine Opiates Screen Urine Methadone Screen Ur Barbiturates Screen Ur Phencyclidine Scrn Ur Amphetamines Screen U Benzodiazepines Scrn Urine Cocaine Screen U Marijuana (THC) Screen Drugs of Abuse Note Plasma/Serum Alcohol < 0.01 07/18/17 07/18/17 07/18/17 09:55 10:11 10:29 WBC RBC Hgb Hct MCV MCH MCHC RDW Plt Count Lymph % (Auto) [place] % (Auto) Eos % (Auto) Baso % (Auto) Lymph # [place] # Eos # Baso # Seg Neutrophils % Seg Neutrophils # PT 15.1 H INR 1.13 APTT 26.5 Sodium Potassium Chloride Carbon Dioxide Anion Gap BUN Creatinine Estimated GFR BUN/Creatinine Ratio Glucose POC Glucose Ketones Quantitative Large Lactic Acid Calcium Phosphorus Magnesium Total Bilirubin Direct Bilirubin Indirect Bilirubin AST ALT Alkaline Phosphatase Total Creatine Kinase CK-MB (CK-2) CK-MB (CK-2) Rel Index NT-Pro-B Natriuret Pep 109.2 Total Protein Albumin Albumin/Globulin Ratio TSH Urine Color Urine Turbidity Urine pH Ur Specific [place] Urine Protein Urine Glucose (UA) Urine Ketones Urine Blood Urine Nitrite Urine Bilirubin Urine Urobilinogen Ur Leukocyte Esterase Urine WBC (Auto) Urine RBC (Auto) Urine Opiates Screen Urine Methadone Screen Ur Barbiturates Screen Ur Phencyclidine Scrn Ur Amphetamines Screen U Benzodiazepines Scrn Urine Cocaine Screen U Marijuana (THC) Screen Drugs of Abuse Note Plasma/Serum Alcohol 07/18/17 07/18/17 07/18/17 10:29 10:40 10:40 WBC RBC Hgb Hct MCV MCH MCHC RDW Plt Count Lymph % (Auto) [place] % (Auto) Eos % (Auto) Baso % (Auto) Lymph # [place] # Eos # Baso # Seg Neutrophils % Seg Neutrophils # PT INR APTT Sodium Potassium Chloride Carbon Dioxide Anion Gap BUN Creatinine Estimated GFR BUN/Creatinine Ratio Glucose POC Glucose Ketones Quantitative Lactic Acid Calcium Phosphorus 8.30 H Magnesium 3.20 H Total Bilirubin Direct Bilirubin Indirect Bilirubin AST ALT Alkaline Phosphatase Total Creatine Kinase CK-MB (CK-2) CK-MB (CK-2) Rel Index NT-Pro-B Natriuret Pep Total Protein Albumin Albumin/Globulin Ratio TSH Urine Color Yellow Urine Turbidity Clear Urine pH 5.0 Ur Specific [place] 1.023 Urine Protein 30 mg/dl Urine Glucose (UA) >=500 Urine Ketones 80 Urine Blood Neg Urine Nitrite Neg Urine Bilirubin Neg Urine Urobilinogen < 2.0 Ur Leukocyte Esterase Neg Urine WBC (Auto) < 1.0 Urine RBC (Auto) 1.0 Urine Opiates Screen Presumptive negative Urine Methadone Screen Presumptive negative Ur Barbiturates Screen Presumptive negative Ur Phencyclidine Scrn Presumptive negative Ur Amphetamines Screen Presumptive negative U Benzodiazepines Scrn Presumptive negative Urine Cocaine Screen Presumptive negative U Marijuana (THC) Screen Presumptive negative Drugs of Abuse Note Disclamer Plasma/Serum Alcohol 07/18/17 07/18/17 07/18/17 12:04 12:29 12:48 WBC 19.7 H RBC 5.57 H Hgb 15.9 H Hct 55.0 H MCV 99 H MCH 29 MCHC 29 L RDW 15.2 Plt Count 411 Lymph % (Auto) 9.4 L [place] % (Auto) 6.3 Eos % (Auto) 0.1 Baso % (Auto) 0.7 Lymph # 1.8 [place] # 1.2 H Eos # 0.0 Baso # 0.1 Seg Neutrophils % 83.5 H Seg Neutrophils # 16.4 H PT INR APTT Sodium 155 H D Potassium 4.7 Chloride 99.9 Carbon Dioxide 8 L* Anion Gap 52 BUN 66 H Creatinine 3.0 H Estimated GFR 28 BUN/Creatinine Ratio 22 Glucose 803 H* POC Glucose > 500 H Ketones Quantitative Lactic Acid Calcium 8.4 Phosphorus Magnesium Total Bilirubin Direct Bilirubin Indirect Bilirubin AST ALT Alkaline Phosphatase Total Creatine Kinase CK-MB (CK-2) CK-MB (CK-2) Rel Index NT-Pro-B Natriuret Pep Total Protein Albumin Albumin/Globulin Ratio TSH Urine Color Urine Turbidity Urine pH Ur Specific [place] Urine Protein Urine Glucose (UA) Urine Ketones Urine Blood Urine Nitrite Urine Bilirubin Urine Urobilinogen Ur Leukocyte Esterase Urine WBC (Auto) Urine RBC (Auto) Urine Opiates Screen Urine Methadone Screen Ur Barbiturates Screen Ur Phencyclidine Scrn Ur Amphetamines Screen U Benzodiazepines Scrn Urine Cocaine Screen U Marijuana (THC) Screen Drugs of Abuse Note Plasma/Serum Alcohol 07/18/17 07/18/17 13:39 14:42 WBC RBC Hgb Hct MCV MCH MCHC RDW Plt Count Lymph % (Auto) [place] % (Auto) Eos % (Auto) Baso % (Auto) Lymph # [place] # Eos # Baso # Seg Neutrophils % Seg Neutrophils # PT INR APTT Sodium Potassium Chloride Carbon Dioxide Anion Gap BUN Creatinine Estimated GFR BUN/Creatinine Ratio Glucose POC Glucose > 500 H > 500 H Ketones Quantitative Lactic Acid Calcium Phosphorus Magnesium Total Bilirubin Direct Bilirubin Indirect Bilirubin AST ALT Alkaline Phosphatase Total Creatine Kinase CK-MB (CK-2) CK-MB (CK-2) Rel Index NT-Pro-B Natriuret Pep Total Protein Albumin Albumin/Globulin Ratio TSH Urine Color Urine Turbidity Urine pH Ur Specific [place] Urine Protein Urine Glucose (UA) Urine Ketones Urine Blood Urine Nitrite Urine Bilirubin Urine Urobilinogen Ur Leukocyte Esterase Urine WBC (Auto) Urine RBC (Auto) Urine Opiates Screen Urine Methadone Screen Ur Barbiturates Screen Ur Phencyclidine Scrn Ur Amphetamines Screen U Benzodiazepines Scrn Urine Cocaine Screen U Marijuana (THC) Screen Drugs of Abuse Note Plasma/Serum Alcohol - EKG Data -: EKG Interpreted by [facility] EKG shows normal: sinus rhythm, axis, intervals, QRS complexes, ST-T waves Rate: tachycardia - EKG Data Interpretation: other (consistent with hyperkalemia) - Radiology Data interpreted by me: Chest x-ray shows no acute process Critical Care Time: Yes Critical care time in (mins) excluding proc time.: 60 Critical care attestation.: If time is entered above; I have spent that time in minutes in the direct care of this critically ill patient, excluding procedure time. ED Disposition Clinical Impression: Upper GI bleeding Altered mental status Qualifiers: Altered mental status type: unspecified Qualified Code(s): R41.82 - Altered mental status, unspecified DKA, type 1 Qualifiers: Diabetes mellitus complication detail: without coma Qualified Code(s): E10.10 - Type 1 diabetes mellitus with ketoacidosis without coma Acute renal failure Qualifiers: Acute renal failure type: unspecified Qualified Code(s): N17.9 - Acute kidney failure, unspecified Disposition: DC-09 OP ADMIT IP TO THIS HOSP Is pt being admited?: Yes Does the pt Need Aspirin: No (hold secondary to upper GI bleeding) Condition: Stable
--- NOTE | 2017-07-18 16:55 | History and Physical Report ---
History of Present Illness Date of examination: 07/18/17 Date of admission: 07/18/17 11:56 Chief complaint: altered mental status History of present illness: The patient presents to the emergency department largely unable to provide any historical information and accompanied by his father. Apparently his father has been through this process with him more than once prior. He states that the patient has been homeless in the past but the father denies any history of substance abuse of the patient. He states that his son is "just stubborn". He does admit that he thinks his son needs some sort of counseling for his noncompliance with his insulin. Apparently he has again been noncompliant. He began to be unable to care for himself yesterday so the father called EMS. However when EMS arrived the father states the patient refused transport. He explains the patient was oriented and that's why the medics did not transport him. Today he is essentially altered and disoriented. In addition he has been having some coffee ground emesis Past History Past Medical History: diabetes Social history: smoking (never smoked) Medications and Allergies Allergies Allergy/AdvReac Type Severity Reaction Status Date / Time aspirin Allergy Unknown Verified 05/29/16 22:00 Home Medications Medication Instructions Recorded Confirmed Last Taken Type Insulin NPH/Regular [NovoLIN 70/30] 36 unit SUB-Q BIDDIAB 30 Days 05/20/1707/18 Unknown Rx units Insulin Regular, Human [Novolin R] 3 units SC ACHS 30 Days vial 05/20/17 Unknown Rx Active Meds: Active Medications Dextrose (D50w (25gm) Syringe) 0 ml IV ONCE PRN PRN Reason: Hypoglycemia Insulin Human Regular 100 (units/ Sodium Chloride) 100 mls @ 1 mls/hr IV TITR ROSSY; 1 UNITS/HR PRN Reason: Protocol Last Titration: 07/18/17 15:58 Dose: 8 units/hr, 8 mls/hr Review of Systems ROS unobtainable: due to mental status Exam - Constitutional Vitals: Temp Pulse Resp BP Pulse Ox 98.4 F 137 H 15 118/81 100 07/18/17 08:52 07/18/17 08:52 07/18/17 08:52 07/18/17 08:52 07/18/17 08:52 General appearance: Present: no acute distress, other (lethargic) - EENT Eyes: Present: PERRL ENT: hearing intact, clear oral mucosa - Neck Neck: Present: supple, normal ROM - Respiratory Respiratory effort: normal Respiratory: bilateral: CTA - Cardiovascular Heart Sounds: Present: S1 & S2. Absent: rub, click - Extremities Extremities: pulses symmetrical, No edema Peripheral Pulses: within normal limits - Abdominal General gastrointestinal: Present: soft, non-tender, non-distended, normal bowel sounds Male genitourinary: Present: deferred - Rectal Rectal Exam: deferred - Integumentary Integumentary: Present: clear, warm, dry - Psychiatric Psychiatric: other (flat affect) - Neurologic Neurologic: CNII-XII intact, moves all extremities Results - Labs CBC & Chem 7: 07/18/17 12:04 07/18/17 12:48 Labs: Laboratory Last Values WBC 19.7 K/mm3 (4.5-11.0) H 07/18/17 12:04 RBC 5.57 M/mm3 (3.65-5.03) H 07/18/17 12:04 Hgb 15.9 gm/dl (11.8-15.2) H 07/18/17 12:04 Hct 55.0 % (35.5-45.6) H 07/18/17 12:04 MCV 99 fl (84-94) H 07/18/17 12:04 MCH 29 pg (28-32) 07/18/17 12:04 MCHC 29 % (32-34) L 07/18/17 12:04 RDW 15.2 % (13.2-15.2) 07/18/17 12:04 Plt Count 411 K/mm3 (140-440) 07/18/17 12:04 Lymph % (Auto) 9.4 % (13.4-35.0) L 07/18/17 12:04 [place] % (Auto) 6.3 % (0.0-7.3) 07/18/17 12:04 Eos % (Auto) 0.1 % (0.0-4.3) 07/18/17 12:04 Baso % (Auto) 0.7 % (0.0-1.8) 07/18/17 12:04 Lymph # 1.8 K/mm3 (1.2-5.4) 07/18/17 12:04 [place] # 1.2 K/mm3 (0.0-0.8) H 07/18/17 12:04 Eos # 0.0 K/mm3 (0.0-0.4) 07/18/17 12:04 Baso # 0.1 K/mm3 (0.0-0.1) 07/18/17 12:04 Seg Neutrophils % 83.5 % (40.0-70.0) H 07/18/17 12:04 Seg Neutrophils # 16.4 K/mm3 (1.8-7.7) H 07/18/17 12:04 PT 15.1 Sec. (12.2-14.9) H 07/18/17 10:11 INR 1.13 (0.87-1.13) 07/18/17 10:11 APTT 26.5 Sec. (24.2-36.6) 07/18/17 10:11 Sodium 155 mmol/L (137-145) H D 07/18/17 12:48 Potassium 4.7 mmol/L (3.6-5.0) 07/18/17 12:48 Chloride 99.9 mmol/L (98-107) 07/18/17 12:48 Carbon Dioxide 8 mmol/L (22-30) L* 07/18/17 12:48 Anion Gap 52 mmol/L 07/18/17 12:48 BUN 66 mg/dL (9-20) H 07/18/17 12:48 Creatinine 3.0 mg/dL (0.8-1.5) H 07/18/17 12:48 Estimated GFR 28 ml/min 07/18/17 12:48 BUN/Creatinine Ratio 22 % 07/18/17 12:48 Glucose 803 mg/dL (75-100) H* 07/18/17 12:48 POC Glucose 451 (70-105) H 07/18/17 16:00 Ketones Quantitative Large (Negative) 07/18/17 10:29 Lactic Acid 5.10 mmol/L (0.7-2.0) H* 07/18/17 09:30 Calcium 8.4 mg/dL (8.4-10.2) 07/18/17 12:48 Phosphorus 8.30 mg/dL (2.5-4.5) H 07/18/17 10:29 Magnesium 3.20 mg/dL (1.7-2.3) H 07/18/17 10:29 Total Bilirubin 0.40 mg/dL (0.1-1.2) 07/18/17 09:55 Direct Bilirubin 0.2 mg/dL (0-0.2) 07/18/17 09:55 Indirect Bilirubin 0.2 mg/dL 07/18/17 09:55 AST 8 units/L (5-40) 07/18/17 09:55 ALT 11 units/L (7-56) 07/18/17 09:55 Alkaline Phosphatase 137 units/L (35-129) H 07/18/17 09:55 Total Creatine Kinase 28 units/L (55-170) L 07/18/17 09:55 CK-MB (CK-2) 1.4 ng/mL (0.0-4.0) 07/18/17 09:55 CK-MB (CK-2) Rel Index 5.0 (0-4) H 07/18/17 09:55 NT-Pro-B Natriuret Pep 109.2 pg/mL (0-450) 07/18/17 09:55 Total Protein 9.1 g/dL (6.3-8.2) H 07/18/17 09:55 Albumin 4.5 g/dL (3.9-5) 07/18/17 09:55 Albumin/Globulin Ratio 1.0 % 07/18/17 09:55 TSH 0.899 mlU/mL (0.270-4.200) 07/18/17 09:55 Urine Color Yellow (Yellow) 07/18/17 10:40 Urine Turbidity Clear (Clear) 07/18/17 10:40 Urine pH 5.0 (5.0-7.0) 07/18/17 10:40 Ur Specific [place] 1.023 (1.003-1.030) 07/18/17 10:40 Urine Protein 30 mg/dl mg/dL (Negative) 07/18/17 10:40 Urine Glucose (UA) >=500 mg/dL (Negative) 07/18/17 10:40 Urine Ketones 80 mg/dL (Negative) 07/18/17 10:40 Urine Blood Neg (Negative) 07/18/17 10:40 Urine Nitrite Neg (Negative) 07/18/17 10:40 Urine Bilirubin Neg (Negative) 07/18/17 10:40 Urine Urobilinogen < 2.0 mg/dL (<2.0) 07/18/17 10:40 Ur Leukocyte Esterase Neg (Negative) 07/18/17 10:40 Urine WBC (Auto) < 1.0 /HPF (0.0-6.0) 07/18/17 10:40 Urine RBC (Auto) 1.0 /HPF (0.0-6.0) 07/18/17 10:40 Urine Opiates Screen Presumptive negative 07/18/17 10:40 Urine Methadone Screen Presumptive negative 07/18/17 10:40 Ur Barbiturates Screen Presumptive negative 07/18/17 10:40 Ur Phencyclidine Scrn Presumptive negative 07/18/17 10:40 Ur Amphetamines Screen Presumptive negative 07/18/17 10:40 U Benzodiazepines Scrn Presumptive negative 07/18/17 10:40 Urine Cocaine Screen Presumptive negative 07/18/17 10:40 U Marijuana (THC) Screen Presumptive negative 07/18/17 10:40 Drugs of Abuse Note Disclamer 07/18/17 10:40 Plasma/Serum Alcohol < 0.01 gm% (0-0.07) 07/18/17 09:55 Assessment and Plan Advance Directives: Yes VTE prophylaxis?: Chemical - Patient Problems (1) DKA (diabetic ketoacidoses) Current Visit: No Status: Resolved Qualifiers: Diabetes mellitus type: type 1 Diabetes mellitus complication detail: with coma Qualified Code(s): E10.11 - Type 1 diabetes mellitus with ketoacidosis with coma Plan to address problem: Patient is an insulin drip and admitted to ICU, DKA protocol (2) Metabolic encephalopathy Current Visit: Yes Status: Acute Plan to address problem: Continue to treat DKA (3) Acute renal failure Current Visit: Yes Status: Acute Qualifiers: Acute renal failure type: unspecified Qualified Code(s): N17.9 - Acute kidney failure, unspecified Plan to address problem: IV fluids for now, will continue to monitor (4) Acute hyperkalemia Current Visit: No Status: Acute Plan to address problem: Glucose and insulin given in ER, will continue to monitor (5) Acute hypernatremia Current Visit: No Status: Acute Plan to address problem: D5W initiated, will continue to monitor (6) SIRS (systemic inflammatory response syndrome) Current Visit: Yes Status: Acute Plan to address problem: Blood culture is pending, antibiotics initiated (7) DVT prophylaxis Current Visit: No Status: Acute Plan to address problem: SCDs
[2017-07-18] MEDS ORDERED: KCL 10MEQ/100ML 10 MEQ/100 ML BAG IV SCH ×2 (17:00)
[2017-07-18] MEDS ORDERED: NovoLIN R 100 UNITS in NACL 0.9% 99 ML IV SCH (17:00)
[2017-07-18 21:52] LABS: Hematocrit 49.5 % (35.5-45.6); Mean Corpuscular HGB Conc 32 % (32-34); Mean Corpuscular Hemoglobin 29 pg (28-32); Mean Corpuscular Volume 88 fl (84-94); Platelet Count 313 K/mm3 (140-440); Red Cell Distribution Width 13.6 % (13.2-15.2)
[2017-07-18 22:12] LABS: Calcium 9.9 mg/dL (8.4-10.2); Magnesium 2.8 mg/dL (1.7-2.3)
[2017-07-18 22:20] LABS: Basophils % (Manual) 0 % (0.0-1.8); Eosinophils % (Manual) 0 % (0.0-4.3); Myelocytes # (Manual) 0.2 K/mm3; Total Cells Counted 100
[2017-07-18 22:21] LABS: Anisocytosis 1+
[2017-07-19] MEDS: NovoLIN R 100 UNITS in NACL 0.9% 99 ML IV SCH ×2 (01:18→23:10)
[2017-07-19 01:32] LABS: Calcium 10.1 mg/dL (8.4-10.2)
[2017-07-19] MEDS: D5W 1,000 ML IV SCH ×2 (06:49→16:29)
[2017-07-19 12:36] LABS: Calcium 10.4 mg/dL (8.4-10.2)
--- NOTE | 2017-07-19 13:23 | Progress Note ---
Assessment and Plan Assessment and plan: DKA. Continue IV insulin drip and transition to long acting insulin when anion gap is closed. Toxic Metabolic encephalopathy. Continue to treat DKA, sepsis and hypernatremia. Acute renal failure. Etiology secondary to vasomotor nephropathy from volume depletion/dehydration. Continued IV fluid hydration. Follow-up BMP. If no significant improvement, consider nephrology consultation and renal ultrasound. Hyperkalemia. Glucose and insulin given in the ER. Etiology secondary to renal failure and DKA. Continue to monitor BMP. Hypernatremia. Continue hypotonic IV fluids. Follow-up BMP. Sepsis. Present on admission. Continue IV antibiotics and follow blood cultures. DVT prophylaxis. SCDs. History Interval history: Patient is somnolent and confused. Hospitalist Physical - Constitutional Vitals: Temp Pulse Resp BP Pulse Ox 97.9 F 122 H 16 133/93 96 07/19/17 12:00 07/19/17 08:30 07/19/17 08:30 07/19/17 08:30 07/19/17 08:30 General appearance: Present: no acute distress, other (lethargic) - EENT Eyes: Present: PERRL, EOM intact ENT: hearing intact, clear oral mucosa, dentition normal - Neck Neck: Present: supple, normal ROM - Respiratory Respiratory effort: normal Respiratory: bilateral: CTA - Cardiovascular Rhythm: regular Heart Sounds: Present: S1 & S2. Absent: gallop, rub - Extremities Extremities: no ischemia, No edema, Full ROM - Abdominal General gastrointestinal: soft, non-tender, non-distended, normal bowel sounds - Integumentary Integumentary: Present: clear, warm, dry - Neurologic Neurologic: CNII-XII intact, moves all extremities Results - Labs CBC & Chem 7: 07/18/17 21:30 07/19/17 11:26 Labs: Laboratory Last Values WBC 21.6 K/mm3 (4.5-11.0) H 07/18/17 21:30 RBC 5.60 M/mm3 (3.65-5.03) H 07/18/17 21:30 Hgb 16.0 gm/dl (11.8-15.2) H 07/18/17 21:30 Hct 49.5 % (35.5-45.6) H 07/18/17 21:30 MCV 88 fl (84-94) 07/18/17 21:30 MCH 29 pg (28-32) 07/18/17 21:30 MCHC 32 % (32-34) 07/18/17 21:30 RDW 13.6 % (13.2-15.2) 07/18/17 21:30 Plt Count 313 K/mm3 (140-440) 07/18/17 21:30 Lymph % (Auto) 9.4 % (13.4-35.0) L 07/18/17 12:04 [place] % (Auto) 6.3 % (0.0-7.3) 07/18/17 12:04 Eos % (Auto) 0.1 % (0.0-4.3) 07/18/17 12:04 Baso % (Auto) 0.7 % (0.0-1.8) 07/18/17 12:04 Lymph # 1.8 K/mm3 (1.2-5.4) 07/18/17 12:04 [place] # 1.2 K/mm3 (0.0-0.8) H 07/18/17 12:04 Eos # 0.0 K/mm3 (0.0-0.4) 07/18/17 12:04 Baso # 0.1 K/mm3 (0.0-0.1) 07/18/17 12:04 Add Manual Diff Complete 07/18/17 21:30 Total Counted 100 07/18/17 21:30 Seg Neutrophils % 83.5 % (40.0-70.0) H 07/18/17 12:04 Seg Neuts % (Manual) 90.0 % (40.0-70.0) H 07/18/17 21:30 Band Neutrophils % 0 % 07/18/17 21:30 Lymphocytes % (Manual) 5.0 % (13.4-35.0) L 07/18/17 21:30 Reactive Lymphs % (Man) 0 % 07/18/17 21:30 Monocytes % (Manual) 4.0 % (0.0-7.3) 07/18/17 21:30 Eosinophils % (Manual) 0 % (0.0-4.3) 07/18/17 21:30 Basophils % (Manual) 0 % (0.0-1.8) 07/18/17 21:30 Metamyelocytes % 0 % 07/18/17 21:30 Myelocytes % 1.0 % 07/18/17 21:30 Promyelocytes % 0 % 07/18/17 21:30 Blast Cells % 0 % 07/18/17 21:30 Nucleated RBC % Not Reportable 07/18/17 21:30 Seg Neutrophils # 16.4 K/mm3 (1.8-7.7) H 07/18/17 12:04 Seg Neutrophils # Man 19.4 K/mm3 (1.8-7.7) H 07/18/17 21:30 Band Neutrophils # 0.0 K/mm3 07/18/17 21:30 Lymphocytes # (Manual) 1.1 K/mm3 (1.2-5.4) L 07/18/17 21:30 Abs React Lymphs (Man) 0.0 K/mm3 07/18/17 21:30 Monocytes # (Manual) 0.9 K/mm3 (0.0-0.8) H 07/18/17 21:30 Eosinophils # (Manual) 0.0 K/mm3 (0.0-0.4) 07/18/17 21:30 Basophils # (Manual) 0.0 K/mm3 (0.0-0.1) 07/18/17 21:30 Metamyelocytes # 0.0 K/mm3 07/18/17 21:30 Myelocytes # 0.2 K/mm3 07/18/17 21:30 Promyelocytes # 0.0 K/mm3 07/18/17 21:30 Blast Cells # 0.0 K/mm3 07/18/17 21:30 WBC Morphology Not Reportable 07/18/17 21:30 Hypersegmented Neuts Not Reportable 07/18/17 21:30 Hyposegmented Neuts Not Reportable 07/18/17 21:30 Hypogranular Neuts Not Reportable 07/18/17 21:30 Smudge Cells Not Reportable 07/18/17 21:30 Toxic Granulation Not Reportable 07/18/17 21:30 Toxic Vacuolation Not Reportable 07/18/17 21:30 Dohle Bodies Not Reportable 07/18/17 21:30 Pelger-Huet Anomaly Not Reportable 07/18/17 21:30 Nanette Rods Not Reportable 07/18/17 21:30 Platelet Estimate Appears normal 07/18/17 21:30 Clumped Platelets Not Reportable 07/18/17 21:30 Plt Clumps, EDTA Not Reportable 07/18/17 21:30 Large Platelets Not Reportable 07/18/17 21:30 Giant Platelets Not Reportable 07/18/17 21:30 Platelet Satelliting Not Reportable 07/18/17 21:30 Plt Morphology Comment Not Reportable 07/18/17 21:30 RBC Morphology Not Reportable 07/18/17 21:30 Dimorphic RBCs Not Reportable 07/18/17 21:30 Polychromasia Not Reportable 07/18/17 21:30 Hypochromasia Not Reportable 07/18/17 21:30 Poikilocytosis Not Reportable 07/18/17 21:30 Anisocytosis 1+ 07/18/17 21:30 Microcytosis Not Reportable 07/18/17 21:30 Macrocytosis Not Reportable 07/18/17 21:30 Spherocytes Not Reportable 07/18/17 21:30 Pappenheimer Bodies Not Reportable 07/18/17 21:30 Sickle Cells Not Reportable 07/18/17 21:30 Target Cells Not Reportable 07/18/17 21:30 Tear Drop Cells Not Reportable 07/18/17 21:30 Ovalocytes Not Reportable 07/18/17 21:30 Helmet Cells Not Reportable 07/18/17 21:30 [place] Bodies Not Reportable 07/18/17 21:30 [place] Rings Not Reportable 07/18/17 21:30 Gina Cells Not Reportable 07/18/17 21:30 Bite Cells Not Reportable 07/18/17 21:30 Crenated Cell Not Reportable 07/18/17 21:30 Elliptocytes Not Reportable 07/18/17 21:30 Acanthocytes (Spur) Not Reportable 07/18/17 21:30 Rouleaux Not Reportable 07/18/17 21:30 Hemoglobin C Crystals Not Reportable 07/18/17 21:30 Schistocytes Not Reportable 07/18/17 21:30 Malaria parasites Not Reportable 07/18/17 21:30 Gabriel Bodies Not Reportable 07/18/17 21:30 Hem Pathologist Commnt No 07/18/17 21:30 PT 15.1 Sec. (12.2-14.9) H 07/18/17 10:11 INR 1.13 (0.87-1.13) 07/18/17 10:11 APTT 26.5 Sec. (24.2-36.6) 07/18/17 10:11 Sodium 163 mmol/L (137-145) H* 07/19/17 11:26 Potassium 4.7 mmol/L (3.6-5.0) 07/19/17 11:26 Chloride 116.7 mmol/L (98-107) H 07/19/17 11:26 Carbon Dioxide 22 mmol/L (22-30) 07/19/17 11:26 Anion Gap 27 mmol/L 07/19/17 11:26 BUN 67 mg/dL (9-20) H 07/19/17 11:26 Creatinine 1.8 mg/dL (0.8-1.5) H 07/19/17 11:26 Estimated GFR 50 ml/min 07/19/17 11:26 BUN/Creatinine Ratio 37 % 07/19/17 11:26 Glucose 197 mg/dL (75-100) H 07/19/17 11:26 POC Glucose 216 (70-105) H 07/19/17 12:53 Hemoglobin A1c 11.9 % (4-6) H 07/18/17 21:30 Ketones Quantitative Large (Negative) 07/18/17 10:29 Lactic Acid 5.10 mmol/L (0.7-2.0) H* 07/18/17 09:30 Calcium 10.4 mg/dL (8.4-10.2) H 07/19/17 11:26 Phosphorus 0.60 mg/dL (2.5-4.5) L* D 07/18/17 21:30 Magnesium 2.80 mg/dL (1.7-2.3) H 07/18/17 21:30 Total Bilirubin 0.40 mg/dL (0.1-1.2) 07/18/17 09:55 Direct Bilirubin 0.2 mg/dL (0-0.2) 07/18/17 09:55 Indirect Bilirubin 0.2 mg/dL 07/18/17 09:55 AST 8 units/L (5-40) 07/18/17 09:55 ALT 11 units/L (7-56) 07/18/17 09:55 Alkaline Phosphatase 137 units/L (35-129) H 07/18/17 09:55 Total Creatine Kinase 28 units/L (55-170) L 07/18/17 09:55 CK-MB (CK-2) 1.4 ng/mL (0.0-4.0) 07/18/17 09:55 CK-MB (CK-2) Rel Index 5.0 (0-4) H 07/18/17 09:55 NT-Pro-B Natriuret Pep 109.2 pg/mL (0-450) 07/18/17 09:55 Total Protein 9.1 g/dL (6.3-8.2) H 07/18/17 09:55 Albumin 4.5 g/dL (3.9-5) 07/18/17 09:55 Albumin/Globulin Ratio 1.0 % 07/18/17 09:55 TSH 0.899 mlU/mL (0.270-4.200) 07/18/17 09:55 Urine Color Yellow (Yellow) 07/18/17 10:40 Urine Turbidity Clear (Clear) 07/18/17 10:40 Urine pH 5.0 (5.0-7.0) 07/18/17 10:40 Ur Specific [place] 1.023 (1.003-1.030) 07/18/17 10:40 Urine Protein 30 mg/dl mg/dL (Negative) 07/18/17 10:40 Urine Glucose (UA) >=500 mg/dL (Negative) 07/18/17 10:40 Urine Ketones 80 mg/dL (Negative) 07/18/17 10:40 Urine Blood Neg (Negative) 07/18/17 10:40 Urine Nitrite Neg (Negative) 07/18/17 10:40 Urine Bilirubin Neg (Negative) 07/18/17 10:40 Urine Urobilinogen < 2.0 mg/dL (<2.0) 07/18/17 10:40 Ur Leukocyte Esterase Neg (Negative) 07/18/17 10:40 Urine WBC (Auto) < 1.0 /HPF (0.0-6.0) 07/18/17 10:40 Urine RBC (Auto) 1.0 /HPF (0.0-6.0) 07/18/17 10:40 Urine Opiates Screen Presumptive negative 07/18/17 10:40 Urine Methadone Screen Presumptive negative 07/18/17 10:40 Ur Barbiturates Screen Presumptive negative 07/18/17 10:40 Ur Phencyclidine Scrn Presumptive negative 07/18/17 10:40 Ur Amphetamines Screen Presumptive negative 07/18/17 10:40 U Benzodiazepines Scrn Presumptive negative 07/18/17 10:40 Urine Cocaine Screen Presumptive negative 07/18/17 10:40 U Marijuana (THC) Screen Presumptive negative 07/18/17 10:40 Drugs of Abuse Note Disclamer 07/18/17 10:40 Plasma/Serum Alcohol < 0.01 gm% (0-0.07) 07/18/17 09:55 Blood Type O POSITIVE 07/18/17 21:30 Antibody Screen Negative 07/18/17 21:30
--- NOTE | 2017-07-19 13:46 | Consultation ---
History of Present Illness Consult date: 07/19/17 Requesting physician: ANA MARIA ATWOOD Reason for consult: other (DKA) History of present illness: PULMONARY/CCM CONSULT NOTE (Full dictation # [id number]) Please see dictated notes for full details Past History Past Medical History: diabetes Social history: smoking (never smoked) Medications and Allergies Allergies Allergy/AdvReac Type Severity Reaction Status Date / Time aspirin Allergy Unknown Verified 05/29/16 22:00 Home Medications Medication Instructions Recorded Confirmed Last Taken Type Insulin NPH/Regular [NovoLIN 70/30] 36 unit SUB-Q BIDDIAB 30 Days 05/20/1707/18 Unknown Rx units Insulin Regular, Human [Novolin R] 3 units SC ACHS 30 Days vial 05/20/17 Unknown Rx Active Meds: Active Medications Dextrose (D50w (25gm) Syringe) 0 ml IV ONCE PRN PRN Reason: Hypoglycemia Dextrose (D50w (25gm) Syringe) 0 ml IV PRN PRN PRN Reason: Hypoglycemia Insulin Human Regular 100 (units/ Sodium Chloride) 100 mls @ 1 mls/hr IV TITR ROSSY; 1 UNITS/HR PRN Reason: Protocol Last Titration: 07/19/17 12:45 Dose: 10 units/hr, 10 mls/hr Dextrose (D5w) 1,000 mls @ 100 mls/hr IV DIRECT ROSSY Last Admin: 07/19/17 06:49 Dose: 100 mls/hr Insulin Human Regular 100 (units/ Sodium Chloride) 100 mls @ 1 mls/hr IV TITR ROSSY; 1 UNITS/HR PRN Reason: Protocol Influenza Virus Vaccine Quadrival (Fluarix Quad [id number](36 Mos+) 0.5 ml IM .ONCE ONE Stop: 07/20/17 12:01 Pneumococcal Polyvalent Vaccine (Pneumovax 23) 0.5 ml IM .ONCE ONE Stop: 07/20/17 12:01 Physical Examination Vital signs: Vital Signs Pulse Resp BP Pulse Ox 138 H 16 118/81 99 07/18/17 08:47 07/18/17 08:47 07/18/17 08:47 07/18/17 08:47 Results - Laboratory Findings CBC and BMP: 07/20/17 10:17 07/20/17 11:23 PT/INR, D-dimer PT 15.1 Sec. (12.2-14.9) H 07/18/17 10:11 INR 1.13 (0.87-1.13) 07/18/17 10:11 Abnormal lab findings: Abnormal Labs 07/18/17 07/18/17 07/18/17 09:03 09:30 09:45 WBC RBC Hgb Hct MCV MCHC Lymph % (Auto) [place] # Baso # Seg Neutrophils % Seg Neuts % (Manual) Lymphocytes % (Manual) Seg Neutrophils # Seg Neutrophils # Man Lymphocytes # (Manual) Monocytes # (Manual) PT Sodium 147 H Potassium 6.0 H Chloride 87.0 L Carbon Dioxide 5 L* BUN 69 H Creatinine 3.4 H Glucose 1009 H* POC Glucose > 500 H Hemoglobin A1c Lactic Acid 5.10 H* Calcium Phosphorus Magnesium Alkaline Phosphatase Total Creatine Kinase CK-MB (CK-2) Rel Index Total Protein 07/18/17 07/18/17 07/18/17 09:55 09:55 09:55 WBC RBC Hgb Hct MCV MCHC Lymph % (Auto) [place] # 1.2 H Baso # 0.2 H Seg Neutrophils % 83.3 H Seg Neuts % (Manual) Lymphocytes % (Manual) Seg Neutrophils # 14.6 H Seg Neutrophils # Man Lymphocytes # (Manual) Monocytes # (Manual) PT Sodium 147 H 146 H Potassium 5.8 H 5.8 H Chloride 86.9 L 86.0 L Carbon Dioxide 7 L* 5 L* BUN 66 H 65 H Creatinine 3.2 H 3.1 H Glucose 937 H* 963 H* POC Glucose Hemoglobin A1c Lactic Acid Calcium Phosphorus Magnesium Alkaline Phosphatase 137 H 137 H Total Creatine Kinase 28 L CK-MB (CK-2) Rel Index 5.0 H Total Protein 9.2 H 9.1 H 07/18/17 07/18/17 07/18/17 09:55 10:11 10:29 WBC RBC Hgb Hct MCV MCHC Lymph % (Auto) [place] # Baso # Seg Neutrophils % Seg Neuts % (Manual) Lymphocytes % (Manual) Seg Neutrophils # Seg Neutrophils # Man Lymphocytes # (Manual) Monocytes # (Manual) PT 15.1 H Sodium Potassium Chloride Carbon Dioxide BUN Creatinine Glucose POC Glucose Hemoglobin A1c Lactic Acid Calcium Phosphorus 7.90 H 8.30 H Magnesium 3.20 H 3.20 H Alkaline Phosphatase Total Creatine Kinase CK-MB (CK-2) Rel Index Total Protein 07/18/17 07/18/17 07/18/17 12:04 12:29 12:48 WBC 19.7 H RBC 5.57 H Hgb 15.9 H Hct 55.0 H MCV 99 H MCHC 29 L Lymph % (Auto) 9.4 L [place] # 1.2 H Baso # Seg Neutrophils % 83.5 H Seg Neuts % (Manual) Lymphocytes % (Manual) Seg Neutrophils # 16.4 H Seg Neutrophils # Man Lymphocytes # (Manual) Monocytes # (Manual) PT Sodium 155 H D Potassium Chloride Carbon Dioxide 8 L* BUN 66 H Creatinine 3.0 H Glucose 803 H* POC Glucose > 500 H Hemoglobin A1c Lactic Acid Calcium Phosphorus Magnesium Alkaline Phosphatase Total Creatine Kinase CK-MB (CK-2) Rel Index Total Protein 07/18/17 07/18/17 07/18/17 13:39 14:42 16:00 WBC RBC Hgb Hct MCV MCHC Lymph % (Auto) [place] # Baso # Seg Neutrophils % Seg Neuts % (Manual) Lymphocytes % (Manual) Seg Neutrophils # Seg Neutrophils # Man Lymphocytes # (Manual) Monocytes # (Manual) PT Sodium Potassium Chloride Carbon Dioxide BUN Creatinine Glucose POC Glucose > 500 H > 500 H 451 H Hemoglobin A1c Lactic Acid Calcium Phosphorus Magnesium Alkaline Phosphatase Total Creatine Kinase CK-MB (CK-2) Rel Index Total Protein 07/18/17 07/18/17 07/18/17 17:45 18:54 20:14 WBC RBC Hgb Hct MCV MCHC Lymph % (Auto) [place] # Baso # Seg Neutrophils % Seg Neuts % (Manual) Lymphocytes % (Manual) Seg Neutrophils # Seg Neutrophils # Man Lymphocytes # (Manual) Monocytes # (Manual) PT Sodium Potassium Chloride Carbon Dioxide BUN Creatinine Glucose POC Glucose 486 H 388 H 369 H Hemoglobin A1c Lactic Acid Calcium Phosphorus Magnesium Alkaline Phosphatase Total Creatine Kinase CK-MB (CK-2) Rel Index Total Protein 07/18/17 07/18/17 07/18/17 21:30 21:30 21:30 WBC 21.6 H RBC 5.60 H Hgb 16.0 H Hct 49.5 H MCV MCHC Lymph % (Auto) [place] # Baso # Seg Neutrophils % Seg Neuts % (Manual) 90.0 H Lymphocytes % (Manual) 5.0 L Seg Neutrophils # Seg Neutrophils # Man 19.4 H Lymphocytes # (Manual) 1.1 L Monocytes # (Manual) 0.9 H PT Sodium Potassium Chloride Carbon Dioxide BUN Creatinine Glucose POC Glucose Hemoglobin A1c 11.9 H Lactic Acid Calcium Phosphorus 0.60 L* D Magnesium 2.80 H Alkaline Phosphatase Total Creatine Kinase CK-MB (CK-2) Rel Index Total Protein 07/18/17 07/18/17 07/18/17 21:30 21:32 22:49 WBC RBC Hgb Hct MCV MCHC Lymph % (Auto) [place] # Baso # Seg Neutrophils % Seg Neuts % (Manual) Lymphocytes % (Manual) Seg Neutrophils # Seg Neutrophils # Man Lymphocytes # (Manual) Monocytes # (Manual) PT Sodium 159 H Potassium Chloride 110.8 H Carbon Dioxide 21 L D BUN 65 H Creatinine 2.4 H Glucose 355 H POC Glucose 288 H 258 H Hemoglobin A1c Lactic Acid Calcium Phosphorus Magnesium Alkaline Phosphatase Total Creatine Kinase CK-MB (CK-2) Rel Index Total Protein 07/18/17 07/19/17 07/19/17 23:00 00:08 01:00 WBC RBC Hgb Hct MCV MCHC Lymph % (Auto) [place] # Baso # Seg Neutrophils % Seg Neuts % (Manual) Lymphocytes % (Manual) Seg Neutrophils # Seg Neutrophils # Man Lymphocytes # (Manual) Monocytes # (Manual) PT Sodium 160 H 159 H Potassium Chloride 115.3 H 113.7 H Carbon Dioxide 20 L 20 L BUN 61 H 62 H Creatinine 2.3 H 2.2 H Glucose 309 H 292 H POC Glucose 231 H Hemoglobin A1c Lactic Acid Calcium Phosphorus Magnesium Alkaline Phosphatase Total Creatine Kinase CK-MB (CK-2) Rel Index Total Protein 07/19/17 07/19/17 07/19/17 01:02 01:17 02:52 WBC RBC Hgb Hct MCV MCHC Lymph % (Auto) [place] # Baso # Seg Neutrophils % Seg Neuts % (Manual) Lymphocytes % (Manual) Seg Neutrophils # Seg Neutrophils # Man Lymphocytes # (Manual) Monocytes # (Manual) PT Sodium Potassium Chloride Carbon Dioxide BUN Creatinine Glucose POC Glucose 236 H 210 H 203 H Hemoglobin A1c Lactic Acid Calcium Phosphorus Magnesium Alkaline Phosphatase Total Creatine Kinase CK-MB (CK-2) Rel Index Total Protein 07/19/17 07/19/17 07/19/17 03:46 04:54 06:23 WBC RBC Hgb Hct MCV MCHC Lymph % (Auto) [place] # Baso # Seg Neutrophils % Seg Neuts % (Manual) Lymphocytes % (Manual) Seg Neutrophils # Seg Neutrophils # Man Lymphocytes # (Manual) Monocytes # (Manual) PT Sodium Potassium Chloride Carbon Dioxide BUN Creatinine Glucose POC Glucose 188 H 155 H 149 H Hemoglobin A1c Lactic Acid Calcium Phosphorus Magnesium Alkaline Phosphatase Total Creatine Kinase CK-MB (CK-2) Rel Index Total Protein 07/19/17 07/19/17 07/19/17 07:30 08:28 09:39 WBC RBC Hgb Hct MCV MCHC Lymph % (Auto) [place] # Baso # Seg Neutrophils % Seg Neuts % (Manual) Lymphocytes % (Manual) Seg Neutrophils # Seg Neutrophils # Man Lymphocytes # (Manual) Monocytes # (Manual) PT Sodium Potassium Chloride Carbon Dioxide BUN Creatinine Glucose POC Glucose 175 H 179 H 206 H Hemoglobin A1c Lactic Acid Calcium Phosphorus Magnesium Alkaline Phosphatase Total Creatine Kinase CK-MB (CK-2) Rel Index Total Protein 07/19/17 07/19/17 07/19/17 10:38 11:26 11:50 WBC RBC Hgb Hct MCV MCHC Lymph % (Auto) [place] # Baso # Seg Neutrophils % Seg Neuts % (Manual) Lymphocytes % (Manual) Seg Neutrophils # Seg Neutrophils # Man Lymphocytes # (Manual) Monocytes # (Manual) PT Sodium 163 H* Potassium Chloride 116.7 H Carbon Dioxide BUN 67 H Creatinine 1.8 H Glucose 197 H POC Glucose 199 H 195 H Hemoglobin A1c Lactic Acid Calcium 10.4 H Phosphorus Magnesium Alkaline Phosphatase Total Creatine Kinase CK-MB (CK-2) Rel Index Total Protein 07/19/17 12:53 WBC RBC Hgb Hct MCV MCHC Lymph % (Auto) [place] # Baso # Seg Neutrophils % Seg Neuts % (Manual) Lymphocytes % (Manual) Seg Neutrophils # Seg Neutrophils # Man Lymphocytes # (Manual) Monocytes # (Manual) PT Sodium Potassium Chloride Carbon Dioxide BUN Creatinine Glucose POC Glucose 216 H Hemoglobin A1c Lactic Acid Calcium Phosphorus Magnesium Alkaline Phosphatase Total Creatine Kinase CK-MB (CK-2) Rel Index Total Protein
[2017-07-19 15:45] LABS: Calcium 10.4 mg/dL (8.4-10.2)
[2017-07-19 18:40] LABS: BUN/Creatinine Ratio 41; Blood Urea Nitrogen 61 mg/dL (9-20); Calcium 10.5 mg/dL (8.4-10.2); Hemolysis Index 184
[2017-07-19] MEDS ORDERED: KIONEX PO ONE (18:55)
[2017-07-19] MEDS ORDERED: VANCOMYCIN/NS 1 GM/250 ML 1 GM/250 ML BAG IV SCH (19:00)
[2017-07-19] MEDS ORDERED: VANCOMYCIN 1,500 MG in NACL 0.9% 500 ML 500 ML IV ONE (19:15)
[2017-07-19] MEDS: ZOSYN/NS 4.5GM/100ML 4.5 GM/100 ML VIAL IV SCH (22:25)
[2017-07-20] MEDS: D5W 1,000 ML IV SCH (02:20)
[2017-07-20] MEDS: ZOSYN/NS 4.5GM/100ML 4.5 GM/100 ML VIAL IV SCH ×3 (06:01→23:54)
[2017-07-20] MEDS: VANCOMYCIN/NS 1 GM/250 ML 1 GM/250 ML BAG IV SCH ×2 (07:21→22:00)
[2017-07-20 10:28] LABS: Basophils # (Auto) 0.1 K/mm3 (0.0-0.1); Basophils % (Auto) 0.5 % (0.0-1.8); Eosinophils % (Auto) 0.1 % (0.0-4.3); Hematocrit 41.9 % (35.5-45.6); Hemoglobin 13.4 gm/dl (11.8-15.2); Lymphocytes # (Auto) 2.7 K/mm3 (1.2-5.4); Lymphocytes % (Auto) 14.9 % (13.4-35.0); Mean Corpuscular HGB Conc 32 % (32-34); Mean Corpuscular Hemoglobin 28 pg (28-32); Mean Corpuscular Volume 88 fl (84-94); Monocytes # (Auto) 0.8 K/mm3 (0.0-0.8); Monocytes % (Auto) 4.4 % (0.0-7.3); Platelet Count 162 K/mm3 (140-440); Red Blood Count 4.77 M/mm3 (3.65-5.03); Red Cell Distribution Width 13.7 % (13.2-15.2)
--- NOTE | 2017-07-20 11:19 | Progress Note ---
Assessment and Plan Assessment and plan: DKA. Continue IV insulin drip and transition to long acting insulin when anion gap is closed. Toxic Metabolic encephalopathy. Resolving. Continue to treat DKA, sepsis and hypernatremia. Acute renal failure. Improving. Etiology secondary to vasomotor nephropathy from volume depletion/dehydration. Continued IV fluid hydration. Follow-up BMP. Hyperkalemia. Etiology secondary to renal failure and DKA. Continue to monitor BMP. Hypernatremia. Improving. Continue hypotonic IV fluids. Follow-up BMP. Sepsis. Present on admission. Continue IV antibiotics and follow blood and urine cultures. DVT prophylaxis. SCDs. History Interval history: Patient is less somnolent and confused. Hospitalist Physical - Constitutional Vitals: Temp Pulse Resp BP Pulse Ox 98.2 F 107 H 10 L 118/92 98 07/20/17 08:00 07/20/17 08:00 07/20/17 08:00 07/20/17 08:00 07/20/17 08:00 General appearance: Present: no acute distress, other (lethargic) - EENT Eyes: Present: PERRL, EOM intact ENT: hearing intact, clear oral mucosa, dentition normal - Neck Neck: Present: supple, normal ROM - Respiratory Respiratory effort: normal Respiratory: bilateral: CTA - Cardiovascular Rhythm: regular Heart Sounds: Present: S1 & S2. Absent: gallop, rub - Extremities Extremities: no ischemia, No edema, Full ROM - Abdominal General gastrointestinal: soft, non-tender, non-distended, normal bowel sounds - Integumentary Integumentary: Present: clear, warm, dry - Neurologic Neurologic: CNII-XII intact, moves all extremities Results - Labs CBC & Chem 7: 07/20/17 10:17 07/19/17 18:00 Labs: Laboratory Last Values WBC 18.3 K/mm3 (4.5-11.0) H 07/20/17 10:17 RBC 4.77 M/mm3 (3.65-5.03) 07/20/17 10:17 Hgb 13.4 gm/dl (11.8-15.2) 07/20/17 10:17 Hct 41.9 % (35.5-45.6) D 07/20/17 10:17 MCV 88 fl (84-94) 07/20/17 10:17 MCH 28 pg (28-32) 07/20/17 10:17 MCHC 32 % (32-34) 07/20/17 10:17 RDW 13.7 % (13.2-15.2) 07/20/17 10:17 Plt Count 162 K/mm3 (140-440) 07/20/17 10:17 Lymph % (Auto) 14.9 % (13.4-35.0) 07/20/17 10:17 [place] % (Auto) 4.4 % (0.0-7.3) 07/20/17 10:17 Eos % (Auto) 0.1 % (0.0-4.3) 07/20/17 10:17 Baso % (Auto) 0.5 % (0.0-1.8) 07/20/17 10:17 Lymph # 2.7 K/mm3 (1.2-5.4) 07/20/17 10:17 [place] # 0.8 K/mm3 (0.0-0.8) 07/20/17 10:17 Eos # 0.0 K/mm3 (0.0-0.4) 07/20/17 10:17 Baso # 0.1 K/mm3 (0.0-0.1) 07/20/17 10:17 Add Manual Diff Complete 07/18/17 21:30 Total Counted 100 07/18/17 21:30 Seg Neutrophils % 80.1 % (40.0-70.0) H 07/20/17 10:17 Seg Neuts % (Manual) 90.0 % (40.0-70.0) H 07/18/17 21:30 Band Neutrophils % 0 % 07/18/17 21:30 Lymphocytes % (Manual) 5.0 % (13.4-35.0) L 07/18/17 21:30 Reactive Lymphs % (Man) 0 % 07/18/17 21:30 Monocytes % (Manual) 4.0 % (0.0-7.3) 07/18/17 21:30 Eosinophils % (Manual) 0 % (0.0-4.3) 07/18/17 21:30 Basophils % (Manual) 0 % (0.0-1.8) 07/18/17 21:30 Metamyelocytes % 0 % 07/18/17 21:30 Myelocytes % 1.0 % 07/18/17 21:30 Promyelocytes % 0 % 07/18/17 21:30 Blast Cells % 0 % 07/18/17 21:30 Nucleated RBC % Not Reportable 07/18/17 21:30 Seg Neutrophils # 14.6 K/mm3 (1.8-7.7) H 07/20/17 10:17 Seg Neutrophils # Man 19.4 K/mm3 (1.8-7.7) H 07/18/17 21:30 Band Neutrophils # 0.0 K/mm3 07/18/17 21:30 Lymphocytes # (Manual) 1.1 K/mm3 (1.2-5.4) L 07/18/17 21:30 Abs React Lymphs (Man) 0.0 K/mm3 07/18/17 21:30 Monocytes # (Manual) 0.9 K/mm3 (0.0-0.8) H 07/18/17 21:30 Eosinophils # (Manual) 0.0 K/mm3 (0.0-0.4) 07/18/17 21:30 Basophils # (Manual) 0.0 K/mm3 (0.0-0.1) 07/18/17 21:30 Metamyelocytes # 0.0 K/mm3 07/18/17 21:30 Myelocytes # 0.2 K/mm3 07/18/17 21:30 Promyelocytes # 0.0 K/mm3 07/18/17 21:30 Blast Cells # 0.0 K/mm3 07/18/17 21:30 WBC Morphology Not Reportable 07/18/17 21:30 Hypersegmented Neuts Not Reportable 07/18/17 21:30 Hyposegmented Neuts Not Reportable 07/18/17 21:30 Hypogranular Neuts Not Reportable 07/18/17 21:30 Smudge Cells Not Reportable 07/18/17 21:30 Toxic Granulation Not Reportable 07/18/17 21:30 Toxic Vacuolation Not Reportable 07/18/17 21:30 Dohle Bodies Not Reportable 07/18/17 21:30 Pelger-Huet Anomaly Not Reportable 07/18/17 21:30 [place] Rods Not Reportable 07/18/17 21:30 Platelet Estimate Appears normal 07/18/17 21:30 Clumped Platelets Not Reportable 07/18/17 21:30 Plt Clumps, EDTA Not Reportable 07/18/17 21:30 Large Platelets Not Reportable 07/18/17 21:30 Giant Platelets Not Reportable 07/18/17 21:30 Platelet Satelliting Not Reportable 07/18/17 21:30 Plt Morphology Comment Not Reportable 07/18/17 21:30 RBC Morphology Not Reportable 07/18/17 21:30 Dimorphic RBCs Not Reportable 07/18/17 21:30 Polychromasia Not Reportable 07/18/17 21:30 Hypochromasia Not Reportable 07/18/17 21:30 Poikilocytosis Not Reportable 07/18/17 21:30 Anisocytosis 1+ 07/18/17 21:30 Microcytosis Not Reportable 07/18/17 21:30 Macrocytosis Not Reportable 07/18/17 21:30 Spherocytes Not Reportable 07/18/17 21:30 Pappenheimer Bodies Not Reportable 07/18/17 21:30 Sickle Cells Not Reportable 07/18/17 21:30 Target Cells Not Reportable 07/18/17 21:30 Tear Drop Cells Not Reportable 07/18/17 21:30 Ovalocytes Not Reportable 07/18/17 21:30 Helmet Cells Not Reportable 07/18/17 21:30 [place] Bodies Not Reportable 07/18/17 21:30 [place] Rings Not Reportable 07/18/17 21:30 [place] Cells Not Reportable 07/18/17 21:30 Bite Cells Not Reportable 07/18/17 21:30 Crenated Cell Not Reportable 07/18/17 21:30 Elliptocytes Not Reportable 07/18/17 21:30 Acanthocytes (Spur) Not Reportable 07/18/17 21:30 Rouleaux Not Reportable 07/18/17 21:30 Hemoglobin C Crystals Not Reportable 07/18/17 21:30 Schistocytes Not Reportable 07/18/17 21:30 Malaria parasites Not Reportable 07/18/17 21:30 Gabriel Bodies Not Reportable 07/18/17 21:30 Hem Pathologist Commnt No 07/18/17 21:30 PT 15.1 Sec. (12.2-14.9) H 07/18/17 10:11 INR 1.13 (0.87-1.13) 07/18/17 10:11 APTT 26.5 Sec. (24.2-36.6) 07/18/17 10:11 Sodium 155 mmol/L (137-145) H 07/19/17 18:00 Potassium 6.0 mmol/L (3.6-5.0) H 07/19/17 18:00 Chloride 116.1 mmol/L (98-107) H 07/19/17 18:00 Carbon Dioxide 19 mmol/L (22-30) L 07/19/17 18:00 Anion Gap 26 mmol/L 07/19/17 18:00 BUN 61 mg/dL (9-20) H 07/19/17 18:00 Creatinine 1.5 mg/dL (0.8-1.5) 07/19/17 18:00 Estimated GFR > 60 ml/min 07/19/17 18:00 BUN/Creatinine Ratio 41 % 07/19/17 18:00 Glucose 160 mg/dL (75-100) H 07/19/17 18:00 POC Glucose 121 (70-105) H 07/20/17 10:34 Hemoglobin A1c 11.9 % (4-6) H 07/18/17 21:30 Ketones Quantitative Large (Negative) 07/18/17 10:29 Lactic Acid 5.10 mmol/L (0.7-2.0) H* 07/18/17 09:30 Calcium 10.5 mg/dL (8.4-10.2) H 07/19/17 18:00 Phosphorus 0.60 mg/dL (2.5-4.5) L* D 07/18/17 21:30 Magnesium 2.80 mg/dL (1.7-2.3) H 07/18/17 21:30 Total Bilirubin 0.40 mg/dL (0.1-1.2) 07/18/17 09:55 Direct Bilirubin 0.2 mg/dL (0-0.2) 07/18/17 09:55 Indirect Bilirubin 0.2 mg/dL 07/18/17 09:55 AST 8 units/L (5-40) 07/18/17 09:55 ALT 11 units/L (7-56) 07/18/17 09:55 Alkaline Phosphatase 137 units/L (35-129) H 07/18/17 09:55 Total Creatine Kinase 28 units/L (55-170) L 07/18/17 09:55 CK-MB (CK-2) 1.4 ng/mL (0.0-4.0) 07/18/17 09:55 CK-MB (CK-2) Rel Index 5.0 (0-4) H 07/18/17 09:55 NT-Pro-B Natriuret Pep 109.2 pg/mL (0-450) 07/18/17 09:55 Total Protein 9.1 g/dL (6.3-8.2) H 07/18/17 09:55 Albumin 4.5 g/dL (3.9-5) 07/18/17 09:55 Albumin/Globulin Ratio 1.0 % 07/18/17 09:55 TSH 0.899 mlU/mL (0.270-4.200) 07/18/17 09:55 Urine Color Yellow (Yellow) 07/18/17 10:40 Urine Turbidity Clear (Clear) 07/18/17 10:40 Urine pH 5.0 (5.0-7.0) 07/18/17 10:40 Ur Specific [place] 1.023 (1.003-1.030) 07/18/17 10:40 Urine Protein 30 mg/dl mg/dL (Negative) 07/18/17 10:40 Urine Glucose (UA) >=500 mg/dL (Negative) 07/18/17 10:40 Urine Ketones 80 mg/dL (Negative) 07/18/17 10:40 Urine Blood Neg (Negative) 07/18/17 10:40 Urine Nitrite Neg (Negative) 07/18/17 10:40 Urine Bilirubin Neg (Negative) 07/18/17 10:40 Urine Urobilinogen < 2.0 mg/dL (<2.0) 07/18/17 10:40 Ur Leukocyte Esterase Neg (Negative) 07/18/17 10:40 Urine WBC (Auto) < 1.0 /HPF (0.0-6.0) 07/18/17 10:40 Urine RBC (Auto) 1.0 /HPF (0.0-6.0) 07/18/17 10:40 Urine Opiates Screen Presumptive negative 07/18/17 10:40 Urine Methadone Screen Presumptive negative 07/18/17 10:40 Ur Barbiturates Screen Presumptive negative 07/18/17 10:40 Ur Phencyclidine Scrn Presumptive negative 07/18/17 10:40 Ur Amphetamines Screen Presumptive negative 07/18/17 10:40 U Benzodiazepines Scrn Presumptive negative 07/18/17 10:40 Urine Cocaine Screen Presumptive negative 07/18/17 10:40 U Marijuana (THC) Screen Presumptive negative 07/18/17 10:40 Drugs of Abuse Note Disclamer 07/18/17 10:40 Plasma/Serum Alcohol < 0.01 gm% (0-0.07) 07/18/17 09:55 Blood Type O POSITIVE 07/18/17 21:30 Antibody Screen Negative 07/18/17 21:30
[2017-07-20] MEDS ORDERED: Fluarix Quad 2017-2018(36 MOS+ IM ONE (12:00)
[2017-07-20] MEDS ORDERED: PNEUMOVAX 23 IM ONE (12:00)
[2017-07-20 12:15] LABS: BUN/Creatinine Ratio TNR; Blood Urea Nitrogen TNR mg/dL (9-20); Calcium TNR mg/dL (8.4-10.2)
[2017-07-20 12:16] LABS: Hemolysis Index TNR
--- NOTE | 2017-07-20 14:15 | Event Note ---
Date: 07/20/17 Seen for DKA and now off IV insulin ytherapy Further management per attending ....will see prn
[2017-07-20] MEDS ORDERED: LOVENOX SUB-Q SCH (15:00)
[2017-07-20 15:30] LABS: BUN/Creatinine Ratio 35; Blood Urea Nitrogen 46 mg/dL (9-20); Calcium 9.4 mg/dL (8.4-10.2); Hemolysis Index 29
[2017-07-20] MEDS ORDERED: KCL 40 MEQ in D5W 1,000 ML IV SCH (17:30)
[2017-07-20] MEDS: LOVENOX SUB-Q SCH (18:27)
[2017-07-20] MEDS: PEPCID IV SCH (18:28)
[2017-07-20] MEDS ORDERED: ZOFRAN IV PRN (21:39)
[2017-07-20] MEDS ORDERED: LEVEMIR SUB-Q SCH (22:00)
[2017-07-20 22:11] LABS: Calcium 9.1 mg/dL (8.4-10.2)
--- NOTE | 2017-07-21 03:53 | Consultation ---
PULMONARY CRITICAL CARE CONSULTATION CONSULTING PHYSICIAN: I believe was Dr. Gregorio. REASON FOR CONSULTATION: Diabetic ketoacidosis, need for IV insulin therapy, and ICU admission. CHIEF COMPLAINT AND HISTORY OF PRESENT ILLNESS: The patient is a 42-year-old -[place] male known to me from past admissions really for the same complaint who came into the Emergency Room, brought in by his father. He stated that the patient has been homeless in the past. He states the patient has not been compliant with his insulin therapy. He was unable to care for himself at home. No report of vomiting or overt aspiration. However, on the day of presentation, he had what was believed to be some coffee-ground emesis. He was evaluated, essentially found to be in diabetic ketoacidosis and ICU admission was requested for IV insulin therapy. When I stopped by to see him, he was resting peacefully in bed in no significant distress. That really is much of the history of this presentation. PAST MEDICAL HISTORY: Diabetes. PAST SURGICAL HISTORY: Unknown. MEDICATIONS: He was on at the time I stopped by to see him included of IV insulin drip going at 3 units per hour, Zosyn 4.5 grams IV q.8 hours as well as vancomycin 1 gram IV q.12 hours. ALLERGIES: TO ASPIRIN. Nature of this allergy is unknown. DIET: Well-built gentleman, no significant weight loss or gain preceding few weeks to months. FAMILY AND SOCIAL HISTORY: Apparently lives in the community. Never smoker, alcohol, or illicit drug user or abuser. History is unknown. Family history otherwise unknown. REVIEW OF SYSTEMS: Unobtainable secondary to patient's medical and mental status. Since he has been here, no gross hematochezia or melena, no gross hematuria, no hematemesis, no bloody, no seizures. PHYSICAL EXAMINATION: VITAL SIGNS: On presentation in the Emergency Room, he was afebrile, temperature was 98.4 Fahrenheit with a pulse of 138, respiratory rate of 16, blood pressure 118/81, oxygen sats 99%, inspired oxygen concentration was not recorded. GENERAL: Well-built -[place]anese male, resting in bed, lethargic, no acute respiratory distress. HEENT: Normocephalic, atraumatic. No jugular venous distention, no thyromegaly. Oropharynx was dry. LUNGS: Auscultation of both lung [place] unremarkable. Lungs were clear bilaterally. HEART: Sounds 1 and 2 are heard, regular rate and rhythm. No rubs, no murmurs. ABDOMEN: Soft. Bowel sounds are positive. No significant tenderness. No palpable hepatosplenomegaly. EXTREMITIES: Without overt digital clubbing, no cyanosis, no pedal edema. Dorsalis pedis pulses were palpable bilaterally. SKIN: Normal turgor. No obvious cellulitis or rash. NEUROLOGIC: Pupils were equal, round, reactive to light. Extraocular muscle movements appeared intact. He moved all 4 extremities spontaneously. LABORATORY DATA: From my review were as follows: Admission white count showed a white count of 19,700, hemoglobin 15.9, hematocrit 55.0, platelet count was 411. No band forms were reported. INR was 1.13. Admission sodium 146, potassium 6.0, chloride 87, bicarb was 5, BUN was 69, creatinine was 3.4, glucose was 1009. Lactic acid was elevated at 5.1. Cardiac enzymes essentially within normal limits. I did not see a troponin there though. Again, liver function tests essentially within normal limits. Urinalysis significant only for spilling glucose and urine ketones, otherwise unremarkable. Urine drug screen was negative. Blood alcohol level was negative. Blood cultures, no growth to date. Chest x-ray was done. I have reviewed the chest x-ray, essentially a normal chest x-ray for his age. ASSESSMENT AND PLAN: 1. Diabetic ketoacidosis. 2. Poorly controlled diabetes. 3. Leukocytosis. 4. Medication noncompliance. PLAN: Continue IV insulin therapy per ____ protocol. Continue empiric antibiotics as ordered, deescalate based on results of clinical and biologic data. I will go ahead and order a troponin level. We will trend his lactic acid level to ensure that it does improve. A CRP level will be ordered to better understand the true infective potential of the leukocytosis. He will be placed on GI and DVT prophylaxis. Flu and pneumonia vaccination will be per protocol. Thank you very much for the consult. We will admit him to the Intensive Care Unit while he is on IV insulin therapy and hopefully he does turn around without major complications. JOB# [id number] UMESH/STEFAN
[2017-07-21 06:19] LABS: BUN/Creatinine Ratio 34; Blood Urea Nitrogen 47 mg/dL (9-20); Calcium 9.1 mg/dL (8.4-10.2); Hemolysis Index 11
[2017-07-21] MEDS: ZOSYN/NS 4.5GM/100ML 4.5 GM/100 ML VIAL IV SCH (07:00)
[2017-07-21] MEDS: VANCOMYCIN/NS 1 GM/250 ML 1 GM/250 ML BAG IV SCH (09:24)
[2017-07-21] MEDS: PEPCID IV SCH ×2 (10:16→10:22)
--- NOTE | 2017-07-21 11:16 | Progress Note ---
Assessment and Plan Assessment and plan: Diabetes mellitus type 2, uncontrolled. DKA, resolved. IV insulin drip has been discontinued. Patient has been transitioned to long acting insulin Levemir 30 units at bedtime. Blood glucose still remains uncontrolled and 400s. Patient reports that he takes 30 units of 70/30 twice a day at home when he is compliant. Therefore, we will change to this regimen. We will also discontinue D5W IV fluid. Continue sliding scale and Accu-Cheks. Toxic Metabolic encephalopathy. Resolving. Continue to treat DKA, sepsis and hypernatremia. Acute renal failure. Improving. Etiology secondary to vasomotor nephropathy from volume depletion/dehydration. Continued IV fluid hydration. Follow-up BMP. Hypokalemia. Replete potassium. Hypernatremia. Improving. Continue hypotonic IV fluids. Follow-up BMP. Sepsis. Present on admission. Continue IV antibiotics and follow blood and urine cultures. DVT prophylaxis. SCDs. History Interval history: Patient is less somnolent and confused. Hospitalist Physical - Constitutional Vitals: Temp Pulse Resp BP Pulse Ox 98.2 F 64 11 L 103/55 97 07/20/17 08:00 07/21/17 07:00 07/21/17 07:00 07/21/17 07:00 07/21/17 07:00 General appearance: Present: no acute distress, other (lethargic) - EENT Eyes: Present: PERRL, EOM intact ENT: hearing intact, clear oral mucosa, dentition normal - Neck Neck: Present: supple, normal ROM - Respiratory Respiratory effort: normal Respiratory: bilateral: CTA - Cardiovascular Rhythm: regular Heart Sounds: Present: S1 & S2. Absent: gallop, rub - Extremities Extremities: no ischemia, No edema, Full ROM - Abdominal General gastrointestinal: soft, non-tender, non-distended, normal bowel sounds - Integumentary Integumentary: Present: clear, warm, dry - Neurologic Neurologic: CNII-XII intact, moves all extremities Results - Labs CBC & Chem 7: 07/20/17 10:17 07/21/17 05:35 Labs: Laboratory Last Values WBC 18.3 K/mm3 (4.5-11.0) H 07/20/17 10:17 RBC 4.77 M/mm3 (3.65-5.03) 07/20/17 10:17 Hgb 13.4 gm/dl (11.8-15.2) 07/20/17 10:17 Hct 41.9 % (35.5-45.6) D 07/20/17 10:17 MCV 88 fl (84-94) 07/20/17 10:17 MCH 28 pg (28-32) 07/20/17 10:17 MCHC 32 % (32-34) 07/20/17 10:17 RDW 13.7 % (13.2-15.2) 07/20/17 10:17 Plt Count 162 K/mm3 (140-440) 07/20/17 10:17 Lymph % (Auto) 14.9 % (13.4-35.0) 07/20/17 10:17 [place] % (Auto) 4.4 % (0.0-7.3) 07/20/17 10:17 Eos % (Auto) 0.1 % (0.0-4.3) 07/20/17 10:17 Baso % (Auto) 0.5 % (0.0-1.8) 07/20/17 10:17 Lymph # 2.7 K/mm3 (1.2-5.4) 07/20/17 10:17 [place] # 0.8 K/mm3 (0.0-0.8) 07/20/17 10:17 Eos # 0.0 K/mm3 (0.0-0.4) 07/20/17 10:17 Baso # 0.1 K/mm3 (0.0-0.1) 07/20/17 10:17 Add Manual Diff Complete 07/18/17 21:30 Total Counted 100 07/18/17 21:30 Seg Neutrophils % 80.1 % (40.0-70.0) H 07/20/17 10:17 Seg Neuts % (Manual) 90.0 % (40.0-70.0) H 07/18/17 21:30 Band Neutrophils % 0 % 07/18/17 21:30 Lymphocytes % (Manual) 5.0 % (13.4-35.0) L 07/18/17 21:30 Reactive Lymphs % (Man) 0 % 07/18/17 21:30 Monocytes % (Manual) 4.0 % (0.0-7.3) 07/18/17 21:30 Eosinophils % (Manual) 0 % (0.0-4.3) 07/18/17 21:30 Basophils % (Manual) 0 % (0.0-1.8) 07/18/17 21:30 Metamyelocytes % 0 % 07/18/17 21:30 Myelocytes % 1.0 % 07/18/17 21:30 Promyelocytes % 0 % 07/18/17 21:30 Blast Cells % 0 % 07/18/17 21:30 Nucleated RBC % Not Reportable 07/18/17 21:30 Seg Neutrophils # 14.6 K/mm3 (1.8-7.7) H 07/20/17 10:17 Seg Neutrophils # Man 19.4 K/mm3 (1.8-7.7) H 07/18/17 21:30 Band Neutrophils # 0.0 K/mm3 07/18/17 21:30 Lymphocytes # (Manual) 1.1 K/mm3 (1.2-5.4) L 07/18/17 21:30 Abs React Lymphs (Man) 0.0 K/mm3 07/18/17 21:30 Monocytes # (Manual) 0.9 K/mm3 (0.0-0.8) H 07/18/17 21:30 Eosinophils # (Manual) 0.0 K/mm3 (0.0-0.4) 07/18/17 21:30 Basophils # (Manual) 0.0 K/mm3 (0.0-0.1) 07/18/17 21:30 Metamyelocytes # 0.0 K/mm3 07/18/17 21:30 Myelocytes # 0.2 K/mm3 07/18/17 21:30 Promyelocytes # 0.0 K/mm3 07/18/17 21:30 Blast Cells # 0.0 K/mm3 07/18/17 21:30 WBC Morphology Not Reportable 07/18/17 21:30 Hypersegmented Neuts Not Reportable 07/18/17 21:30 Hyposegmented Neuts Not Reportable 07/18/17 21:30 Hypogranular Neuts Not Reportable 07/18/17 21:30 Smudge Cells Not Reportable 07/18/17 21:30 Toxic Granulation Not Reportable 07/18/17 21:30 Toxic Vacuolation Not Reportable 07/18/17 21:30 Dohle Bodies Not Reportable 07/18/17 21:30 Pelger-Huet Anomaly Not Reportable 07/18/17 21:30 Nanette Rods Not Reportable 07/18/17 21:30 Platelet Estimate Appears normal 07/18/17 21:30 Clumped Platelets Not Reportable 07/18/17 21:30 Plt Clumps, EDTA Not Reportable 07/18/17 21:30 Large Platelets Not Reportable 07/18/17 21:30 Giant Platelets Not Reportable 07/18/17 21:30 Platelet Satelliting Not Reportable 07/18/17 21:30 Plt Morphology Comment Not Reportable 07/18/17 21:30 RBC Morphology Not Reportable 07/18/17 21:30 Dimorphic RBCs Not Reportable 07/18/17 21:30 Polychromasia Not Reportable 07/18/17 21:30 Hypochromasia Not Reportable 07/18/17 21:30 Poikilocytosis Not Reportable 07/18/17 21:30 Anisocytosis 1+ 07/18/17 21:30 Microcytosis Not Reportable 07/18/17 21:30 Macrocytosis Not Reportable 07/18/17 21:30 Spherocytes Not Reportable 07/18/17 21:30 Pappenheimer Bodies Not Reportable 07/18/17 21:30 Sickle Cells Not Reportable 07/18/17 21:30 Target Cells Not Reportable 07/18/17 21:30 Tear Drop Cells Not Reportable 07/18/17 21:30 Ovalocytes Not Reportable 07/18/17 21:30 Helmet Cells Not Reportable 07/18/17 21:30 [place] Bodies Not Reportable 07/18/17 21:30 [place] Rings Not Reportable 07/18/17 21:30 [place] Cells Not Reportable 07/18/17 21:30 Bite Cells Not Reportable 07/18/17 21:30 Crenated Cell Not Reportable 07/18/17 21:30 Elliptocytes Not Reportable 07/18/17 21:30 Acanthocytes (Spur) Not Reportable 07/18/17 21:30 Rouleaux Not Reportable 07/18/17 21:30 Hemoglobin C Crystals Not Reportable 07/18/17 21:30 Schistocytes Not Reportable 07/18/17 21:30 Malaria parasites Not Reportable 07/18/17 21:30 Gabriel Bodies Not Reportable 07/18/17 21:30 Hem Pathologist Commnt No 07/18/17 21:30 PT 15.1 Sec. (12.2-14.9) H 07/18/17 10:11 INR 1.13 (0.87-1.13) 07/18/17 10:11 APTT 26.5 Sec. (24.2-36.6) 07/18/17 10:11 Sodium 154 mmol/L (137-145) H 07/21/17 05:35 Potassium 3.1 mmol/L (3.6-5.0) L 07/21/17 05:35 Chloride 112.0 mmol/L (98-107) H 07/21/17 05:35 Carbon Dioxide 27 mmol/L (22-30) D 07/21/17 05:35 Anion Gap 18 mmol/L 07/21/17 05:35 BUN 47 mg/dL (9-20) H 07/21/17 05:35 Creatinine 1.4 mg/dL (0.8-1.5) 07/21/17 05:35 Estimated GFR > 60 ml/min 07/21/17 05:35 BUN/Creatinine Ratio 34 % 07/21/17 05:35 Glucose 466 mg/dL (75-100) H 07/21/17 05:35 POC Glucose 401 (70-105) H 07/21/17 09:20 Hemoglobin A1c 11.9 % (4-6) H 07/18/17 21:30 Ketones Quantitative Large (Negative) 07/18/17 10:29 Lactic Acid 2.80 mmol/L (0.7-2.0) H* 07/20/17 14:40 Calcium 9.1 mg/dL (8.4-10.2) 07/21/17 05:35 Phosphorus 0.60 mg/dL (2.5-4.5) L* D 07/18/17 21:30 Magnesium 2.80 mg/dL (1.7-2.3) H 07/18/17 21:30 Total Bilirubin 0.40 mg/dL (0.1-1.2) 07/18/17 09:55 Direct Bilirubin 0.2 mg/dL (0-0.2) 07/18/17 09:55 Indirect Bilirubin 0.2 mg/dL 07/18/17 09:55 AST 8 units/L (5-40) 07/18/17 09:55 ALT 11 units/L (7-56) 07/18/17 09:55 Alkaline Phosphatase 137 units/L (35-129) H 07/18/17 09:55 Total Creatine Kinase 28 units/L (55-170) L 07/18/17 09:55 CK-MB (CK-2) 1.4 ng/mL (0.0-4.0) 07/18/17 09:55 CK-MB (CK-2) Rel Index 5.0 (0-4) H 07/18/17 09:55 Troponin T < 0.010 ng/mL (0.00-0.029) 07/20/17 14:40 C-Reactive Protein 0.60 mg/dL (0.00-1.30) 07/20/17 14:40 NT-Pro-B Natriuret Pep 109.2 pg/mL (0-450) 07/18/17 09:55 Total Protein 9.1 g/dL (6.3-8.2) H 07/18/17 09:55 Albumin 4.5 g/dL (3.9-5) 07/18/17 09:55 Albumin/Globulin Ratio 1.0 % 07/18/17 09:55 TSH 0.899 mlU/mL (0.270-4.200) 07/18/17 09:55 Urine Color Yellow (Yellow) 07/18/17 10:40 Urine Turbidity Clear (Clear) 07/18/17 10:40 Urine pH 5.0 (5.0-7.0) 07/18/17 10:40 Ur Specific [place] 1.023 (1.003-1.030) 07/18/17 10:40 Urine Protein 30 mg/dl mg/dL (Negative) 07/18/17 10:40 Urine Glucose (UA) >=500 mg/dL (Negative) 07/18/17 10:40 Urine Ketones 80 mg/dL (Negative) 07/18/17 10:40 Urine Blood Neg (Negative) 07/18/17 10:40 Urine Nitrite Neg (Negative) 07/18/17 10:40 Urine Bilirubin Neg (Negative) 07/18/17 10:40 Urine Urobilinogen < 2.0 mg/dL (<2.0) 07/18/17 10:40 Ur Leukocyte Esterase Neg (Negative) 07/18/17 10:40 Urine WBC (Auto) < 1.0 /HPF (0.0-6.0) 07/18/17 10:40 Urine RBC (Auto) 1.0 /HPF (0.0-6.0) 07/18/17 10:40 Urine Opiates Screen Presumptive negative 07/18/17 10:40 Urine Methadone Screen Presumptive negative 07/18/17 10:40 Ur Barbiturates Screen Presumptive negative 07/18/17 10:40 Ur Phencyclidine Scrn Presumptive negative 07/18/17 10:40 Ur Amphetamines Screen Presumptive negative 07/18/17 10:40 U Benzodiazepines Scrn Presumptive negative 07/18/17 10:40 Urine Cocaine Screen Presumptive negative 07/18/17 10:40 U Marijuana (THC) Screen Presumptive negative 07/18/17 10:40 Drugs of Abuse Note Disclamer 07/18/17 10:40 Plasma/Serum Alcohol < 0.01 gm% (0-0.07) 07/18/17 09:55 Blood Type O POSITIVE 07/18/17 21:30 Antibody Screen Negative 07/18/17 21:30
[2017-07-21] MEDS: LEVAQUIN PO SCH (12:17)
[2017-07-21] MEDS: KCL 40 MEQ in NACL 0.45% 1000 ML 1,000 ML IV SCH (14:00)
[2017-07-21] MEDS: LOVENOX SUB-Q SCH (14:08)
[2017-07-22] MEDS: KCL 40 MEQ in NACL 0.45% 1000 ML 1,000 ML IV SCH (05:56)
--- NOTE | 2017-07-22 08:23 | Discharge Summary ---
Providers - Providers Date of Admission: 07/18/17 11:56 Date of discharge: 07/22/17 Attending physician: DIANA PALACIOS 07/18/17 09:42 Consult to Case Management [CONS] Routine Services Needed at Discharge: Other Notified:: yes Was contact made?: Yes 07/18/17 13:55 Consult to Physician [CONS] Urgent Consulting Provider: MAGED MICHAEL Reason For Exam: DKA Place consult to:: [facility] Notified:: yes 07/18/17 16:52 Consult to Dietitian/Nutrition [CONS] Routine Physician Instructions: Reason For Exam: DKA Reason for Consult: Nutrition Recommendations Reason for Consult: Diet education 07/21/17 10:09 Consult to Wound/ET Nurse [CONS] Routine Reason For Exam: wound eval; sacrum Primary care physician: [employer] Hospitalization Reason for admission: dka Condition: Stable Hospital course: The patient presented to the emergency department largely unable to provide any historical information and accompanied by his father. Apparently his father has been through this process with him more than once prior. He stated that the patient has been homeless in the past but the father denies any history of substance abuse of the patient. He stated that his son is "just stubborn". He believes his son needs some sort of counseling for his noncompliance with his insulin. Apparently he has again been noncompliant. He began to be unable to care for himself , the day prior to admission so the father called EMS. However , when EMS arrived the father states the patient refused transport. He explained the patient was oriented and that's why the medics did not transport him. On admission, he was essentially altered and disoriented. The patient was admitted with a diagnosis of DKA, acute renal failure, hypernatremia, toxic metabolic encephalopathy and sepsis. The patient received IV fluid hydration, IV insulin and IV antibiotics. The acute renal failure was felt to be secondary to acute kidney injury/vasomotor nephropathy from volume depletion. The patient's urine culture and blood culture were found to be negative. The DKA, resolved and patient was transitioned to his long-acting insulin regimen of 70/30 30 units twice a day. The patient's blood sugars stabilize and mental status improved. The patient was felt to have received maximal hospital benefit. Dedicated discharge time 33 minutes. Disposition: DC- TO HOME OR SELFCARE Time spent for discharge: 33 - Discharge Diagnoses (1) Acute renal failure Status: Acute Qualifiers: Qualified Code(s): N17.9 - Acute kidney failure, unspecified (2) Altered mental status Status: Acute Qualifiers: Qualified Code(s): R41.82 - Altered mental status, unspecified (3) DKA, type 1 Status: Acute Qualifiers: Qualified Code(s): E10.10 - Type 1 diabetes mellitus with ketoacidosis without coma (4) Metabolic encephalopathy Status: Acute (5) Acute hypernatremia Status: Acute (6) Hypernatremia Status: Acute (7) Sepsis Status: Acute Qualifiers: Qualified Code(s): A41.9 - Sepsis, unspecified organism Core Measure Documentation - Palliative Care Palliative Care/ Comfort Measures: Not Applicable - Core Measures Any of the following diagnoses?: none Exam - Constitutional Vitals: Temp Pulse Resp BP Pulse Ox 99.0 F 79 18 104/63 95 07/21/17 21:47 07/21/17 21:47 07/21/17 22:00 07/21/17 21:47 07/21/17 21:47 General appearance: Present: no acute distress, well-nourished - EENT Eyes: Present: PERRL ENT: hearing intact, clear oral mucosa - Neck Neck: Present: supple, normal ROM - Respiratory Respiratory effort: normal Respiratory: bilateral: CTA - Cardiovascular Heart Sounds: Present: S1 & S2. Absent: rub, click - Extremities Extremities: pulses symmetrical, No edema Peripheral Pulses: within normal limits - Abdominal General gastrointestinal: Present: soft, non-tender, non-distended, normal bowel sounds Male genitourinary: Present: normal - Integumentary Integumentary: Present: clear, warm, dry - Musculoskeletal Musculoskeletal: gait normal, strength equal bilaterally - Psychiatric Psychiatric: appropriate mood/affect, intact judgment & insight - Neurologic Neurologic: CNII-XII intact, moves all extremities Plan Activity: no restrictions Weight Bearing Status: Full Weight Bearing Diet: diabetic Follow up with: PRIMARY CARE, [Primary Care Provider] - 3-5 Days Prescriptions: Insulin NPH/Regular [NovoLIN 70/30] 36 unit SUB-Q BIDDIAB 30 Days units Insulin Regular, Human [Novolin R] 3 units SC ACHS 30 Days vial Levofloxacin [Levaquin TAB] 500 mg PO Q24HR #7 tablet
[2017-07-22 08:25] LABS: Basophils % (Auto) 0.5 % (0.0-1.8); Eosinophils # (Auto) 0.1 K/mm3 (0.0-0.4); Eosinophils % (Auto) 0.9 % (0.0-4.3); Hematocrit 31.2 % (35.5-45.6); Hemoglobin 10.2 gm/dl (11.8-15.2); Lymphocytes # (Auto) 1.9 K/mm3 (1.2-5.4); Lymphocytes % (Auto) 29.8 % (13.4-35.0); Mean Corpuscular HGB Conc 33 % (32-34); Mean Corpuscular Hemoglobin 29 pg (28-32); Mean Corpuscular Volume 90 fl (84-94); Monocytes # (Auto) 0.4 K/mm3 (0.0-0.8); Monocytes % (Auto) 5.8 % (0.0-7.3); Platelet Count 91 K/mm3 (140-440); Red Blood Count 3.47 M/mm3 (3.65-5.03); Red Cell Distribution Width 13.4 % (13.2-15.2)
[2017-07-22 08:40] LABS: BUN/Creatinine Ratio 36; Blood Urea Nitrogen 29 mg/dL (9-20); Calcium 8.6 mg/dL (8.4-10.2); Hemolysis Index 5
[2017-07-22] MEDS: LEVAQUIN PO SCH (09:31)
[2017-07-22] MEDS ORDERED: PEPCID PO SCH (10:00)
[2017-07-22] MEDS ORDERED: K-DUR PO ONE ×2 (11:00→17:15)
[2017-07-22 15:41] LABS: BUN/Creatinine Ratio 27; Blood Urea Nitrogen 27 mg/dL (9-20); Calcium 8.6 mg/dL (8.4-10.2); Hemolysis Index 30
[2017-07-22 17:05] VITALS: BP 103/61
[2017-07-22] MEDS: LOVENOX SUB-Q SCH (17:25)
== END 2017-07-22 20:48 | disposition home or self-care (01) | DRG 871 ==
LOC: ED 08:26 → CC1 11:56 → 3A 07-21 10:05
PROVIDERS: ADMIT Internal Medicine; ATTEND Hospitalist
PROC: 3E0234Z Introduction of Serum, Toxoid and Vaccine into Muscle, Percutaneous Approach (ICD-10-PCS; principal; 2017-07-20)
DX: A41.9 Sepsis, unspecified organism (principal); G92 Toxic encephalopathy; N17.0 Acute kidney failure with tubular necrosis; E10.10 Type 1 diabetes mellitus with ketoacidosis without coma; K92.2 Gastrointestinal hemorrhage, unspecified; E87.0 Hyperosmolality and hypernatremia; R65.10 Systemic inflammatory response syndrome (SIRS) of non-infectious origin without acute organ dysfunction; Z88.6 Allergy status to analgesic agent; Z59.0 Homelessness; E87.5 Hyperkalemia; E86.0 Dehydration; Z23 Encounter for immunization
CPT/HCPCS: 36415; 71045; 80048; 80053; 80074; 80307; 80320; 81001; 82010; 82140; 82550; 82553; 82962; 83036; 83735; 83880; 84100; 84443; 84484; 85007; 85025; 85610; 85730; 86140; 86850; 86900; 86901; 87040; 87086; 90686; 90732; 93005; 93010; C9113; G0480; J0696; J1630; J1815; J1818; J2060; J2543; J3370; J3480; J7030; J7040; J7070